=== PATIENT | male | born 1940 | race Caucasian/White ===

== ENCOUNTER → 2017-06-10 13:08 | Outpatient (CLI) | payer MEDICARE, SELFPAY ==
--- NOTE | 2017-06-10 14:03 | RAD_ITS ---
STUDY: X-RAY - LUMBAR SPINE REASON FOR EXAM: Male, 77 years old. Low back pain TECHNIQUE: 2 view(s) of the lumbar spine were obtained. COMPARISON: None FINDINGS: Normal lumbar lordosis. There is no substantial scoliosis. There is a normal alignment of the vertebrae. There is multilevel endplate spondylosis of the lumbar vertebrae. There is multi-level degenerative disc disease with multi-level disc space narrowing. There is no demonstrated fracture. There is atherosclerotic calcification of the abdominal aorta without a demonstrated aneurysm. RAD/Lumbar Spine 2 or 3 Views IMPRESSION: Degenerative changes of the spine, as detailed above. Electronically Signed: Sly Ortiz DO at 13:34 EDT Tel , Service support ,
== END ==
PROVIDERS: Family Provider Family Medicine Geriatric Medicine; PCP Family Medicine Geriatric Medicine; Visit Provider Family Medicine Geriatric Medicine
DX: M54.5 Low back pain (principal)
CPT/HCPCS: 72100

== ENCOUNTER → 2017-06-10 13:26 | Outpatient (CLI) | payer MEDICARE, SELFPAY ==
[2017-06-10 16:24] LABS: Absolute Lymphocyte Count 1.81 X10^3/ul (0.83-4.51); Absolute Neutrophil Count 3.8 X10^3/uL (2.0-7.7); Basophil# 0.03 X10^3/uL; Basophil% 0.5 % (0-1); Eosinophils% 1.5 % (0-5); Hematocrit 47.4 % (40-54); Hemoglobin 15.2 g/dl (13.0-16.5); Lymphocyte # 1.81 X10^3/ul (4.0); Mean Corp Hgb Conc 32.1 g/gl (32-36); Mean Corpuscular Hgb 31.2 pg (27.0-32.0); Mean Corpuscular Volume 97.3 fL (80-94); Mean Platelet Vol. 11.3 fl (6.2-12.0); Monocyte% 10.8 % (0-10); Neutrophil # 3.81 X10^3/uL (2.7-7.7); Platelet Count 198 K/mm3 (150-450); RBC Distribution Width CV 13.3 % (11.6-14.6); RBC Distribution Width SD 47.1 fl (35.1-43.9); Red Blood Count 4.87 M/mm3 (4.6-6.2); White Blood Count 6.5 K/mm3 (4.4-11.0)
[2017-06-10 16:25] LABS: POSITIVE COUNT NO; POSITIVE DIFFERENTIAL NO; POSITIVE MORPHOLOGY NO
[2017-06-10 16:42] LABS: ALB/GLOB Ratio 1.1 RATIO (0.9-2.4); AST(SGOT) 30 U/L (15-37); Alanine Aminotransfer ALT/SGPT 46 U/L (16-61); Albumin, Serum 3.6 g/dL (3.2-5.0); Alkaline Phosphatase 58 U/L (45-117); Anion Gap 8 (5-15); BUN 17 mg/dL (7-18); BUN/Creat Ratio 12.3 RATIO (10-20); Chloride 105 mmol/L (98-107); Creatinine, Serum 1.38 mg/dL (0.70-1.30); EST Glomerular Filtration Rate 53 mL/min (>60); Est Glom Filt Rate - Afr Amer 64 mL/min (>60); Globulin 3.4 g/dL (2.2-4.2); Glucose 80 mg/dL (74-106); Potassium 4.7 mmol/L (3.5-5.1); Sodium Level 142 mmol/L (136-145); Thyroid Stim Hormone (TSH) 1.21 uIU/mL (0.358-3.74)
== END ==
PROVIDERS: Family Provider Family Medicine Geriatric Medicine; PCP Family Medicine Geriatric Medicine; Visit Provider Family Medicine Geriatric Medicine
DX: E11.9 Type 2 diabetes mellitus without complications (principal); E55.9 Vitamin D deficiency, unspecified; I10 Essential (primary) hypertension
CPT/HCPCS: 36415; 72100; 80053; 82306; 84443; 85025

== ENCOUNTER → 2017-12-15 13:12 | Outpatient (CLI) | payer MEDICARE, SELFPAY ==
[2017-12-15 15:05] LABS: Absolute Neutrophil Count 3.9 X10^3/uL (2.0-7.7); Basophil# 0.03 X10^3/uL; Basophil% 0.4 % (0-1); Eosinophil# 0.15 X10^3/uL; Eosinophils% 2.2 % (0-5); Hematocrit 46.3 % (40-54); Hemoglobin 14.5 g/dl (13.0-16.5); Mean Corp Hgb Conc 31.3 g/gl (32-36); Mean Corpuscular Volume 98.9 fL (80-94); Mean Platelet Vol. 11.2 fl (6.2-12.0); Monocyte# 0.83 X10^3/uL; Monocyte% 12.2 % (0-10); Neutrophil # 3.86 X10^3/uL (2.7-7.7); Neutrophil % 57.1 % (47-70); POSITIVE COUNT NO; POSITIVE DIFFERENTIAL NO; POSITIVE MORPHOLOGY NO; Platelet Count 190 K/mm3 (150-450); RBC Distribution Width CV 13.3 % (11.6-14.6); RBC Distribution Width SD 48.1 fl (35.1-43.9); Red Blood Count 4.68 M/mm3 (4.6-6.2); White Blood Count 6.8 K/mm3 (4.4-11.0)
[2017-12-15 15:20] LABS: Vitamin D,25 Hydroxy 34.7 ng/mL (29.95-100.01)
[2017-12-15 15:23] LABS: ALB/GLOB Ratio 1.1 RATIO (0.9-2.4); AST(SGOT) 18 U/L (15-37); Alanine Aminotransfer ALT/SGPT 26 U/L (16-61); Albumin, Serum 3.4 g/dL (3.2-5.0); Alkaline Phosphatase 51 U/L (45-117); Anion Gap 5 (5-15); BUN 21 mg/dL (7-18); BUN/Creat Ratio 13.8 RATIO (10-20); Calcium,Total 8.8 mg/dL (8.5-10.1); Chloride 107 mmol/L (98-107); Creatinine, Serum 1.52 mg/dL (0.70-1.30); EST Glomerular Filtration Rate 48 mL/min (>60); Est Glom Filt Rate - Afr Amer 58 mL/min (>60); Globulin 3.1 g/dL (2.2-4.2); Glucose 97 mg/dL (74-106); Potassium 4.6 mmol/L (3.5-5.1); Protein, Total 6.5 g/dL (6.4-8.2); Sodium Level 143 mmol/L (136-145); Thyroid Stim Hormone (TSH) 1.37 uIU/mL (0.358-3.74)
== END ==
PROVIDERS: Family Provider Family Medicine Geriatric Medicine; PCP Family Medicine Geriatric Medicine; Visit Provider Family Medicine Geriatric Medicine
DX: E11.9 Type 2 diabetes mellitus without complications (principal); E55.9 Vitamin D deficiency, unspecified
CPT/HCPCS: 36415; 80053; 82306; 84443; 85025

== ENCOUNTER → 2018-04-27 12:46 | Outpatient (CLI) | payer MEDICARE, SELFPAY ==
[2018-04-19 13:35] VITALS: BMI 25.8
--- NOTE | 2018-04-27 12:52 | CDU_ITS ---
Reason For Study: Carotid stenosis Rt. Velocities/BP Lt. Velocities/BP Prox CCA 65.7/15.2 cm/sec. Prox CCA 83.8/15.8 cm/sec. Mid CCA 66.3/11.1 cm/sec. Mid CCA 117.0/19.9 cm/sec. Dist CCA 71.5/15.8 cm/sec. Dist CCA 150.0/29.9 cm/sec. Prox ICA 164.0/38.0 cm/sec. Prox ICA 108.0/29.1 cm/sec. Mid ICA 267.0/64.4 cm/sec. Mid ICA 80.9/21.7 cm/sec. Dist ICA 105.0/23.5 cm/sec. Dist ICA 90.3/21.1 cm/sec. Rt. ICA/CCA = 4.0. Lt. ICA/CCA = .92. Prox ECA 196.0/24.9 cm/sec. Prox ECA 183.0/15.7 cm/sec. Rt. Vert. 78.6/13.5 cm/sec. Lt. Vert. 35.8/16.4 cm/sec. Right Extracranial There is heterogeneous, irregular atherosclerotic plaque noted in the right common carotid artery. There is heterogeneous, irregular atherosclerotic plaque noted in the right internal carotid artery. The atherosclerotic plaque causes acoustic shadowing. There is heterogeneous, irregular atherosclerotic plaque noted in the right external carotid artery. Antegrade flow is noted in the right vertebral artery. Left Extracranial There is heterogeneous, irregular atherosclerotic plaque noted in the left common carotid artery. There is heterogeneous, irregular atherosclerotic plaque noted in the left internal carotid artery. There is heterogeneous, irregular atherosclerotic plaque noted in the left external carotid artery. Lt vertebral demonstrates bi-directional flow. Procedure Carotid Duplex [id number]. Exam performed in department. Interpretation Summary Irregular calcific plague right proximal internal and external carotids. >70% stenosis right internal carotid 50% stenosis right external carotid Irregular calcific plague left proximal internal and external carotids and distal common carotid. <50% stenosis right internal and external carotids Patent and antegrade vertebrals bilaterally Slight right internal carotid disease progression since 10/12/14 Ordering Physician: Roberta Cuba Referring Physician: Sammy Griffith Chi Performed By: Halima Carranza RVT
== END ==
PROVIDERS: Family Provider Family Medicine Geriatric Medicine; PCP Family Medicine Geriatric Medicine; Referring Provider Physician Assistant Medical; Visit Provider Physician Assistant Medical
DX: I65.23 Occlusion and stenosis of bilateral carotid arteries (principal)
CPT/HCPCS: 93880

== ENCOUNTER → 2018-05-24 12:58 | Outpatient (CLI) | payer MEDICARE, SELFPAY ==
[2018-04-19 13:35] VITALS: BMI 25.8
[2018-05-24 14:40] LABS: Absolute Neutrophil Count 4.1 X10^3/uL (2.0-7.7); Basophil# 0.03 X10^3/uL; Basophil% 0.4 % (0-1); Eosinophil# 0.14 X10^3/uL; Hematocrit 47.4 % (40-54); Hemoglobin 14.9 g/dl (13.0-16.5); Lymphocyte % 27.4 % (19-41); Mean Corp Hgb Conc 31.4 g/gl (32-36); Mean Corpuscular Hgb 30.8 pg (27.0-32.0); Mean Corpuscular Volume 97.9 fL (80-94); Monocyte% 11.5 % (0-10); Neutrophil # 4.05 X10^3/uL (2.7-7.7); Neutrophil % 58.6 % (47-70); Platelet Count 193 K/mm3 (150-450); RBC Distribution Width CV 13.5 % (11.6-14.6); RBC Distribution Width SD 48.1 fl (35.1-43.9); Red Blood Count 4.84 M/mm3 (4.6-6.2); White Blood Count 6.9 K/mm3 (4.4-11.0)
[2018-05-24 14:43] LABS: POSITIVE COUNT NO; POSITIVE DIFFERENTIAL NO; POSITIVE MORPHOLOGY NO
[2018-05-24 14:46] LABS: Vitamin D,25 Hydroxy 30.1 ng/mL (29.95-100.01)
[2018-05-24 14:53] LABS: ALB/GLOB Ratio 1.2 RATIO (0.9-2.4); AST(SGOT) 19 U/L (15-37); Alanine Aminotransfer ALT/SGPT 29 U/L (16-61); Albumin, Serum 3.6 g/dL (3.2-5.0); Alkaline Phosphatase 60 U/L (45-117); Anion Gap 5 (5-15); BUN 20 mg/dL (7-18); BUN/Creat Ratio 13.1 RATIO (10-20); Calcium,Total 8.7 mg/dL (8.5-10.1); Chloride 110 mmol/L (98-107); Creatinine, Serum 1.53 mg/dL (0.70-1.30); EST Glomerular Filtration Rate 47 mL/min (>60); Est Glom Filt Rate - Afr Amer 57 mL/min (>60); Globulin 3.1 g/dL (2.2-4.2); Glucose 94 mg/dL (74-106); Potassium 4.4 mmol/L (3.5-5.1); Protein, Total 6.7 g/dL (6.4-8.2); Sodium Level 145 mmol/L (136-145); Thyroid Stim Hormone (TSH) 1.51 uIU/mL (0.358-3.74)
== END ==
PROVIDERS: Family Provider Family Medicine Geriatric Medicine; PCP Family Medicine Geriatric Medicine; Visit Provider Family Medicine Geriatric Medicine
DX: E11.9 Type 2 diabetes mellitus without complications (principal); E55.9 Vitamin D deficiency, unspecified; I10 Essential (primary) hypertension
CPT/HCPCS: 36415; 80053; 82306; 84443; 85025

== ENCOUNTER → 2018-12-16 11:24 | Outpatient (CLI) | payer MEDICARE, SELFPAY ==
[2018-04-19 13:35] VITALS: BMI 25.8
[2018-12-16 12:53] LABS: Absolute Lymphocyte Count 1.61 X10^3/uL (0.83-4.51); Absolute Neutrophil Count 3.3 X10^3/uL (2.0-7.7); Basophil# 0.03 X10^3/uL; Basophil% 0.5 % (0-1); Eosinophil# 0.09 X10^3/uL; Eosinophils% 1.5 % (0-5); Hematocrit 49.5 % (40-54); Lymphocyte # 1.61 X10^3/ul (4.0); Lymphocyte % 27.5 % (19-41); Mean Corp Hgb Conc 32.3 g/dL (32-36); Mean Corpuscular Hgb 30.8 pg (27.0-32.0); Mean Corpuscular Volume 95.2 fL (80-94); Mean Platelet Vol. 10.4 fl (6.2-12.0); Monocyte# 0.78 X10^3/uL; Monocyte% 13.3 % (0-10); NRBC Flagged by Analyzer 0 % (0-5); Neutrophil # 3.33 X10^3/uL (2.7-7.7); Neutrophil % 56.9 % (47-70); Platelet Count 188 K/mm3 (150-450); RBC Distribution Width CV 12.8 % (11.6-14.6); White Blood Count 5.9 K/mm3 (4.4-11.0)
[2018-12-16 13:58] LABS: ALB/GLOB Ratio 1.1 RATIO (0.9-2.4); AST(SGOT) 17 U/L (15-37); Alanine Aminotransfer ALT/SGPT 21 U/L (16-61); Albumin, Serum 3.7 g/dL (3.2-5.0); Alkaline Phosphatase 63 U/L (45-117); Anion Gap 7 (5-15); BUN 29 mg/dL (7-18); BUN/Creat Ratio 15.5 RATIO (10-20); Calcium,Total 9.1 mg/dL (8.5-10.1); Chloride 105 mmol/L (98-107); Creatinine, Serum 1.87 mg/dL (0.70-1.30); EST Glomerular Filtration Rate 37 mL/min (>60); Est Glom Filt Rate - Afr Amer 45 mL/min (>60); Globulin 3.5 g/dL (2.2-4.2); Glucose 94 mg/dL (74-106); Potassium 4.7 mmol/L (3.5-5.1); Protein, Total 7.2 g/dL (6.4-8.2); Sodium Level 139 mmol/L (136-145)
== END ==
PROVIDERS: Family Provider Family Medicine Geriatric Medicine; PCP Family Medicine Geriatric Medicine; Visit Provider Family Medicine Geriatric Medicine
DX: E11.9 Type 2 diabetes mellitus without complications (principal); E55.9 Vitamin D deficiency, unspecified; I10 Essential (primary) hypertension
CPT/HCPCS: 36415; 80053; 82306; 84443; 85025

== ENCOUNTER → 2018-12-21 09:55 | Outpatient (CLI) | payer MEDICARE, SELFPAY ==
[2018-04-19 13:35] VITALS: BMI 25.8
--- NOTE | 2018-12-21 10:07 | MRI_ITS ---
STUDY: MRI LUMBAR SPINE WITHOUT CONTRAST REASON FOR EXAM: Male, 78 years old. Stenosis. Right leg and foot pain. TECHNIQUE: Standardized fat and water weighted pulse sequences were obtained in the sagittal and axial planes. COMPARISON: June 10, 2017. FINDINGS: Lumbar lordosis preserved. No significant scoliosis. Conus medullaris terminates normally at the L1 level. No acute fracture, dislocation or osseous destruction. T12-L1: Mild endplate spondylosis. Disc height loss with desiccation. Normal bilateral facet joints. Normal central canal and bilateral lateral recesses. Normal bilateral intervertebral neural foramina. L1-2: Mild endplate spondylosis. Disc height loss with mild desiccation. Normal bilateral facet joints. Normal bilateral lateral recesses. Normal bilateral intervertebral neural foramina. L2-3: Mild endplate spondylosis. Disc bulge with minimal central canal narrowing. Facet joint arthrosis. Normal bilateral lateral recesses. Normal bilateral intervertebral neural foramina. L3-4: Mild endplate spondylosis. Disc bulge with minimal central canal narrowing. Facet joint arthrosis. Normal bilateral lateral recesses. Neural foraminal narrowing without impingement. L4-5: Mild endplate spondylosis. Disc bulge with mild central canal. Facet joint arthrosis. Bilateral lateral recess narrowing without impingement. Neural foraminal narrowing without impingement. L5-S1: Mild endplate spondylosis. Shallow disc bulge, annular fissure, without central canal narrowing. Facet joint arthrosis. Normal central canal and bilateral lateral recesses. Neural foraminal narrowing without impingement. Sacrum intact. Normal paraspinal muscles. Normal aorta. Bilateral renal parenchymal thinning. MRI/Spine Lumbar (Routine) IMPRESSION: Multilevel intervertebral disc disease with central canal narrowing predominating at L4-5 Bilateral lateral recess narrowing without impingement at L4-5 Multilevel neuroforaminal narrowing without impingement Mild lumbar spine osteoarthritis Electronically Signed: Vincenzo Zuluaga DO at 11:46 EDT Tel , Service support ,
== END ==
PROVIDERS: Family Provider Family Medicine Geriatric Medicine; PCP Family Medicine Geriatric Medicine; Referring Provider Family Medicine Geriatric Medicine; Visit Provider Family Medicine Geriatric Medicine
DX: M48.061 Spinal stenosis, lumbar region without neurogenic claudication (principal)
CPT/HCPCS: 72148

== ENCOUNTER → 2019-06-16 12:10 | Outpatient (CLI) | payer MEDICARE, SELFPAY ==
[2019-05-06 07:32] VITALS: BMI 28.8
[2019-06-16 12:48] LABS: Absolute Lymphocyte Count 2.18 X10^3/uL (0.83-4.51); Basophil# 0.03 X10^3/uL; Basophil% 0.5 % (0-1); Eosinophil# 0.09 X10^3/uL; Eosinophils% 1.5 % (0-5); Hematocrit 50.7 % (40-54); Lymphocyte # 2.18 X10^3/ul (4.0); Lymphocyte % 35.2 % (19-41); Mean Corp Hgb Conc 31.6 g/dL (32-36); Mean Corpuscular Hgb 31.2 pg (27.0-32.0); Mean Corpuscular Volume 98.8 fL (80-94); Mean Platelet Vol. 10.2 fl (6.2-12.0); Monocyte# 0.82 X10^3/uL; Monocyte% 13.2 % (0-10); NRBC Flagged by Analyzer 0 % (0-5); Neutrophil # 3.04 X10^3/uL (2.7-7.7); Neutrophil % 49.1 % (47-70); Platelet Count 183 K/mm3 (150-450); RBC Distribution Width CV 12.9 % (11.6-14.6); RBC Distribution Width SD 47.1 fl (35.1-43.9); Red Blood Count 5.13 M/mm3 (4.6-6.2); White Blood Count 6.2 K/mm3 (4.4-11.0)
[2019-06-16 13:19] LABS: Vitamin D,25 Hydroxy 23.1 ng/mL
[2019-06-16 13:27] LABS: ALB/GLOB Ratio 1.1 RATIO (0.9-2.4); AST(SGOT) 21 U/L (15-37); Alanine Aminotransfer ALT/SGPT 26 U/L (16-61); Albumin, Serum 3.7 g/dL (3.2-5.0); Alkaline Phosphatase 56 U/L (45-117); Anion Gap 4 (5-15); BUN 27 mg/dL (7-18); BUN/Creat Ratio 15.4 RATIO (10-20); Calcium,Total 9.1 mg/dL (8.5-10.1); Chloride 106 mmol/L (98-107); Creatinine, Serum 1.75 mg/dL (0.70-1.30); EST Glomerular Filtration Rate 40 mL/min (>60); Est Glom Filt Rate - Afr Amer 49 mL/min (>60); Globulin 3.3 g/dL (2.2-4.2); Glucose 97 mg/dL (74-106); Potassium 5.2 mmol/L (3.5-5.1); Sodium Level 139 mmol/L (136-145); Thyroid Stim Hormone (TSH) 0.83 uIU/mL (0.358-3.74)
== END ==
PROVIDERS: PCP Family Medicine Geriatric Medicine; Referring Provider Family Medicine Geriatric Medicine; Visit Provider Family Medicine Geriatric Medicine
DX: I10 Essential (primary) hypertension (principal); E11.9 Type 2 diabetes mellitus without complications; E55.9 Vitamin D deficiency, unspecified
CPT/HCPCS: 36415; 80053; 82306; 84443; 85025

== ENCOUNTER → 2019-06-18 07:02 | Outpatient (CLI) | payer MEDICARE, SELFPAY ==
[2019-05-06 07:32] VITALS: BMI 28.8
[2019-06-18 07:35] LABS: Anion Gap 6 (5-15); BUN 31 mg/dL (7-18); Calcium,Total 9.2 mg/dL (8.5-10.1); Chloride 108 mmol/L (98-107); Creatinine, Serum 1.72 mg/dL (0.70-1.30); EST Glomerular Filtration Rate 41 mL/min (>60); Est Glom Filt Rate - Afr Amer 50 mL/min (>60); Glucose 97 mg/dL (74-106); Potassium 3.9 mmol/L (3.5-5.1); Sodium Level 142 mmol/L (136-145)
== END ==
PROVIDERS: PCP Family Medicine Geriatric Medicine; Referring Provider Family Medicine Geriatric Medicine; Visit Provider Family Medicine Geriatric Medicine
DX: I10 Essential (primary) hypertension (principal)
CPT/HCPCS: 36415; 80048

== ENCOUNTER → 2019-06-24 13:09 | Outpatient (CLI) | payer MEDICARE, SELFPAY ==
[2019-05-06 07:32] VITALS: BMI 28.8
--- NOTE | 2019-06-24 13:11 | US_ITS ---
STUDY: RENAL ULTRASOUND - COMPLETE REASON FOR EXAM: Male, 79 years old. Chronic kidney disease stage III. TECHNIQUE: Ultrasound evaluation of the kidneys was performed with real-time and static aguirre-scale imaging. COMPARISON: None. FINDINGS: RIGHT KIDNEY: Normal location of the right kidney, which is normal in size. The right kidney measures 11.5 cm. There is a normal cortex of the right kidney. The renal cortex measures 1.1 cm. There is no right renal mass or cyst. There are no right renal calculi. There is no right hydronephrosis. DISTAL RIGHT URETER: There is non-visualization of the distal right ureter. There is no demonstrated right ureterovesical junction calculus. There is a visualized right ureteral jet. LEFT KIDNEY: Normal location of the left kidney, which is normal in size. The left kidney measures 11.4 cm. There is a normal cortex of the left kidney. The renal cortex measures 2 cm. There is no left renal mass or cyst. There is a 7 mm calcification lower pole without hydronephrosis. DISTAL LEFT URETER: There is non-visualization of the distal left ureter. There is no demonstrated left ureterovesical junction calculus. There is a visualized left ureteral jet. BLADDER: The distended urinary bladder has a volume of 286 ml. There is a normal wall thickness of the distended urinary bladder. There is no demonstrated mass within the urinary bladder. There are no demonstrated bladder calculi. US/Kidney and Bladder IMPRESSION: 1. Nonobstructing left lower pole renal calculus. There is study is otherwise grossly normal. Electronically Signed: Tawanda Noriega DO at 18:45 EDT Tel [phone], Service support ,
== END ==
PROVIDERS: PCP Family Medicine Geriatric Medicine; Referring Provider Internal Medicine Nephrology; Visit Provider Internal Medicine Nephrology
DX: N18.3 Chronic kidney disease, stage 3 (moderate) (principal)
CPT/HCPCS: 76770

== ENCOUNTER → 2019-07-13 08:42 | Outpatient (CLI) | payer MEDICARE, SELFPAY ==
[2019-05-06 07:32] VITALS: BMI 28.8
[2019-07-13 08:51] LABS: Bacteria 0 SEEN /hpf (None Seen); Mucous, Urine 0 SEEN /hpf (<or=2+); Red Blood Cells-Urine 0 SEEN /hpf (0-5); Squamous Epithelial Cells - UA 0 SEEN /hpf (0-5); White Blood Cells 0 SEEN /hpf (0-5)
[2019-07-13 09:48] LABS: Protein, Urine (Random) 15.2 mg/dL (<11.9); Protein:Creat Ratio 148 mg/g CRE (0-200)
[2019-07-13 09:49] LABS: Color, Urine Yellow (Yellow); Glucose, Dipstick 100 mg/dl (Normal); Ketone-Dipstick Negative (Negative); Leukocyte Esterase-Dipstick Negative /ul (Negative); Nitrite-Dipstick Negative (Negative); Occult Blood-Urine 10 /ul (Negative); Protein-Dipstick Negative (Negative); Specific Gravity, Urine 1.015 (1.002-1.030); Urine Bilirubin Dipstick Negative (Negative); Urine Clarity Clear (Clear); Urine Urobilinogen Normal (Normal)
[2019-07-13 10:07] LABS: Albumin, Serum 3.6 g/dL (3.2-5.0); BUN 23 mg/dL (7-18); BUN/Creat Ratio 13.9 RATIO (10-20); Chloride 106 mmol/L (98-107); Creatinine, Serum 1.66 mg/dL (0.70-1.30); EST Glomerular Filtration Rate 43 mL/min (>60); Est Glom Filt Rate - Afr Amer 52 mL/min (>60); Glucose 94 mg/dL (74-106); Phosphorus 2.5 mg/dL (2.5-4.9); Sodium Level 141 mmol/L (136-145)
[2019-07-13 10:10] LABS: PTHIN 57.1 pg/mL (18.4-80.1)
== END ==
PROVIDERS: PCP Family Medicine Geriatric Medicine; Referring Provider Internal Medicine Nephrology; Visit Provider Internal Medicine Nephrology
DX: E11.22 Type 2 diabetes mellitus with diabetic chronic kidney disease (principal); N18.3 Chronic kidney disease, stage 3 (moderate)
CPT/HCPCS: 36415; 80069; 81001; 82570; 83970; 84156

== ENCOUNTER → 2019-07-14 12:32 | Outpatient (CLI) | payer MEDICARE, SELFPAY ==
[2019-05-06 07:32] VITALS: BMI 28.8
--- NOTE | 2019-07-14 12:33 | CDU_ITS ---
Reason For Study: carotid stenosis Rt. Velocities/BP Lt. Velocities/BP Prox CCA 85.2/12.1 cm/sec. Prox CCA 144.8/11.5 cm/sec. Mid CCA 96.9/14.7 cm/sec. Mid CCA 175.9/17.0 cm/sec. Dist CCA 109.9/14.7 cm/sec. Dist CCA 215.7/18.2 cm/sec. Prox ICA 187.3/34.5 cm/sec. Prox ICA 166.6/16.3 cm/sec. Mid ICA 291.4/44.3 cm/sec. Mid ICA 145.5/20.4 cm/sec. Dist ICA 191.7/26.8 cm/sec. Dist ICA 83.9/17.6 cm/sec. Rt. ICA/CCA = 3.0. Lt. ICA/CCA = .9. Prox ECA 295.4 cm/sec. Prox ECA 205.4/11.1 cm/sec. Rt. Vert. 72.9/12.4 cm/sec. Lt. Vert. 61.3/23.2 cm/sec. Right Extracranial There is heterogeneous, irregular atherosclerotic plaque noted in the right common carotid artery. There is heterogeneous, irregular atherosclerotic plaque noted in the right internal carotid artery. There is heterogeneous, irregular atherosclerotic plaque noted in the right external carotid artery. Antegrade flow is noted in the right vertebral artery. Left Extracranial There is heterogeneous, irregular atherosclerotic plaque noted in the left common carotid artery. There is heterogeneous, smooth atherosclerotic plaque noted in the left internal carotid artery. There is heterogeneous, irregular atherosclerotic plaque noted in the left external carotid artery. Bi-directional flow noted in the left vertebral artery. Procedure Carotid Duplex [id number]. The exam was diagnostic. Exam performed in department. Interpretation Summary Calcific plaque with shadowing right distal common carotid and right proximal internal and external carotid arteries >70% stenosis right internal carotid >50% stenosis right external carotid Calcific plaque with shadowing left distal common carotid and left proximal internal and external carotid arteries Elevated velocities throughout the left common carotid with double than normal velocity in the distal left common carotid artery 50-69% stenosis left internal carotid >50% stenosis left external carotid Patent, antegrade right vertebral Bidirectional flow left vertebral suggestive of pre subclavian steal. Velocities have increased on the right since April 27, 2018 without change in stenosis category. Degree of stenosis has progressed on the left. Ordering Physician: Roberta Cuba Performed By: Corbin Simon RVT
== END ==
PROVIDERS: PCP Family Medicine Geriatric Medicine; Referring Provider Physician Assistant Medical; Visit Provider Physician Assistant Medical
DX: I65.23 Occlusion and stenosis of bilateral carotid arteries (principal)
CPT/HCPCS: 93880

== ENCOUNTER → 2019-12-12 08:43 | Outpatient (CLI) | payer MEDICARE, SELFPAY ==
[2019-07-20 14:20] VITALS: BMI 28.8
[2019-12-12 09:25] LABS: Hematocrit 50.1 % (40-54); Hemoglobin 15.7 g/dL (13.0-16.5); Mean Corp Hgb Conc 31.3 g/dL (32-36); Mean Corpuscular Hgb 31.7 pg (27.0-32.0); Mean Corpuscular Volume 101.2 fL (80-94); Mean Platelet Vol. 10.2 fl (6.2-12.0); Platelet Count 185 K/mm3 (150-450); RBC Distribution Width CV 12.8 % (11.6-14.6); RBC Distribution Width SD 47.7 fl (35.1-43.9); Red Blood Count 4.95 M/mm3 (4.6-6.2); White Blood Count 5.3 K/mm3 (4.4-11.0)
[2019-12-12 10:24] LABS: Albumin, Serum 3.7 g/dL (3.2-5.0); BUN 30 mg/dL (7-18); BUN/Creat Ratio 17.8 RATIO (10-20); Chloride 107 mmol/L (98-107); Creatinine, Serum 1.69 mg/dL (0.70-1.30); EST Glomerular Filtration Rate 42 mL/min (>60); Est Glom Filt Rate - Afr Amer 51 mL/min (>60); Glucose 104 mg/dL (74-106); Phosphorus 3.1 mg/dL (2.5-4.9); Potassium 4.1 mmol/L (3.5-5.1); Sodium Level 141 mmol/L (136-145)
[2019-12-12 11:00] LABS: PTHIN 54.7 pg/mL (18.4-80.1)
== END ==
PROVIDERS: PCP Family Medicine Geriatric Medicine; Referring Provider Family Medicine Geriatric Medicine; Visit Provider Internal Medicine Nephrology
DX: N18.30 Chronic kidney disease, stage 3 unspecified (principal)
CPT/HCPCS: 36415; 80069; 83970; 85027

== ENCOUNTER → 2019-12-20 10:41 | Outpatient (CLI) | payer MEDICARE, SELFPAY ==
[2019-07-20 14:20] VITALS: BMI 28.8
[2019-12-20 12:47] LABS: Absolute Lymphocyte Count 1.41 X10^3/uL (0.83-4.51); Absolute Neutrophil Count 3.6 X10^3/uL (2.0-7.7); Basophil# 0.03 X10^3/uL; Basophil% 0.5 % (0-1); Eosinophil# 0.06 X10^3/uL; Hematocrit 50.5 % (40-54); Hemoglobin 15.8 g/dL (13.0-16.5); Lymphocyte # 1.41 X10^3/ul (4.0); Lymphocyte % 24.4 % (19-41); Mean Corp Hgb Conc 31.3 g/dL (32-36); Mean Corpuscular Hgb 31.7 pg (27.0-32.0); Mean Corpuscular Volume 101.4 fL (80-94); Mean Platelet Vol. 10.6 fl (6.2-12.0); Monocyte# 0.64 X10^3/uL; Monocyte% 11.1 % (0-10); NRBC Flagged by Analyzer 0 % (0-5); Neutrophil # 3.61 X10^3/uL (2.7-7.7); Neutrophil % 62.7 % (47-70); Platelet Count 195 K/mm3 (150-450); RBC Distribution Width CV 12.9 % (11.6-14.6); RBC Distribution Width SD 48.7 fl (35.1-43.9); Red Blood Count 4.98 M/mm3 (4.6-6.2); White Blood Count 5.8 K/mm3 (4.4-11.0)
[2019-12-20 12:57] LABS: Vitamin D,25 Hydroxy 24.1 ng/mL
[2019-12-20 13:38] LABS: ALB/GLOB Ratio 1.1 RATIO (0.9-2.4); AST(SGOT) 14 U/L (15-37); Alanine Aminotransfer ALT/SGPT 20 U/L (16-61); Albumin, Serum 3.7 g/dL (3.2-5.0); Alkaline Phosphatase 57 U/L (45-117); Anion Gap 6 (5-15); BUN 20 mg/dL (7-18); BUN/Creat Ratio 11.5 RATIO (10-20); Calcium,Total 9.3 mg/dL (8.5-10.1); Chloride 107 mmol/L (98-107); Creatinine, Serum 1.74 mg/dL (0.70-1.30); EST Glomerular Filtration Rate 41 mL/min (>60); Est Glom Filt Rate - Afr Amer 49 mL/min (>60); Globulin 3.4 g/dL (2.2-4.2); Glucose 131 mg/dL (74-106); Potassium 4.2 mmol/L (3.5-5.1); Protein, Total 7.1 g/dL (6.4-8.2); Sodium Level 140 mmol/L (136-145); Thyroid Stim Hormone (TSH) 1.04 uIU/mL (0.358-3.74)
== END ==
PROVIDERS: PCP Family Medicine Geriatric Medicine; Visit Provider Family Medicine Geriatric Medicine
DX: E55.9 Vitamin D deficiency, unspecified (principal); I10 Essential (primary) hypertension
CPT/HCPCS: 36415; 80053; 82306; 84443; 85025

== ENCOUNTER → 2020-06-19 08:04 | Outpatient (CLI) | payer MEDICARE, SELFPAY ==
[2019-07-20 14:20] VITALS: BMI 28.8
[2020-06-19 09:05] LABS: BUN 29 mg/dL (7-18); BUN/Creat Ratio 19.1 RATIO (10-20); Calcium,Total 9.3 mg/dL (8.5-10.1); Chloride 107 mmol/L (98-107); Creatinine, Serum 1.52 mg/dL (0.70-1.30); EST Glomerular Filtration Rate 47 mL/min (>60); Est Glom Filt Rate - Afr Amer 57 mL/min (>60); Glucose 103 mg/dL (74-106); Phosphorus 3.1 mg/dL (2.5-4.9); Potassium 3.9 mmol/L (3.5-5.1); Sodium Level 140 mmol/L (136-145)
[2020-06-19 09:18] LABS: PTHIN 42.9 pg/mL (18.4-80.1)
[2020-06-19 09:32] LABS: Protein, Urine (Random) 17.6 mg/dL (<11.9); Protein:Creat Ratio 173 mg/g CRE (0-200)
== END ==
PROVIDERS: PCP Family Medicine Geriatric Medicine; Referring Provider Internal Medicine Nephrology; Visit Provider Internal Medicine Nephrology
DX: N18.32 Chronic kidney disease, stage 3b (principal); E11.9 Type 2 diabetes mellitus without complications
CPT/HCPCS: 36415; 80069; 82570; 83970; 84156

== ENCOUNTER → 2020-06-26 11:26 | Outpatient (CLI) | payer MEDICARE, SELFPAY ==
[2019-07-20 14:20] VITALS: BMI 28.8
[2020-06-26 12:34] LABS: Absolute Lymphocyte Count 1.86 X10^3/uL (0.83-4.51); Absolute Neutrophil Count 3.2 X10^3/uL (2.0-7.7); Basophil# 0.04 X10^3/uL; Basophil% 0.7 % (0-1); Eosinophil# 0.06 X10^3/uL; Hematocrit 47.7 % (40-54); Hemoglobin 15.2 g/dL (13.0-16.5); Lymphocyte # 1.86 X10^3/ul (0.83-4.51); Lymphocyte % 31.7 % (19-41); Mean Corp Hgb Conc 31.9 g/dL (32-36); Mean Corpuscular Hgb 31.6 pg (27.0-32.0); Mean Corpuscular Volume 99.2 fL (80-94); Mean Platelet Vol. 10.4 fl (6.2-12.0); Monocyte# 0.65 X10^3/uL; Monocyte% 11.1 % (0-10); NRBC Flagged by Analyzer 0 % (0-5); Neutrophil # 3.24 X10^3/uL (2.7-7.7); Neutrophil % 55.2 % (47-70); Platelet Count 204 K/mm3 (150-450); RBC Distribution Width CV 12.5 % (11.6-14.6); RBC Distribution Width SD 46.2 fl (35.1-43.9); Red Blood Count 4.81 M/mm3 (4.6-6.2); White Blood Count 5.9 K/mm3 (4.4-11.0)
[2020-06-26 12:52] LABS: Vitamin D,25 Hydroxy 33.6 ng/mL
[2020-06-26 12:59] LABS: ALB/GLOB Ratio 1.3 RATIO (0.9-2.4); AST(SGOT) 14 U/L (15-37); Alanine Aminotransfer ALT/SGPT 21 U/L (16-61); Alkaline Phosphatase 54 U/L (45-117); Anion Gap 3 (5-15); BUN 25 mg/dL (7-18); BUN/Creat Ratio 14.9 RATIO (10-20); Calcium,Total 9.2 mg/dL (8.5-10.1); Chloride 105 mmol/L (98-107); Creatinine, Serum 1.68 mg/dL (0.70-1.30); EST Glomerular Filtration Rate 42 mL/min (>60); Est Glom Filt Rate - Afr Amer 51 mL/min (>60); Glucose 103 mg/dL (74-106); Potassium 4.8 mmol/L (3.5-5.1); Sodium Level 138 mmol/L (136-145); Thyroid Stim Hormone (TSH) 1.44 uIU/mL (0.358-3.74)
[2020-06-26 23:55] LABS: Platelet Estimate ADEQUATE (ADEQ)
== END ==
PROVIDERS: PCP Family Medicine Geriatric Medicine; Visit Provider Family Medicine Geriatric Medicine
DX: E55.9 Vitamin D deficiency, unspecified (principal); E11.9 Type 2 diabetes mellitus without complications; I10 Essential (primary) hypertension
CPT/HCPCS: 36415; 80053; 82306; 84443; 85025

== ENCOUNTER → 2020-11-23 12:42 | Outpatient (CLI) | payer MEDICARE, SELFPAY ==
--- NOTE | 2020-11-23 12:51 | CDU_ITS ---
Reason For Study: Carotid Stenosis Rt. Velocities/BP Lt. Velocities/BP Prox CCA 71/11 cm/sec. Prox CCA 87/16 cm/sec. Mid CCA 68/13 cm/sec. Mid CCA 147/26 cm/sec. Dist CCA 75/10 cm/sec. Dist CCA 207/25 cm/sec. Prox ICA 231/31 cm/sec. Prox ICA 168/23 cm/sec. Mid ICA 254/41 cm/sec. Mid ICA 81/22 cm/sec. Dist ICA 129/19 cm/sec. Dist ICA 94/28 cm/sec. Rt. ICA/CCA = 3.8. Lt. ICA/CCA = 1.14. Prox ECA 267/12 cm/sec. Prox ECA 175 cm/sec. Rt. Vert. 83/16 cm/sec. Lt. Vert. 59/21 cm/sec. Right Extracranial There is heterogeneous, irregular atherosclerotic plaque noted in the right common carotid artery. There is heterogeneous, irregular atherosclerotic plaque noted in the right internal carotid artery. There is heterogeneous, irregular atherosclerotic plaque noted in the right external carotid artery. Antegrade flow is noted in the right vertebral artery. Left Extracranial There is heterogeneous, irregular atherosclerotic plaque noted in the left common carotid artery. There is heterogeneous, irregular atherosclerotic plaque noted in the left internal carotid artery. There is heterogeneous, irregular atherosclerotic plaque noted in the left external carotid artery. Presteal waveform noted Lt Vert A. Procedure Carotid Duplex [id number]. This is a Carotid Duplex examination using B-mode, color flow and specral Doppler. Exam performed in department. VL/Carotid Duplex Ultrasound Interpretation Summary Irregular extensive calcific plaque with shadowing proximal right internal [place] artery with greater than 70% stenosis Greater than 70% stenosis right external carotid artery Plaque with increased velocity throughout the left mid and distal common caroti d artery Lesser amount of calcific plaque with shadowing left proximal internal carotid artery with 50 to 69% stenosis of the left internal carotid artery Less than 50% stenosis left external carotid artery Patent and antegrade vertebral arteries bilaterally No change from the previous examination of July 14, 2019 Ordering Physician: Yovani Marques Referring Physician: Sammy Griffith Chi Performed By: Elena Escalona, SYED, RVT
== END ==
PROVIDERS: PCP Family Medicine Geriatric Medicine; Referring Provider Surgery; Visit Provider Surgery
DX: I65.23 Occlusion and stenosis of bilateral carotid arteries (principal)
CPT/HCPCS: 93880

== ENCOUNTER → 2020-12-25 14:47 | Outpatient (CLI) | payer MEDICARE, SELFPAY ==
[2020-12-25 16:39] LABS: Absolute Lymphocyte Count 1.58 X10^3/uL (0.83-4.51); Absolute Neutrophil Count 3.7 X10^3/uL (2.0-7.7); Basophil# 0.03 X10^3/uL; Basophil% 0.5 % (0-1); Eosinophil# 0.08 X10^3/uL; Eosinophils% 1.3 % (0-5); Hemoglobin 15.8 g/dL (13.0-16.5); Lymphocyte # 1.58 X10^3/ul (0.83-4.51); Lymphocyte % 26.1 % (19-41); Mean Corp Hgb Conc 31.6 g/dL (32-36); Mean Corpuscular Hgb 31.3 pg (27.0-32.0); Mean Corpuscular Volume 99.2 fL (80-94); Mean Platelet Vol. 10.8 fl (6.2-12.0); Monocyte# 0.64 X10^3/uL; Monocyte% 10.6 % (0-10); NRBC Flagged by Analyzer 0 % (0-5); Neutrophil # 3.73 X10^3/uL (2.7-7.7); Neutrophil % 61.5 % (47-70); Platelet Count 191 K/mm3 (150-450); RBC Distribution Width CV 12.2 % (11.6-14.6); Red Blood Count 5.04 M/mm3 (4.6-6.2); White Blood Count 6.1 K/mm3 (4.4-11.0)
[2020-12-25 16:54] LABS: Vitamin D,25 Hydroxy 35.2 ng/mL
[2020-12-25 16:58] LABS: ALB/GLOB Ratio 1.1 RATIO (0.9-2.4); AST(SGOT) 14 U/L (15-37); Alanine Aminotransfer ALT/SGPT 19 U/L (16-61); Albumin, Serum 3.7 g/dL (3.2-5.0); Alkaline Phosphatase 67 U/L (45-117); Anion Gap 4 (5-15); BUN 18 mg/dL (7-18); BUN/Creat Ratio 12.2 RATIO (10-20); Calcium,Total 9.1 mg/dL (8.5-10.1); Chloride 106 mmol/L (98-107); Creatinine, Serum 1.47 mg/dL (0.70-1.30); EST Glomerular Filtration Rate 49 mL/min (>60); Est Glom Filt Rate - Afr Amer 59 mL/min (>60); Globulin 3.5 g/dL (2.2-4.2); Glucose 97 mg/dL (74-106); Potassium 4.3 mmol/L (3.5-5.1); Protein, Total 7.2 g/dL (6.4-8.2); Sodium Level 139 mmol/L (136-145); Thyroid Stim Hormone (TSH) 1.37 uIU/mL (0.358-3.74)
== END ==
PROVIDERS: PCP Family Medicine Geriatric Medicine; Visit Provider Family Medicine Geriatric Medicine
DX: E11.9 Type 2 diabetes mellitus without complications (principal); E55.9 Vitamin D deficiency, unspecified; I10 Essential (primary) hypertension
CPT/HCPCS: 36415; 80053; 82306; 84443; 85025

== ENCOUNTER → 2021-02-11 09:07 | Outpatient (CLI) | payer MEDICARE, SELFPAY ==
[2021-02-11 10:15] LABS: Hematocrit 51.3 % (40-54); Hemoglobin 16.1 g/dL (13.0-16.5); Mean Corp Hgb Conc 31.4 g/dL (32-36); Mean Corpuscular Hgb 30.5 pg (27.0-32.0); Mean Corpuscular Volume 97.2 fL (80-94); Mean Platelet Vol. 10.3 fl (6.2-12.0); Platelet Count 188 K/mm3 (150-450); RBC Distribution Width CV 12.3 % (11.6-14.6); RBC Distribution Width SD 44.8 fl (35.1-43.9); Red Blood Count 5.28 M/mm3 (4.6-6.2); White Blood Count 5.2 K/mm3 (4.4-11.0)
[2021-02-11 10:37] LABS: Albumin, Serum 3.6 g/dL (3.2-5.0); BUN 16 mg/dL (7-18); BUN/Creat Ratio 10.9 RATIO (10-20); Chloride 105 mmol/L (98-107); Creatinine, Serum 1.47 mg/dL (0.70-1.30); EST Glomerular Filtration Rate 49 mL/min (>60); Est Glom Filt Rate - Afr Amer 59 mL/min (>60); Glucose 109 mg/dL (74-106); Phosphorus 2.7 mg/dL (2.5-4.9); Potassium 4.5 mmol/L (3.5-5.1); Sodium Level 140 mmol/L (136-145)
== END ==
PROVIDERS: PCP Family Medicine Geriatric Medicine; Referring Provider Internal Medicine Nephrology; Visit Provider Internal Medicine Nephrology
DX: N18.32 Chronic kidney disease, stage 3b (principal)
CPT/HCPCS: 36415; 80069; 85027

== ENCOUNTER → 2021-07-17 | Outpatient (CLI) | payer MEDICARE, SELFPAY ==
[2021-07-17 17:17] LABS: Absolute Lymphocyte Count 1.82 X10^3/uL (0.83-4.51); Absolute Neutrophil Count 3.6 X10^3/uL (2.0-7.7); Basophil# 0.04 X10^3/uL; Basophil% 0.6 % (0-1); Eosinophil# 0.08 X10^3/uL; Eosinophils% 1.3 % (0-5); Hematocrit 49.7 % (40-54); Hemoglobin 15.7 g/dL (13.0-16.5); Lymphocyte # 1.82 X10^3/ul (0.83-4.51); Mean Corp Hgb Conc 31.6 g/dL (32-36); Mean Corpuscular Hgb 31.2 pg (27.0-32.0); Mean Corpuscular Volume 98.6 fL (80-94); Mean Platelet Vol. 10.6 fl (6.2-12.0); Monocyte% 11.2 % (0-10); NRBC Flagged by Analyzer 0 % (0-5); Neutrophil # 3.62 X10^3/uL (2.7-7.7); Neutrophil % 57.7 % (47-70); Platelet Count 178 K/mm3 (150-450); RBC Distribution Width CV 13.2 % (11.6-14.6); RBC Distribution Width SD 47.9 fl (35.1-43.9); Red Blood Count 5.04 M/mm3 (4.6-6.2); White Blood Count 6.3 K/mm3 (4.4-11.0)
[2021-07-17 17:39] LABS: ALB/GLOB Ratio 1.1 RATIO (0.9-2.4); AST(SGOT) 13 U/L (15-37); Alanine Aminotransfer ALT/SGPT 22 U/L (16-61); Albumin, Serum 3.6 g/dL (3.2-5.0); Alkaline Phosphatase 61 U/L (45-117); Anion Gap 5 (5-15); BUN 17 mg/dL (7-18); Calcium,Total 8.8 mg/dL (8.5-10.1); Chloride 105 mmol/L (98-107); Creatinine, Serum 1.42 mg/dL (0.70-1.30); EST Glomerular Filtration Rate 51 mL/min (>60); Est Glom Filt Rate - Afr Amer 62 mL/min (>60); Globulin 3.3 g/dL (2.2-4.2); Glucose 111 mg/dL (74-106); Potassium 4.2 mmol/L (3.5-5.1); Protein, Total 6.9 g/dL (6.4-8.2); Sodium Level 139 mmol/L (136-145); Thyroid Stim Hormone (TSH) 1.29 uIU/mL (0.358-3.74)
== END | disposition home or self-care (01) ==
LOC: POLAB3 14:47
PROVIDERS: PCP Family Medicine Geriatric Medicine; Visit Provider Family Medicine Geriatric Medicine
DX: E55.9 Vitamin D deficiency, unspecified (principal); E11.9 Type 2 diabetes mellitus without complications; I10 Essential (primary) hypertension
CPT/HCPCS: 36415; 80053; 82306; 84443; 85025

== ENCOUNTER → 2021-09-09 | Outpatient (CLI) | payer MEDICARE, SELFPAY ==
[2021-09-09 08:37] LABS: Protein, Urine (Random) 9.5 mg/dL (<11.9); Protein:Creat Ratio 184 mg/g CRE (0-200)
[2021-09-09 09:05] LABS: Albumin, Serum 3.8 g/dL (3.2-5.0); BUN 17 mg/dL (7-18); Chloride 105 mmol/L (98-107); Creatinine, Serum 1.42 mg/dL (0.70-1.30); EST Glomerular Filtration Rate 51 mL/min (>60); Est Glom Filt Rate - Afr Amer 62 mL/min (>60); Glucose 97 mg/dL (74-106); Phosphorus 2.7 mg/dL (2.5-4.9); Potassium 3.6 mmol/L (3.5-5.1); Sodium Level 140 mmol/L (136-145)
== END | disposition home or self-care (01) ==
PROVIDERS: PCP Family Medicine Geriatric Medicine; Referring Provider Internal Medicine Nephrology; Visit Provider Internal Medicine Nephrology
DX: N18.32 Chronic kidney disease, stage 3b (principal); E11.9 Type 2 diabetes mellitus without complications
CPT/HCPCS: 36415; 80069; 82570; 84156

== ENCOUNTER → 2022-01-27 | Outpatient (CLI) | payer MEDICARE, SELFPAY ==
[2022-01-27 17:15] LABS: Absolute Lymphocyte Count 1.78 X10^3/uL (0.83-4.51); Absolute Neutrophil Count 4.2 X10^3/uL (2.0-7.7); Basophil# 0.04 X10^3/uL; Basophil% 0.6 % (0-1); Eosinophil# 0.05 X10^3/uL; Eosinophils% 0.7 % (0-5); Hematocrit 49.5 % (40-54); Hemoglobin 15.9 g/dL (13.0-16.5); Lymphocyte # 1.78 X10^3/ul (0.83-4.51); Lymphocyte % 26.4 % (19-41); Mean Corp Hgb Conc 32.1 g/dL (32-36); Mean Corpuscular Hgb 31.5 pg (27.0-32.0); Mean Corpuscular Volume 98.2 fL (80-94); Mean Platelet Vol. 10.5 fl (6.2-12.0); Monocyte# 0.67 X10^3/uL; NRBC Flagged by Analyzer 0 % (0-5); Neutrophil # 4.18 X10^3/uL (2.7-7.7); Neutrophil % 62.2 % (47-70); Platelet Count 186 K/mm3 (150-450); RBC Distribution Width CV 12.8 % (11.6-14.6); RBC Distribution Width SD 46.4 fl (35.1-43.9); Red Blood Count 5.04 M/mm3 (4.6-6.2); White Blood Count 6.7 K/mm3 (4.4-11.0)
[2022-01-27 17:55] LABS: Vitamin D,25 Hydroxy 50.2 ng/mL
[2022-01-27 18:02] LABS: ALB/GLOB Ratio 1.1 RATIO (0.9-2.4); AST(SGOT) 13 U/L (15-37); Alanine Aminotransfer ALT/SGPT 20 U/L (16-61); Albumin, Serum 3.9 g/dL (3.2-5.0); Alkaline Phosphatase 60 U/L (45-117); Anion Gap 3 (5-15); BUN 19 mg/dL (7-18); BUN/Creat Ratio 14.3 RATIO (10-20); Calcium,Total 9.5 mg/dL (8.5-10.1); Chloride 105 mmol/L (98-107); Creatinine, Serum 1.33 mg/dL (0.70-1.30); EST Glomerular Filtration Rate 55 mL/min (>60); Est Glom Filt Rate - Afr Amer 66 mL/min (>60); Globulin 3.4 g/dL (2.2-4.2); Glucose 87 mg/dL (74-106); Potassium 4.2 mmol/L (3.5-5.1); Protein, Total 7.3 g/dL (6.4-8.2); Sodium Level 141 mmol/L (136-145); Thyroid Stim Hormone (TSH) 1.51 uIU/mL (0.358-3.74)
== END | disposition home or self-care (01) ==
LOC: POLAB3 13:17
PROVIDERS: PCP Family Medicine Geriatric Medicine; Visit Provider Family Medicine Geriatric Medicine
DX: E55.9 Vitamin D deficiency, unspecified (principal); I10 Essential (primary) hypertension
CPT/HCPCS: 36415; 80053; 82306; 84443; 85025

== ENCOUNTER → 2022-07-29 | Outpatient (CLI) | payer MEDICARE, SELFPAY ==
[2022-07-29 12:20] LABS: Absolute Lymphocyte Count 2.06 X10^3/uL (0.83-4.51); Absolute Neutrophil Count 2.9 X10^3/uL (2.0-7.7); Basophil# 0.04 X10^3/uL; Basophil% 0.7 % (0-1); Eosinophils% 1.7 % (0-5); Hematocrit 50.4 % (40-54); Hemoglobin 15.9 g/dL (13.0-16.5); Lymphocyte # 2.06 X10^3/ul (0.83-4.51); Lymphocyte % 35.7 % (19-41); Mean Corp Hgb Conc 31.5 g/dL (32-36); Mean Corpuscular Hgb 31.7 pg (27.0-32.0); Mean Corpuscular Volume 100.4 fL (80-94); Mean Platelet Vol. 10.6 fl (6.2-12.0); Monocyte# 0.62 X10^3/uL; Monocyte% 10.7 % (0-10); NRBC Flagged by Analyzer 0 % (0-5); Neutrophil # 2.94 X10^3/uL (2.7-7.7); Platelet Count 176 K/mm3 (150-450); RBC Distribution Width SD 48.8 fl (35.1-43.9); Red Blood Count 5.02 M/mm3 (4.6-6.2); White Blood Count 5.8 K/mm3 (4.4-11.0)
[2022-07-29 12:54] LABS: Vitamin D,25 Hydroxy 44.8 ng/mL
[2022-07-29 13:11] LABS: ALB/GLOB Ratio 1.2 RATIO (0.9-2.4); AST(SGOT) 17 U/L (15-37); Alanine Aminotransfer ALT/SGPT 21 U/L (16-61); Albumin, Serum 3.8 g/dL (3.2-5.0); Alkaline Phosphatase 59 U/L (45-117); Anion Gap 5 (5-15); BUN 19 mg/dL (7-18); BUN/Creat Ratio 14.7 RATIO (10-20); Calcium,Total 8.8 mg/dL (8.5-10.1); Chloride 107 mmol/L (98-107); Creatinine, Serum 1.29 mg/dL (0.70-1.30); EST Glomerular Filtration Rate 57 mL/min (>60); Est Glom Filt Rate - Afr Amer 69 mL/min (>60); Globulin 3.3 g/dL (2.2-4.2); Glucose 99 mg/dL (74-106); Potassium 3.9 mmol/L (3.5-5.1); Protein, Total 7.1 g/dL (6.4-8.2); Sodium Level 141 mmol/L (136-145); Thyroid Stim Hormone (TSH) 1.94 uIU/mL (0.358-3.74)
== END | disposition home or self-care (01) ==
PROVIDERS: PCP Family Medicine Geriatric Medicine; Referring Provider Family Medicine Geriatric Medicine; Visit Provider Family Medicine Geriatric Medicine
DX: I10 Essential (primary) hypertension (principal); E55.9 Vitamin D deficiency, unspecified
CPT/HCPCS: 36415; 80053; 82306; 84443; 85025

== ENCOUNTER → 2022-09-08 | Outpatient (CLI) | payer MEDICARE, SELFPAY ==
[2022-09-08 10:23] LABS: Protein, Urine (Random) 23.5 mg/dL (<11.9); Protein:Creat Ratio 204 mg/g CRE (0-200)
[2022-09-08 11:06] LABS: Albumin, Serum 3.6 g/dL (3.2-5.0); BUN 14 mg/dL (7-18); BUN/Creat Ratio 10.7 RATIO (10-20); Chloride 108 mmol/L (98-107); Creatinine, Serum 1.31 mg/dL (0.70-1.30); EST Glomerular Filtration Rate 56 mL/min (>60); Est Glom Filt Rate - Afr Amer 68 mL/min (>60); Glucose 99 mg/dL (74-106); Phosphorus 2.6 mg/dL (2.5-4.9); Potassium 3.8 mmol/L (3.5-5.1); Sodium Level 139 mmol/L (136-145)
== END | disposition home or self-care (01) ==
LOC: LAB 09:14
PROVIDERS: PCP Family Medicine Geriatric Medicine; Referring Provider Internal Medicine Nephrology; Visit Provider Internal Medicine Nephrology
DX: E11.22 Type 2 diabetes mellitus with diabetic chronic kidney disease (principal); N18.32 Chronic kidney disease, stage 3b
CPT/HCPCS: 36415; 80069; 82570; 84156

== ENCOUNTER → 2023-01-28 | Outpatient (CLI) | payer MEDICARE, SELFPAY ==
[2023-01-28 13:49] LABS: Absolute Lymphocyte Count 1.68 X10^3/uL (0.83-4.51); Absolute Neutrophil Count 3.9 X10^3/uL (2.0-7.7); Basophil# 0.04 X10^3/uL; Basophil% 0.6 % (0-1); Eosinophil# 0.07 X10^3/uL; Eosinophils% 1.1 % (0-5); Hematocrit 51.3 % (40-54); Hemoglobin 16.1 g/dL (13.0-16.5); Lymphocyte # 1.68 X10^3/ul (0.83-4.51); Lymphocyte % 26.4 % (19-41); Mean Corp Hgb Conc 31.4 g/dL (32-36); Mean Corpuscular Hgb 31.4 pg (27.0-32.0); Mean Platelet Vol. 10.2 fl (6.2-12.0); Monocyte# 0.65 X10^3/uL; Monocyte% 10.2 % (0-10); NRBC Flagged by Analyzer 0 % (0-5); Neutrophil # 3.91 X10^3/uL (2.7-7.7); Neutrophil % 61.5 % (47-70); Platelet Count 195 K/mm3 (150-450); RBC Distribution Width CV 12.8 % (11.6-14.6); RBC Distribution Width SD 47.7 fl (35.1-43.9); Red Blood Count 5.13 M/mm3 (4.6-6.2); White Blood Count 6.4 K/mm3 (4.4-11.0)
[2023-01-28 14:10] LABS: ALB/GLOB Ratio 1.1 RATIO (0.9-2.4); AST(SGOT) 15 U/L (15-37); Alanine Aminotransfer ALT/SGPT 23 U/L (16-61); Albumin, Serum 3.7 g/dL (3.2-5.0); Alkaline Phosphatase 65 U/L (45-117); Anion Gap 3 (5-15); BUN 19 mg/dL (7-18); BUN/Creat Ratio 12.4 RATIO (10-20); Chloride 107 mmol/L (98-107); Creatinine, Serum 1.53 mg/dL (0.70-1.30); EST Glomerular Filtration Rate 47 mL/min (>60); Est Glom Filt Rate - Afr Amer 56 mL/min (>60); Globulin 3.5 g/dL (2.2-4.2); Glucose 93 mg/dL (74-106); Potassium 4.5 mmol/L (3.5-5.1); Protein, Total 7.2 g/dL (6.4-8.2); Sodium Level 141 mmol/L (136-145); Thyroid Stim Hormone (TSH) 1.49 uIU/mL (0.358-3.74)
== END | disposition home or self-care (01) ==
LOC: POLAB3 13:02
PROVIDERS: PCP Family Medicine Geriatric Medicine; Visit Provider Family Medicine Geriatric Medicine
DX: I10 Essential (primary) hypertension (principal); E55.9 Vitamin D deficiency, unspecified
CPT/HCPCS: 36415; 80053; 82306; 84443; 85025

== ENCOUNTER → 2023-08-05 | Outpatient (CLI) | payer MEDICARE, SELFPAY ==
[2023-08-05 14:38] LABS: Absolute Lymphocyte Count 1.71 X10^3/uL (0.83-4.51); Basophil# 0.04 X10^3/uL; Basophil% 0.7 % (0-1); Eosinophil# 0.06 X10^3/uL; Eosinophils% 1.1 % (0-5); Hematocrit 49.2 % (40-54); Hemoglobin 15.6 g/dL (13.0-16.5); Lymphocyte # 1.71 X10^3/ul (0.83-4.51); Lymphocyte % 31.2 % (19-41); Mean Corp Hgb Conc 31.7 g/dL (32-36); Mean Corpuscular Hgb 31.3 pg (27.0-32.0); Mean Corpuscular Volume 98.6 fL (80-94); Mean Platelet Vol. 10.2 fl (6.2-12.0); Monocyte# 0.65 X10^3/uL; Monocyte% 11.9 % (0-10); NRBC Flagged by Analyzer 0 % (0-5); Neutrophil % 54.7 % (47-70); Platelet Count 189 K/mm3 (150-450); RBC Distribution Width CV 13.1 % (11.6-14.6); RBC Distribution Width SD 47.8 fl (35.1-43.9); Red Blood Count 4.99 M/mm3 (4.6-6.2); White Blood Count 5.5 K/mm3 (4.4-11.0)
[2023-08-05 15:11] LABS: ALB/GLOB Ratio 1.2 RATIO (0.9-2.4); AST(SGOT) 15 U/L (15-37); Alanine Aminotransfer ALT/SGPT 18 U/L (16-61); Albumin, Serum 3.8 g/dL (3.2-5.0); Alkaline Phosphatase 60 U/L (45-117); Anion Gap 4 (5-15); BUN 21 mg/dL (7-18); BUN/Creat Ratio 12.6 RATIO (10-20); Calcium,Total 9.2 mg/dL (8.5-10.1); Chloride 106 mmol/L (98-107); Creatinine, Serum 1.67 mg/dL (0.70-1.30); EST Glomerular Filtration Rate 42 mL/min (>60); Est Glom Filt Rate - Afr Amer 51 mL/min (>60); Globulin 3.2 g/dL (2.2-4.2); Glucose 87 mg/dL (74-106); Potassium 4.4 mmol/L (3.5-5.1); Sodium Level 141 mmol/L (136-145); Thyroid Stim Hormone (TSH) 1.27 uIU/mL (0.358-3.74)
== END | disposition home or self-care (01) ==
LOC: LAB 13:42
PROVIDERS: PCP Family Medicine Geriatric Medicine; Referring Provider Family Medicine Geriatric Medicine; Visit Provider Family Medicine Geriatric Medicine
DX: I10 Essential (primary) hypertension (principal); E55.9 Vitamin D deficiency, unspecified
CPT/HCPCS: 36415; 80053; 82306; 84443; 85025

== ENCOUNTER → 2023-09-10 | Outpatient (CLI) | payer MEDICARE, SELFPAY ==
[2023-09-10 09:15] LABS: Protein:Creat Ratio 167 mg/g CRE (0-200)
[2023-09-10 09:38] LABS: Albumin, Serum 3.8 g/dL (3.2-5.0); BUN 16 mg/dL (7-18); BUN/Creat Ratio 11.4 RATIO (10-20); Calcium,Total 8.7 mg/dL (8.5-10.1); Chloride 106 mmol/L (98-107); EST Glomerular Filtration Rate 52 mL/min (>60); Est Glom Filt Rate - Afr Amer 62 mL/min (>60); Glucose 105 mg/dL (74-106); Phosphorus 2.9 mg/dL (2.5-4.9); Potassium 3.8 mmol/L (3.5-5.1); Sodium Level 140 mmol/L (136-145)
== END | disposition home or self-care (01) ==
LOC: LAB 08:23
PROVIDERS: PCP Family Medicine Geriatric Medicine; Referring Provider Internal Medicine Nephrology; Visit Provider Internal Medicine Nephrology
DX: E11.22 Type 2 diabetes mellitus with diabetic chronic kidney disease (principal); N18.32 Chronic kidney disease, stage 3b
CPT/HCPCS: 36415; 80069; 82570; 84156

== ENCOUNTER 2023-10-10 10:13 | Inpatient (IN) | payer MEDICARE, SELFPAY ==
[2023-10-10] VITALS (8 sets, daily range): BP systolic 106–138; BP diastolic 54–79; PULSE 74–102; RESP 14–16; TEMP 36.4–37.1; O2SAT 91–98; BMI 26.3; BMI 25.0
--- NOTE | 2023-10-10 10:47 | ED.VIS.GI ---
HPI HPI - GI History of Present Illness Chief Complaint: Nausea/Vomiting/Diarrhea Informant: patient Nausea/Vomiting/Emesis GI Symptom: Positive for Nausea and Vomiting Onset: Today and Yesterday Severity: Moderate Diarrhea/Melena/Hematochezia GI Symptom: Positive for Diarrhea Onset: Today and Yesterday Stool Quality: Positive for Loose Severity: Mild Associated Symptoms Associated Symptoms: Negative for Dysuria, Frequency, Hematuria or Urgency Narrative Narrative: 83-year-old male complain nausea vomiting diarrhea. Patient had recent eye surgery at [facility]. The morning of night surgery was still taking Oxy cotton and he thinks it may have made him sick. He denies any fever. He denies any abdominal pain or dysuria. She does feel lightheaded when he stands up. Prior similar symptoms: Yes Recent Illness/Hospitalization: No PFSH PFSH Medical History CKD (chronic kidney disease) stage 3, GFR 30-59 ml/min Pure hypercholesterolemia Bilateral carotid artery stenosis COPD (chronic obstructive pulmonary disease) Type 2 diabetes mellitus Essential (primary) hypertension Atherosclerosis of coronary artery of [place] heart without angina pectoris Home Medications ?Medication ?Instructions ?Recorded ?Last Taken ?Type aspirin 81 mg tablet,delayed 81 mg PO DAILY 04/19/18 Unknown History release (Adult Aspirin Regimen) atorvastatin 40 mg tablet 40 mg PO QHS 04/19/18 Unknown History gabapentin 300 mg capsule 300 mg PO DAILY 04/19/18 Unknown History (Neurontin) ipratropium bromide 42 mcg (0.06 2 spray intranasal BID 04/19/18 Unknown History %) nasal spray isosorbide mononitrate 30 mg 30 mg PO DAILY 04/19/18 Unknown History tablet,extended release 24 hr nitroglycerin 0.4 mg sublingual 0.4 mg sublingual Q5-15M PRN 04/19/18 Unknown History tablet tamsulosin 0.4 mg capsule 0.4 mg PO DAILY 07/27/19 Unknown History Allergy/AdvReac Type Severity Reaction Status Date / Time No Known Allergies Allergy Verified 10/10/23 10:15 Family History Father Heart disease Myocardial infarction Brother Cancer prostate Sister Breast cancer Other CAD (coronary artery disease) Surgical History History of colonoscopy Status post right foot surgery History of appendectomy History of left inguinal hernia repair History of eye surgery History of left heart catheterization (06/09/06) 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 Constitutional Constitutional ED: Denies chills or fever(s) ENT ENT ED: Denies ear pain Cardiovascular Cardiovascular: Denies chest pain Respiratory/Chest Respiratory/Chest: Denies cough Gastrointestinal Gastrointestinal: Reports diarrhea, nausea and vomiting; Denies abdominal pain, constipation or melena Genitourinary Genitourinary ED: Denies dysuria or hematuria Musculoskeletal Musculoskeletal: Denies arthralgias Integumentary Denies abscess Neurologic Neurologic: Denies headache(s) Psychiatric Psychiatric: Denies anxiety Endocrine Endocrinology: Denies polydipsia Hematologic/Lymphatic Hematologic/Lymphatic: Denies easy bleeding Allergic/Immunologic Allergic/Immunologic ED: Denies mouth swelling or tongue swelling EXAM Physical Exam Narrative Exam Narrative: 83-year-old male. Vital signs stable afebrile. H EENT exam pupils are reactive light. No facial droop. No trauma. Dry mucous membranes. Neck nontender. Lungs clear to auscultation bilaterally. Heart regular rhythm rate about 80 no murmur. Chest wall ribs nontender. Abdomen soft nontender. Nondistended. No hernia or mass. No obstruction. No localizing tenderness or peritoneal signs. Moving all 4 extremities. Nontender no edema. Back unremarkable. Neurologically he is awake alert. Answering questions following commands. Rectal exam Black stool appears to be upper GI bleed. Const Vital Signs: 10/10/23 10:15 10/10/23 10:20 10/10/23 11:58 Temperature 97.5 F L 97.5 F L Temperature Source Oral Oral Pulse Rate 74 86 92 Respiratory Rate 16 16 16 Blood Pressure 135/75 H 135/75 H 126/79 H Blood Pressure Mean 95 95 94 Pulse Ox 98 98 95 Oxygen Delivery Method Room Air Room Air Room Air 10/10/23 12:00 Temperature Temperature Source Pulse Rate 102 H Respiratory Rate Blood Pressure 106/65 Blood Pressure Mean 78 Pulse Ox Oxygen Delivery Method Positive well nourished and well developed; Negative for obese, cachectic, contractures or unkempt General Appearance ED: well developed and NAD; Negative for unkempt, cachectic, contractures or pallor Nutritional Appearance: Negative for cachectic or obese HEENT Reports dry mucous membranes; Denies moist mucous membranes normocephalic and atraumatic; Negative for trauma or tenderness Mouth ED: Yes dry mucous membranes Mouth: dry mucous membranes Eyes PERRL and EOMs intact bilaterally General Eye ED: Negative for pale conjunctiva, scleral icterus or other Neck no lymphadenopathy, supple and no JVD General: Negative for tenderness Carotids: Negative for other Resp normal respiratory effort and clear to auscultation bilaterally Effort and Inspection: Negative for respiratory distress Auscultation: Negative for rales, rhonchi, wheezes or diminished lung sounds Cardio regular rate, regular rhythm, S1 normal heart sound, S2 normal heart sound and no murmurs Rate: Negative for bradycardia or tachycardic Rhythm: Negative for abnormal rhythm GI non-tender, non-distended and no masses Inspection: Negative for abdominal distention Auscultation: normoactive bowel sounds Palpation: soft; Negative for tender, guarding, rigid, mass or pulsatile mass Back/Spine no CVA tenderness General Back: Negative for CVA tenderness Cervical Spine: Negative for cervical spine tenderness Thoracic Spine / Upper Back: Negative for thoracic spinal tenderness Lumbar Spine / Lower Back: Negative for lumbar spinal tenderness Coccyx: Negative for other Extremity full ROM General Extremety ED: Negative for edema, tenderness or other findings General Extremity: Negative for edema or other findings Neuro CN's II-XII intact bilaterally and moves all extremities Sensorium / Orientation: alert, oriented to person, oriented to place and oriented to time Psych mental status grossly normal and thought process normal Appearance: Negative for unkempt Attitude: No agitated Mood & Affect: Negative for depressed, anxious or tearful Skin no wounds General Skin Exam: Negative for jaundice or pallor Lesions: no lesions Rashes: no rashes Trauma: Negative for abrasion Nails: Negative for discolored MDM MDM MDM Narrative Medical decision making narrative: 83-year-old male nausea vomiting diarrhea may be a viral syndrome versus other etiology. Clinically looks dehydrated and feels lightheaded when he stands. Will be treated with a liter normal saline IM obtain screening labs because he has a history of chronic kidney disease. I do not think at this time he needs any imaging. He is a benign abdominal exam. Patient is black stool. He is a drop in his hemoglobin. To be typed and screened. Will be started on Protonix. Hospitalist on page for admission. History & Record Review Discussion w/independent historian: Patient Additional record(s) reviewed:: Prior inpatient record, Prior outpatient record, Prior ED visit, Prior labs and No prior records Lab Data Attestation: I reviewed the patient's lab results. Lab results narrative: CBC shows white count 10. H&H 12.5 and 38.6. Platelets 178. Electrolytes show a gap of 3. BUN and creatinine of 55 and 1.46 consistent with his chronic renal insufficiency. I do think he is also dehydrated. Glucose 140. Liver enzymes unremarkable. His kidney function is his baseline. However his hemoglobin is 12.5 and typically is 15 or higher. He did have black stool when I did a rectal exam it does look like a possible upper GI bleed. Black stool. Labs: Laboratory Results - last 24 hr 10/10/23 10:57 WBC 10.4 RBC 3.87 L Hgb 12.5 L Hct 38.6 L MCV 99.7 H MCH 32.3 H MCHC 32.4 RDW Std Deviation 46.5 H RDW Coeff of Kassandra 12.8 Plt Count 178 MPV 10.0 Immature Gran % (Auto) 0.500 Neut % (Auto) 83.9 H Lymph % (Auto) 10.6 L [place] % (Auto) 4.7 Eos % (Auto) 0.1 Baso % (Auto) 0.2 Absolute Neuts (auto) 8.7 H Absolute Lymphs (auto) 1.10 Nucleated RBC % 0 Sodium 141 Potassium 4.5 Chloride 109 H Carbon Dioxide 29.0 Anion Gap 3 L BUN 55 H Creatinine 1.46 H Estim Creat Clear Calc 37.74 Est GFR (MDRD) Af Amer 59 L Est GFR (MDRD) Non-Af 49 L BUN/Creatinine Ratio 37.7 H Glucose 140 H Calcium 9.1 Total Bilirubin 0.90 AST 9 L ALT 15 L Alkaline Phosphatase 44 L Total Protein 6.1 L Albumin 3.4 Globulin 2.7 Albumin/Globulin Ratio 1.3 Discharge Plan Dx/Rx/DC Orders Clinical Impression: Nausea, vomiting, and diarrhea, Anemia, Acute upper gastrointestinal bleeding, Chronic kidney disease, Diabetes Disposition Disposition: Acute Care Hospital [facility]
[2023-10-10] MEDS: 0.9% Normal Saline (1000mL) 1,000 ML 999 ML IV (10:53)
[2023-10-10] MEDS: Ondansetron 4 MG/2 ML Vial IV (10:53)
[2023-10-10 11:01] LABS: Absolute Neutrophil Count 8.7 X10^3/uL (2.0-7.7); Basophil# 0.02 X10^3/uL; Basophil% 0.2 % (0-1); Eosinophil# 0.01 X10^3/uL; Eosinophils% 0.1 % (0-5); Hematocrit 38.6 % (40-54); Hemoglobin 12.5 g/dL (13.0-16.5); Lymphocyte % 10.6 % (19-41); Mean Corp Hgb Conc 32.4 g/dL (32-36); Mean Corpuscular Hgb 32.3 pg (27.0-32.0); Mean Corpuscular Volume 99.7 fL (80-94); Monocyte# 0.49 X10^3/uL; Monocyte% 4.7 % (0-10); NRBC Flagged by Analyzer 0 % (0-5); Neutrophil # 8.71 X10^3/uL (2.7-7.7); Neutrophil % 83.9 % (47-70); Platelet Count 178 K/mm3 (150-450); RBC Distribution Width CV 12.8 % (11.6-14.6); RBC Distribution Width SD 46.5 fl (35.1-43.9); Red Blood Count 3.87 M/mm3 (4.6-6.2); White Blood Count 10.4 K/mm3 (4.4-11.0)
[2023-10-10 11:18] LABS: ALB/GLOB Ratio 1.3 RATIO (0.9-2.4); AST(SGOT) 9 U/L (15-37); Alanine Aminotransfer ALT/SGPT 15 U/L (16-61); Albumin, Serum 3.4 g/dL (3.2-5.0); Alkaline Phosphatase 44 U/L (45-117); Anion Gap 3 (5-15); BUN 55 mg/dL (7-18); BUN/Creat Ratio 37.7 RATIO (10-20); Calcium,Total 9.1 mg/dL (8.5-10.1); Chloride 109 mmol/L (98-107); Creatinine, Serum 1.46 mg/dL (0.70-1.30); EST Glomerular Filtration Rate 49 mL/min (>60); Est Glom Filt Rate - Afr Amer 59 mL/min (>60); Estimated Creatinine Clearance 37.74 ml/min; Globulin 2.7 g/dL (2.2-4.2); Glucose 140 mg/dL (74-106); Potassium 4.5 mmol/L (3.5-5.1); Protein, Total 6.1 g/dL (6.4-8.2); Sodium Level 141 mmol/L (136-145)
[2023-10-10] MEDS: Pantoprazole Sodium 80 MG in 0.9% Normal Saline (50mL Bag) 15 ML 420 MG IV BOLUS (12:32)
--- NOTE | 2023-10-10 13:48 | HP.PCM.HOS_ITS ---
[facility] - General General Date of Admission: 10/10/23 Date of Service: 10/10/23 Chief Complaint: Melena HPI Narrative GISELLE SALGUERO, is a 83 M who presents with melena. This is an 83-year-old male with history of carotid stenosis presents with 2-day history of melena. Had not been feeling well starting this past and then on Thursday, noted to have vomiting brownish material and then had melena. Again recurred today and family brought him into the hospital for evaluation. Patient never had any issues like this before. It was noted the patient's hemoglobin went from 15.6, back in July down to 12.5 today. Patient received a bolus of pantoprazole. [facility]LY [facility] Medical History CKD (chronic kidney disease) stage 3, GFR 30-59 ml/min Pure hypercholesterolemia Bilateral carotid artery stenosis COPD (chronic obstructive pulmonary disease) Type 2 diabetes mellitus Essential (primary) hypertension Atherosclerosis of coronary artery of [place] without angina pectoris Home Medications ?Medication ?Instructions ?Recorded ?Last Taken ?Type aspirin 81 mg tablet,delayed 81 mg PO DAILY 04/19/18 10/09/23 History release (Adult Aspirin Regimen) atorvastatin 40 mg tablet 40 mg PO QHS 04/19/18 10/09/23 History gabapentin 300 mg capsule 300 mg PO DAILY 04/19/18 10/09/23 History (Neurontin) ipratropium bromide 42 mcg (0.06 2 spray intranasal BID 04/19/18 10/09/23 History %) nasal spray isosorbide mononitrate 30 mg 30 mg PO DAILY 04/19/18 10/09/23 History tablet,extended release 24 hr nitroglycerin 0.4 mg sublingual 0.4 mg sublingual Q5-15M PRN chest 04/19/18 Unknown History tablet pain tamsulosin 0.4 mg capsule 0.4 mg PO DAILY 07/27/19 10/09/23 History moxifloxacin 0.5 % eye drops 1 drp ophthalmic (eye) 4X/DAY EYE 10/10/23 10/09/23 History SURGERY prednisolone acetate 1 % eye 1 drp ophthalmic (eye) 4X/DAY EYE 10/10/23 10/09/23 History drops,suspension SURGERY Allergy/AdvReac Type Severity Reaction Status Date / Time No Known Allergies Allergy Verified 10/10/23 10:15 Family History Father Heart disease Myocardial infarction Brother Cancer prostate Sister Breast cancer Other CAD (coronary artery disease) Surgical History History of colonoscopy Status post right foot surgery History of appendectomy History of left inguinal hernia repair History of eye surgery History of left heart catheterization (06/09/06) 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 No lesions elsewhere. No fever or chills. All review of systems were negative except as mentioned above in the history of present illness and the other review of systems. Vital Signs Vital Signs Vital Signs: 10/10/23 10:15 10/10/23 10:20 10/10/23 11:58 Temperature 36.4 C L 36.4 C L Temperature Source Oral Oral Pulse Rate 74 86 92 Respiratory Rate 16 16 16 Blood Pressure 135/75 H 135/75 H 126/79 H Blood Pressure Mean 95 95 94 Blood Pressure Source Blood Pressure Position Blood Pressure Location Pulse Ox 98 98 95 Oxygen Delivery Method Room Air Room Air Room Air 10/10/23 12:00 10/10/23 12:34 10/10/23 13:29 Temperature 36.4 C L 36.5 C L Temperature Source Oral Pulse Rate 102 H 85 86 Respiratory Rate 16 14 Blood Pressure 106/65 113/59 L 114/54 L Blood Pressure Mean 78 77 74 Blood Pressure Source Monitor Blood Pressure Position Sitting Blood Pressure Location Right Arm Pulse Ox 95 97 Oxygen Delivery Method Room Air Weight Weight: 72.6 kg Body Mass Index (BMI) 25.0 Physical Exam Const alert and no apparent distress Constitutional Narrative: Hard of hearing. Afebrile. HEENT normocephalic and head/scalp atraumatic Resp normal respiratory effort, no retractions, no use of accessory muscles and clear to auscultation bilaterally Cardio regular rate, regular rhythm, S1 normal heart sound and S2 normal heart sound GI normal to inspection, nondistended, normoactive bowel sounds, soft to palpation, non-tender, non-distended and hepatosplenomegaly Extremity normal to inspection, full ROM and no clubbing, cyanosis or edema Neuro Sensorium / Orientation: awake and alert Psych affect normal Results Lab / Micro Data Attestation: I reviewed the patient's lab results. 10/10/23 10:57 10/10/23 10:57 Labs: Laboratory Results - last 24 hr 10/10/23 10:57: WBC 10.4, RBC 3.87 L, Hgb 12.5 L, Hct 38.6 L, MCV 99.7 H, MCH 32.3 H, MCHC 32.4, RDW Std Deviation 46.5 H, RDW Coeff of Kassandra 12.8, Plt Count 178, MPV 10.0, Immature Gran % (Auto) 0.500, Neut % (Auto) 83.9 H, Lymph % (Auto) 10.6 L, [place] % (Auto) 4.7, Eos % (Auto) 0.1, Baso % (Auto) 0.2, Absolute Neuts (auto) 8.7 H, Absolute Lymphs (auto) 1.10, Nucleated RBC % 0, Sodium 141, Potassium 4.5, Chloride 109 H, Carbon Dioxide 29.0, Anion Gap 3 L, BUN 55 H, C reatinine 1.46 H, Estim Creat Clear Calc 37.74, Est GFR (MDRD) Af Amer 59 L, Est GFR (MDRD) Non-Af 49 L, BUN/Creatinine Ratio 37.7 H, Glucose 140 H, Calcium 9.1, Total Bilirubin 0.90, AST 9 L, ALT 15 L, Alkaline Phosphatase 44 L, Total Protein 6.1 L, Albumin 3.4, Globulin 2.7, Albumin/Globulin Ratio 1.3 10/10/23 12:03: Blood Type A POSITIVE, Antibody Screen NEGATIVE Assessment & Plan Assessment/Plan (1) GI bleed: PLAN: Suspect upper though the patient has not had any hematochezia Patient received bolus of IV pantoprazole in the emergency room. Will continue with the drip on the floor. Consult gastroenterology for endoscopy. Discussed with Dr. Moncada. Hold aspirin N.p.o. except for meds and sips and chips. (2) Acute blood loss anemia: PLAN: Secondary to GI bleed. Monitor serial H&H. No need to transfuse at this point. PLAN: Plan Chronic conditions * Peripheral arterial disease. Patient with carotid stenosis. Hold aspirin. Hold atorvastatin for now. * Chronic corneal scarring. Patient has had removal of some gross on his cornea and has led to subsequent scarring which she just had surgery for. Continue with his eyedrops as he takes at home. * BPH: Continue with tamsulosin VTE prophylaxis: Chemical prophylaxis contraindicated given the hemorrhage. SCDs Advance care planning: Spent an additional 16 minutes where I discussed with the patient and his son at bedside about CODE STATUS including full code, DNR. When details what was involved in regards to CPR but also expressing the delineation between CODE STATUS and living will. Patient does state that he does have a living well. He was unsure so I told him that we would leave him at full code but he certainly welcome to change his mind at any point during this hospitalization or afterwards. Charges/Coding Visit Charges Inpatient E&M: 32863 Init Hosp L3 Procedures Hospitalists Procedures: 55599 Critical Care Addl 30 Min
[2023-10-10] MEDS: 0.9% Normal Saline (1000mL) 1,000 ML 150 ML IV ×2 (14:27→21:35)
[2023-10-10] MEDS: Pantoprazole Sodium 80 MG in 0.9% Normal Saline (100mL Bag) 80 ML 10 MG CONT INF ×2 (14:27→23:27)
[2023-10-10 17:09] LABS: Hemoglobin 10.9 g/dL (13.0-16.5)
[2023-10-10] MEDS: MOXIFLOXACIN HCL 1 ML EACH EYE ×2 (17:11→21:41)
[2023-10-10] MEDS: prednisoLONE eye drops (5 mL) 1 DROP OPTH.BTL 1 DRP OPHTHALMIC ×2 (17:11→21:41)
[2023-10-10 23:32] LABS: Hematocrit 31.1 % (40-54); Hemoglobin 9.9 g/dL (13.0-16.5)
[2023-10-11] VITALS (7 sets, daily range): BP systolic 90–120; BP diastolic 52–63; PULSE 68–90; RESP 16–18; TEMP 36.4–36.9; O2SAT 90–94
[2023-10-11] MEDS: 0.9% Normal Saline (1000mL) 1,000 ML 150 ML IV ×2 (04:07→10:47)
[2023-10-11 05:19] LABS: Absolute Lymphocyte Count 1.63 X10^3/uL (0.83-4.51); Absolute Neutrophil Count 5.8 X10^3/uL (2.0-7.7); Basophil# 0.03 X10^3/uL; Basophil% 0.4 % (0-1); Eosinophil# 0.06 X10^3/uL; Eosinophils% 0.7 % (0-5); Hematocrit 28.5 % (40-54); Hemoglobin 8.8 g/dL (13.0-16.5); Lymphocyte # 1.63 X10^3/ul (0.83-4.51); Lymphocyte % 19.9 % (19-41); Mean Corp Hgb Conc 30.9 g/dL (32-36); Mean Corpuscular Hgb 31.4 pg (27.0-32.0); Mean Corpuscular Volume 101.8 fL (80-94); Monocyte# 0.68 X10^3/uL; Monocyte% 8.3 % (0-10); NRBC Flagged by Analyzer 0 % (0-5); Neutrophil # 5.75 X10^3/uL (2.7-7.7); Neutrophil % 70.2 % (47-70); Platelet Count 147 K/mm3 (150-450); RBC Distribution Width CV 13.2 % (11.6-14.6); RBC Distribution Width SD 49.2 fl (35.1-43.9); White Blood Count 8.2 K/mm3 (4.4-11.0)
[2023-10-11 05:48] LABS: Anion Gap 3 (5-15); BUN 41 mg/dL (7-18); BUN/Creat Ratio 29.9 RATIO (10-20); Calcium,Total 7.9 mg/dL (8.5-10.1); Chloride 113 mmol/L (98-107); Creatinine, Serum 1.37 mg/dL (0.70-1.30); EST Glomerular Filtration Rate 53 mL/min (>60); Est Glom Filt Rate - Afr Amer 64 mL/min (>60); Estimated Creatinine Clearance 38.87 ml/min; Glucose 99 mg/dL (74-106); Potassium 4.2 mmol/L (3.5-5.1); Sodium Level 143 mmol/L (136-145)
--- NOTE | 2023-10-11 07:49 | PCM.PN.HOSP ---
Reason for Visit Reason for Visit: Diagnoses Acute posthemorrhagic anemia (10/10/23) Gastrointestinal hemorrhage, unspecified (10/10/23) Subjective Subjective Feels well. Was noted to have some hypoxia when he was sleeping and placed on oxygen. He has no known prior history of DAWIT. Objective Data Objective Data Vital Signs: Vital Signs Temp Pulse Resp BP Pulse Ox O2 Del Method O2 Flow Rate 36.9 C 90 18 113/63 94 Nasal Cannula 2 10/11/23 06:00 10/11/23 06:00 10/11/23 06:00 10/11/23 06:00 10/11/23 06:00 10/11/23 06:00 10/11/23 06:00 Oxygen Flow Rate (L/min) 2 Oxygen Delivery Method Nasal Cannula Weight: 72.6 kg Body Mass Index (BMI) 25.0 Intake & Output: Intake and Output for Last 24 Hours 10/09/23 10/10/23 10/11/23 23:59 23:59 23:59 Intake Total 2135 / 2135 980 / 980 Balance 2135 / 213 980 / 980 Lab / Micro Data 10/11/23 10:54 10/11/23 05:07 Labs: Laboratory Results - last 24 hr 10/10/23 10:57: WBC 10.4, RBC 3.87 L, Hgb 12.5 L, Hct 38.6 L, MCV 99.7 H, MCH 32.3 H, MCHC 32.4, RDW Std Deviation 46.5 H, RDW Coeff of Kassandra 12.8, Plt Count 178, MPV 10.0, Immature Gran % (Auto) 0.500, Neut % (Auto) 83.9 H, Lymph % (Auto) 10.6 L, [place] % (Auto) 4.7, Eos % (Auto) 0.1, Baso % (Auto) 0.2, Absolute Neuts (auto) 8.7 H, Absolute Lymphs (auto) 1.10, Nucleated RBC % 0, Sodium 141, Potassium 4.5, Chloride 109 H, Carbon Dioxide 29.0, Anion Gap 3 L, BUN 55 H, Creatinine 1.46 H, Estim Creat Clear Calc 37.74, Est GFR (MDRD) Af Amer 59 L, Est GFR (MDRD) Non-Af 49 L, BUN/Creatinine Ratio 37.7 H, Glucose 140 H, Calcium 9.1, Total Bilirubin 0.90, AST 9 L, ALT 15 L, Alkaline Phosphatase 44 L, Total Protein 6.1 L, Albumin 3.4, Globulin 2.7, Albumin/Globulin Ratio 1.3 10/10/23 12:03: Blood Type A POSITIVE, Antibody Screen NEGATIVE 10/10/23 16:56: Hgb 10.9 L, Hct 34.0 L 10/10/23 23:12: Hgb 9.9 L, Hct 31.1 L 10/11/23 05:07: WBC 8.2, RBC 2.80 L, Hgb 8.8 L, Hct 28.5 L, MCV 101.8 H, MCH 31.4, MCHC 30.9 L, RDW Std Deviation 49.2 H, RDW Coeff of Kassandra 13.2, Plt Count 147 L, MPV 10.0, Immature Gran % (Auto) 0.500, Neut % (Auto) 70.2 H, Lymph % (Auto) 19.9, [place] % (Auto) 8.3, Eos % (Auto) 0.7, Baso % (Auto) 0.4, Absolute Neuts (auto) 5.8, Absolute Lymphs (auto) 1.63, Nucleated RBC % 0, Sodium 143, Potassium 4.2, Chloride 113 H, Carbon Dioxide 27.0, Anion Gap 3 L, BUN 41 H, Creatinine 1.37 H, Estim Creat Clear Calc 38.87, Est GFR (MDRD) Af Amer 64, Est GFR (MDRD) Non-Af 53 L, BUN/Creatinine Ratio 29.9 H, Glucose 99, Calcium 7.9 L Physical Exam Const alert and no apparent distress Constitutional Narrative: Up in chair. Hard of hearing. Afebrile. Neck no lymphadenopathy Resp normal respiratory effort, no retractions, no use of accessory muscles and clear to auscultation bilaterally Cardio regular rate, regular rhythm, S1 normal heart sound and S2 normal heart sound GI normal to inspection, nondistended, normoactive bowel sounds, soft to palpation, non-tender and non-distended Extremity normal to inspection and full ROM Neuro Sensorium / Orientation: awake and alert Psych affect normal Assessment & Plan Assessment/Plan (1) GI bleed: PLAN: Suspect upper though the patient has not had any hematochezia Patient received bolus of IV pantoprazole in the emergency room. Will continue with the drip on the floor. Consult gastroenterology for endoscopy. Discussed with Dr. Moncada. Plan for endoscopy on the . Hold aspirin Since endoscopy is not being performed until the , patient is on a clear liquid diet. (2) Acute blood loss anemia: PLAN: Hg dropped from 12.5 to 9.2 (baseline 15.6). Last 2 hemoglobins have remained stable. Secondary to GI bleed. Monitor serial H&H. No need to transfuse at this point. (3) Hypoxia: PLAN: Noted while he was sleeping and placed on oxygen. Patient may have some underlying DAWIT. Patient's son, who is in the room, states that he himself has sleep apnea and wears CPAP. Patient himself has not been evaluated for this. Patient can have this evaluated as outpatient. No additional workup at this time. PLAN: Plan Chronic conditions Peripheral arterial disease. Patient with carotid stenosis. Hold aspirin for the time being.. Hold atorvastatin for now. Chronic corneal scarring. Patient has had removal of some gross on his cornea and has led to subsequent scarring which she just had surgery for. Continue with his eyedrops as he takes at home. BPH: Continue with tamsulosin VTE prophylaxis: Chemical prophylaxis contraindicated given the hemorrhage. SCDs Code Full. Discussed with patient's son at bedside. Charges/Coding Visit Charges Inpatient E&M: 25017 Subs Hosp L2
[2023-10-11] MEDS: Tamsulosin HCl 0.4 MG Capsule PO (08:17)
[2023-10-11] MEDS: Isosorbide Mononitrate 30 MG Tablet PO (08:17)
[2023-10-11] MEDS: prednisoLONE eye drops (5 mL) 1 DROP OPTH.BTL 1 DRP OPHTHALMIC ×4 (08:18→22:02)
[2023-10-11] MEDS: Gabapentin 300 MG Capsule PO (08:25)
[2023-10-11] MEDS: MOXIFLOXACIN HCL 1 ML EACH EYE ×4 (08:28→22:02)
[2023-10-11] MEDS: Pantoprazole Sodium 80 MG in 0.9% Normal Saline (100mL Bag) 80 ML 10 MG CONT INF ×2 (09:03→20:31)
--- NOTE | 2023-10-11 11:07 | NURSING ---
Nurse spoke with the son Corbin while in the patient room. States he was okay with the information that I provided to him during this time.
[2023-10-11 11:09] LABS: Hematocrit 29.1 % (40-54); Hemoglobin 9.2 g/dL (13.0-16.5)
[2023-10-12] VITALS (17 sets, daily range): BP systolic 69–114; BP diastolic 41–63; PULSE 67–88; RESP 14–18; TEMP 36.1–36.9; O2SAT 91–100
--- NOTE | 2023-10-12 | EGD_PTH ---
PATIENT: GISELLE SALGUERO LOC: [facility] U#:[id number] AGE/SX: 83/M ROOM: [facility] RE10/10/[address]: Dr. Barbara Willams MD : [id number] BED: 1 DIS: 10/13/2023 SPEC #: [id number] RECD: 10/13/23 13:15 STATUS: RIVERA RESlick #: [id number] NINA: 10/12/23 00:[address]: Mikael Moncada DEPT: SURGICAL PATHOLOGY RECD BY: Franklin Varela ENTERED: 10/13/23 13:15 SP TYPE: EGD BIOPSY OTHR DR: DO Dr. Barbara Oh MD Dr. Paige Pierce, MD Dr. Tai Chi Kwok, MD Tissues: Duodenum, NOS Procedures: Surgery Specimen Level IV Comments: @ Ordering doctor for SUIV edited from to @ by JACKELINE at 10/13/23 1330 @ Submitting doctor edited from to @ by JACKELINE at 10/13/23 1330 HEADER OPERATION: EGD with biopsy and gold probe PRE-OP DIAGNOSIS: Upper GI bleed TISSUE SUBMITTED: Duodenal ulcer biopsy MICROSCOPIC DIAGNOSIS Duodenal ulcer, biopsy: Fragments of duodenal mucosa with mild non-specific chronic inflammation, congestion and hemorrhage. ERIC/ 10/14/2023 MICROSCOPIC DESCRIPTION Slides are reviewed. GROSS DESCRIPTION Received in fixative is one container labeled with the patient's name and designated Duodenal ulcer biopsy. The specimen consists of two irregular fragments of light wang soft tissue that in aggregate measure 0.8 x 0.4 x 0.1 cm. The specimen is totally submitted in one cassette. 10/13/2023 TC:3 CPT:28351
--- NOTE | 2023-10-12 05:55 | EKG12_ITS ---
Test Reason : PRE-OP Blood Pressure : / mmHG Vent. Rate : 086 BPM Atrial Rate : 086 BPM P-R Int : 122 ms QRS Dur : 094 ms QT Int : 364 ms P-R-T Axes : 069 021 034 degrees QTc Int : 435 ms Sinus rhythm with marked sinus arrhythmia Low voltage QRS Borderline ECG When compared with ECG of 29-SEP-2008 19:42, MANUAL COMPARISON REQUIRED, DATA IS UNCONFIRMED Confirmed by ENRIQUE DING, LULU ([id number]), school photograph editor DELPHINE DURAN ([id number]) on 10/16/2023 9:52:35 AM Referred By: TAVO Confirmed By:VICENTA NUNEZ MD
[2023-10-12 06:16] LABS: Absolute Lymphocyte Count 1.27 X10^3/uL (0.83-4.51); Absolute Neutrophil Count 3.7 X10^3/uL (2.0-7.7); Basophil# 0.03 X10^3/uL; Basophil% 0.5 % (0-1); Eosinophil# 0.09 X10^3/uL; Eosinophils% 1.6 % (0-5); Hematocrit 24.2 % (40-54); Hemoglobin 7.7 g/dL (13.0-16.5); Lymphocyte # 1.27 X10^3/ul (0.83-4.51); Lymphocyte % 22.4 % (19-41); Mean Corp Hgb Conc 31.8 g/dL (32-36); Mean Corpuscular Hgb 32.4 pg (27.0-32.0); Mean Corpuscular Volume 101.7 fL (80-94); Mean Platelet Vol. 10.5 fl (6.2-12.0); Monocyte# 0.55 X10^3/uL; Monocyte% 9.7 % (0-10); NRBC Flagged by Analyzer 0 % (0-5); Neutrophil # 3.71 X10^3/uL (2.7-7.7); Neutrophil % 65.6 % (47-70); Platelet Count 139 K/mm3 (150-450); RBC Distribution Width CV 13.1 % (11.6-14.6); RBC Distribution Width SD 48.8 fl (35.1-43.9); Red Blood Count 2.38 M/mm3 (4.6-6.2); White Blood Count 5.7 K/mm3 (4.4-11.0)
[2023-10-12] MEDS: Pantoprazole Sodium 80 MG in 0.9% Normal Saline (100mL Bag) 80 ML 10 MG CONT INF ×2 (06:18→15:10)
[2023-10-12 06:33] LABS: Anion Gap 2 (5-15); BUN 26 mg/dL (7-18); Chloride 110 mmol/L (98-107); Creatinine, Serum 1.37 mg/dL (0.70-1.30); EST Glomerular Filtration Rate 53 mL/min (>60); Est Glom Filt Rate - Afr Amer 64 mL/min (>60); Estimated Creatinine Clearance 38.87 ml/min; Glucose 105 mg/dL (74-106); Sodium Level 141 mmol/L (136-145)
[2023-10-12 06:54] LABS: International Normalized Ratio 1.1; Prothrombin Time (Protime)PT. 14.6 SECONDS (11.7-14.9)
[2023-10-12 06:55] LABS: Partial Thromboplast Time 30.1 Seconds (24.1-36.2)
[2023-10-12] MEDS: Tamsulosin HCl 0.4 MG Capsule PO (07:50)
[2023-10-12] MEDS: prednisoLONE eye drops (5 mL) 1 DROP OPTH.BTL 1 DRP OPHTHALMIC ×4 (07:50→21:06)
[2023-10-12] MEDS: MOXIFLOXACIN HCL 1 ML EACH EYE ×4 (08:02→21:07)
[2023-10-12] MEDS: Lactated Ringers 1,000 ML 15 ML IV (11:05)
--- NOTE | 2023-10-12 11:18 | PCM.PRE.AN2 ---
ASA Classification* ASA Classification ASA Classification: 3 and E Assessment & Plan Anesthesia* Anesthesia Assessment Anesthesia Assessment: Discussed sedation and/or anesthesia options, risks, benefits, and alternatives with patient/parents/legal guardian/POA. Questions invited. The patient/parents/legal guardian/POA seems to understand and agrees to proceed with anesthesia plan. Reviewed the physical assessment, medical history, allergy history and patient home medications list prior to surgery/procedure/anesthetic and documented any changes. Performed airway and anesthesia risk assessments. Anesthesia Type Anesthesia Type: MAC (see written pre anesthesia record for full assessment) Anesthesia Focused Assessment* Temperature: 97.8 F Pulse Rate: 77 Blood Pressure: 99/57 Respiratory Rate: 14 Pulse Ox: 98 Airway Assessment Mouth opens: >3 cm Mallampati Score: II Focused Labs Anesthesia Preop lab: CBC WBC 5.7 K/mm3 (4.4-11.0) 10/12/23 05:38 RBC 2.38 M/mm3 (4.6-6.2) L 10/12/23 05:38 Hgb 7.7 g/dL (13.0-16.5) L 10/12/23 05:38 Hct 24.2 % (40-54) L 10/12/23 05:38 Plt Count 139 K/mm3 (150-450) L 10/12/23 05:38 CHEMISTRY Potassium 4.0 mmol/L (3.5-5.1) 10/12/23 05:38 Sodium 141 mmol/L (136-145) 10/12/23 05:38 Phosphorus 2.9 mg/dL (2.5-4.9) 09/10/23 08:25 BUN 26 mg/dL (7-18) H 10/12/23 05:38 Creatinine 1.37 mg/dL (0.70-1.30) H 10/12/23 05:38 Glucose 105 mg/dL (74-106) 10/12/23 05:38 TSH 1.27 uIU/mL (0.358-3.74) 08/05/23 13:45 COAG PT 14.6 SECONDS (11.7-14.9) 10/12/23 05:38 Pre-Assessment Diagnosis/Proposed Procedure Planned Operative Procedure(s): eegd Anesthesia History 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 When Was Last Pacemaker Check QUESTION #4 FULL TEXT: You/Your Family Experience fever (hyperthermia) with Anesthesia Last Oral Intake Last Oral intake: Last Oral Intake NPO since Meds taken in AM with sips of water? Meds patient instructed to take am of surgery PONV PONV - brownell operator: PONV - brownell operator Female HX of Motion Sickness HX of N/V After Surgery Non-Smoker Duration of Surgery greater than 60 minutes Number of Risk Factors PONV Score Height & Weight Height & Weight: Anesthesia: Height & Weight Height 5 ft 7 in 10/10/23 13:29 Weight: 72.6 kg 10/10/23 13:29 Body Mass Index (BMI) 25.0 10/10/23 13:29 Respiratory Assessment Respiratory Assessment - brownell operator: Respiratory Tract Infection Hx - brownell operator Hx Respiratory Tract Infection STOP Sleep Apnea STOP Sleep Apnea - brownell operator: STOP Sleep Apnea - brownell operator Hx Hypertension Yes 10/10/23 13:29 Hx Sleep Apnea No 10/10/23 13:29 CPAP BIPAP Do you snore loudly (louder No 10/10/23 13:29 than talking or can be heard Do you often feel tired/ No 10/10/23 13:29 fatigued/ sleepy during daytime? Has anyone observed you stop No 10/10/23 13:29 breathing during sleep? STOP Results Negative 10/10/23 13:29 QUESTION #5 FULL TEXT : Do you snore loudly (louder than talking or can be heard through closed doors)? 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 Specify any problems Hx of Preganancy in last 3 N/A 10/10/23 13:29 Months Nurse Filling Out Transfusion NBILANCIN 10/10/23 13:29 & Questions: Date: 10/10/23 10/10/23 13:29 Time: 13:34 10/10/23 13:29 Patient unable to answer at this time (ie. confused, unrespo /Reproduction History /Reproductive History - brownell operator: /Reproductive Hx- brownell operator Hx Now Gestational Age (in weeks): EDC: Hx Hx Para Hx Section SAB Active Medications Active Medications: Current Medications Generic Name Dose Route Start Last Admin Trade Name Freq PRN Reason Stop Dose Admin Acetaminophen 650 mg 10/10/23 13:48 Acetaminophen 325 Mg Tablet PO Q6H PRN PRN Pain 1-10 Or Fever >100.7 Gabapentin 300 mg 10/11/23 10:00 10/12/23 09:37 Gabapentin 300 Mg Capsule PO Not Given DAILY [facility] Pantoprazole Sodium 80 mg/ 100 mls @ 10 mls/hr 10/10/23 13:48 10/12/23 06:18 Sodium Chloride CONT INF 10/13/23 13:49 10 mls/hr Q10H [place] Administration Lactated Ringer's 1,000 mls @ 15 mls/hr 10/12/23 11:15 10/12/23 11:05 IV 15 mls/hr .Q48H [place] Administration Ipratropium [place] 2 spray 10/10/23 22:00 10/12/23 07:51 Ipratropium [place] 0.06% Nasal [place] NASAL Not Given BID [facility] Isosorbide Mononitrate 30 mg 10/11/23 10:00 10/12/23 07:49 Isosorbide Mononitrate 30 Mg Tablet PO Not Given DAILY [facility] Protocol Morphine Sulfate 2 - 4 mg 10/10/23 13:48 Morphine 2 Mg/Ml Syringe IV Q3H PRN PRN Pain Score 6-10 Moxifloxacin HCl 1 ml 10/10/23 14:00 10/12/23 08:02 Moxifloxacin Hcl 3 Ml Drops EACH EYE 1 ml 4X/DAY [place] Administration Nitroglycerin 0.4 mg 10/10/23 13:48 Nitroglycerin (Inpatient Use) 0.4 Mg Tab.Subl SL Q5M PRN chest pain Ondansetron HCl 4 mg 10/10/23 13:48 Ondansetron 4 Mg/2 Ml Vial IV Q8H PRN PRN NAUSEA/VOMITING Oxycodone HCl 2.5 - 5 mg 10/10/23 13:48 Oxycodone 5 Mg Tablet PO Q4H PRN PRN Pain Score 4-10 Pantoprazole Sodium 40 mg 10/14/23 10:00 Pantoprazole Sodium 40 Mg Tablet PO BID [facility] Prednisolone Acetate 1 drp 10/10/23 18:00 10/12/23 07:50 Prednisolone Eye Drops (5 Ml) 1 Drop Opth.Btl OPHTHALMIC 1 drp 4X/DAY [facility] Administration Prochlorperazine Edisylate 5 mg 10/10/23 13:48 Prochlorperazine 10 Mg/2 Ml Vial IV Q4H PRN PRN Breakthrough Nausea/Vomiting Sodium Chloride 10 - 40 ml 10/10/23 13:42 0.9% Saline Lock 10 Ml Syringe IV UD PRN SALINE FLUSH Tamsulosin HCl 0.4 mg 10/11/23 10:00 10/12/23 07:50 Tamsulosin Hcl 0.4 Mg Capsule PO 0.4 mg DAILY [facility] Administration PFSH Medical History CKD (chronic kidney disease) stage 3, GFR 30-59 ml/min Pure hypercholesterolemia Bilateral carotid artery stenosis COPD (chronic obstructive pulmonary disease) Type 2 diabetes mellitus Essential (primary) hypertension Atherosclerosis of coronary artery of [place] heart without angina pectoris Home Medications ?Medication ?Instructions ?Recorded ?Last Taken ?Type aspirin 81 mg tablet,delayed 81 mg PO DAILY 04/19/18 10/09/23 History release (Adult Aspirin Regimen) atorvastatin 40 mg tablet 40 mg PO QHS 04/19/18 10/09/23 History gabapentin 300 mg capsule 300 mg PO DAILY 04/19/18 10/09/23 History (Neurontin) ipratropium bromide 42 mcg (0.06 2 spray intranasal BID 04/19/18 10/09/23 History %) nasal spray isosorbide mononitrate 30 mg 30 mg PO DAILY 04/19/18 10/09/23 History tablet,extended release 24 hr nitroglycerin 0.4 mg sublingual 0.4 mg sublingual Q5-15M PRN chest 04/19/18 Unknown History tablet pain tamsulosin 0.4 mg capsule 0.4 mg PO DAILY 07/27/19 10/09/23 History moxifloxacin 0.5 % eye drops 1 drp ophthalmic (eye) 4X/DAY EYE 10/10/23 10/09/23 History SURGERY prednisolone acetate 1 % eye 1 drp ophthalmic (eye) 4X/DAY EYE 10/10/23 10/09/23 History drops,suspension SURGERY Allergy/AdvReac Type Severity Reaction Status Date / Time No Known Allergies Allergy Verified 10/10/23 10:15 Family History Father Heart disease Myocardial infarction Brother Cancer prostate Sister Breast cancer Other CAD (coronary artery disease) Surgical History History of colonoscopy Status post right foot surgery History of appendectomy History of left inguinal hernia repair History of eye surgery History of left heart catheterization (06/09/06) H/O coronary artery bypass surgery (01/16/05) Social History Smoking Status: Former smoker pack-years: 33 how long ago did patient quit smokin years ago alcohol intake: never caffeine: Yes Type: coffee Number of servings: 4 Review of Systems (Anesthesia) ROS Narrative System reviewed and no additional complaints, except as documented.
--- NOTE | 2023-10-12 12:43 | OP.EGD_ITS ---
Patient Name: Jaleel Lee Procedure Date: 10/12/2023 12:18 PM Date of : 1940 Age: 83 Procedure: Upper GI endoscopy Indications: Dysphagia Providers: Mikael Moncada DO Medicines: Monitored Anesthesia Care Patient Profile: This is an 83 year old male. Refer to note in patient chart for documentation of history and physical. Patient has symptoms. Complications: No immediate complications. Procedure: Pre-Anesthesia Assessment: - Prior to the procedure, a History and Physical was performed, and patient medications and allergies were reviewed. The patient is competent. The risks and benefits of the procedure and the sedation options and risks were discussed with the patient. All questions were answered and informed consent was obtained. Patient identification and proposed procedure were verified by the physician in the pre-procedure area. Mental Status Examination: alert and oriented. Airway Examination: normal oropharyngeal airway and neck mobility. Respiratory Examination: clear to auscultation. CV Examination: normal. Prophylactic Antibiotics: The patient does not require prophylactic antibiotics. Prior Anticoagulants: The patient has taken no anticoagulant or antiplatelet agents except for NSAID medication. ASA Grade Assessment: III - A patient with severe systemic disease. After reviewing the risks and benefits, the patient was deemed in satisfactory condition to undergo the procedure. The anesthesia plan was to use monitored anesthesia care (MAC). Immediately prior to administration of medications, the patient was re-assessed for adequacy to receive sedatives. The heart rate, respiratory rate, oxygen saturations, blood pressure, adequacy of pulmonary ventilation, and response to care were monitored throughout the procedure. The physical status of the patient was re-assessed after the procedure. After obtaining informed consent, the endoscope was passed under direct vision. Throughout the procedure, the patient's blood pressure, pulse, and oxygen saturations were monitored continuously. The Endoscope was introduced through the mouth, and advanced to the second part of duodenum. The upper GI endoscopy was accomplished without difficulty. The patient tolerated the procedure well. Scope In: 12:29:04 PM Scope Out: 12:33:15 PM Total Procedure Duration Time 0 hours 4 minutes 11 seconds Findings: The examined esophagus was normal. Many oozing linear gastric ulcers with pigmented material were found in the gastric antrum. The largest lesion was 4 mm in largest dimension. Coagulation for hemostasis using heater probe was successful. Estimated blood loss was minimal. One non-bleeding cratered duodenal ulcer with no stigmata of bleeding was found in the duodenal bulb. The lesion was 10 mm in largest dimension. Biopsies were taken with a cold forceps for histology. Verification of patient identification for the specimen was done. Estimated blood loss was minimal. Impression: - Normal esophagus. - Oozing gastric ulcers with pigmented material. Treated with a heater probe. - Non-bleeding duodenal ulcer with no stigmata of bleeding. Biopsied. Recommendation: - [facility]. - Resume regular diet today. - No aspirin, ibuprofen, naproxen, or other non-steroidal anti-inflammatory drugs for 8 weeks. - Use Prilosec (omeprazole) 40 mg PO BID for 6 months. Procedure Code(s): --- Professional --- 02193, 59, Esophagogastroduodenoscopy, flexible, transoral; with control of bleeding, any method 82650, 51, Esophagogastroduodenoscopy, flexible, transoral; with biopsy, single or multiple CPT copyright 2021 [employer] [place] [employer]. All rights reserved. The codes documented in this report are preliminary and upon complaints coordinator review may be revised to meet current compliance requirements. Mikael Moncada DO 10/12/2023 12:43:02 PM This report has been signed electronically. Number of Addenda: 0 Note Initiated On: 10/12/2023 12:18 PM
--- NOTE | 2023-10-12 12:43 | OP.CCLET_ITS ---
10/12/2023 Sammy Griffith MD [address] [place] [address] Re : Upper GI endoscopy procedure for Jaleel Lee Dear Dr. Griffith This procedure was performed on Thursday, October 12, 2023. My impressions and recommendations are as follows: Impressions : - Normal esophagus. - Oozing gastric ulcers with pigmented material. Treated with a heater probe. - Non-bleeding duodenal ulcer with no stigmata of bleeding. Biopsied. Recommendations : - [facility]. - Resume regular diet today. - No aspirin, ibuprofen, naproxen, or other non-steroidal anti-inflammatory drugs for 8 weeks. - Use Prilosec (omeprazole) 40 mg PO BID for 6 months. My findings are described in the full procedure note, which is enclosed. If I can be of further assistance, please feel free to contact me at . Sincerely, Mikael Moncada, 10/12/2023 12:43:02 PM This report has been signed electronically.
--- NOTE | 2023-10-12 12:43 | PCM.POST.ANE ---
Anesthesia: Postop Eval I Current Vital Signs Temperature: 97 F Pulse Rate: 67 Blood Pressure: 81/41 Respiratory Rate: 14 Pulse Ox: 98 Oxygen Delivery Method: Room Air Assessment Airway patent: Yes Spontaneous unlabored respirations: Yes Mental status: Awake and Calm nausea: No Vomiting: No Anesthesia Complication: No Fluid Hydration Crystalloid volume administer (ml): 400 Total IV fluid infused: 400 Progress Note Anesthesia document: Postop Eval 1 completed: Yes
--- NOTE | 2023-10-12 13:02 | PCM.PROGNOTE ---
Subjective Subjective Patient seen and examined. His significant other was by his bedside. He had no active complaints. HE hadnt had any more dark stools or coffee ground emesis again overnight. Review of systems was otherwise negative. He is for EGD today. Hemoglobin today is 7.7. Objective Data Objective Data Vital Signs: Vital Signs Temp Pulse Resp BP Pulse Ox O2 Del Method O2 Flow Rate 97 F L 68 16 79/46 L 97 Nasal Cannula 2 10/12/23 12:45 10/12/23 12:55 10/12/23 12:55 10/12/23 12:55 10/12/23 12:55 10/12/23 12:55 10/12/23 12:50 Oxygen Flow Rate (L/min) 2 Oxygen Delivery Method Nasal Cannula Weight: 160 lb 0.889 oz Body Mass Index (BMI) 25.0 Intake & Output: Intake and Output for Last 24 Hours 10/10/23 10/11/23 10/12/23 23:59 23:59 23:59 Intake Total 2135 / 2135 2883.5 / 3003.5 217.83 / 217.83 Output Total 125 / 125 Balance 2135 / 2135 2883.5 / 3003.5 92.83 / 92.83 Lab / Micro Data 10/12/23 05:38 10/12/23 05:38 Labs: Laboratory Results - last 24 hr 10/12/23 05:38: WBC 5.7, RBC 2.38 L, Hgb 7.7 L, Hct 24.2 L, MCV 101.7 H, MCH 32.4 H, MCHC 31.8 L, RDW Std Deviation 48.8 H, RDW Coeff of Kassandra 13.1, Plt Count 139 L, MPV 10.5, Immature Gran % (Auto) 0.200, Neut % (Auto) 65.6, Lymph % (Auto) 22.4, [place] % (Auto) 9.7, Eos % (Auto) 1.6, Baso % (Auto) 0.5, Absolute Neuts (auto) 3.7, Absolute Lymphs (auto) 1.27, Nucleated RBC % 0, PT 14.6, INR 1.1, APTT 30.1, Sodium 141, Potassium 4.0, Chloride 110 H, Carbon Dioxide 29.0, Anion Gap 2 L, BUN 26 H, Creatinine 1.37 H, Estim Creat Clear Calc 38.87, Est GFR (MDRD) Af Amer 64, Est GFR (MDRD) Non-Af 53 L, BUN/Creatinine Ratio 19.0, Glucose 105, Calcium 8.0 L Physical Exam Const alert, oriented x3, no apparent distress and well nourished General Appearance: cooperative and well developed HEENT normocephalic, head/scalp atraumatic, moist oral mucous membranes and oropharynx normal Eyes PERRL and EOMs intact bilaterally Neck no lymphadenopathy, supple and no JVD Lymph Lymphatic: no lymphadenopathy noted and no lymphedema noted Resp normal respiratory effort, normal air movement and clear to auscultation bilaterally Cardio regular rate, regular rhythm, S1 normal heart sound, S2 normal heart sound and no murmurs GI normal to inspection, nondistended, normoactive bowel sounds, soft to palpation, non-tender and non-distended Extremity General Extremity: no tenderness to palpation of joints or extremities Skin General Skin Exam: no breakdown Neuro CN's II-XII intact bilaterally, no focal motor deficits, no sensory deficits noted and deep tendon reflexes 2+ bilaterally Motor Exam: strength 5/5 throughout and general weakness Psych thought process normal, cooperative and affect normal Appearance: appropriate Assessment & Plan Assessment/Plan (1) Acute blood loss anemia: (2) GI bleed: PLAN: Plan #Acute on chronic anemia due to acute GI bleed hb is 7.7 admitted with a complaint of melena and coffee ground emesis on pantoprazole IV currently NPO. GI on board for EGD today: this showed oozing gastric ulcers with pigmented material which was treated with a heater probe, and continue gentle hydration with IVF continue omeprazole 40mg bid per GI transfuse if Hb <7 #Peripheral artery disease: will have to dc aspirin due to GI bleed. Resume atorvastatin #Chronic corneal scarring: recently had surgery at [facility] for this. to follow up with ophthalmology on outpatient basis. #BPH: on flomax DVT prophylaxis: SCDs # Charges/Coding Visit Charges Inpatient E&M: 05276 Subs Hosp L2
--- NOTE | 2023-10-12 14:00 | PCM.POSTANE2 ---
Anesthesia Postop Eval I Sum Postop Eval Completion status Anesthesia document: Postop Eval 1 completed: Yes Anesthesia Postop Eval I Summary Anesthesia Postop Eval I Summary: Anesthesia Postop Eval I: Assessment Summary Airway patent Yes 10/12/23 12:46 [email or web address] Spontaneous unlabored Yes 10/12/23 12:46 [email or web address] respirations Mental status Awake,Calm 10/12/23 12:46 [email or web address] nausea No 10/12/23 12:46 [email or web address] Vomiting No 10/12/23 12:46 [email or web address] Anesthesia Postop Eval I: Fluid Summary Crystalloid volume administer 400 10/12/23 12:46 [email or web address] (ml) Colloids volume administered ( ml) Blood Product volume administered (ml) Total IV fluid infused 400 10/12/23 12:46 [email or web address] Anesthesia Postop Eval I: Summary Notes Anesthesia Complication No 10/12/23 12:46 [email or web address] Anesthesia Complication Comment: Post-operative progress note Anesthesia: Postop Eval II Evaluation Mental status: Awake Pain Level: 0 nausea: No Vomiting: No Complications Anesthesia Complication: No
[2023-10-12] MEDS: 0.9% Normal Saline (1000mL) 1,000 ML 999 ML IV (14:15)
--- NOTE | 2023-10-12 14:35 | CASEMGMT ---
RN CM Face to Face with patient for initial transition planning/care coordination assessment. RN CM introduced self and role at [facility]. Patient lying in bed, alert and oriented, family at bedside. Patient willing to participate in assessment and is able to answer all questions appropriately. Care providers, pharmacy, and demographics verified. Strata: 3 PCP: [facility] Specialists: Perez, nephrology; CARLOZ, mold tooler; Preferred Pharmacy: [facility] Insurance: [employer] Prescription Benefit: yes Living Will/HPOA: yes, son Corbin Lee LNOK: sons Living Arrangements: Patient lives alone in a single story home with 2 steps and railing to enter the home. Patient states he is independent at home. Transportation: self, sons DME/HHC: Patient has raised toilet, cane, walker at home. No previous HHC or SNF. Patient wishes to discharge home, denies need for home health at this time. Patient states he has no further needs or concerns at this time. CM to follow for discharge planning needs that may arise. Disposition Plan: Patient to discharge home with family support and follow-up plans in place. Anabell FERNANDEZ, RN, CM
[2023-10-12] MEDS: 0.9% Normal Saline (1000mL) 2,000 ML 125 ML IV ×2 (15:45→23:59)
--- NOTE | 2023-10-12 16:21 | CHAPLAIN ---
Type of Pastoral Visit ___ Initial Visit ___ Follow-up Visit ___ On-call Visit ___ General Patient Visit ___ Spiritual Assessment ___ Family Conference ___ Bereavement ___ Rapid Response ___ Code Blue ___ Other (describe below) Pastoral Care Referral From ___ Patient ___ Family ___ Nurse ___ Physician ___ Watch Engine Operator ___ Rn Orthopedic ___ Other (describe below) Sacrament/Intervention ___ Active listening ___ Anointing ___ Religion ___ Bereavement ___ Communion ___ Pao exploration ___ ___ Life review ___ Prayer ___ Reconciliation ___ Sacrament of Sick ___ Supportive presence ___ Wedding ___ Other (describe below) Pastoral Comments patient was sleeping at time of attempted visit
[2023-10-13] VITALS (12 sets, daily range): BP systolic 86–112; BP diastolic 48–62; PULSE 62–89; RESP 12–18; TEMP 36.6–37.4; O2SAT 92–100
[2023-10-13] MEDS: Pantoprazole Sodium 80 MG in 0.9% Normal Saline (100mL Bag) 80 ML 10 MG CONT INF (01:02)
[2023-10-13 06:06] LABS: Absolute Lymphocyte Count 1.37 X10^3/uL (0.83-4.51); Basophil# 0.03 X10^3/uL; Basophil% 0.5 % (0-1); Eosinophil# 0.11 X10^3/uL; Eosinophils% 1.8 % (0-5); Hematocrit 23.3 % (40-54); Hemoglobin 7.4 g/dL (13.0-16.5); Lymphocyte # 1.37 X10^3/ul (0.83-4.51); Lymphocyte % 22.4 % (19-41); Mean Corp Hgb Conc 31.8 g/dL (32-36); Mean Corpuscular Hgb 32.6 pg (27.0-32.0); Mean Corpuscular Volume 102.6 fL (80-94); Mean Platelet Vol. 10.7 fl (6.2-12.0); Monocyte# 0.59 X10^3/uL; Monocyte% 9.7 % (0-10); NRBC Flagged by Analyzer 0 % (0-5); Neutrophil % 65.4 % (47-70); Platelet Count 138 K/mm3 (150-450); RBC Distribution Width CV 13.1 % (11.6-14.6); RBC Distribution Width SD 48.4 fl (35.1-43.9); Red Blood Count 2.27 M/mm3 (4.6-6.2); White Blood Count 6.1 K/mm3 (4.4-11.0)
[2023-10-13 06:43] LABS: Anion Gap 3 (5-15); BUN 15 mg/dL (7-18); BUN/Creat Ratio 10.8 RATIO (10-20); Calcium,Total 7.7 mg/dL (8.5-10.1); Chloride 111 mmol/L (98-107); Creatinine, Serum 1.39 mg/dL (0.70-1.30); EST Glomerular Filtration Rate 52 mL/min (>60); Est Glom Filt Rate - Afr Amer 63 mL/min (>60); Estimated Creatinine Clearance 38.31 ml/min; Glucose 101 mg/dL (74-106); Potassium 3.9 mmol/L (3.5-5.1); Sodium Level 141 mmol/L (136-145)
--- NOTE | 2023-10-13 11:05 | NURSING ---
[facility]DUR HELD D/T PROTOCOL TO HOLD IF SBP <110. PT BP 94/51
[2023-10-13] MEDS: Tamsulosin HCl 0.4 MG Capsule PO (11:11)
[2023-10-13] MEDS: Ipratropium Bromide 0.06% NASAL SPRAY 2 SPRAY NASAL (11:11)
[2023-10-13] MEDS: Gabapentin 300 MG Capsule PO (11:11)
[2023-10-13] MEDS: MOXIFLOXACIN HCL 1 ML EACH EYE (11:12)
[2023-10-13] MEDS: prednisoLONE eye drops (5 mL) 1 DROP OPTH.BTL 1 DRP OPHTHALMIC (11:12)
[2023-10-13 12:31] LABS: Hematocrit 29.9 % (40-54); Hemoglobin 9.4 g/dL (13.0-16.5)
--- NOTE | 2023-10-13 12:45 | DCINST_ITS ---
Discharge Instructions Diet Discharge Diet: Low fat / Low cholesterol Activity Discharge Activity: Return to Normal Activity Weight Bearing Status: Weight bearing as tolerated Dressing / Incision Call your doctor if you observe: Fever of 101 or Higher, Shortness of breath, Dizziness, Swelling in the ankles, Chest pain and - (dark stools, coffee ground vomiting) Follow Up Care Test Results: Test results from this visit will be discussed in further detail at your follow- up appointment, if applicable. Discharge Plan Admission Admit Date/Time: 10/10/23 13:10 Primary Reason for Your Visit: acute upper GI bleed Attending Provider: Barbara Willams Primary Care Provider: Sammy Griffith Chi Consulting Providers: Keara Cordero; Vincenzo Bautista Instructions Patient Instructions: ED Upper GI Bleeding (Stable) Discharge Orders/Prescriptions Prescriptions: New pantoprazole 40 mg Tablet,Delayed Release (Dr/Ec) 40 mg PO BID Qty: 60 3RF Continued ipratropium bromide 42 mcg (0.06 %) spray,non-aerosol 2 spray INTRANASAL BID isosorbide mononitrate 30 mg tablet extended release 24 hr 30 mg PO DAILY gabapentin [Neurontin] 300 mg capsule 300 mg PO DAILY atorvastatin 40 mg tablet 40 mg PO QHS nitroglycerin 0.4 mg tablet, sublingual 0.4 mg SUBLINGUAL Q5-15M PRN (Reason: chest pain) moxifloxacin 0.5 % drops 1 drp ophthalmic (eye) 4X/DAY prednisolone acetate 1 % drops,suspension 1 drp ophthalmic (eye) 4X/DAY tamsulosin 0.4 mg capsule 0.4 mg PO DAILY Discontinued aspirin [Adult Aspirin Regimen] 81 mg tablet,delayed release (DR/EC) 81 mg PO DAILY Referrals / Follow Up: Mikael Moncada DO [Med Staff - Active Staff] - Within 1 Week Sammy Griffith Chi, MD [Primary Care Provider] - Within 2 Weeks Disposition Disposition (needs filled in before D/C Order can be placed): Home, Self Care
--- NOTE | 2023-10-13 12:46 | DS.PCM_ITS ---
Providers Date of Admission: 10/10/23 Date of Discharge: 10/13/23 Primary Care Physician: Dr. Sammy Griffith MD Consultations 10/10/23 13:48 Consult: Gastroenterology Routine Consulting Provider: [facility] Reason for Consult: GI bleed EMERGENT Consult: No MD Notified: Yes Date Notified: 10/10/23 Time Notified: 13:15 Method of Notification: ED Physician Initiated Reason For Visit: GI BLEED Diagnosis Discharge Diagnosis (1) Acute blood loss anemia: Status: Acute Code(s): D62 - Acute posthemorrhagic anemia (2) GI bleed: Status: Acute Code(s): K92.2 - Gastrointestinal hemorrhage, unspecified Plan #Acute on chronic anemia due to acute GI bleed * hb is 7.7 * admitted with a complaint of melena and coffee ground emesis * on pantoprazole IV * currently NPO. GI on board * for EGD today: this showed oozing gastric ulcers with pigmented material which was treated with a heater probe, and * continue gentle hydration with IVF * continue omeprazole 40mg bid per GI * transfuse if Hb <7 * #Peripheral artery disease: will have to dc aspirin due to GI bleed. Resume atorvastatin #Chronic corneal scarring: recently had surgery at [facility] for this. to follow up with ophthalmology on outpatient basis. #BPH: on flomax DVT prophylaxis: SCDs # Medications at Discharge Home Medications atorvastatin 40 mg tablet 40 mg PO QHS cholesterol 04/19/18 gabapentin 300 mg capsule (Neurontin) 300 mg PO DAILY nerves/pain 04/19/18 ipratropium bromide 42 mcg (0.06 %) nasal spray 2 spray intranasal BID breathing 04/19/18 isosorbide mononitrate 30 mg tablet,extended release 24 hr 30 mg PO DAILY heart 04/19/18 nitroglycerin 0.4 mg sublingual tablet 0.4 mg sublingual Q5-15M PRN chest pain 04/19/18 tamsulosin 0.4 mg capsule 0.4 mg PO DAILY prostate 07/27/19 moxifloxacin 0.5 % eye drops 1 drp ophthalmic (eye) 4X/DAY EYE SURGERY 10/10/23 prednisolone acetate 1 % eye drops,suspension 1 drp ophthalmic (eye) 4X/DAY EYE SURGERY 10/10/23 pantoprazole 40 mg tablet,delayed release 40 mg PO BID #60 tabs 08/20/24 Hospital Course Operations None Procedures EGD Summary of Care Provided Minutes Spent on Discharge: 55 Hospital Course: Patient is an 83-year-old male with a past medical history as outlined was admitted through the ED on 10/10/2023 with a complaint of dark stools. He also had coffee-ground emesis and his symptoms have been going on for about 2 days prior to admission. He kept having recurrent dark stools and coffee-ground emesis so family brought him to the ED. His hemoglobin was 12.5 on the day of admission. He was admitted and managed for GI bleed and started on pantoprazole drip after being given a bolus of pantoprazole. GI was consulted and patient had EGD which showed normal esophagus and oozing gastric ulcers with pigmented material which were treated with heater probe. He also had nonbleeding duodenal ulcer with no stigmata of bleeding which was biopsied. Patient was placed on p.o. pantoprazole 40 mg twice daily which she was to take for 6 months. His aspirin was discontinued per GI recommendation and he was counseled not to take ibuprofen or any other NSAIDs. Patient's hemoglobin dropped to a kenisha of 7.4. He was therefore transfused with a unit of packed red blood cells prior to discharge. Hemoglobin was 9.4 prior to discharge. Remained stable and was discharged home on 10/13/2023. He is follow-up with his primary care doctor and chief of hospital medicine within 1 to 2 weeks. Patient seen and examined prior to discharge. He had no complaints and had an uneventful night. Review of systems otherwise negative. Labs and vitals reviewed. Home medication reviewed and reconciled. Physical Exam Const alert, oriented x3, no apparent distress and well nourished General Appearance: cooperative, comfortable, well kempt and well developed Orientation / Consciousness: awake HEENT normocephalic, head/scalp atraumatic, hearing grossly normal bilaterally, moist oral mucous membranes and oropharynx normal Mouth: oral and palatal mucosa normal Eyes PERRL and EOMs intact bilaterally Neck no lymphadenopathy, supple and no JVD Lymph Lymphatic: no lymphadenopathy noted and no lymphedema noted Resp normal respiratory effort, normal air movement, no retractions, no use of accessory muscles and clear to auscultation bilaterally Cardio regular rate, regular rhythm, S1 normal heart sound, S2 normal heart sound and no murmurs GI normal to inspection, nondistended, normoactive bowel sounds, soft to palpation, non-tender, non-distended and hepatosplenomegaly Extremity normal to inspection, full ROM and no clubbing, cyanosis or edema General Extremity: no tenderness to palpation of joints or extremities Skin no rashes or lesions noted General Skin Exam: no breakdown Neuro oriented x3, CN's II-XII intact bilaterally, moves all extremities, no focal motor deficits, no sensory deficits noted and deep tendon reflexes 2+ bilaterally Sensorium / Orientation: awake and alert Motor Exam: strength 5/5 throughout and general weakness Psych thought process normal, cooperative and affect normal Appearance: appropriate Weight / BMI Weight Weight: 160 lb 0.889 oz Body Mass Index (BMI) 25.0 ABG / Lab / Microbiology Data 10/13/23 11:50 10/13/23 05:27 Laboratory: Laboratory Results - last 24 hr 10/10/23 12:13: Crossmatch See Detail 10/13/23 05:27: WBC 6.1, RBC 2.27 L, Hgb 7.4 L, Hct 23.3 L, MCV 102.6 H, MCH 32.6 H, MCHC 31.8 L, RDW Std Deviation 48.4 H, RDW Coeff of Kassandra 13.1, Plt Count 138 L, MPV 10.7, Immature Gran % (Auto) 0.200, Neut % (Auto) 65.4, Lymph % (Auto) 22.4, [place] % (Auto) 9.7, Eos % (Auto) 1.8, Baso % (Auto) 0.5, Absolute Neuts (auto) 4.0, Absolute Lymphs (auto) 1.37, Nucleated RBC % 0, Sodium 141, Potassium 3.9, Chloride 111 H, Carbon Dioxide 27.0, Anion Gap 3 L, BUN 15, C reatinine 1.39 H, Estim Creat Clear Calc 38.31, Est GFR (MDRD) Af Amer 63, Est GFR (MDRD) Non-Af 52 L, BUN/Creatinine Ratio 10.8, Glucose 101, Calcium 7.7 L 10/13/23 11:50: Hgb 9.4 L, Hct 29.9 L D/C Instructions Discharge Diet: Low fat / Low cholesterol Discharge Activity: Return to Normal Activity Weight Bearing Status: Weight bearing as tolerated Call your doctor if you observe: Fever of 101 or Higher, Shortness of breath, Dizziness, Swelling in the ankles, Chest pain and - (dark stools, coffee ground vomiting) Meaningful Use Info Meaningful Use Meaningful Use Diagnoses (Choose all that apply): None applicable Ischemic Stroke Statin Dosing Therapy Reference: STATIN DOSE THERAPY REFERENCE: * Patients > 75 years receive moderate or high dose statin therapy. * Patients 75 years or YOUNGER should receive HIGH intensity statin dose unless contraindicated. You will be required to document reason for non-treatment if statin daily dose does not meet guidelines. HIGH DOSE STATIN THERAPY DAILY Atorvastatin > than or = to 40 mg Rosuvastatin > than or = to 20 mg Amlodipine + Atorvastatin > than or = to 2.5/40 mg Ezetimibe + Simvastatin 10/80 mg Simvastatin 80mg Discharge Plan Admission Admit Date/Time: 10/10/23 13:10 Primary Reason for Your Visit: acute upper GI bleed Attending Provider: Barbara Willams Primary Care Provider: Sammy Griffith Chi Consulting Providers: Keara Cordero; Vincenzo Bautista Instructions Patient Instructions: ED Upper GI Bleeding (Stable) Discharge Orders/Prescriptions Prescriptions: New pantoprazole 40 mg Tablet,Delayed Release (Dr/Ec) 40 mg PO BID Qty: 60 3RF Continued ipratropium bromide 42 mcg (0.06 %) spray,non-aerosol 2 spray INTRANASAL BID isosorbide mononitrate 30 mg tablet extended release 24 hr 30 mg PO DAILY gabapentin [Neurontin] 300 mg capsule 300 mg PO DAILY atorvastatin 40 mg tablet 40 mg PO QHS nitroglycerin 0.4 mg tablet, sublingual 0.4 mg SUBLINGUAL Q5-15M PRN (Reason: chest pain) moxifloxacin 0.5 % drops 1 drp ophthalmic (eye) 4X/DAY prednisolone acetate 1 % drops,suspension 1 drp ophthalmic (eye) 4X/DAY tamsulosin 0.4 mg capsule 0.4 mg PO DAILY Discontinued aspirin [Adult Aspirin Regimen] 81 mg tablet,delayed release (DR/EC) 81 mg PO DAILY Referrals / Follow Up: Sammy Griffith Chi, MD [Primary Care Provider] - 10/14/23 3:00 pm Tanya Blackburn PA [Med Staff - Adv Practice Prof] - 10/20/23 11:00 am Disposition Disposition (needs filled in before D/C Order can be placed): Home, Self Care Charges/Coding Visit Charges Inpatient E&M: 39402 Disch Hosp >30min
--- NOTE | 2023-10-13 14:17 | CASEMGMT ---
Patient has order for discharge. RN CM in to discuss needs at discharge. Patient denies needs or help at discharge. Patient had no further questions or concerns.
--- NOTE | 2023-10-13 14:26 | CHAPLAIN ---
Type of Pastoral Visit _x__ Initial Visit ___ Follow-up Visit ___ On-call Visit ___ General Patient Visit ___ Spiritual Assessment ___ Family Conference ___ Bereavement ___ Rapid Response ___ Code Blue ___ Other (describe below) Pastoral Care Referral From _x__ Patient ___ Family ___ Nurse ___ Physician ___ Director Product ___ Recenterer ___ Other (describe below) Sacrament/Intervention _x__ Active listening ___ Anointing ___ Rastafarian ___ Bereavement ___ Communion _x__ Pao exploration ___ _x__ Life review _x__ Prayer ___ Reconciliation ___ Sacrament of Sick ___ Supportive presence ___ Wedding ___ Other (describe below) Pastoral Comments patient is welcoming and talkative; pt gives life review, his spiritual history and involvement; family past and present; and his need to get to [facility] tomorrow for an eye procedure; pt is spiritual and welcomes conversation on spiritual matters and life; prayer given
--- NOTE | 2023-10-13 15:18 | PHA.DC.MR.R ---
Pharmacy [facility] Reconciliation Pharm[facility] Service has performed discharge medication reconciliation for this patient. Medication education papers prepared, patient discharged before I was able to aids counselor. The patient's discharge medication list was reviewed for discrepancies and discrepancies were resolved. Medications at Discharge Home Medications atorvastatin 40 mg tablet 40 mg PO QHS cholesterol 04/19/18 gabapentin 300 mg capsule (Neurontin) 300 mg PO DAILY nerves/pain 04/19/18 ipratropium bromide 42 mcg (0.06 %) nasal spray 2 spray intranasal BID breathing 04/19/18 isosorbide mononitrate 30 mg tablet,extended release 24 hr 30 mg PO DAILY heart 04/19/18 nitroglycerin 0.4 mg sublingual tablet 0.4 mg sublingual Q5-15M PRN chest pain 04/19/18 tamsulosin 0.4 mg capsule 0.4 mg PO DAILY prostate 07/27/19 moxifloxacin 0.5 % eye drops 1 drp ophthalmic (eye) 4X/DAY EYE SURGERY 10/10/23 prednisolone acetate 1 % eye drops,suspension 1 drp ophthalmic (eye) 4X/DAY EYE SURGERY 10/10/23 pantoprazole 40 mg tablet,delayed release 40 mg PO BID #60 tabs 10/13/23
== END 2023-10-13 14:07 | disposition home or self-care (01) | DRG 378 ==
LOC: ED 12:39 → PCU 13:18
PROVIDERS: Anesthesiology; Internal Medicine Gastroenterology; Admitting Provider Internal Medicine; Emergency Provider Emergency Medicine; PCP Family Medicine Geriatric Medicine; Visit Provider Student in an Organized Health Care Education/Training Program
PROC: 0DJ08ZZ Inspection of Upper Intestinal Tract, Via Natural or Artificial Opening Endoscopic (ICD-10-PCS; CPT 43235; principal; 2023-10-12 11:40)
DX: K25.0 Acute gastric ulcer with hemorrhage (principal); D62 Acute posthemorrhagic anemia; E11.22 Type 2 diabetes mellitus with diabetic chronic kidney disease; E11.51 Type 2 diabetes mellitus with diabetic peripheral angiopathy without gangrene; J44.9 Chronic obstructive pulmonary disease, unspecified; N18.30 Chronic kidney disease, stage 3 unspecified; I65.29 Occlusion and stenosis of unspecified carotid artery; K26.9 Duodenal ulcer, unspecified as acute or chronic, without hemorrhage or perforation; H17.9 Unspecified corneal scar and opacity; I25.10 Atherosclerotic heart disease of native coronary artery without angina pectoris; N40.0 Benign prostatic hyperplasia without lower urinary tract symptoms; Z79.899 Other long term (current) drug therapy; Z95.1 Presence of aortocoronary bypass graft; Z87.891 Personal history of nicotine dependence
CPT/HCPCS: 36415; 80048; 80053; 85014; 85018; 85025; 85610; 85730; 86850; 86900; 86901; 86920; 88305; 93005; 99284; J7030; J7040; J7120; P9016; A4216; J2405; J3490

== ENCOUNTER → 2023-10-15 | Outpatient (CLI) | payer MEDICARE, SELFPAY ==
[2023-10-15 16:00] LABS: Absolute Lymphocyte Count 1.08 X10^3/uL (0.83-4.51); Absolute Neutrophil Count 4.3 X10^3/uL (2.0-7.7); Basophil# 0.02 X10^3/uL; Basophil% 0.3 % (0-1); Eosinophil# 0.08 X10^3/uL; Eosinophils% 1.3 % (0-5); Hematocrit 29.6 % (40-54); Hemoglobin 9.5 g/dL (13.0-16.5); Lymphocyte # 1.08 X10^3/ul (0.83-4.51); Lymphocyte % 17.6 % (19-41); Mean Corp Hgb Conc 32.1 g/dL (32-36); Mean Corpuscular Hgb 31.9 pg (27.0-32.0); Mean Corpuscular Volume 99.3 fL (80-94); Mean Platelet Vol. 9.7 fl (6.2-12.0); Monocyte# 0.66 X10^3/uL; Monocyte% 10.7 % (0-10); NRBC Flagged by Analyzer 0 % (0-5); Neutrophil # 4.28 X10^3/uL (2.7-7.7); Neutrophil % 69.6 % (47-70); Platelet Count 207 K/mm3 (150-450); RBC Distribution Width CV 14.7 % (11.6-14.6); RBC Distribution Width SD 51.3 fl (35.1-43.9); Red Blood Count 2.98 M/mm3 (4.6-6.2); White Blood Count 6.2 K/mm3 (4.4-11.0)
[2023-10-15 16:34] LABS: Anion Gap 5 (5-15); BUN 9 mg/dL (7-18); BUN/Creat Ratio 6.2 RATIO (10-20); Calcium,Total 8.8 mg/dL (8.5-10.1); Chloride 106 mmol/L (98-107); Creatinine, Serum 1.44 mg/dL (0.70-1.30); EST Glomerular Filtration Rate 50 mL/min (>60); Est Glom Filt Rate - Afr Amer 60 mL/min (>60); Glucose 108 mg/dL (74-106); Potassium 3.6 mmol/L (3.5-5.1); Sodium Level 141 mmol/L (136-145)
== END | disposition home or self-care (01) ==
LOC: POLAB3 15:47
PROVIDERS: PCP Family Medicine Geriatric Medicine; Visit Provider Family Medicine Geriatric Medicine
DX: D64.9 Anemia, unspecified (principal); I10 Essential (primary) hypertension
CPT/HCPCS: 36415; 80048; 85025

== ENCOUNTER → 2023-11-11 | Outpatient (CLI) | payer MEDICARE, SELFPAY ==
[2023-11-11 11:25] LABS: Absolute Lymphocyte Count 1.69 X10^3/uL (0.83-4.51); Absolute Neutrophil Count 2.8 X10^3/uL (2.0-7.7); Basophil# 0.03 X10^3/uL; Basophil% 0.6 % (0-1); Eosinophil# 0.22 X10^3/uL; Eosinophils% 4.1 % (0-5); Hematocrit 39.6 % (40-54); Lymphocyte # 1.69 X10^3/ul (0.83-4.51); Lymphocyte % 31.4 % (19-41); Mean Corp Hgb Conc 30.3 g/dL (32-36); Mean Corpuscular Hgb 30.4 pg (27.0-32.0); Mean Corpuscular Volume 100.3 fL (80-94); Mean Platelet Vol. 10.5 fl (6.2-12.0); Monocyte# 0.62 X10^3/uL; Monocyte% 11.5 % (0-10); NRBC Flagged by Analyzer 0 % (0-5); Platelet Count 232 K/mm3 (150-450); RBC Distribution Width CV 14.8 % (11.6-14.6); RBC Distribution Width SD 55.3 fl (35.1-43.9); Red Blood Count 3.95 M/mm3 (4.6-6.2); White Blood Count 5.4 K/mm3 (4.4-11.0)
== END | disposition home or self-care (01) ==
LOC: LAB 10:33
PROVIDERS: PCP Family Medicine Geriatric Medicine; Referring Provider Family Medicine Geriatric Medicine; Visit Provider Family Medicine Geriatric Medicine
DX: D64.9 Anemia, unspecified (principal)
CPT/HCPCS: 36415; 85025

== ENCOUNTER → 2024-02-02 | Outpatient (CLI) | payer MEDICARE, SELFPAY ==
[2024-02-02 14:42] LABS: Absolute Lymphocyte Count 1.66 X10^3/uL (0.83-4.51); Absolute Neutrophil Count 3.2 X10^3/uL (2.0-7.7); Basophil# 0.04 X10^3/uL; Basophil% 0.7 % (0-1); Eosinophil# 0.06 X10^3/uL; Eosinophils% 1.1 % (0-5); Hematocrit 46.8 % (40-54); Hemoglobin 14.6 g/dL (13.0-16.5); Lymphocyte # 1.66 X10^3/ul (0.83-4.51); Lymphocyte % 29.6 % (19-41); Mean Corp Hgb Conc 31.2 g/dL (32-36); Mean Corpuscular Hgb 29.9 pg (27.0-32.0); Mean Corpuscular Volume 95.9 fL (80-94); Mean Platelet Vol. 10.3 fl (6.2-12.0); Monocyte% 10.7 % (0-10); NRBC Flagged by Analyzer 0 % (0-5); Neutrophil # 3.23 X10^3/uL (2.7-7.7); Neutrophil % 57.7 % (47-70); Platelet Count 182 K/mm3 (150-450); RBC Distribution Width CV 13.9 % (11.6-14.6); RBC Distribution Width SD 49.4 fl (35.1-43.9); Red Blood Count 4.88 M/mm3 (4.6-6.2); White Blood Count 5.6 K/mm3 (4.4-11.0)
[2024-02-02 15:18] LABS: Vitamin D,25 Hydroxy 22.9 ng/mL
[2024-02-02 15:26] LABS: ALB/GLOB Ratio 1.2 RATIO (0.9-2.4); AST(SGOT) 12 U/L (15-37); Alanine Aminotransfer ALT/SGPT 15 U/L (16-61); Albumin, Serum 3.8 g/dL (3.2-5.0); Alkaline Phosphatase 61 U/L (45-117); Anion Gap 4 (5-15); BUN 17 mg/dL (7-18); BUN/Creat Ratio 11.5 RATIO (10-20); Calcium,Total 8.9 mg/dL (8.5-10.1); Chloride 107 mmol/L (98-107); Creatinine, Serum 1.48 mg/dL (0.70-1.30); EST Glomerular Filtration Rate 48 mL/min (>60); Est Glom Filt Rate - Afr Amer 58 mL/min (>60); Globulin 3.2 g/dL (2.2-4.2); Glucose 117 mg/dL (74-106); Potassium 4.2 mmol/L (3.5-5.1); Sodium Level 142 mmol/L (136-145)
== END | disposition home or self-care (01) ==
PROVIDERS: PCP Family Medicine Geriatric Medicine; Visit Provider Family Medicine Geriatric Medicine
DX: I10 Essential (primary) hypertension (principal); E55.9 Vitamin D deficiency, unspecified
CPT/HCPCS: 36415; 80053; 82306; 84443; 85025

== ENCOUNTER → 2024-02-03 | Outpatient (CLI) | payer MEDICARE, SELFPAY ==
[2024-02-03 11:21] LABS: Microalbumin,Random Urine 23.7 mg/L (NO RANGE EST.)
== END | disposition home or self-care (01) ==
PROVIDERS: PCP Family Medicine Geriatric Medicine; Referring Provider Family Medicine Geriatric Medicine; Visit Provider Family Medicine Geriatric Medicine
DX: N18.32 Chronic kidney disease, stage 3b (principal)
CPT/HCPCS: 82043; 82570

== ENCOUNTER → 2024-08-30 | Outpatient (CLI) | payer MEDICARE, SELFPAY ==
[2024-08-30 09:58] LABS: Albumin, Serum 4.3 g/dL (3.4-4.8); Anion Gap 10 (5-15); BUN 15 mg/dL (4-19); BUN/Creat Ratio 10.1 RATIO (10-20); Calcium,Total 9.2 mg/dL (7.6-11.0); Carbon Dioxide 28.3 mmol/L (21.0-32.0); Chloride 103 mmol/L (98-108); Glucose 107 mg/dL (70-99); Potassium 4.5 mmol/L (3.3-5.1)
[2024-08-30 10:44] LABS: Creatinine, Urine (random) 52.60 mg/dL (39.00-259.00)
[2024-08-30 10:47] LABS: Protein, Urine (Random) < 6.0 mg/dL (0.0-12.0); Protein:Creat Ratio UNABLE TO CALCULATE mg/g CRE (0-200)
== END | disposition home or self-care (01) ==
LOC: LAB 08:33
PROVIDERS: PCP Family Medicine Geriatric Medicine; Referring Provider Internal Medicine Nephrology; Visit Provider Internal Medicine Nephrology
DX: E11.22 Type 2 diabetes mellitus with diabetic chronic kidney disease (principal); N18.32 Chronic kidney disease, stage 3b
CPT/HCPCS: 36415; 80069; 82570; 84156

== ENCOUNTER → 2024-09-07 | Outpatient (CLI) | payer MEDICARE, SELFPAY ==
[2024-09-07 13:15] LABS: Hematocrit 46.9 % (40-54); Hemoglobin 15.6 g/dL (13.0-16.5); Immature Granulocytes Count 0.000 X10^3/uL (0.0-0.0); Mean Corp Hgb Conc 33.3 g/dL (32-36); Mean Corpuscular Volume 97.5 fL (80-94); Mean Platelet Vol. 10.1 fl (6.2-12.0); NRBC Flagged by Analyzer 0 % (0-5); Platelet Count 204 K/mm3 (150-450); RBC Distribution Width CV 13.2 % (11.6-14.6); RBC Distribution Width SD 47.7 fl (35.1-43.9); Red Blood Count 4.81 M/mm3 (4.6-6.2); White Blood Count 5.5 K/mm3 (4.4-11.0)
[2024-09-07 14:43] LABS: Vitamin D,25 Hydroxy 32.5 ng/mL (30-100)
[2024-09-07 14:45] LABS: AST(SGOT) 19 U/L (<=37); Alanine Aminotransfer ALT/SGPT 11 U/L (<=46); Albumin, Serum 4.4 g/dL (3.4-4.8); Alkaline Phosphatase 60 U/L (40-129); Anion Gap 10 (5-15); BUN 23 mg/dL (4-19); BUN/Creat Ratio 15.2 RATIO (10-20); Calcium,Total 9.5 mg/dL (7.6-11.0); Carbon Dioxide 28.1 mmol/L (21.0-32.0); Chloride 102 mmol/L (98-108); Globulin 2.9 g/dL (2.2-4.2); Glucose 99 mg/dL (70-99); Potassium 4.9 mmol/L (3.3-5.1)
[2024-09-07 20:51] LABS: Xtra Tube Kwok EXTRA TUBE
== END | disposition home or self-care (01) ==
LOC: POLAB3 12:51
PROVIDERS: PCP Family Medicine Geriatric Medicine; Visit Provider Family Medicine Geriatric Medicine
DX: I10 Essential (primary) hypertension (principal); E55.9 Vitamin D deficiency, unspecified
CPT/HCPCS: 36415; 80053; 82306; 84443; 85025

== ENCOUNTER → 2024-09-22 | Outpatient (CLI) | payer MEDICARE, SELFPAY ==
--- OUTSIDE RECORDS SUMMARY | 2024-09-22 06:49 | XMS RPT_ITS | CCD ---
Author Organization [facility] Care Team Providers Care Chief Substation Operator Name Role Phone JOAQUIN DAVIES Admitting Unavailable JOAQUIN DAVIES Attending Unavailable JOAQUIN DAVIES Admitting Unavailable JOAQUIN DAVIES Attending Unavailable Dr. Sammy Griffith Chi Primary Care Provider [phone] Nacho, Dr. Sammy Arguelles Referring Provider Ralph THERMAL SURFACING MACHINE OPERATOR, THERMAL SURFACING MACHINE OPERATOR-C Teresa Attending Provider Nacho, Asmmy Chi Primary Care Provider [phone] Yovani Marques MD Unavailable [phone] Nacho, Dr. Sammy Arguelles Primary Care Provider Nacho, Dr. Sammy Arguelles Referring Provider Ralph THERMAL SURFACING MACHINE OPERATOR, THERMAL SURFACING MACHINE OPERATOR-C Teresa Attending Provider Nacho, Sammy Chi Primary Care Provider BENNY MARINA Referring Unavailable NACHO, SAMMY CHI Primary Care Unavailable YOGESH DUNNE Attending Unavailable FRANKLIN CHAIDEZ Attending Unavailable NACHO, SAMMY CHI Primary Care Unavailable EWELINA BAGLEY Referring Unavailable BENNY MARINA Attending Unavailable NACHO, SAMMY CHI Primary Care Unavailable EWELINA BAGLEY Attending Unavailable NACHO, SAMMY CHI Primary Care Unavailable NACHO, SAMMY CHI Primary Care Unavailable SASTRY, KURTIS Attending Unavailable SASTRY, KURTIS Referring Unavailable NACHO, SAMMY CHI Primary Care Unavailable BENNY MARINA Referring Unavailable YOGESH DUNNE Attending Unavailable NACHO, SAMMY CHI Primary Care Unavailable EWELINA BAGLEY Attending Unavailable NACHO, SAMMY CHI Primary Care Unavailable EWELINA BAGLEY Attending Unavailable NACHO, SAMMY CHI Primary Care Unavailable HATTIE WATKINS Attending Unavailable EWELINA BAGLEY Attending Unavailable NACHO, SAMMY CHI Primary Care Unavailable NACHO, SAMMY CHI Primary Care Unavailable HATTIE WATKINS Attending Unavailable NACHO, SAMMY CHI Primary Care Unavailable KURTIS BARRY Attending Unavailable YOGESH DUNNE Referring Unavailable EWELINA BAGLEY Attending Unavailable NACHO, SAMMY CHI Primary Care Unavailable Nacho , Dr. Sammy Arguelles Primary Care Provider Dr. Sammy Griffith MD, Chi Referring Provider [phone] Teresa Gottlieb Attending Provider [phone] Dr. Macrina Todd DO Attending Provider Dr. Macrina Todd DO Referring Provider Dr. Sammy Griffith MD, Chi Attending Provider Nacho, Sammy Chi Primary Care Unavailable Teresa Rosas NP Referring Unavailable Ralph MARQUES, Teresa Attending Unavailable Nacho, Sammy Chi Primary Care Unavailable Nacho, Sammy Chi Attending Unavailable Nacho, Sammy Chi Primary Care Unavailable Nacho, Sammy Chi Referring Unavailable Nacho, Sammy Chi Attending Unavailable Nacho, Sammy Chi Primary Care Unavailable Keara Cordero Admitting Unavailable Cordero, Keara Consulting Unavailable Vincenzo Bautista Attending Unavailable Vincenzo Bautista Consulting Unavailable Koram, Barbara Ghazala Attending Unavailable Koram, Barbara Ghazala Consulting Unavailable Nacho, Sammy Chi Primary Care Unavailable Nacho, Sammy Chi Referring Unavailable Ralph MARQUES, Teresa Attending Unavailable Tanya Blackburn Attending Unavailable Nacho, Sammy Chi Primary Care Unavailable Nacho, Sammy Chi Referring Unavailable Nacho, Sammy Chi Primary Care Unavailable Mikael Moncada Attending Unavailable Koram, Barbara Ghazala Referring Unavailable Nacho, Sammy Chi Primary Care Unavailable Jorje Mcleod Referring Unavailable Olayinka Patel Attending Unavailabl e Nacho, Sammy Chi Primary Care Unavailable Nacho, Sammy Chi Attending Unavailable Nacho, Sammy Chi Attending Unavailable Nacho, Sammy Chi Primary Care Unavailable Nacho, Sammy Chi Referring Unavailable Nacho, Sammy Chi Attending Unavailable Nacoh, Sammy Chi Primary Care Unavailable Nacho, Sammy Chi Primary Care Unavailable Macrina Todd Referring Unavailable Macrina Todd Attending Unavailable Nacho, Sammy Chi Primary Care Unavailable Cordero, Keara Consulting Unavailable Cordero, Keara Admitting Unavailable Koram, Barbara Ghazala Attending Unavailable Renettappvera Vincenzo Consulting Unavailable Medications Current Medications Medication Drug Class(es) Dates Sig (Normalized) Sig (Original) acetaminophen 325 mg / oxyCODONE hydrochloride 5 mg oral tablet (5 sources) Opioid Agonist Start: 10-06-2023 End: 10-08-2023 oxyCODONE-acetamin ophen (PERCOCET) 5-325 mg tablet Indications: Pre-operative anxiety 1 tablet every 6 hours as needed for pain 6 tablet 0 10/07/2023 10/08/2023 Active Start: 04-14-2023 End: 04-21-2023 oxyCODONE-acetaminophen (PER COCET) 5-325 mg tablet Indications: Post-op pain Take 1 tablet by mouth every 6 hours as needed for pain for up to 6 doses. 6 tablet 0 04/14/2023 04/21/2023 Comment on above: Take 1 tablet by randy th every 6 hours as needed for pain for up to 6 doses. antiox #8/om3/dha/epa/lut /zeax (PRESERVISION AREDS 2, OMEGA-3, ORAL) (2 sources) antiox #8/om3/dha/epa/payal t/zeax (PRESERVISION AREDS 2, OMEGA-3, ORAL) Take by mouth. Active aspirin 81 mg oral tablet (20 sources) Platelet Aggregation Inhibitor, Nonsteroidal Anti-inflammatory Drug Start: 08-23-2024 take 1 tablet by mouth once daily Aspirin 81 mg tablet Active 81 mg PO daily August 23, 2024 12:00am Start: 05-18-2012 End: 10-13-2023 take 1 tablet by mouth once daily Aspirin (Adult Aspirin Regimen) 81 mg tablet,delayed release (DR/EC) Discontinued 81 mg PO DAILY April 19, 2018 1:00am October 13, 2023 12:43pm Comment on above: Take 1 tablet by randy th once daily. atorvastatin 40 mg oral tablet (20 sources) HMG-CoA Reductase Inhibitor Star t: 10-24 take 1 tablet by mouth at bedtime Atorvastatin 40 mg tablet Active 40 mg PO AT BEDTIME April 19, 2018 1:00am cholesterol Comment on above: once daily. carboxymethylcellulose sodium 5 mg/ml ophthalmic solution (20 sources) Star t: 03-27 carboxymethylcellulose (REFRESH PLUS) 0.5 % Use 1 Drop in the right eye as needed. 1 Packet 10/08/2023 Active Comment on above: Use 1 Drop in the le ft eye as needed. dexamethasone phosphate 1 mg/ml ophthalmic solution (20 sources) Corticosteroid Star t: 06-24 take 1 drop(s) into the eye(s) four times daily in the evening dexAMETHasone 0.1% 0.1 % ophthalmic solution Use 1 Drop in the left eye four times daily. 10 mL 2 07/12/2020 3:15 PM EDT 07/12/2020 Active Start: 07-12-2020 take 1 drop(s) into the eye(s) four times daily dexAMETHasone 0.1% 0.1 % ophthalmic solution Use 1 Drop in the left eye four times daily. 10 mL 2 07/12/2020 Active Comment on above: Use 1 Drop in the le ft eye four times daily. diazePAM 5 mg oral tablet (5 sources) Benzodiazepine Start: 10-06-2023 End: 10-08-2023 diazePAM (VALIUM) 5 mg tablet Indications: Pre-operative anxiety Bring with you on day of procedure. Take one tablet by mouth on arrival at procedure office. Only take second tablet if instructed to do so. 2 tablet 0 10/07/2023 10/08/2023 Active Start: 04-14-2023 End: 04-21-2023 diazePAM (VALIUM) 5 mg table t Indications: Pre-operative anxiety Take 1 tablet by mouth as needed for anxiety (Take 1 tablet by mouth on the day of surgery upon [facility]. Take second tablet 30 minutes later if needed) for up to 2 doses. 2 tablet 0 04/14/2023 04/21/2023 Comment on above: Take [address] [facility] as needed for anxiety (Take 1 tablet by mouth on the day of surgery upon arrival to [facility]. Take second tablet 30 minutes later if needed) for up to 2 doses. diclofenac sodium 1 mg/ml ophthalmic solution (20 sources) Nonsteroidal Anti-inflammatory Drug Start: 03-26-19 End: 04-14-19 take 1 drop(s) into the eye(s) four times daily diclofenac (VOLTAREN) 0.1 % ophthalmic solution Use 1 drop in the left eye four times daily. 5 mL 1 04/14/2023 Active Comment on above: Use 1 drop in the le ft eye four times daily. difluprednate 0.5 mg/ml ophthalmic suspension (20 sources) Start: 02-03-20 18 take 1 drop(s) into the eye(s) four times daily Difluprednate (DUREZOL) 0.05 % drop Use 1 Drop in the right eye four times daily. Start after surgery 1 Bottle 1 06/01/2018 Active Start: 02-02-2018 take 1 drop(s) into the eye(s) four times daily Difluprednate (DUREZOL) 0.05 % drop Use 1 Drop in the right eye four times daily. Start after surgery 1 Bottle 1 06/01/2018 Active Comment on above: Use 1 Drop in the le ft eye four times daily. Start after surgery Use 1 Drop in the ri ght eye four times daily. Start after surgery erythromycin 0.005 mg/mg ophthalmic ointment (20 sources) Macrolide, Macrolide Antimicrobial Start: 12-12-19 23 apply 3.5 g into the eye(s) twice daily in the evening erythromycin (ROMYCIN) 5 mg/gram (0.5 %) ophthalmic ointment Apply to affected area twice a day for one week, then stop. 3.5 g 12/11/2022 1:04 PM EDT 12/11/2022 Active Comment on above: Apply to affected ar ea twice a day for one week, then stop. fluticasone propionate 0.05 mg/actuat metered dose nasal spray (20 sources) Corticosteroid Start: 10-06-19 10 fluticasone propionate(FLONASE 50 MCG/ACTUATION NASAL SPRAY) Use in the nose. 0 10/05/2009 Active Start: 10-05-2009 take 1 puff(s) nasal route once fluticasone propionate(FLONASE 50 MCG/ACTUATION NASAL SPRAY) One puff per nostril before lying down for bed. 0 10/05/2009 Active Comment on above: One puff per nostril before lying down for bed. Use in the nose. gabapentin 300 mg oral capsule (20 sources) Anti-epileptic Agent Start: 09-15-19 09 take 1 capsule by mouth once daily Gabapentin (Neurontin) 300 mg capsule Active 300 mg PO DAILY April 19, 2018 1:00am nerves/pain Comment on above: Take one(1) tablet d aily. 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 lifitegrast 50 mg/ml ophthalmic solution (11 sources) Lymphocyte Function-Associat ed Antigen-1 Antagonist Start: 01-06-2024 take 1 drop(s) into the eye(s) twice daily lifitegrast (XIIDRA) 5 % ophthalmic drops Use 1 Drop in both eyes two times a day. 60 Each 2 01/06/2024 Active nitroglycerin 0.4 mg sublingual tablet (20 sources) Nitrate Vasodilator Start: 04-19-2018 Nitroglycerin 0.4 mg tablet, sublingual Active 0.4 mg SL every 5 to 15 minutes as needed for chest pain April 19, 2018 1:00am Start: 04-19-2018 Nitroglycerin Active 0.4 MG SL every 5 to 15 minutes April 19, 2018 12:00am Start: 09-14-2008 nitroglycerin( NITROQUICK 0.3 MG SUBLINGUAL TAB) Dissolve under the tongue every 5 minutes as needed. 0 09/14/2008 Active Comment on above: as necessary Dissolve under the t ongue every 5 minutes as needed. 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 0 09/14/2008 Active Start: 09-14-2008 OMEGA-3 FATTY ACIDS-FISH OIL 360 MG-1,200 MG CAP Take one(1) tablet daily. 0 09/14/2008 Active Comment on above: Take one(1) tablet d aily. Take by mouth. pantoprazole 40 mg delayed release oral tablet (14 sources) Proton Pump Inhibitor Start: 4 take 1 tablet by mouth twice daily Pantoprazole 40 mg Tablet,Delayed Release (Dr/Ec) Active 40 mg PO TWICE A DAY 60 3 October 13, 2023 12:00am phenylephrine hydrochloride 25 mg/ml ophthalmic solution (5 sources) alpha-1 Adrenergic Agonist Start: End: PHENYLephrine 2.5 % 1 drop (AK-DILATE, BARRIE-SYNEPHRINE) Start: 08-04-2024 End: 08-05-2024 1 drop, BOTH EYES, DIRECT ED, Starting on Thu08/04/24 at 1400, Until Thu08/05/24 at 0159, Administer for dilation PROTECT FROM LIGHT Start: 05-18-2024 End: 05-19-2024 PHENYLephrine 2.5 % 1 Drop ( AK-DILATE, BARRIE-SYNEPHRINE) Start: 05-18-2024 End: 05-19-2024 1 Drop, BOTH EYES, DIRECT ED, Starting on Thu05/18/24 at 1500, Until Thu05/19/24 at 0259, Administer for dilation PROTECT FROM LIGHT Start: 05-05-2024 End: 05-06-2024 PHENYLephrine 2.5 % 1 Drop ( AK-DILATE, BARRIE-SYNEPHRINE) pravastatin sodium 80 mg oral tablet (20 sources) HMG-CoA Reductase Inhibitor Start: 09-14-2008 PRAVASTATIN 80 MG TA B Take by mouth. 0 09/14/2008 Active Comment on above: Take one(1) tablet d aily. Take by mouth. proparacaine hydrochloride 5 mg/ml ophthalmic solution (5 sources) Local Anesthetic Start: 08-04-2024 End: 08-05-2024 proparacaine 0.5 % 1 drop (ALCAINE) Start: 08-04-2024 End: 08-05-2024 1 drop, BOTH EYES, DIRECT ED, Starting on Thu08/04/24 at 1400, Until Thu08/05/24 at 0159, Administer for pneumo tonometry, tonopen tonometry, or pachymetry. In the event of a proparacaine shortage, administer tetracaine 0.5% ophthalmic drops 1 drop in the left eye as directed for pneumo tonometry, tonopen tonometry, or pachymetry Start: 05-18-2024 End: 05-19-2024 proparacaine 0.5 % 1 Drop (A LCAINE) Start: 05-18-2024 End: 05-19-2024 1 Drop, BOTH EYES, DIRECT ED, Starting on Thu05/18/24 at 1500, Until Kayla 05/19/24 at 0259, Administer for pneumo tonometry, tonopen tonometry, or pachymetry. In the event of a proparacaine shortage, administer tetracaine 0.5% ophthalmic drops 1 drop in the left eye as directed for pneumo tonometry, tonopen tonometry, or pachymetry Start: 05-05-2024 End: 05-06-2024 proparacaine 0.5 % 1 Drop (A LCAINE) propylene glycol/PF (SYSTANE COMPLETE PF OPHTHALMIC) (2 sources) propylene glycol /PF (SYSTANE COMPLETE PF OPHTHALMIC) Use in eyes. Active sodium chloride 0.503617 meq /mg ophthalmic ointment (20 sources) Start: 01-01-2017 sodium chlorid e (SAMUEL 128) 5 % ophthalmic ointment Use 1 application in both eyes daily at bedtime. 1 Tube 1 01/01/2017 Active Start: 01-01-2017 sodium chlorid e (SAMUEL 128) 5 % ophthalmic ointment Use 1 application in both eyes daily at bedtime. 1 Tube 1 01/01/2017 Active Comment on above: Use 1 application in both eyes daily at bedtime. tamsulosin hydrochloride 0.4 mg oral capsule (20 sources) alpha-Adrenergic Abimael Start: 0 End: 0 take 1 capsule by mouth once daily Tamsulosin 0.4 mg capsule Active 0.4 mg PO DAILY July 27, 2019 12:54pm prostate Start: 07-20-2019 End: 07-27-2019 Tamsulosin Discontinued MG P O July 19, 2019 11:00pm July 27, 2019 11:55am tropicamide 10 mg/ml ophthalmic solution (5 sources) Anticholinergic Start: 08-04-2024 End: 08-05-2024 tropicamide 1 % 1 drop (MYDRIACYL) Start: 08-04-2024 End: 08-05-2024 1 drop, BOTH EYES, DIRECT ED, Starting on Kayla 08/04/24 at 1400, Until Thu08/05/24 at 0159, Administer for dilation Start: 05-18-2024 End: 05-19-2024 tropicamide 1 % 1 Drop (MYDR IACYL) Start: 05-18-2024 End: 05-19-2024 1 Drop, BOTH EYES, DIRECT ED, Starting on Thu05/18/24 at 1500, Until Kayla 05/19/24 at 0259, Administer for dilation Start: 05-05-2024 End: 05-06-2024 tropicamide 1 % 1 Drop (MYDR IACYL) Completed/Discontinued Medications Medication Drug Class(es) Dates Sig (Normalized) Sig (Original) Azelas-Fluticasone- Nacl-Nahco3 (5 sources) Start: 04-19-2018 End: 05-06-2019 Qulyox-Llqldztglao-E acl-Nahco3 Discontinued 2 SPRAY INTRANASAL TWICE A DAY April 19, 2018 2:39pm May 06, 2019 1:32pm Start: 04-19-2018 End: 05-06-2019 Znnjon-Uomiyesjann-Rxac-Nahc o3 Discontinued 2 SPRAY INTRANASAL TWICE A DAY April 19, 2018 12:00am May 06, 2019 12:32pm Start: 04-19-2018 End: 05-06-2019 Mcxznw-Whjatjrjwfj-Xnfp-Nahc o3 Discontinued 2 SPRAY INTRANASAL TWICE A DAY April 19, 2018 1:00am May 06, 2019 1:32pm Uoqdxa-Fitwunkmxps-Fupo-Nahc o3 137 mcg-50 mcg- 0.9 % kit,spray suspension and spray (3 sources) Start: 04-19-2018 End: 05-06-2019 Xprjkn-Odhdcaofblo-Ckhg-Nahc o3 137 mcg-50 mcg- 0.9 % kit,spray suspension and spray Discontinued 2 NMA INTRANASAL TWICE A DAY April 19, 2018 1:00am May 06, 2019 1:32pm diphenhydrAMINE hydrochlorid e 25 mg oral tablet (20 sources) Histam ine-1 Recept or Antago nist Start: 04-19-2018 End: 06-29-2020 take 2 tablet s by mouth at bedtim e as needed Diphenhydramine Hcl (Allergy (Diphenhydramine)) 25 mg tablet Discontinued 50 mg PO AT BEDTIME as needed April 19, 2018 1:00am June 29, 2020 1:30pm Start: 10-05-2009 DIPHENHYDRAMIN E 25 MG TAB Take by mouth. 0 10/05/2009 Active Comment on above: Take one(1) tablet d aily. Take by mouth. esomeprazole 40 mg delayed release oral capsule (20 sources) Proton Pump Inhibitor Start: 9 End: 1 take 1 capsule by mouth once daily Esomeprazole Magnesium (Nexium) 40 mg capsule,delayed release(DR/EC) Discontinued 40 mg PO DAILY April 19, 2018 1:00am June 29, 2020 1:30pm Comment on above: Take one(1) capsule daily. Take by mouth. DO NO T CRUSH ferrous fumarate 325 mg oral tablet (3 sources) Start: 4 End: 5 take 1 tablet by mouth once daily Ferrous Fumarate 325 mg (106 mg iron) tablet Discontinued 325 mg PO DAILY October 20, 2023 12:00am August 23, 2024 1:08pm lisinopril 20 mg oral tablet (20 sources) Angiotensin Converting Enzyme Inhibitor Start: End: take 10 mg by mouth once daily Lisinopril 20 mg tablet Discontinued 10 mg PO DAILY June 29, 2020 2:06pm January 29, 2021 3:18pm Start: 06-29-2020 End: 01-29-2021 take 10 mg by mouth once daily Lisinopril Discontinued 10 MG PO DAILY June 29, 2020 1:06pm January 29, 2021 2:18pm Start: 06-29-2020 End: 06-29-2020 take 1 tablet by mouth once daily Lisinopril 20 mg tablet Discontinued 20 mg PO DAILY June 29, 2020 1:29pm June 29, 2020 2:07pm Start: 07-27-2019 End: 06-29-2020 take 2 tablets by mouth once daily Lisinopril 20 mg tablet Discontinued 40 mg PO DAILY July 27, 2019 12:55pm June 29, 2020 1:30pm Start: 07-27-2019 End: 06-29-2020 take 40 mg by mouth once daily Lisinopril Discontinued 40 MG PO DAILY July 27, 2019 11:55am June 29, 2020 12:30pm Start: 05-06-2019 End: 07-27-2019 take 1 tablet by mouth once daily Lisinopril 20 mg tablet Discontinued 20 mg PO DAILY May 06, 2019 1:36pm July 27, 2019 12:55pm Start: 04-19-2018 End: 05-06-2019 take 1 tablet by mouth twice daily Lisinopril 20 mg tablet Discontinued 20 mg PO TWICE A DAY April 19, 2018 1:00am May 06, 2019 1:37pm Comment on above: Take 10 mg by mouth. metFORMIN hydrochloride 500 mg oral tablet (20 sources) Biguanide Start: 9 End: 9 take 1 tablet by mouth twice daily Metformin 500 mg tablet Discontinued 500 mg PO TWICE A DAY April 19, 2018 1:00am April 19, 2018 2:39pm Start: 09-14-2008 End: 05-06-2019 take 1 tablet by mouth once daily Metformin 500 mg tablet Discontinued 500 mg PO DAILY April 19, 2018 2:36pm May 06, 2019 1:32pm Comment on above: Take two(2) tablet t wo(2) times daily. Take by mouth. metoprolol tartrate 25 mg oral tablet (20 sources) beta-Adrenergic Abimael Start: 05-06-2019 End: 01-29-2021 Metoprolol Tartrate 25 mg tablet Discontinued 12.5 mg PO TWICE A DAY 180 3 May 06, 2019 1:36pm January 29, 2021 3:18pm Start: 05-06-2019 End: 01-29-2021 take 12.5 mg by mouth twice daily Metoprolol Tartrate Discontinued 12.5 MG PO TWICE A DAY 180 May 06, 2019 12:36pm January 29, 2021 2:18pm Start: 04-19-2018 End: 05-06-2019 take 1 tablet by mouth twice daily Metoprolol Tartrate 25 mg tablet Discontinued 25 mg PO TWICE A DAY 180 3 April 19, 2018 3:10pm May 06, 2019 1:37pm Start: 09-14-2008 End: 04-19-2018 take 1 tablet by mouth twice daily Metoprolol Tartrate 50 mg tablet Discontinued 50 mg PO TWICE A DAY April 19, 2018 1:00am April 19, 2018 3:10pm Comment on above: twice daily Take by mouth. moxifloxacin 5 mg/ml ophthalmic solution (20 sources) Quinolone Antimicrobial Start: 10-10-2023 End: 08-23-2024 Moxifloxacin 0.5 % drops Discontinued 1 NMA OPHTHALMIC 4 TIMES DAILY October 10, 2023 12:00am August 23, 2024 1:21pm EYE SURGERY Start: 07-12-2020 End: 10-08-2023 take 1 drop(s) into the eye(s) four times daily moxifloxacin (VIGAMOX) 0.5 % ophthalmic solution Use 1 Drop in the right eye four times daily. 3 mL 10/08/2023 1:24 PM EDT 10/08/2023 Active Start: 07-12-2020 take 1 drop(s) into the eye(s) four times daily moxifloxacin (VIGAMOX) 0.5 % ophthalmic solution Use 1 Drop in the left eye four times daily. 3 mL 3 07/12/2020 Active Comment on above: Use 1 Drop in the le ft eye four times daily. niacin 500 mg oral tablet (20 sources) Nicotinic Acid Start: 05-06-2019 End: 07-20-2019 take 1 tablet by mouth twice daily Niacin 500 mg tablet Discontinued 500 mg PO TWICE A DAY May 06, 2019 12:00am July 20, 2019 2:19pm Start: 09-14-2008 End: 05-06-2019 take 1 tablet by mouth every twenty-four hours at bedtime Niacin (Niaspan Extended-Release) 1,000 mg tablet extended release 24 hr Discontinued 1000 mg PO AT BEDTIME April 19, 2018 1:00am May 06, 2019 1:32pm Start: 09-14-2008 NIACIN SR 1,00 0 MG TAB Take one(1) tablet daily. 0 09/14/2008 Active Comment on above: Take one(1) tablet d aily. Take by mouth. Swall ow whole. DO NOT crush or break. ofloxacin 3 mg/ml ophthalmic solution (16 sources) Quinolone Antimicrobial Start: 4 End: 4 take 1 drop(s) into the eye(s) four times daily ofloxacin (OCUFLOX) 0.3 % ophthalmic solution Use 1 drop in the left eye four times daily. 5 mL 1 04/14/2023 10/08/2023 Discontinued Start: 12-25-2016 take 1 drop(s) into the eye(s) three times daily ofloxacin (OCUFLOX) 0.3 % ophthalmic solution Use 1 Drop in the right eye three times daily. 1 Bottle 1 12/25/2016 Active Start: 12-25-2016 take 1 drop(s) into the eye(s) three times daily ofloxacin (OCUFLOX) 0.3 % ophthalmic solution Use 1 Drop in the right eye three times daily. 1 Bottle 1 12/25/2016 Active Comment on above: Use 1 Drop in the ri ght eye three times daily. Use 1 drop in the le ft eye four times daily. [place]-3 Fatty Acids (Fish Oil Concentrate) 1,000 mg capsule (8 sources) Start: 04-19-2018 End: 07-20-2019 take 1 capsule by mouth twice daily [place]-3 Fatty Acids (Fish Oil Concentrate) 1,000 mg capsule Discontinued 1000 MG PO TWICE A DAY April 19, 2018 2:11pm July 20, 2019 2:20pm Start: 04-19-2018 End: 07-20-2019 take 1 capsule by mouth twice daily [place]-3 Fatty Acids (Fish Oil Concentrate) 1,000 mg capsule Discontinued 1000 mg PO TWICE A DAY April 19, 2018 1:00am July 20, 2019 2:20pm Start: 04-19-2018 End: 07-20-2019 take 1 capsule by mouth twice daily [place]-3 Fatty Acids (Fish Oil Concentrate) 1,000 mg capsule Discontinued 1000 MG PO TWICE A DAY April 19, 2018 12:00am July 20, 2019 1:20pm Start: 04-19-2018 End: 07-20-2019 take 1 capsule by mouth twice daily [place]-3 Fatty Acids (Fish Oil Concentrate) 1,000 mg capsule Discontinued 1000 MG PO TWICE A DAY April 19, 2018 1:00am July 20, 2019 2:20pm prednisoLONE acetate 10 mg/ml ophthalmic suspension (6 sources) Corticosteroid Start: 10-10-2023 End: 08-23-2024 Prednisolone Acetate 1 % drops,suspension Discontinued 1 NMA OPHTHALMIC 4 TIMES DAILY October 10, 2023 12:00am August 23, 2024 1:21pm EYE SURGERY Start: 10-08-2023 End: 11-05-2023 take 1 drop(s) into the eye(s) four times daily, then take 1 drop(s) into the eye(s) three times daily, then take 1 drop(s) into the eye(s) twice daily, then take 1 drop(s) into the eye(s) once daily prednisoLONE acetate (PRED FORTE) 1 % ophthalmic suspension Use 1 Drop in the right eye four times daily for 7 days, THEN 1 Drop three times a day for 7 days, THEN 1 Drop two times a day for 7 days, THEN 1 Drop once daily for 7 days. 5 mL 0 10/08/2023 11/05/2023 Active Start: 04-14-2023 End: 04-21-2023 prednisoLONE acetate (PRED F ORTE) 1 % ophthalmic suspension Use 1 Drop in the left eye four times daily for 7 days. Then 3 times daily for 1 week, then 2 times daily for 1 week, then 1 time daily for 1 week, then stop 15 mL 1 04/14/2023 04/21/2023 Comment on above: Use 1 Drop in the le ft eye four times daily for 7 days. Then 3 times daily for 1 week, then 2 times daily for 1 week, then 1 time daily for 1 week, then stop Problems Active Problems Problem Classification Problem Date Documented Date Episodic/Chronic Anxiety disorders (3 sources) Anxiety about treatment; Translations: [Generalized anxiety disorder] 04-14-2023 Chronic Cataract (20 sources) Age-related nuclear cataract, left eye; Translations: [Cataract] Onset: 12-30-2017 12-30-2017 Chronic Chronic kidney disease (20 sources) Chronic kidney disease stage 3; Translations: [Stage 3 chronic kidney disease] Onset: 01-21-2021 01-21-2021 Chronic Chronic kidney disease (1 source) Chronic kidney disease; Translations: [Chronic kidney disease, stage 3b] Onset: 03-08-2024 Chronic obstructive pulmonary disease and bronchiectasis (20 sources) Centriacinar emphysema; Translations: [Centrilobular emphysema] Onset: 01-21-2021 01-21-2021 Chronic Coronary atherosclerosis and other heart disease (20 sources) Coronary atherosclerosis; Translations: [Atherosclerotic heart disease of [place] coronary artery without angina pectoris] Onset: 01-21-2021 01-21-2021 Chronic Comment on above: CABG x 5 STROUD-LAD, S equential SVG-PDA and PLB of RCA, Sequential SVG-Ramus and D2 01/16/2005 Coronary atherosclerosis and other heart disease (4 sources) Presence of aortocoronary bypass graft; Translations: [Aortocoronary bypass status] Onset: 01-16-2005 Episodic Deficiency and other anemia (3 sources) Anemia; Translations: [Anemia, unspecified] 10-21-2023 Episodic Diabetes mellitus with complications (1 source) Type 2 diabetes mellitus with diabetic chronic kidney disease; Translations: [Type 2 diabetes mellitus with diabetic chronic kidney disease] Onset: 09-06-2024 Chronic Diabetes mellitus without complication (20 sources) Type 2 diabetes mellitus without complication; Translations: [Type 2 diabetes mellitus without complications] Onset: 01-21-2021 01-21-2021 Chronic Disorders of lipid metabolism (20 sources) Pure hypercholesterolemia; Translations: [Pure hypercholesterolemia, unspecified] Onset: 01-21-2021 Chronic Essential hypertension (20 sources) Essential hypertension; Translations: [Essential (primary) hypertension] Onset: 01-21-2021 Chronic Glaucoma (2 sources) Ocular hypertension, left eye; Translations: [Ocular hypertension] Onset: 06-20-2024 05-18-2024 Chronic Nausea and vomiting (3 sources) Nausea, vomiting and diarrhea; Translations: [Nausea with vomiting, unspecified] 10-21-2023 Episodic Occlusion or stenosis of precerebral arteries (20 sources) Bilateral stenosis of carotid arteries; Translations: [Occlusion and stenosis of bilateral carotid arteries] Onset: 09-14-2008 Chronic Other eye disorders (3 sources) Optic cupping; Translations: [Glaucomatous optic atrophy, bilateral] 05-18-2024 Chronic Other eye disorders (1 source) Glaucomatous optic atrophy, bilateral; 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] Onset: 08-03-2024 Chronic Other eye disorders (1 source) Other specified disorders of cornea, left eye; Translations: [Other specified disorders of cornea, left eye] Onset: 06-01-2018 Episodic Other eye disorders (9 sources) Epithelial basement membrane dystrophy; 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] 09-17-2022 Episodic Other eye disorders (8 sources) Scar of cornea of bilateral eyes; Translations: [Unspecified corneal scar and opacity] 09-17-2022 Episodic Other eye disorders (1 source) Other specified disorders of cornea, bilateral; Translations: [Other corneal disorders] 10-02-2022 Episodic Other eye disorders (4 sources) Malposition of eyelashes; Translations: [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] 10-02-2022 Episodic Other eye disorders (3 sources) Corneal scar; Translations: [Unspecified corneal scar and opacity] 10-08-2023 Episodic Other eye disorders (1 source) Unspecified corneal scar and opacity; Translations: [Bilateral cornea scars] Onset: 08-03-2024 Episodic Other lower respiratory disease (3 sources) Hypoxia; Translations: [Hypoxemia] 10-21-2023 Episodic Other nervous system disorders (1 source) Postoperative pain ; Translations: [Other acute postprocedural pain] 04-14-2023 Episodic Peripheral and visceral atherosclerosis (20 sources) 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; Translations: [Atherosclerosis of [place] arteries of extremities with intermittent claudication, unspecified extremity] Onset: 01-21-2021 01-21-2021 Chronic Retinal detachments; defects; vascular occlusion; and retinopathy (8 sources) Bilateral epiretinal membrane of eyes; Translations: [Puckering of macula, bilateral] Onset: 08-04-2024 09-17-2022 Chronic Unclassified (1 source) 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; 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] Onset: 07-05-2024 Unclassified (1 source) contact lens dispense Onset: 06-21-2024 Past or Other Problems Problem Classification Problem Date Documented Da te Episodic/Chronic Acute posthemorrhagic anemia (4 sources) Acute posthemorrhagic anemia; Translations: [Acute posthemorrhagic anemia] Onset: 4 10-21-2023 Episodic Complication of device; implant or graft (20 sources) Mechanical breakdown of intraocular lens; Translations: [Breakdown (mechanical) of intraocular lens, initial encounter] Onset: 8 04-10-2017 Episodic Deficiency and other anemia (1 source) Anemia, unspecified; Translations: [Anemia, unspecified] Onset: Episodic Gastrointestinal hemorrhage (8 sources) Gastrointestinal hemorrhage; Translations: [Gastrointestinal hemorrhage, unspecified] Onset: 4 10-21-2023 Episodic Other eye disorders (20 sources) Deposits on intraocular lens; Translations: [Other specified disorders of eye and adnexa] Onset: 8 12-30-2017 Episodic Other lower respiratory disease (1 source) Hypoxemia; Translations: [Hypoxemia] Onset: 4 Episodic Results Test Name Value Interpretation Reference Range Facility Absolute lymphocyte countOrd ered By: Sammy Griffith on 09-07-2024 Lymphocytes Auto (Unsp spec) [#/Vol] 1.76 10*3/uL 0.83-4.51 [facility] Absolute neutrophil countOrd ered By: Sammy Griffith on 09-07-2024 Neutrophils (Bld) [#/Vol] 3.1 10*3/uL 2.0-7.7 [facility] Anion gap in Serum or Plasma Ordered By: Sammy Griffith on 09-07-2024 Anion gap [Moles/Vol] 10 mmol/L 5-15 [facility] Automated lymphocyte count a s percentage of total leukocytesOrdered By: Sammy Griffith on 09-07-2024 Lymphocytes/100 WBC Auto (Unsp spec) 32.2 % 19-41 [facility] BUN/creatinine ratioOrdered By: Sammy Griffith on 09-07-2024 Urea nitrogen/Creatinine [Mass ratio] 15.2 mg/mg 10-20 [facility] Basophil percentageOrdered B y: Sammy Griffith on 09-07-2024 Basophils/100 WBC (Bld) 0.7 % 0-1 [facility] Bilirubin, totalOrdered By: Sammy Griffith on 09-07-2024 Bilirubin [Mass/Vol] 0.74 mg/dL 0.00-1.30 [facility] CBC W/Diff, Automatedon 08-23-2024 Absolute Lymph 1.76 X10 3/uL Normal 0.83-4.51 [facility] Comment on above: Performed By: #### L 502.0500, L501.1200, L502.0250 #### [facility] [address] [place], [address] Absolute Neut 3.1 X10 3/uL Normal 2.0-7.7 [facility] Comment on above: Performed By: #### L 502.0500, L501.1200, L502.0250 #### [facility] [address] [place], [address] Basophils/100 WBC (Bld) 0.7 % Normal 0-1 [facility] Comment on above: Performed By: #### L 502.0500, L501.1200, L502.0250 #### [facility] [address] [place], [address] Eosinophils/100 WBC (Bld) 0.7 % Normal 0-5 [facility] Comment on above: Performed By: #### L 502.0500, L501.1200, L502.0250 #### [facility] [address] [place], [address] Erythrocyte distribution width (RBC) [Ratio] 13.2 % Normal 11.6-14.6 [facility] Comment on above: Performed By: #### L 502.0500, L501.1200, L502.0250 #### [facility] [address] [place], [address] Hematocrit (Bld) [Volume fraction] 46.9 % Normal 40-54 [facility] Comment on above: Performed By: #### L 502.0500, L501.1200, L502.0250 #### [facility] [address] [place], [address] Hemoglobin (Bld) [Mass/Vol] 15.6 g/dL Normal 13.0-16.5 [facility] Comment on above: Performed By: #### L 502.0500, L501.1200, L502.0250 #### [facility] [address] [place], [address] IG% 0.000 Normal 0.0-0.9 [facility] Comment on above: Result Comment: IG% - Immature Granulocytes (promyelocytes, myelocytes and metamyelocytes) > 1% indicates that a LEFT SHIFT is Present. Performed By: #### L 502.0500, L501.1200, L502.0250 #### [facility] [address] [place], [address] Lymphocytes/100 WBC (Bld) 32.2 % Normal 19-41 [facility] Comment on above: Performed By: #### L 502.0500, L501.1200, L502.0250 #### [facility] [address] [place], [address] MCH (RBC) [Entitic mass] 32.4 pg High 27.0-32.0 [facility] Comment on above: Performed By: #### L 502.0500, L501.1200, L502.0250 #### [facility] [address] [place], [address] MCHC (RBC) [Mass/Vol] 33.3 g/dL Normal 32-36 [facility] Comment on above: Performed By: #### L 502.0500, L501.1200, L502.0250 #### [facility] [address] [place], [address] MCV (RBC) [Entitic vol] 97.5 fL High 80-94 [facility] Comment on above: Performed By: #### L 502.0500, L501.1200, L502.0250 #### [facility] [address] [place], [address] Monocytes/100 WBC (Bld) 9.7 % Normal 0-10 [facility] Comment on above: Performed By: #### L 502.0500, L501.1200, L502.0250 #### [facility] [address] [place], [address] Neutrophils/100 WBC (Bld) 56.7 % Normal 47-70 [facility] Comment on above: Performed By: #### L 502.0500, L501.1200, L502.0250 #### [facility] [address] [place], [address] Nucleated RBC (Bld) [#/Vol] 0 10*3/uL Normal 0-5 [facility] Comment on above: Performed By: #### L 502.0500, L501.1200, L502.0250 #### [facility] [address] [place], [address] Platelet mean volume (Bld) [Entitic vol] 10.1 fL Normal 6.2-12.0 [facility] Comment on above: Performed By: #### L 502.0500, L501.1200, L502.0250 #### [facility] [address] [place], [address] Platelets (Bld) [#/Vol] 204 10*3/uL Normal 150-450 [facility] Comment on above: Performed By: #### L 502.0500, L501.1200, L502.0250 #### [facility] [address] [place], [address] RBC (Bld) [#/Vol] 4.81 10*6/uL Normal 4.6-6.2 [facility] Comment on above: Performed By: #### L 502.0500, L501.1200, L502.0250 #### [facility] [address] [place], [address] RDW SD 47.7 fl High 35.1-43.9 [facility] Comment on above: Performed By: #### L 502.0500, L501.1200, L502.0250 #### [facility] [address] [place], [address] WBC (Bld) [#/Vol] 5.5 10*3/uL Normal 4.4-11.0 [facility] Comment on above: Performed By: #### L 502.0500, L501.1200, L502.0250 #### [facility] [address] [place], [address] Carbon dioxide, total [Moles /volume] in Central venous bloodOrdered By: Sammy Griffith on 09-07-2024 CO2 [Moles/Vol] 28.1 mmol/L 21.0-32.0 [facility] Chloride assayOrdered By: Rock Griffith on 09-07-2024 Chloride [Moles/Vol] 102 mmol/L 98-108 [facility] Metabolic Prof ilon 09-07-2024 Albumin [Mass/Vol] 4.4 g/dL Normal 3.4-4.8 [facility] Comment on above: Performed By: #### L 502.0500, L501.1200, L502.0250 #### [facility] [address] [place], [address] Albumin/Globulin [Mass ratio] 1.5 {ratio} Normal 0.9-2.4 [facility] Comment on above: Performed By: #### L 502.0500, L501.1200, L502.0250 #### [facility] [address] [place], [address] ALK PHOS 60 U/L Normal 40-129 [facility] Comment on above: Performed By: #### L 502.0500, L501.1200, L502.0250 #### [facility] [address] [place], [address] ALT [Catalytic activity/Vol] 11 U/L Normal <=46 [facility] Comment on above: Performed By: #### L 502.0500, L501.1200, L502.0250 #### [facility] [address] [place], [address] AST [Catalytic activity/Vol] 19 U/L Normal <=37 [facility] Comment on above: Performed By: #### L 502.0500, L501.1200, L502.0250 #### [facility] [address] [place], [address] Bilirubin [Mass/Vol] 0.74 mg/dL Normal 0.00-1.30 [facility] Comment on above: Performed By: #### L 502.0500, L501.1200, L502.0250 #### [facility] [address] [place], [address] BUN/CRE 15.2 RATIO Normal 10-20 [facility] Comment on above: Performed By: #### L 502.0500, L501.1200, L502.0250 #### [facility] [address] [place], [address] Calcium [Mass/Vol] 9.5 mg/dL Normal 7.6-11.0 [facility] Comment on above: Performed By: #### L 502.0500, L501.1200, L502.0250 #### [facility] [address] [place], [address] Chloride [Moles/Vol] 102 mmol/L Normal 98-108 [facility] Comment on above: Performed By: #### L 502.0500, L501.1200, L502.0250 #### [facility] [address] [place], [address] CO2 [Moles/Vol] 28.1 mmol/L Normal 21.0-32.0 [facility] Comment on above: Performed By: #### L 502.0500, L501.1200, L502.0250 #### [facility] [address] [place], [address] Creatinine [Mass/Vol] 1.49 mg/dL High 0.70-1.20 [facility] Comment on above: Performed By: #### L 502.0500, L501.1200, L502.0250 #### [facility] [address] [place], [address] GAP 10 Normal 5-15 [facility] Comment on above: Performed By: #### L 502.0500, L501.1200, L502.0250 #### [facility] [address] [place], [address] GFR/1.73 sq M.predicted among non-blacks MDRD (S/P/Bld) [Vol rate/Area] 46 mL/min/{1.73_m2} Low >60 [facility] Comment on above: Result Comment: mL/m in/1.73m2 CKD-EPI Creatinine Equation (2020) Performed By: #### L 502.0500, L501.1200, L502.0250 #### [facility] [address] [place], [address] Globulin (S) [Mass/Vol] 2.9 g/dL Normal 2.2-4.2 [facility] Comment on above: Performed By: #### L 502.0500, L501.1200, L502.0250 #### [facility] [address] [place], [address] Glucose [Mass/Vol] 99 mg/dL Normal 70-99 [facility] Comment on above: Performed By: #### L 502.0500, L501.1200, L502.0250 #### [facility] [address] [place], [address] Potassium [Moles/Vol] 4.9 mmol/L Normal 3.3-5.1 [facility] Comment on above: Result Comment: Hemo lysis present, Results??could be affected. ?? Performed By: #### L 502.0500, L501.1200, L502.0250 #### [facility] [address] [place], [address] Sodium [Moles/Vol] 140 mmol/L Normal 133-145 [facility] Comment on above: Performed By: #### L 502.0500, L501.1200, L502.0250 #### [facility] [address] [place], [address] T PROT 7.2 g/dL Normal 5.9-8.4 [facility] Comment on above: Performed By: #### L 502.0500, L501.1200, L502.0250 #### [facility] [address] [place], [address] Urea nitrogen [Mass/Vol] 23 mg/dL High 4-19 [facility] Comment on above: Performed By: #### L 502.0500, L501.1200, L502.0250 #### [facility] [address] [place], [address] Eosinophil percentageOrdered By: Sammy Griffith on 09-07-2024 Eosinophils/100 WBC (Bld) 0.7 % 0-5 [facility] Erythrocyte distribution wid th ratioOrdered By: Sammy Griffith on 09-07-2024 Erythrocyte distribution width (RBC) [Ratio] 13.2 % 11.6-14.6 [facility] Erythrocyte distribution wid th standard deviationOrdered By: Sammy Griffith 09-07-2024 Erythrocyte distribution width (RBC) [Ratio] 47.7 fl High 35.1-43.9 [facility] Glomerular filtration rate ( GFR) estimation/1.73 sq m using serum, plasma, or whole bOrdered By: Sammy Griffith 09-07-2024 GFR/1.73 sq M.predicted among non-blacks MDRD (S/P/Bld) [Vol rate/Area] 46 mL/min/{1.73_m2} Low >60 [facility] Comment on above: mL/min/1.73m2 CKD-EP I Creatinine Equation (2020) Hematocrit Auto (Bld) [Volum e fraction]Ordered By: Sammy Griffith 09-07-2024 Hematocrit (Bld) [Volume fraction] 46.9 % 40-54 [facility] Hemoglobin measurementOrdere d By: Sammy Griffith 09-07-2024 Hemoglobin (Bld) [Mass/Vol] 15.6 g/dL 13.0-16.5 [facility] Immature granulocytes/100 WB C Auto (Bld)Ordered By: Sammy Griffith 09-07-2024 Immature granulocytes/100 WBC (Bld) 0.000 % 0.0-0.9 [facility] Comment on above: IG% - Immature Granu locytes (promyelocytes, myelocytes and metamyelocytes) > 1% indicates that a LEFT SHIFT is Present. Laboratory - Chemistry and C hemistry - challengeOrdered By: Sammy Griffith 09-07-2024 AST [Catalytic activity/Vol] 19 U/L <38 [facility] MCV (mean corpuscular volume ) determinationOrdered By: Sammy Griffith 09-07-2024 MCV (RBC) [Entitic vol] 97.5 fL High 80-94 [facility] Mean corpuscular hemoglobin (MCH) determinationOrdered By: Sammy Griffith 09-07-2024 MCH (RBC) [Entitic mass] 32.4 pg High 27.0-32.0 [facility] Mean corpuscular hemoglobin concentration (MCHC) determinationOrdered By: Sammy Griffith on 09-07-2024 MCHC (RBC) [Mass/Vol] 33.3 g/dL 32-36 [facility] Mean platelet volume determi nationOrdered By: Sammy Griffith on 09-07-2024 Platelet mean volume (Bld) [Entitic vol] 10.1 fL 6.2-12.0 [facility] Monocyte percentageOrdered B y: Sammy Griffith on 09-07-2024 Monocytes/100 WBC (Bld) 9.7 % 0-10 [facility] Neutrophil percentageOrdered By: Sammy Griffith on 09-07-2024 Neutrophils/100 WBC (Bld) 56.7 % 47-70 [facility] Nucleated red blood cell per centageOrdered By: Sammy Griffith on 09-07-2024 Nucleated RBC/100 WBC (Bld) [Ratio] 0 % 0-5 [facility] Platelet countOrdered By: Rock Griffith on 09-07-2024 Platelets (Bld) [#/Vol] 204 10*3/uL 150-450 [facility] Potassium measurement (mass/ volume)Ordered By: Sammy Griffith on 09-07-2024 Potassium (Unsp spec) [Mass/Vol] 4.9 mmol/L 3.3-5.1 [facility] Comment on above: Hemolysis present, R esults could be affected. RBC Auto (Bld) [#/Vol]Ordere d By: Sammy Griffith on 09-07-2024 RBC (Bld) [#/Vol] 4.81 10*6/uL 4.6-6.2 [facility] Serum creatinine measurement (mass/volume)Ordered By: Sammy Griffith on 09-07-2024 Creatinine [Mass/Vol] 1.49 mg/dL High 0.70-1.20 [facility] Serum globulin measurementOr dered By: Sammy Griffith 09-07-2024 Globulin (S) [Mass/Vol] 2.9 g/dL 2.2-4.2 [facility] Serum glucose measurement (m ass/volume)Ordered By: Sammy Griffith 09-07-2024 Glucose [Mass/Vol] 99 mg/dL 70-99 [facility] Serum or plasma alanine sanon otransferase (ALT) measurementOrdered By: Sammy Griffith on 09-07-2024 ALT [Catalytic activity/Vol] 11 U/L <47 [facility] Serum or plasma albumin carol urement (mass/volume)Ordered By: Sammy Griffith on 09-07-2024 Albumin [Mass/Vol] 4.4 g/dL 3.4-4.8 [facility] Serum or plasma albumin/glob ulin mass ratioOrdered By: Sammy Griffith on 09-07-2024 Albumin/Globulin [Mass ratio] 1.5 {ratio} 0.9-2.4 [facility] Serum or plasma alkaline luis sphatase measurementOrdered By: Sammy Griffith on 09-07-2024 ALP [Catalytic activity/Vol] 60 U/L 40-129 [facility] Serum or plasma calcium carol urement (mass/volume)Ordered By: Sammy Griffith on 09-07-2024 Calcium [Mass/Vol] 9.5 mg/dL 7.6-11.0 [facility] Serum or plasma urea nitroge n measurement (mass/volume)Ordered By: Sammy Griffith on 09-07-2024 Urea nitrogen [Mass/Vol] 23 mg/dL High 4-19 [facility] Sodium levelOrdered By: Sammy Griffith 09-07-2024 Sodium [Moles/Vol] 140 mmol/L 133-145 [facility] TSH DL <= 0.005 mIU/L QnOrde red By: Sammy Griffith on 09-07-2024 TSH Qn 1.800 uIU/mL 0.300-4.200 [facility] Thyroid Stim Hormone (TSH)on 09-07-2024 TSH 1.800 uIU/mL Normal 0.300-4.200 [facility] Comment on above: Performed By: #### L 502.0500, L501.1200, L502.0250 #### [facility] [address] [place], [address] Total proteinOrdered By: Sammy Griffith on 09-07-2024 Protein [Mass/Vol] 7.2 g/dL 5.9-8.4 [facility] Vitamin D,25 Hydroxyon 09-07 Vitamin D 25-OH 32.5 ng/mL Normal 30-100 [facility] Comment on above: Result Comment: Norma min D Status Deficiency: <20 ng/mL (50nmol/L) Insufficiency: 20-30 ng/mL (50-75 nmol/L) Sufficiency: 30-100 ng/mL (75-250 nmol/L) Toxicity: >100 ng/mL (>250 nmol/L) Performed By: #### L 502.0500, L501.1200, L502.0250 #### [facility] [address] [place], [address] White blood cell (WBC) count Ordered By: Sammy Griffith on 09-07-2024 WBC (Bld) [#/Vol] 5.5 10*3/uL 4.4-11.0 [facility] Anion gap in Serum or Plasma Ordered By: Macrina Todd on 08-30-2024 Anion gap [Moles/Vol] 10 mmol/L 5-15 [facility] BUN/creatinine ratioOrdered By: Macrina Todd on 08-30-2024 Urea nitrogen/Creatinine [Mass ratio] 10.1 mg/mg 10-20 [facility] Carbon dioxide, total [Moles /volume] in Central venous bloodOrdered By: Macrina Todd on 08-30-2024 CO2 [Moles/Vol] 28.3 mmol/L 21.0-32.0 [facility] Chloride assayOrdered By: Jd Todd on 08-30-2024 Chloride [Moles/Vol] 103 mmol/L 98-108 [facility] Glomerular filtration rate ( GFR) estimation/1.73 sq m using serum, plasma, or whole bOrdered By: Macrina Todd on 08-30-2024 GFR/1.73 sq M.predicted among non-blacks MDRD (S/P/Bld) [Vol rate/Area] 48 mL/min/{1.73_m2} Low >60 [facility] Comment on above: mL/min/1.73m2 CKD-EP I Creatinine Equation (2020) Potassium measurement (mass/ volume)Ordered By: Macrina Todd on 08-30-2024 Potassium (Unsp spec) [Mass/Vol] 4.5 mmol/L 3.3-5.1 [facility] Protein+Creatinine Ratio,Uri neon 08-30-2024 PROT:CRE RATIO UNABLE TO CALCULATE Normal 0-200 [facility] Comment on above: Performed By: #### L 100.0100, L500.2500 #### [facility] [address] [place], [address] PROTEIN,UR.RAN. < 6.0 Normal 0.0-12.0 [facility] Comment on above: Performed By: #### L 100.0100, L500.2500 #### [facility] [address] [place], [address] Random urine creatinine carol urement (mass/volume)Ordered By: Macrina Todd on 08-30-2024 Creatinine Unsp time (U) [Mass/Vol] 52.60 mg/dL 39.00-259.0 0 [facility] Renal Profileon 08-30-2024 Albumin [Mass/Vol] 4.3 g/dL Normal 3.4-4.8 [facility] Comment on above: Performed By: #### L 100.0100, L500.2500 #### [facility] [address] [place], [address] BUN/CRE 10.1 RATIO Normal 10-20 [facility] Comment on above: Performed By: #### L 100.0100, L500.2500 #### [facility] [address] [place], [address] Calcium [Mass/Vol] 9.2 mg/dL Normal 7.6-11.0 [facility] Comment on above: Performed By: #### L 100.0100, L500.2500 #### [facility] [address] [place], [address] Chloride [Moles/Vol] 103 mmol/L Normal 98-108 [facility] Comment on above: Performed By: #### L 100.0100, L500.2500 #### [facility] [address] [place], [address] CO2 [Moles/Vol] 28.3 mmol/L Normal 21.0-32.0 [facility] Comment on above: Performed By: #### L 100.0100, L500.2500 #### [facility] [address] [place], [address] Creatinine [Mass/Vol] 1.44 mg/dL High 0.70-1.20 [facility] Comment on above: Performed By: #### L 100.0100, L500.2500 #### [facility] [address] [place], [address] GAP 10 Normal 5-15 [facility] Comment on above: Performed By: #### L 100.0100, L500.2500 #### [facility] [address] [place], [address] GFR/1.73 sq M.predicted among non-blacks MDRD (S/P/Bld) [Vol rate/Area] 48 mL/min/{1.73_m2} Low >60 [facility] Comment on above: Result Comment: mL/m in/1.73m2 CKD-EPI Creatinine Equation (2020) Performed By: #### L 100.0100, L500.2500 #### [facility] [address] [place], [address] Glucose [Mass/Vol] 107 mg/dL High 70-99 [facility] Comment on above: Performed By: #### L 100.0100, L500.2500 #### [facility] [address] [place], [address] Phosphate [Mass/Vol] 2.7 mg/dL Normal 2.7-4.5 [facility] Comment on above: Performed By: #### L 100.0100, L500.2500 #### [facility] [address] [place], [address] Potassium [Moles/Vol] 4.5 mmol/L Normal 3.3-5.1 [facility] Comment on above: Performed By: #### L 100.0100, L500.2500 #### [facility] [address] [place], [address] Sodium [Moles/Vol] 141 mmol/L Normal 133-145 [facility] Comment on above: Performed By: #### L 100.0100, L500.2500 #### [facility] [address] [place], [address] Urea nitrogen [Mass/Vol] 15 mg/dL Normal 4-19 [facility] Comment on above: Performed By: #### L 100.0100, L500.2500 #### [facility] [address] [place], [address] Serum creatinine measurement (mass/volume)Ordered By: Macrina Todd on 08-30-2024 Creatinine [Mass/Vol] 1.44 mg/dL High 0.70-1.20 [facility] Serum glucose measurement (m ass/volume)Ordered By: Macrina Todd on 08-30-2024 Glucose [Mass/Vol] 107 mg/dL High 70-99 [facility] Serum or plasma albumin carol urement (mass/volume)Ordered By: Macrina Todd on 08-30-2024 Albumin [Mass/Vol] 4.3 g/dL 3.4-4.8 [facility] Serum or plasma calcium carol urement (mass/volume)Ordered By: Macrina Todd on 08-30-2024 Calcium [Mass/Vol] 9.2 mg/dL 7.6-11.0 [facility] Serum or plasma urea nitroge n measurement (mass/volume)Ordered By: Macrina Todd on 08-30-2024 Urea nitrogen [Mass/Vol] 15 mg/dL -19 [facility] Sodium levelOrdered By: Kevin Todd on 08-30-2024 Sodium [Moles/Vol] 141 mmol/L 133-145 [facility] Urine protein measurement (m ass/volume)Ordered By: Macrina Todd on 08-30-2024 Protein (U) [Mass/Vol] mg/dL 0.0-12.0 [facility] Urine protein/creatinine mas s ratioOrdered By: Macrina Todd on 08-30-2024 Protein/Creatinine (U) [Mass ratio] UNABLE TO CALCULATE mg/g CRE 0-200 [facility] Cardiology Visit Reporton Cardiology Visit Report [facility] [address] [place] [address] OFFICE VISIT Date of Service: 08/23/24 MR#: [id number] Acct: [id number] Name: GISELLE SALGUERO Rep #: [id number] : 1940 Provider: TATIANA gordon Age/Sex: 84/M Location: [facility] Status: Signed HPI HPI History of Present Illness Details: This is an 84-year-old white male who presents today for outpatient cardiovascular visit. He was last seen in our office in 2022. He has a history of underlying CAD, CABG (2005 at [facility] with a STROUD to the LAD, and SVG sequential graft to the diagonal branch and in the mid ramus, and an SVG sequential graft to the RCA and PDA/right posterior lateral branch) superimposed upon a history of hyperlipidemia, hypertension, and carotid artery disease. He states he has been followed for the history of carotid artery disease. He notes that his peripheral vascular surgeon has not wanted to proceed with additional diagnostic studies based upon concerns of IV contrast related nephropathy. He states his typing secretary has been concerned about this as well. Thus to the best of his knowledge there are no immediate plans for additional evaluation or care at this time. From a cardiac standpoint, the patient is doing well. He denies any palpitations, chest pain, pressure or heaviness. He does acknowledge SOB with exertion-walking longer distances. He denies Orthopnea, and PND. He does not have bleeding issues; no blood in urine, stool, or nosebleeds. He denies any decrease in energy level, myalgias, or claudication. He does not have edema, or sudden weight gain. He denies lightheadedness, dizziness, syncopal or near syncopal episodes, and headaches. He does walk his dog twice a day, and mows his lawn. He does bring blood pressure readings with him-they are all well controlled readings. Intake Vital Signs 10/12/23 15:03 08/23/24 13:07 08/23/24 13:11 Height 5 ft 7 in 5 ft 7 in 5 ft 7 in Weight: 174 lb BMI 27.2 BP 147/79 H Blood Pressure Location Lt brachial Position Sitting Respiration 18 Pulse 86 Pulse Source Monitor Pulse Oximetry (%) 93 Intake Visit Reasons: OVERDUE FOR OV/LAST SEEN 07/2022 Independent Living Advisor Required: No Is patient in pain?: No Allergies No Known Allergies Allergy (Verified 08/23/24 13:15) Medications ???Medication ???Instructions ???Recorded ???Confirmed ???Type atorvastatin 40 mg tablet 40 mg PO QHS cholesterol 04/19/18 08/23/24 History gabapentin 300 mg capsule 300 mg PO DAILY nerves/pain 08/23/24 History (Neurontin) ipratropium bromide 42 mcg (0.06 2 spray intranasal BID breathing 0 04/19/18 08/23/24 History %) nasal spray isosorbide mononitrate 30 mg 30 mg PO DAILY heart 04/19/1803/19 History tablet,extended release 24 hr nitroglycerin 0.4 mg sublingual 0.4 mg sublingual Q5-15M PRN chest 04/19/18 08/23/24 History tablet pain tamsulosin 0.4 mg capsule 0.4 mg PO DAILY prostate 07/27/19 08/23/24 History pantoprazole 40 mg tablet,delayed 40 mg PO BID #60 tabs 10/13/23 Rx release aspirin 81 mg tablet 81 mg PO QDAY 08/23/24 08/23/24 Hi story Have you fallen in the past year?: No PFSH Medical History Diabetes Chronic kidney disease CKD (chronic kidney disease) stage 3, GFR 30-59 ml/min Pure hypercholesterolemia Bilateral carotid artery stenosis COPD (chronic obstructive pulmonary disease) Type 2 diabetes mellitus Essential (primary) hypertension Atherosclerosis of coronary artery of [place] heart without angina pectoris Surgical History (Reviewed 08/23/24 @ 13:14 by Teresa Rosas THERMAL SURFACING MACHINE OPERATOR, THERMAL SURFACING MACHINE OPERATOR-C) History of colonoscopy Status post right foot surgery History of appendectomy History of left inguinal hernia repair History of eye surgery History of left heart catheterization (06/09/06) H/O coronary artery bypass surgery (01/16/05) Family History (Reviewed 08/23/24 @ 13:14 by Teresa Rosas THERMAL SURFACING MACHINE OPERATOR, THERMAL SURFACING MACHINE OPERATOR-C) Father Heart disease Myocardial infarction Brother Cancer prostate Sister Breast cancer Other CAD (coronary artery disease) Social History Smoking Status: Former smoker pack-years: 33 how long ago did patient quit smokin years ago alcohol intake: never caffeine: Yes Type: coffee Number of servings: 4 ROS Const Const: Negative for fatigue, weakness, fever(s), headache(s), chills, frequent falls, weight gain or weight loss Eyes Eyes: Negative for blind spots, loss of peripheral vision, transient loss of vision, blurry vision, change in vision, double vision, floaters or tunnel vision ENT ENT: Negative for headache(s), dizziness, Nosebleed/epistaxis, balance proble (more content not included)... Normal [facility] OCT MACULA CIRRUS OU (BOTH E YES)on 08-04-2024 [facility] Radiology Study observation (narrative) Liu carvajal [facility] Merlin 06-14-2024 CNPN Telephone (OPHWOO) ----- GISELLE SALGUERO ([id number]) 1940 M Date Time Provider Department 06/14/24 ANTHONY HATCH During your visit today, we recorded the following information about you: Anthony Hatch OA 06/14/2024 9:59 AM Signed Received patient's speciality contact lenses. Can someone please call this patient and schedule him for a contact lens dispensing appointment with Dr. Bagley. We need this patient scheduled in a open 45 minute time slot. If you have any questions please feel free to let me know if you have any questions. Thanks, TO HsuTessae 06/14/2024 12:49 PM Signed 1st attempt left message to return call. Can someone please call this patient and schedule him for a contact lens dispensing appointment with Dr. Bagley. We need this patient scheduled in a open 45 minute time slot. If you have any questions please feel free to let me know if you have any questions. Ariella Ariza 06/14/2024 1:15 PM Signed Patient returned call and scheduled as directed Allergies As of Date: 06/14/2024 (No Known Allergies) Date Reviewed: 05/31/2024 Reviewed by: Ewelina Bagley, OD - Fully Assessed Prescriptions as of 06/14/2024 - pantoprazole DR (PROTONIX) 40 mg tablet - lifitegrast (XIIDRA) 5 % ophthalmic drops Use 1 Drop in both eyes two times a day. - carboxymethylcellulose (REFRESH PLUS) 0.5 % Use 1 Drop in the right eye as needed. - moxifloxacin (VIGAMOX) 0.5 % ophthalmic solution Use 1 Drop in the right eye four times daily. - carboxymethylcellulose (REFRESH PLUS) 0.5 % Use 1 Drop in the left eye as needed. - diclofenac (VOLTAREN) 0.1 % ophthalmic solution Use 1 drop in the left eye four times daily. - erythromycin (ROMYCIN) 5 mg/gram (0.5 %) ophthalmic ointment Apply to affected area twice a day for one week, then stop. - tamsulosin (FLOMAX) 0.4 mg - dexAMETHasone 0.1% 0.1 % ophthalmic solution Use 1 Drop in the left eye four times daily. - Difluprednate (DUREZOL) 0.05 % drop Use 1 Drop in the right eye four times daily. Start after surgery - DUREZOL 0.05 % drop Use 1 Drop in the left eye four times daily. Start after surgery - ipratropium bromide (ATROVENT) 42 mcg (0.06 %) nasal spray - omega 1-ubg-aas-fish oil 300-1,000 mg cpDR FISH OIL CAPS - sodium chloride (SAMUEL 128) 5 % ophthalmic ointment Use 1 application in both eyes daily at bedtime. - atorvastatin (LIPITOR) 40 mg tablet once daily. - aspirin, enteric coated (ASPIR-LOW) 81 mg EC tablet Take 1 tablet by mouth once daily. - lisinopril 20 mg ORAL tablet Take 10 mg by mouth. - fluticasone propionate(FLONASE 50 MCG/ACTUATION NASAL SPRAY) Use in the nose. - DIPHENHYDRAMINE 25 MG TAB Take by mouth. - METFORMIN 500 MG TAB Take by mouth. - metoprolol tartrate(LOPRESSOR 50 MG TAB) Take by mouth. - NIACIN SR 1,000 MG TAB Take by mouth. Swallow whole. DO NOT crush or break. - esomeprazole mag trihydrate(NEXIUM 40 MG CAP) Take by mouth. DO NOT CRUSH - isosorbide mononitrate(IMDUR 30 MG 24 HR TAB) Take one(1) tablet daily. - PRAVASTATIN 80 MG TAB Take by mouth. - gabapentin(NEURONTIN 300 MG CAP) Take one(1) tablet daily. - nitroglycerin(NITROQUICK 0.3 MG SUBLINGUAL TAB) Dissolve under the tongue every 5 minutes as needed. - OMEGA-3 FATTY ACIDS-FISH OIL 360 MG-1,200 MG CAP Take by mouth. Problem List As Of Date 06/14/2024 Noted Resolved CAROTID ART OCCL-NO INFARCT [I65.29] 09/14/2008 Bilateral carotid artery stenosis [I65.23] 10/25/2015 Mechanical breakdown of intraocular lens [T85.2*04/10/2017 Lens opacity [H26.9] 12/30/2017 Senile nuclear cataract, left [H25.12] 12/30/2017 Deposits on intraocular lens [H57.89] 12/30/2017 Essential hypertension [I10] 01/21/2021 Mixed hyperlipidemia [E78.2] 01/21/2021 Diabetes mellitus type 2, controlled, without c*01/21/2021 CKD (chronic kidney disease) [N18.9] 01/21/2021 Centrilobular emphysema (HCC) [J43.2] 01/21/2021 Atherosclerosis of [place] arteries of extremity*01/21/2021 CAD (coronary artery disease) [I25.10] 01/21/2021 Encounter Status:Closed by ARIELLA ARIZA on 4/22/25 Normal [facility] FUNDUS PHOTOS OU (BOTH EYES) on 05-18-2024 [facility] Radiology [facility] OCT OPTIC NERVE CIRRUS OU (B OTH EYES)on 05-18-2024 [facility] Radiology Study observation (narrative) [facility] PACHYMETRY OU (BOTH EYES)on 05-18-2024 [facility] OCT MACULA CIRRUS OU (BOTH E YES)on 05-05-2024 [facility] Radiology Study observation (narrative) [facility] OCT MACULA CIRRUS OU (BOTH E YES)on 04-01-2024 [facility] Radiology Study observation (narrative) [facility] Creatinine, Urine (random)on 02-03-2024 UR CREAT 156.00 mg/dL Normal NO RANGE EST. [facility] Comment on above: Performed By: #### L 502.0500, L501.1200, L502.0250 #### [facility] [address] [facility] [id number] Microalb:Creat Ratio,Random URon 02-03-2024 Creatinine [Mass/Vol] 156.00 mg/dL Normal NO RAN GE EST. [facility] Comment on above: Performed By: #### L 502.0500, L501.1200, L502.0250 #### [facility] [address] [place], [address] MALB:CRE 15.0 mg/g CRE Normal <30 mg/g CRE [facility] Comment on above: Performed By: #### L 502.0500, L501.1200, L502.0250 #### [facility] [address] [place], [address] MICROALBUMIN,UR 23.7 mg/L Normal NO RANGE EST. [facility] Comment on above: Performed By: #### L 502.0500, L501.1200, L502.0250 #### [facility] [address] [place], [address] MALB:CRE 15.2 mg/g CRE Normal <30 mg/g CRE [facility] Comment on above: Order Comment: SHOUL D BE RATIO Result Comment: WRON G ORDER Performed By: #### L 502.0500, L501.1200, L502.0250 #### [facility] [address] [place], [address] Creatinine [Mass/Vol] 156.00 mg/dL Normal NO RAN GE EST. [facility] Comment on above: Order Comment: SHOUL D BE RATIO Result Comment: WRON G ORDER Performed By: #### L 502.0500, L501.1200, L502.0250 #### [facility] [address] [place], [address] MICROALBUMIN,UR 23.7 mg/L Normal NO RANGE EST. [facility] Comment on above: Order Comment: SHOUL D BE RATIO Result Comment: WRON G ORDER Performed By: #### L 502.0500, L501.1200, L502.0250 #### [facility] [address] [place], [address] CBC W/Diff, Automatedon 12-1 0-2024 Absolute Lymph 1.66 X10 3/uL Normal 0.83-4.51 [facility] Comment on above: Performed By: #### L 506.1000, L100.0100, L501.9520, L500.4050 #### [facility] [address] [place], [address] Absolute Neut 3.2 X10 3/uL Normal 2.0-7.7 [facility] Comment on above: Performed By: #### L 506.1000, L100.0100, L501.9520, L500.4050 #### [facility] [address] [place], [address] Basophils/100 WBC (Bld) 0.7 % Normal 0-1 [facility] Comment on above: Performed By: #### L 506.1000, L100.0100, L501.9520, L500.4050 #### [facility] [address] [place], [address] Eosinophils/100 WBC (Bld) 1.1 % Normal 0-5 [facility] Comment on above: Performed By: #### L 506.1000, L100.0100, L501.9520, L500.4050 #### [facility] [address] [place], [address] Erythrocyte distribution width (RBC) [Ratio] 13.9 % Normal 11.6-14.6 [facility] Comment on above: Performed By: #### L 506.1000, L100.0100, L501.9520, L500.4050 #### [facility] [address] [place], [address] Hematocrit (Bld) [Volume fraction] 46.8 % Normal 40-54 [facility] Comment on above: Performed By: #### L 506.1000, L100.0100, L501.9520, L500.4050 #### [facility] [address] [place], [address] Hemoglobin (Bld) [Mass/Vol] 14.6 g/dL Normal 13.0-16.5 [facility] Comment on above: Performed By: #### L 506.1000, L100.0100, L501.9520, L500.4050 #### [facility] [address] [place], [address] IG% 0.200 Normal 0.0-0.9 [facility] Comment on above: Result Comment: IG% - Immature Granulocytes (promyelocytes, myelocytes and metamyelocytes) > 1% indicates that a LEFT SHIFT is Present. Performed By: #### L 506.1000, L100.0100, L501.9520, L500.4050 #### [facility] [address] [place], [address] Lymphocytes/100 WBC (Bld) 29.6 % Normal 19-41 [facility] Comment on above: Performed By: #### L 506.1000, L100.0100, L501.9520, L500.4050 #### [facility] [address] [place], [address] MCH (RBC) [Entitic mass] 29.9 pg Normal 27.0-32.0 [facility] Comment on above: Performed By: #### L 506.1000, L100.0100, L501.9520, L500.4050 #### [facility] [address] [place], [address] MCHC (RBC) [Mass/Vol] 31.2 g/dL Low 32-36 [facility] Comment on above: Performed By: #### L 506.1000, L100.0100, L501.9520, L500.4050 #### [facility] [address] [place], [address] MCV (RBC) [Entitic vol] 95.9 fL High 80-94 [facility] Comment on above: Performed By: #### L 506.1000, L100.0100, L501.9520, L500.4050 #### [facility] [address] [place], [address] Monocytes/100 WBC (Bld) 10.7 % High 0-10 [facility] Comment on above: Performed By: #### L 506.1000, L100.0100, L501.9520, L500.4050 #### [facility] [address] [place], [address] Neutrophils/100 WBC (Bld) 57.7 % Normal 47-70 [facility] Comment on above: Performed By: #### L 506.1000, L100.0100, L501.9520, L500.4050 #### [facility] [address] [place], [address] Nucleated RBC (Bld) [#/Vol] 0 10*3/uL Normal 0-5 [facility] Comment on above: Performed By: #### L 506.1000, L100.0100, L501.9520, L500.4050 #### [facility] [address] [place], [address] Platelet mean volume (Bld) [Entitic vol] 10.3 fL Normal 6.2-12.0 [facility] Comment on above: Performed By: #### L 506.1000, L100.0100, L501.9520, L500.4050 #### [facility] [address] [place], [address] Platelets (Bld) [#/Vol] 182 10*3/uL Normal 150-450 [facility] Comment on above: Performed By: #### L 506.1000, L100.0100, L501.9520, L500.4050 #### [facility] [address] [place], [address] RBC (Bld) [#/Vol] 4.88 10*6/uL Normal 4.6-6.2 [facility] Comment on above: Performed By: #### L 506.1000, L100.0100, L501.9520, L500.4050 #### [facility] [address] [place], [address] RDW SD 49.4 fl High 35.1-43.9 [facility] Comment on above: Performed By: #### L 506.1000, L100.0100, L501.9520, L500.4050 #### [facility] [address] [place], [address] WBC (Bld) [#/Vol] 5.6 10*3/uL Normal 4.4-11.0 [facility] Comment on above: Performed By: #### L 506.1000, L100.0100, L501.9520, L500.4050 #### [facility] [address] [place], [address] Comprehensive Metabolic [facility] ilon 02-02-2024 Albumin [Mass/Vol] 3.8 g/dL Normal 3.2-5.0 [facility] Comment on above: Performed By: #### L 506.1000, L100.0100, L501.9520, L500.4050 #### [facility] [facility] [address] [place], [address] Albumin/Globulin [Mass ratio] 1.2 {ratio} Normal 0.9-2.4 [facility] Comment on above: Performed By: #### L 506.1000, L100.0100, L501.9520, L500.4050 #### [facility] [address] [place], [address] ALK P 61 U/L Normal 45-117 [facility] Comment on above: Performed By: #### L 506.1000, L100.0100, L501.9520, L500.4050 #### [facility] [address] [place], [address] ALT [Catalytic activity/Vol] 15 U/L Low 16-61 [facility] Comment on above: Performed By: #### L 506.1000, L100.0100, L501.9520, L500.4050 #### [facility] [address] [place], [address] AST [Catalytic activity/Vol] 12 U/L Low 15-37 [facility] Comment on above: Performed By: #### L 506.1000, L100.0100, L501.9520, L500.4050 #### [facility] [address] [place], [address] Bilirubin [Mass/Vol] 0.70 mg/dL Normal 0.20-1.00 [facility] Comment on above: Result Comment: For patients on eltrombopag therapy, use of Dimension [place] TBIL is not recommended. Performed By: #### L 506.1000, L100.0100, L501.9520, L500.4050 #### [facility] [address] [place], [address] BUN/CRE 11.5 RATIO Normal 10-20 [facility] Comment on above: Performed By: #### L 506.1000, L100.0100, L501.9520, L500.4050 #### [facility] [address] [place], [address] CA,Total 8.9 mg/dL Normal 8.5-10.1 [facility] Comment on above: Performed By: #### L 506.1000, L100.0100, L501.9520, L500.4050 #### [facility] [address] [place], [address] Chloride [Moles/Vol] 107 mmol/L Normal 98-107 [facility] Comment on above: Performed By: #### L 506.1000, L100.0100, L501.9520, L500.4050 #### [facility] [address] [place], [address] CO2 [Moles/Vol] 31.0 mmol/L Normal 21.0-32.0 [facility] Comment on above: Performed By: #### L 506.1000, L100.0100, L501.9520, L500.4050 #### [facility] [address] [place], [address] Creatinine [Mass/Vol] 1.48 mg/dL High 0.70-1.30 [facility] Comment on above: Result Comment: The validity of the calculated GFR GFRAA in patients over 70 years has not been determined. Clinical correlation is essential. Performed By: #### L 506.1000, L100.0100, L501.9520, L500.4050 #### [facility] [address] [place], [address] EST GFR - AA 58 mL/min Low >60 [facility] Comment on above: Result Comment: Afri can Australian GFR Calc Performed By: #### L 506.1000, L100.0100, L501.9520, L500.4050 #### [facility] [address] [place], [address] GAP 4 Low 5-15 [facility] Comment on above: Performed By: #### L 506.1000, L100.0100, L501.9520, L500.4050 #### [facility] [address] [place], [address] GFR/1.73 sq M.predicted among non-blacks MDRD (S/P/Bld) [Vol rate/Area] 48 mL/min/{1.73_m2} Low >60 [facility] Comment on above: Result Comment: Non- GFR Calc Performed By: #### L 506.1000, L100.0100, L501.9520, L500.4050 #### [facility] [address] [place], [address] Globulin (S) [Mass/Vol] 3.2 g/dL Normal 2.2-4.2 [facility] Comment on above: Performed By: #### L 506.1000, L100.0100, L501.9520, L500.4050 #### [facility] [address] [place], [address] Glucose [Mass/Vol] 117 mg/dL High 74-106 [facility] Comment on above: Result Comment: Fast ing Glucose result from 100 to 125 mg/dL suggests IMPAIRED HOMEOSTASIS per A.D.A. criteria. Performed By: #### L 506.1000, L100.0100, L501.9520, L500.4050 #### [facility] [address] [place], [address] Potassium [Moles/Vol] 4.2 mmol/L Normal 3.5-5.1 [facility] Comment on above: Performed By: #### L 506.1000, L100.0100, L501.9520, L500.4050 #### [facility] [address] [place], [address] Sodium [Moles/Vol] 142 mmol/L Normal 136-145 [facility] Comment on above: Performed By: #### L 506.1000, L100.0100, L501.9520, L500.4050 #### [facility] [address] [place], [address] T PROT 7.0 g/dL Normal 6.4-8.2 [facility] Comment on above: Performed By: #### L 506.1000, L100.0100, L501.9520, L500.4050 #### [facility] [address] [place], [address] Urea nitrogen [Mass/Vol] 17 mg/dL Normal 7-18 [facility] Comment on above: Performed By: #### L 506.1000, L100.0100, L501.9520, L500.4050 #### [facility] [address] [place], [address] Thyroid Stim Hormone (TSH)on 02-02-2024 TSH 1.920 uIU/mL Normal 0.358-3.740 [facility] Comment on above: Performed By: #### L 502.0500, L501.1200, L502.0250 #### [facility] [address] [place], [address] Vitamin D,25 Hydroxyon 02-01 Vitamin D 25-OH 22.9 ng/mL Normal [facility] Comment on above: Result Comment: Norma min D 25(OH) Status Range Deficiency <20 ng/mL (50nmol/L) Insufficiency 20 - 30 ng/mL (50 - 75 nmol/L) Sufficiency 30 - 100 ng/mL (75 - 250 nmol/L) Toxicity >100 ng/mL (>250 nmol/L) Performed By: #### L 506.1000, L100.0100, L501.9520, L500.4050 #### [facility] [address] [place], [address] [facility] ----- GISELLE SALGUERO ([id number]) 1940 M Date Time Provider Department 01/07/[address] [facility] [facility] your visit today, we recorded the following information about you: Patrick Bessy Kena 01/07/2024 1:25 PM Signed The patient called stating that Dr. Young's office will be following up with him and helping with glasses. Pt states we have to call Dr. Young's office to let them know what was done. I called the office and they said we could fax over his notes as well. Notes faxed to [phone] for follow up treatment with Dr. Young. Benny Marina MD filed at 10/08/2023 1:33 PM Status: Signed PTK with smoothing and [facility] Right eye BCL placed Benny Marina MD [facility] [facility] Dr. Young: [phone] Yogesh Dunne MD filed at 01/06/2024 2:11 PM Status: Signed Assessment and Plan 1. 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 Type 2 diabetes mellitus without retinopathy (HCC) -no diabetic retinopathy both eyes 4. Pseudophakia -s/p intraocular lens exchange left eye for dense plaque behind intraocular lens 5. Epiretinal membrane both eyes -preserved foveal contour both eyes 6. Trichiasis left upper lid -epilation with Rebekke Lucas Plan: -good improvement with Phototherapeutic keratectomy (PTK), especially left eye -significant punctate epithelial erosions both eyes impacting vision and limiting duration of scleral lens wear -unable to place plugs upper nor lower lid - cauterized puncta? -continue artificial tears -start xiidra twice a day both eyes -continue scleral lenses with Dr. Bagley as well as routine retina -me in 6 months / sooner as needed I have confirmed and edited as necessary the relevant ophthalmic history, ROS, and the neuro exam findings as obtained by others. I have seen and examined Giselle Chung Felibertoconrado. I have discussed the case and the management of this patient's care with the Resident/Fellow, if applicable. I also have reviewed and agree with the assessment and plan as stated above and agree with all of its relevant components. Yogesh Dunne MD Allergies As of Date: 01/07/2024 (No Known Allergies) Date Reviewed: 01/06/2024 Reviewed by: Tahira Dupree, TRICE - Fully Assessed Prescriptions as of 01/07/2024 - pantoprazole DR (PROTONIX) 40 mg tablet - lifitegrast (XIIDRA) 5 % ophthalmic drops Use 1 Drop in both eyes two times a day. - carboxymethylcellulose (REFRESH PLUS) 0.5 % Use 1 Drop in the right eye as needed. - moxifloxacin (VIGAMOX) 0.5 % ophthalmic solution Use 1 Drop in the right eye four times daily. - carboxymethylcellulose (REFRESH PLUS) 0.5 % Use 1 Drop in the left eye as needed. - diclofenac (VOLTAREN) 0.1 % ophthalmic solution Use 1 drop in the left eye four times daily. - erythromycin (ROMYCIN) 5 mg/gram (0.5 %) ophthalmic ointment Apply to affected area twice a day for one week, then stop. - tamsulosin (FLOMAX) 0.4 mg - dexAMETHasone 0.1% 0.1 % ophthalmic solution Use 1 Drop in the left eye four times daily. - Difluprednate (DUREZOL) 0.05 % drop Use 1 Drop in the right eye four times daily. Start after surgery - DUREZOL 0.05 % drop Use 1 Drop in the left eye four times daily. Start after surgery - ipratropium bromide (ATROVENT) 42 mcg (0.06 %) nasal spray - omega 3-ogf-pcx-fish oil 300-1,000 mg cpDR FISH OIL CAPS - sodium chloride (SAMUEL 128) 5 % ophthalmic ointment Use 1 application in both eyes daily at bedtime. - atorvastatin (LIPITOR) 40 mg tablet once daily. - aspirin, enteric coated (ASPIR-LOW) 81 mg EC tablet Take 1 tablet by mouth once daily. - lisinopril 20 mg ORAL tablet Take 10 mg by mouth. - fluticasone propionate(FLONASE 50 MCG/ACTUATION NASAL SPRAY) Use in the nose. - DIPHENHYDRAMINE 25 MG TAB Take by mouth. - METFORMIN 500 MG TAB Take by mouth. - metoprolol tartrate(LOPRESSOR 50 MG TAB) Take by mouth. - NIACIN SR 1,000 MG TAB Take by mouth. Swallow whole. DO NOT crush or break. - esomeprazole mag trihydrate(NEXIUM 40 MG CAP) Take by mouth. DO NOT CRUSH - isosorbide mononitrate(IMDUR 30 MG 24 HR TAB) Take one(1) tablet daily. - PRAVASTATIN 80 MG TAB Take by mouth. - gabapentin(NEURONTIN 300 MG CAP) Take one(1) tablet daily. - nitroglycerin(NITROQUICK 0.3 MG SUBLINGUAL TAB) Dissolve under the tongue every 5 minutes as needed. - OMEGA-3 FATTY ACIDS-FISH OIL 360 MG-1,200 MG CAP Take by mout (more content not included)... Normal [facility] CBC W/Diff, Automatedon 09- Absolute Lymph 1.69 X10 3/uL Normal 0.83-4.51 [facility] Comment on above: Performed By: #### L 502.0500, L501.1200, L502.0250 #### [facility] [address] [place], [address] Absolute Neut 2.8 X10 3/uL Normal 2.0-7.7 [facility] Comment on above: Performed By: #### L 502.0500, L501.1200, L502.0250 #### [facility] [address] [place], [address] Basophils/100 WBC (Bld) 0.6 % Normal 0-1 [facility] Comment on above: Performed By: #### L 502.0500, L501.1200, L502.0250 #### [facility] [address] [place], [address] Eosinophils/100 WBC (Bld) 4.1 % Normal 0-5 [facility] Comment on above: Performed By: #### L 502.0500, L501.1200, L502.0250 #### [facility] [address] [place], [address] Erythrocyte distribution width (RBC) [Ratio] 14.8 % High 11.6-14.6 [facility] Comment on above: Performed By: #### L 502.0500, L501.1200, L502.0250 #### [facility] [address] [place], [address] Hematocrit (Bld) [Volume fraction] 39.6 % Low 40-54 [facility] Comment on above: Performed By: #### L 502.0500, L501.1200, L502.0250 #### [facility] [address] [place], [address] Hemoglobin (Bld) [Mass/Vol] 12.0 g/dL Low 13.0-16.5 [facility] Comment on above: Performed By: #### L 502.0500, L501.1200, L502.0250 #### [facility] [address] [place], [address] IG% 0.400 Normal 0.0-0.9 [facility] Comment on above: Result Comment: IG% - Immature Granulocytes (promyelocytes, myelocytes and metamyelocytes) > 1% indicates that a LEFT SHIFT is Present. Performed By: #### L 502.0500, L501.1200, L502.0250 #### [facility] [address] [place], [address] Lymphocytes/100 WBC (Bld) 31.4 % Normal 19-41 [facility] Comment on above: Performed By: #### L 502.0500, L501.1200, L502.0250 #### [facility] [address] [place], [address] MCH (RBC) [Entitic mass] 30.4 pg Normal 27.0-32.0 [facility] Comment on above: Performed By: #### L 502.0500, L501.1200, L502.0250 #### [facility] [address] [place], [address] MCHC (RBC) [Mass/Vol] 30.3 g/dL Low 32-36 [facility] Comment on above: Performed By: #### L 502.0500, L501.1200, L502.0250 #### [facility] [address] [place], [address] MCV (RBC) [Entitic vol] 100.3 fL High 80-94 [facility] Comment on above: Performed By: #### L 502.0500, L501.1200, L502.0250 #### [facility] [address] [place], [address] Monocytes/100 WBC (Bld) 11.5 % High 0-10 [facility] Comment on above: Performed By: #### L 502.0500, L501.1200, L502.0250 #### [facility] [address] [place], [address] Neutrophils/100 WBC (Bld) 52.0 % Normal 47-70 [facility] Comment on above: Performed By: #### L 502.0500, L501.1200, L502.0250 #### [facility] [address] [place], [address] Nucleated RBC (Bld) [#/Vol] 0 10*3/uL Normal 0-5 [facility] Comment on above: Performed By: #### L 502.0500, L501.1200, L502.0250 #### [facility] [address] [place], [address] Platelet mean volume (Bld) [Entitic vol] 10.5 fL Normal 6.2-12.0 [facility] Comment on above: Performed By: #### L 502.0500, L501.1200, L502.0250 #### [facility] [address] [place], [address] Platelets (Bld) [#/Vol] 232 10*3/uL Normal 150-450 [facility] Comment on above: Performed By: #### L 502.0500, L501.1200, L502.0250 #### [facility] [address] [place], [address] RBC (Bld) [#/Vol] 3.95 10*6/uL Low 4.6-6.2 [facility] Comment on above: Performed By: #### L 502.0500, L501.1200, L502.0250 #### [facility] [address] [place], [address] RDW SD 55.3 fl High 35.1-43.9 [facility] Comment on above: Performed By: #### L 502.0500, L501.1200, L502.0250 #### [facility] [address] [place], [address] WBC (Bld) [#/Vol] 5.4 10*3/uL Normal 4.4-11.0 [facility] Comment on above: Performed By: #### L 502.0500, L501.1200, L502.0250 #### [facility] [address] [place], [address] Basic Metabolic Profile (BMP )on 10-20-2023 BUN Normal 7-18 [facility] Comment on above: Result Comment: Canc elled via OM: Order cancelled - Patient discharged Performed By: #### L 502.0500, L501.1200, L502.0250 #### [facility] [address] [place], [address] BUN/CRE Normal 10-20 [facility] Comment on above: Result Comment: Canc elled via OM: Order cancelled - Patient discharged Performed By: #### L 502.0500, L501.1200, L502.0250 #### [facility] [address] [place], [address] CA,Total Normal 8.5-10.1 [facility] Comment on above: Result Comment: Canc elled via OM: Order cancelled - Patient discharged Performed By: #### L 502.0500, L501.1200, L502.0250 #### [facility] [address] [place], [address] CL Normal 98-107 [facility] Comment on above: Result Comment: Canc elled via OM: Order cancelled - Patient discharged Performed By: #### L 502.0500, L501.1200, L502.0250 #### [facility] [address] [place], [address] CO2 Normal 21.0-32.0 [facility] Comment on above: Result Comment: Canc elled via OM: Order cancelled - Patient discharged Performed By: #### L 502.0500, L501.1200, L502.0250 #### [facility] [address] [place], [address] CREAT,SERUM Normal 0.70-1.30 [facility] Comment on above: Result Comment: Canc elled via OM: Order cancelled - Patient discharged Performed By: #### L 502.0500, L501.1200, L502.0250 #### [facility] [address] [place], [address] EST GFR Normal >60 [facility] Comment on above: Result Comment: Canc elled via OM: Order cancelled - Patient discharged Performed By: #### L 502.0500, L501.1200, L502.0250 #### [facility] [address] [place], [address] EST GFR - AA Normal >60 [facility] Comment on above: Result Comment: Canc elled via OM: Order cancelled - Patient discharged Performed By: #### L 502.0500, L501.1200, L502.0250 #### [facility] [address] [place], [address] GAP Normal 5-15 [facility] Comment on above: Result Comment: Canc elled via OM: Order cancelled - Patient discharged Performed By: #### L 502.0500, L501.1200, L502.0250 #### [facility] [address] [place], [address] GLU Normal 74-106 [facility] Comment on above: Result Comment: Canc elled via OM: Order cancelled - Patient discharged Performed By: #### L 502.0500, L501.1200, L502.0250 #### [facility] [address] [place], [address] Potassium Normal 3.5-5.1 [facility] Comment on above: Result Comment: Canc elled via OM: Order cancelled - Patient discharged Performed By: #### L 502.0500, L501.1200, L502.0250 #### [facility] [address] [place], [address] Basic Metabolic Profile (BMP) Normal 136-145 [facility] Comment on above: Result Comment: Canc elled via OM: Order cancelled - Patient discharged Performed By: #### L 502.0500, L501.1200, L502.0250 #### [facility] [address] [place], [address] CBC W/Diff, Automatedon 08- Absolute Neut Normal 2.0-7.7 [facility] Comment on above: Result Comment: Canc elled via OM: Order cancelled - Patient discharged Performed By: #### L 502.0500, L501.1200, L502.0250 #### [facility] [address] [place], [address] HCT Normal 40-54 [facility] Comment on above: Result Comment: Canc elled via OM: Order cancelled - Patient discharged Performed By: #### L 502.0500, L501.1200, L502.0250 #### [facility] [address] [place], [address] HGB Normal 13.0-16.5 [facility] Comment on above: Result Comment: Canc elled via OM: Order cancelled - Patient discharged Performed By: #### L 502.0500, L501.1200, L502.0250 #### [facility] [address] [place], [address] MCH Normal 27.0-32.0 [facility] Comment on above: Result Comment: Canc elled via OM: Order cancelled - Patient discharged Performed By: #### L 502.0500, L501.1200, L502.0250 #### [facility] [address] [place], [address] MCHC Normal 32-36 [facility] Comment on above: Result Comment: Canc elled via OM: Order cancelled - Patient discharged Performed By: #### L 502.0500, L501.1200, L502.0250 #### [facility] [address] [place], [address] MCV Normal 80-94 [facility] Comment on above: Result Comment: Canc elled via OM: Order cancelled - Patient discharged Performed By: #### L 502.0500, L501.1200, L502.0250 #### [facility] [address] [place], [address] NEUT% Normal 47-70 [facility] Comment on above: Result Comment: Canc elled via OM: Order cancelled - Patient discharged Performed By: #### L 502.0500, L501.1200, L502.0250 #### [facility] [address] [place], [address] PLT Normal 150-450 [facility] Comment on above: Result Comment: Canc elled via OM: Order cancelled - Patient discharged Performed By: #### L 502.0500, L501.1200, L502.0250 #### [facility] [address] [place], [address] RBC Normal 4.6-6.2 [facility] Comment on above: Result Comment: Canc elled via OM: Order cancelled - Patient discharged Performed By: #### L 502.0500, L501.1200, L502.0250 #### [facility] [address] [place], [address] RDW CV Normal 11.6-14.6 [facility] Comment on above: Result Comment: Canc elled via OM: Order cancelled - Patient discharged Performed By: #### L 502.0500, L501.1200, L502.0250 #### [facility] [address] [place], [address] RDW SD Normal 35.1-43.9 [facility] Comment on above: Result Comment: Canc elled via OM: Order cancelled - Patient discharged Performed By: #### L 502.0500, L501.1200, L502.0250 #### [facility] [address] [place], [address] WBC Normal 4.4-11.0 [facility] Comment on above: Result Comment: Canc elled via OM: Order cancelled - Patient discharged Performed By: #### L 502.0500, L501.1200, L502.0250 #### [facility] [address] [place], [address] Gastroenterology Visit Repor ton 10-20-2023 Gastroenterology Visit Report [facility] [address] [place] [address] OFFICE VISIT Date of Service: 10/20/23 MR#: [id number] Acct: [id number] Name: BETOJACKELYNCONRADOGISELLE KRISTOPHER Rep #: [id number] : 1940 Provider: YARA Betts Age/Sex: 83/M [place] [facility] [place]: Signed Intake Vital Signs 10/12/23 15:03 Height 5 ft 7 in Intake Visit Reasons: Hospital FU Chief Complaint: GI bleed f/u Allergies No Known Allergies Allergy (Verified 10/10/23 10:15) Medications ???Medication ???Instructions ???Recorded ???Confirmed ???Type atorvastatin 40 mg tablet 40 mg PO QHS cholesterol 04/19/18 10/20/23 History gabapentin 300 mg capsule 300 mg PO DAILY nerves/pain 04/19/18 10/20/23 History (Neurontin) ipratropium bromide 42 mcg (0.06 2 spray intranasal BID breathing 04/19/18 10/20/23 History %) nasal spray isosorbide mononitrate 30 mg 30 mg PO DAILY heart 04/19/18 10/20/23 History tablet,extended release 24 hr nitroglycerin 0.4 mg sublingual 0.4 mg sublingual Q5-15M PRN chest 04/19/18 10/20/23 History tablet pain tamsulosin 0.4 mg capsule 0.4 mg PO DAILY prostate 07/27/19 10/20/23 History moxifloxacin 0.5 % eye drops 1 drp ophthalmic (eye) 4X/DAY EYE 10/10/23 10/20/23 History SURGERY prednisolone acetate 1 % eye 1 drp ophthalmic (eye) 4X/DAY EYE 10/10/23 10/20/23 History drops,suspension SURGERY pantoprazole 40 mg tablet,delayed 40 mg PO BID #60 tabs 10/13/23 10/20/23 Rx release ferrous fumarate 325 mg (106 mg 325 mg PO DAILY 10/20/23 10/20/23 History iron) tablet Have you fallen in the past year?: No PFSH Medical History CKD (chronic kidney disease) stage 3, GFR 30-59 ml/min Pure hypercholesterolemia Bilateral carotid artery stenosis COPD (chronic obstructive pulmonary disease) Type 2 diabetes mellitus Essential (primary) hypertension Atherosclerosis of coronary artery of [place] heart without angina pectoris Surgical History History of colonoscopy Status post right foot surgery History of appendectomy History of left inguinal hernia repair History of eye surgery History of left heart catheterization (06/09/06) 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 Presented to the ED with dark tarry stools and coffee ground emesis. Admitted 10.10.23-10.13.23. Hemoglobin on admission was 12.5 but subsequently decreased to 7.4. He was transfused with 1 unit. EGD 10.12.23; Normal esophagus. Oozing gastric ulcers with pigmented material. Treated with a heater probe. Non-bleeding duodenal ulcer with no stigmata of bleeding. Biopsied. Hemoglobin at discharge 10.13.23; 9.4 L OV 8 Pt has been doing well. He complains of hip pain with associated bruise. He does not remember falling or hitting it. Has been taking iron which is making his stool darker.. Has been having some diarrhea and epigastric pain.. He denies n/v, abdominal pain, constipation or hematochezia. ROS Const Constitutional: No anorexia, fatigue, fever(s), weight change or sleep problems Eyes Eyes: No change in vision ENT ENT: No abnormal hearing, difficulty swallowing, mouth lesions, tongue swelling or throat swelling Resp Respiratory: No cough or shortness of breath Cardio Cardiology: No chest pain at rest, chest pain with exertion, shortness of breath or dyspnea on exertion Gastro GI: Positive for abdominal pain and loose stools; No difficulty swallowing Genitourinary Male: No difficulty urinating or burning urination Musc Musculoskeletal: No joint pain, joint swelling, muscle weakness or decreased muscle mass Skin Skin: No hair loss in leg, yellowing of the eye, itchy eyes, rash, skin ulcer or skin swelling Neuro Neurology: No abnormal hearing, abnormal movements, confusion, unsteady gait/balance or memory loss Psych Psychiatric: No anxiety, No confusion and No memory loss Endo Endocrine: No fatigue or weight change Aller/Imm Allergy/Immunologic: No itchy eyes, throat swelling or tongue swelling Abhinav/Lymp Hematologic/Lymphatic: No easy bleeding, easy bruising or enlarged lymph nodes Exam Const Gene (more content not included)... Normal [facility] Basic Metabolic Profile (BMP )on 10-19-2023 BUN Normal - [facility] Comment on above: Result Comment: Canc elled via OM: Order cancelled - Patient discharged Performed By: #### L 100.0100, L500.2500 #### [facility] [address] [place], [address] BUN/CRE Normal 10-20 [facility] Comment on above: Result Comment: Canc elled via OM: Order cancelled - Patient discharged Performed By: #### L 100.0100, L500.2500 #### [facility] [address] [place], [address] CA,Total Normal 8.5-10.1 [facility] Comment on above: Result Comment: Canc elled via OM: Order cancelled - Patient discharged Performed By: #### L 100.0100, L500.2500 #### [facility] [address] [place], [address] CL Normal 98-107 [facility] Comment on above: Result Comment: Canc elled via OM: Order cancelled - Patient discharged Performed By: #### L 100.0100, L500.2500 #### [facility] [address] [place], [address] CO2 Normal 21.0-32.0 [facility] Comment on above: Result Comment: Canc elled via OM: Order cancelled - Patient discharged Performed By: #### L 100.0100, L500.2500 #### [facility] [address] [place], [address] CREAT,SERUM Normal 0.70-1.30 [facility] Comment on above: Result Comment: Canc elled via OM: Order cancelled - Patient discharged Performed By: #### L 100.0100, L500.2500 #### [facility] [address] [place], [address] EST GFR Normal >60 [facility] Comment on above: Result Comment: Canc elled via OM: Order cancelled - Patient discharged Performed By: #### L 100.0100, L500.2500 #### [facility] [address] [place], [address] EST GFR - AA Normal >60 [facility] Comment on above: Result Comment: Canc elled via OM: Order cancelled - Patient discharged Performed By: #### L 100.0100, L500.2500 #### [facility] [address] [place], [address] GAP Normal 5-15 [facility] Comment on above: Result Comment: Canc elled via OM: Order cancelled - Patient discharged Performed By: #### L 100.0100, L500.2500 #### [facility] [address] [place], [address] GLU Normal 74-106 [facility] Comment on above: Result Comment: Canc elled via OM: Order cancelled - Patient discharged Performed By: #### L 100.0100, L500.2500 #### [facility] [address] [place], [address] Potassium Normal 3.5-5.1 [facility] Comment on above: Result Comment: Canc elled via OM: Order cancelled - Patient discharged Performed By: #### L 100.0100, L500.2500 #### [facility] [address] [place], [address] Basic Metabolic Profile (BMP) Normal 136-145 [facility] Comment on above: Result Comment: Canc elled via OM: Order cancelled - Patient discharged Performed By: #### L 100.0100, L500.2500 #### [facility] [address] [place], [address] CBC W/Diff, Automatedon 08-2 Absolute Neut Normal 2.0-7.7 [facility] Comment on above: Result Comment: Canc elled via OM: Order cancelled - Patient discharged Performed By: #### L 100.0100, L500.2500 #### [facility] [address] [place], [address] HCT Normal 40-54 [facility] Comment on above: Result Comment: Canc elled via OM: Order cancelled - Patient discharged Performed By: #### L 100.0100, L500.2500 #### [facility] [address] [place], [address] HGB Normal 13.0-16.5 [facility] Comment on above: Result Comment: Canc elled via OM: Order cancelled - Patient discharged Performed By: #### L 100.0100, L500.2500 #### [facility] [address] [place], [address] MCH Normal 27.0-32.0 [facility] Comment on above: Result Comment: Canc elled via OM: Order cancelled - Patient discharged Performed By: #### L 100.0100, L500.2500 #### [facility] [address] [place], [address] MCHC Normal 32-36 [facility] Comment on above: Result Comment: Canc elled via OM: Order cancelled - Patient discharged Performed By: #### L 100.0100, L500.2500 #### [facility] [address] [place], [address] MCV Normal 80-94 [facility] Comment on above: Result Comment: Canc elled via OM: Order cancelled - Patient discharged Performed By: #### L 100.0100, L500.2500 #### [facility] [address] [place], [address] NEUT% Normal 47-70 [facility] Comment on above: Result Comment: Canc elled via OM: Order cancelled - Patient discharged Performed By: #### L 100.0100, L500.2500 #### [facility] [address] [place], [address] PLT Normal 150-450 [facility] Comment on above: Result Comment: Canc elled via OM: Order cancelled - Patient discharged Performed By: #### L 100.0100, L500.2500 #### [facility] [address] [place], [address] RBC Normal 4.6-6.2 [facility] Comment on above: Result Comment: Canc elled via OM: Order cancelled - Patient discharged Performed By: #### L 100.0100, L500.2500 #### [facility] [address] [place], [address] RDW CV Normal 11.6-14.6 [facility] Comment on above: Result Comment: Canc elled via OM: Order cancelled - Patient discharged Performed By: #### L 100.0100, L500.2500 #### [facility] [address] [place], [address] RDW SD Normal 35.1-43.9 [facility] Comment on above: Result Comment: Canc elled via OM: Order cancelled - Patient discharged Performed By: #### L 100.0100, L500.2500 #### [facility] [address] [place], [address] WBC Normal 4.4-11.0 [facility] Comment on above: Result Comment: Canc elled via OM: Order cancelled - Patient discharged Performed By: #### L 100.0100, L500.2500 #### [facility] [address] [place], [address] Basic Metabolic Profile (BMP )on 10-18-2023 BUN Normal 7-18 [facility] Comment on above: Result Comment: Canc elled via OM: Order cancelled - Patient discharged Performed By: #### L 100.0600 #### [facility] [address] [place], [address] BUN/CRE Normal 10-20 [facility] Comment on above: Result Comment: Canc elled via OM: Order cancelled - Patient discharged Performed By: #### L 100.0600 #### [facility] [address] [place], [address] CA,Total Normal 8.5-10.1 [facility] Comment on above: Result Comment: Canc elled via OM: Order cancelled - Patient discharged Performed By: #### L 100.0600 #### [facility] [address] [place], [address] CL Normal 98-107 [facility] Comment on above: Result Comment: Canc elled via OM: Order cancelled - Patient discharged Performed By: #### L 100.0600 #### [facility] [address] [place], [address] CO2 Normal 21.0-32.0 [facility] Comment on above: Result Comment: Canc elled via OM: Order cancelled - Patient discharged Performed By: #### L 100.0600 #### [facility] [address] [place], [address] CREAT,SERUM Normal 0.70-1.30 [facility] Comment on above: Result Comment: Canc elled via OM: Order cancelled - Patient discharged Performed By: #### L 100.0600 #### [facility] [address] [place], [address] EST GFR Normal >60 [facility] Comment on above: Result Comment: Canc elled via OM: Order cancelled - Patient discharged Performed By: #### L 100.0600 #### [facility] [address] [place], [address] EST GFR - AA Normal >60 [facility] Comment on above: Result Comment: Canc elled via OM: Order cancelled - Patient discharged Performed By: #### L 100.0600 #### [facility] [address] [place], [address] GAP Normal 5-15 [facility] Comment on above: Result Comment: Canc elled via OM: Order cancelled - Patient discharged Performed By: #### L 100.0600 #### [facility] [address] [place], [address] GLU Normal 74-106 [facility] Comment on above: Result Comment: Canc elled via OM: Order cancelled - Patient discharged Performed By: #### L 100.0600 #### [facility] [address] [place], [address] Potassium Normal 3.5-5.1 [facility] Comment on above: Result Comment: Canc elled via OM: Order cancelled - Patient discharged Performed By: #### L 100.0600 #### [facility] [address] [place], [address] Basic Metabolic Profile (BMP) Normal 136-145 [facility] Comment on above: Result Comment: Canc elled via OM: Order cancelled - Patient discharged Performed By: #### L 100.0600 #### [facility] [address] [place], [address] CBC W/Diff, Automatedon 08-2 Absolute Neut Normal 2.0-7.7 [facility] Comment on above: Result Comment: Canc elled via OM: Order cancelled - Patient discharged Performed By: #### L 100.0600 #### [facility] [address] [place], [address] HCT Normal 40-54 [facility] Comment on above: Result Comment: Canc elled via OM: Order cancelled - Patient discharged Performed By: #### L 100.0600 #### [facility] [address] [place], [address] HGB Normal 13.0-16.5 [facility] Comment on above: Result Comment: Canc elled via OM: Order cancelled - Patient discharged Performed By: #### L 100.0600 #### [facility] [address] [place], [address] MCH Normal 27.0-32.0 [facility] Comment on above: Result Comment: Canc elled via OM: Order cancelled - Patient discharged Performed By: #### L 100.0600 #### [facility] [address] [place], [address] MCHC Normal 32-36 [facility] Comment on above: Result Comment: Canc elled via OM: Order cancelled - Patient discharged Performed By: #### L 100.0600 #### [facility] [address] [place], [address] MCV Normal 80-94 [facility] Comment on above: Result Comment: Canc elled via OM: Order cancelled - Patient discharged Performed By: #### L 100.0600 #### [facility] [address] [place], [address] NEUT% Normal 47-70 [facility] Comment on above: Result Comment: Canc elled via OM: Order cancelled - Patient discharged Performed By: #### L 100.0600 #### [facility] [address] [place], [address] PLT Normal 150-450 [facility] Comment on above: Result Comment: Canc elled via OM: Order cancelled - Patient discharged Performed By: #### L 100.0600 #### [facility] [address] [place], [address] RBC Normal 4.6-6.2 [facility] Comment on above: Result Comment: Canc elled via OM: Order cancelled - Patient discharged Performed By: #### L 100.0600 #### [facility] [address] [place], [address] RDW CV Normal 11.6-14.6 [facility] Comment on above: Result Comment: Canc elled via OM: Order cancelled - Patient discharged Performed By: #### L 100.0600 #### [facility] [address] [place], [address] RDW SD Normal 35.1-43.9 [facility] Comment on above: Result Comment: Canc elled via OM: Order cancelled - Patient discharged Performed By: #### L 100.0600 #### [facility] [address] [place], [address] WBC Normal 4.4-11.0 [facility] Comment on above: Result Comment: Canc elled via OM: Order cancelled - Patient discharged Performed By: #### L 100.0600 #### [facility] [address] [place], [address] Basic Metabolic Profile (BMP )on 10-17-2023 BUN Normal 7-18 [facility] Comment on above: Result Comment: Canc elled via OM: Order cancelled - Patient discharged Performed By: #### L 100.0600 #### [facility] [address] [place], [address] BUN/CRE Normal 10-20 [facility] Comment on above: Result Comment: Canc elled via OM: Order cancelled - Patient discharged Performed By: #### L 100.0600 #### [facility] [address] [place], [address] CA,Total Normal 8.5-10.1 [facility] Comment on above: Result Comment: Canc elled via OM: Order cancelled - Patient discharged Performed By: #### L 100.0600 #### [facility] [address] [place], [address] CL Normal 98-107 [facility] Comment on above: Result Comment: Canc elled via OM: Order cancelled - Patient discharged Performed By: #### L 100.0600 #### [facility] [address] [place], [address] CO2 Normal 21.0-32.0 [facility] Comment on above: Result Comment: Canc elled via OM: Order cancelled - Patient discharged Performed By: #### L 100.0600 #### [facility] [address] [place], [address] CREAT,SERUM Normal 0.70-1.30 [facility] Comment on above: Result Comment: Canc elled via OM: Order cancelled - Patient discharged Performed By: #### L 100.0600 #### [facility] [address] [place], [address] EST GFR Normal >60 [facility] Comment on above: Result Comment: Canc elled via OM: Order cancelled - Patient discharged Performed By: #### L 100.0600 #### [facility] [address] [place], [address] EST GFR - AA Normal >60 [facility] Comment on above: Result Comment: Canc elled via OM: Order cancelled - Patient discharged Performed By: #### L 100.0600 #### [facility] [address] [place], [address] GAP Normal 5-15 [facility] Comment on above: Result Comment: Canc elled via OM: Order cancelled - Patient discharged Performed By: #### L 100.0600 #### [facility] [address] [place], [address] GLU Normal 74-106 [facility] Comment on above: Result Comment: Canc elled via OM: Order cancelled - Patient discharged Performed By: #### L 100.0600 #### [facility] [address] [place], [address] Potassium Normal 3.5-5.1 [facility] Comment on above: Result Comment: Canc elled via OM: Order cancelled - Patient discharged Performed By: #### L 100.0600 #### [facility] [address] [place], [address] Basic Metabolic Profile (BMP) Normal 136-145 [facility] Comment on above: Result Comment: Canc elled via OM: Order cancelled - Patient discharged Performed By: #### L 100.0600 #### [facility] [address] [place], [address] CBC W/Diff, Automatedon - Absolute Neut Normal 2.0-7.7 [facility] Comment on above: Result Comment: Canc elled via OM: Order cancelled - Patient discharged Performed By: #### L 100.0600 #### [facility] [address] [place], [address] HCT Normal 40-54 [facility] Comment on above: Result Comment: Canc elled via OM: Order cancelled - Patient discharged Performed By: #### L 100.0600 #### [facility] [address] [place], [address] HGB Normal 13.0-16.5 [facility] Comment on above: Result Comment: Canc elled via OM: Order cancelled - Patient discharged Performed By: #### L 100.0600 #### [facility] [address] [place], [address] MCH Normal 27.0-32.0 [facility] Comment on above: Result Comment: Canc elled via OM: Order cancelled - Patient discharged Performed By: #### L 100.0600 #### [facility] [address] [place], [address] MCHC Normal 32-36 [facility] Comment on above: Result Comment: Canc elled via OM: Order cancelled - Patient discharged Performed By: #### L 100.0600 #### [facility] [address] [place], [address] MCV Normal 80-94 [facility] Comment on above: Result Comment: Canc elled via OM: Order cancelled - Patient discharged Performed By: #### L 100.0600 #### [facility] [address] [place], [address] NEUT% Normal 47-70 [facility] Comment on above: Result Comment: Canc elled via OM: Order cancelled - Patient discharged Performed By: #### L 100.0600 #### [facility] [address] [place], [address] PLT Normal 150-450 [facility] Comment on above: Result Comment: Canc elled via OM: Order cancelled - Patient discharged Performed By: #### L 100.0600 #### [facility] [address] [place], [address] RBC Normal 4.6-6.2 [facility] Comment on above: Result Comment: Canc elled via OM: Order cancelled - Patient discharged Performed By: #### L 100.0600 #### [facility] [address] [place], [address] RDW CV Normal 11.6-14.6 [facility] Comment on above: Result Comment: Canc elled via OM: Order cancelled - Patient discharged Performed By: #### L 100.0600 #### [facility] [facility] [address] [place], [address] RDW SD Normal 35.1-43.9 [facility] Comment on above: Result Comment: Canc elled via OM: Order cancelled - Patient discharged Performed By: #### L 100.0600 #### [facility] [address] [place], [address] WBC Normal 4.4-11.0 [facility] Comment on above: Result Comment: Canc elled via OM: Order cancelled - Patient discharged Performed By: #### L 100.0600 #### [facility] [address] [place], [address] Basic Metabolic Profile (BMP )on 10-16-2023 BUN Normal 7-18 [facility] Comment on above: Result Comment: Canc elled via OM: Order cancelled - Patient discharged Performed By: #### L 100.0100, L500.2500 #### [facility] [address] [place], [address] BUN/CRE Normal 10-20 [facility] Comment on above: Result Comment: Canc elled via OM: Order cancelled - Patient discharged Performed By: #### L 100.0100, L500.2500 #### [facility] [address] [place], [address] CA,Total Normal 8.5-10.1 [facility] Comment on above: Result Comment: Canc elled via OM: Order cancelled - Patient discharged Performed By: #### L 100.0100, L500.2500 #### [facility] [address] [place], [address] CL Normal 98-107 [facility] Comment on above: Result Comment: Canc elled via OM: Order cancelled - Patient discharged Performed By: #### L 100.0100, L500.2500 #### [facility] [address] [place], [address] CO2 Normal 21.0-32.0 [facility] Comment on above: Result Comment: Canc elled via OM: Order cancelled - Patient discharged Performed By: #### L 100.0100, L500.2500 #### [facility] [address] [place], [address] CREAT,SERUM Normal 0.70-1.30 [facility] Comment on above: Result Comment: Canc elled via OM: Order cancelled - Patient discharged Performed By: #### L 100.0100, L500.2500 #### [facility] [address] [place], [address] EST GFR Normal >60 [facility] Comment on above: Result Comment: Canc elled via OM: Order cancelled - Patient discharged Performed By: #### L 100.0100, L500.2500 #### [facility] [address] [place], [address] EST GFR - AA Normal >60 [facility] Comment on above: Result Comment: Canc elled via OM: Order cancelled - Patient discharged Performed By: #### L 100.0100, L500.2500 #### [facility] [address] [place], [address] GAP Normal 5-15 [facility] Comment on above: Result Comment: Canc elled via OM: Order cancelled - Patient discharged Performed By: #### L 100.0100, L500.2500 #### [facility] [address] [place], [address] GLU Normal 74-106 [facility] Comment on above: Result Comment: Canc elled via OM: Order cancelled - Patient discharged Performed By: #### L 100.0100, L500.2500 #### [facility] [address] [place], [address] Potassium Normal 3.5-5.1 [facility] Comment on above: Result Comment: Canc elled via OM: Order cancelled - Patient discharged Performed By: #### L 100.0100, L500.2500 #### [facility] [address] [place], [address] Basic Metabolic Profile (BMP) Normal 136-145 [facility] Comment on above: Result Comment: Canc elled via OM: Order cancelled - Patient discharged Performed By: #### L 100.0100, L500.2500 #### [facility] [address] [place], [address] CBC W/Diff, Automatedon 08-2 Absolute Neut Normal 2.0-7.7 [facility] Comment on above: Result Comment: Canc elled via OM: Order cancelled - Patient discharged Performed By: #### L 100.0100, L500.2500 #### [facility] [address] [place], [address] HCT Normal 40-54 [facility] Comment on above: Result Comment: Canc elled via OM: Order cancelled - Patient discharged Performed By: #### L 100.0100, L500.2500 #### [facility] [address] [place], [address] HGB Normal 13.0-16.5 [facility] Comment on above: Result Comment: Canc elled via OM: Order cancelled - Patient discharged Performed By: #### L 100.0100, L500.2500 #### [facility] [address] [place], [address] MCH Normal 27.0-32.0 [facility] Comment on above: Result Comment: Canc elled via OM: Order cancelled - Patient discharged Performed By: #### L 100.0100, L500.2500 #### [facility] [address] [place], [address] MCHC Normal 32-36 [facility] Comment on above: Result Comment: Canc elled via OM: Order cancelled - Patient discharged Performed By: #### L 100.0100, L500.2500 #### [facility] [address] [place], [address] MCV Normal 80-94 [facility] Comment on above: Result Comment: Canc elled via OM: Order cancelled - Patient discharged Performed By: #### L 100.0100, L500.2500 #### [facility] [address] [place], [address] NEUT% Normal 47-70 [facility] Comment on above: Result Comment: Canc elled via OM: Order cancelled - Patient discharged Performed By: #### L 100.0100, L500.2500 #### [facility] [address] [place], [address] PLT Normal 150-450 [facility] Comment on above: Result Comment: Canc elled via OM: Order cancelled - Patient discharged Performed By: #### L 100.0100, L500.2500 #### [facility] [address] [place], [address] RBC Normal 4.6-6.2 [facility] Comment on above: Result Comment: Canc elled via OM: Order cancelled - Patient discharged Performed By: #### L 100.0100, L500.2500 #### [facility] [address] [place], [address] RDW CV Normal 11.6-14.6 [facility] Comment on above: Result Comment: Canc elled via OM: Order cancelled - Patient discharged Performed By: #### L 100.0100, L500.2500 #### [facility] [address] [place], [address] RDW SD Normal 35.1-43.9 [facility] Comment on above: Result Comment: Canc elled via OM: Order cancelled - Patient discharged Performed By: #### L 100.0100, L500.2500 #### [facility] [address] [place], [address] WBC Normal 4.4-11.0 [facility] Comment on above: Result Comment: Canc elled via OM: Order cancelled - Patient discharged Performed By: #### L 100.0100, L500.2500 #### [facility] [address] [place], [address] Basic Metabolic Profile (BMP )on 10-15-2023 BUN/CRE 6.2 RATIO Low 10-20 [facility] Comment on above: Performed By: #### L 502.0500, L501.1200, L502.0250 #### [facility] [address] [place], [address] CA,Total 8.8 mg/dL Normal 8.5-10.1 [facility] Comment on above: Performed By: #### L 502.0500, L501.1200, L502.0250 #### [facility] [address] [place], [address] Chloride [Moles/Vol] 106 mmol/L Normal 98-107 [facility] Comment on above: Performed By: #### L 502.0500, L501.1200, L502.0250 #### [facility] [address] [place], [address] CO2 [Moles/Vol] 30.0 mmol/L Normal 21.0-32.0 [facility] Comment on above: Performed By: #### L 502.0500, L501.1200, L502.0250 #### [facility] [address] [place], [address] Creatinine [Mass/Vol] 1.44 mg/dL High 0.70-1.30 [facility] Comment on above: Result Comment: The validity of the calculated GFR GFRAA in patients over 70 years has not been determined. Clinical correlation is essential. Performed By: #### L 502.0500, L501.1200, L502.0250 #### [facility] [address] [place], [address] EST GFR - AA 60 mL/min Normal >60 [facility] Comment on above: Result Comment: Afri can [place] GFR Calc Performed By: #### L 502.0500, L501.1200, L502.0250 #### [facility] [address] [place], [address] GAP 5 Normal 5-15 [facility] Comment on above: Performed By: #### L 502.0500, L501.1200, L502.0250 #### [facility] [address] [place], [address] GFR/1.73 sq M.predicted among non-blacks MDRD (S/P/Bld) [Vol rate/Area] 50 mL/min/{1.73_m2} Low >60 [facility] Comment on above: Result Comment: Non- GFR Calc Performed By: #### L 502.0500, L501.1200, L502.0250 #### [facility] [address] [place], [address] Glucose [Mass/Vol] 108 mg/dL High 74-106 [facility] Comment on above: Result Comment: Fast ing Glucose result from 100 to 125 mg/dL suggests IMPAIRED HOMEOSTASIS per A.D.A. criteria. Performed By: #### L 502.0500, L501.1200, L502.0250 #### [facility] [address] [place], [address] Potassium [Moles/Vol] 3.6 mmol/L Normal 3.5-5.1 [facility] Comment on above: Performed By: #### L 502.0500, L501.1200, L502.0250 #### [facility] [address] [place], [address] Sodium [Moles/Vol] 141 mmol/L Normal 136-145 [facility] Comment on above: Performed By: #### L 502.0500, L501.1200, L502.0250 #### [facility] [address] [place], [address] Urea nitrogen [Mass/Vol] 9 mg/dL Normal 7-18 [facility] Comment on above: Performed By: #### L 502.0500, L501.1200, L502.0250 #### [facility] [address] [place], [address] BUN Normal 7-18 [facility] Comment on above: Result Comment: Canc elled via OM: Order cancelled - Patient discharged Performed By: #### L 100.0600 #### [facility] [address] [place], [address] BUN/CRE Normal 10-20 [facility] Comment on above: Result Comment: Canc elled via OM: Order cancelled - Patient discharged Performed By: #### L 100.0600 #### [facility] [address] [place], [address] CA,Total Normal 8.5-10.1 [facility] Comment on above: Result Comment: Canc elled via OM: Order cancelled - Patient discharged Performed By: #### L 100.0600 #### [facility] [address] [place], [address] CL Normal 98-107 [facility] Comment on above: Result Comment: Canc elled via OM: Order cancelled - Patient discharged Performed By: #### L 100.0600 #### [facility] [address] [place], [address] CO2 Normal 21.0-32.0 [facility] Comment on above: Result Comment: Canc elled via OM: Order cancelled - Patient discharged Performed By: #### L 100.0600 #### [facility] [address] [place], [address] CREAT,SERUM Normal 0.70-1.30 [facility] Comment on above: Result Comment: Canc elled via OM: Order cancelled - Patient discharged Performed By: #### L 100.0600 #### [facility] [address] [place], [address] EST GFR Normal >60 [facility] Comment on above: Result Comment: Canc elled via OM: Order cancelled - Patient discharged Performed By: #### L 100.0600 #### [facility] [address] [place], [address] EST GFR - AA Normal >60 [facility] Comment on above: Result Comment: Canc elled via OM: Order cancelled - Patient discharged Performed By: #### L 100.0600 #### [facility] [address] [place], [address] GAP Normal 5-15 [facility] Comment on above: Result Comment: Canc elled via OM: Order cancelled - Patient discharged Performed By: #### L 100.0600 #### [facility] [address] [place], [address] GLU Normal 74-106 [facility] Comment on above: Result Comment: Canc elled via OM: Order cancelled - Patient discharged Performed By: #### L 100.0600 #### [facility] [address] [place], [address] Potassium Normal 3.5-5.1 [facility] Comment on above: Result Comment: Canc elled via OM: Order cancelled - Patient discharged Performed By: #### L 100.0600 #### [facility] [address] [place], [address] Basic Metabolic Profile (BMP) Normal 136-145 [facility] Comment on above: Result Comment: Canc elled via OM: Order cancelled - Patient discharged Performed By: #### L 100.0600 #### [facility] [address] [place], [address] CBC W/Diff, Automatedon 09-24 Absolute Lymph 1.08 X10 3/uL Normal 0.83-4.51 [facility] Comment on above: Performed By: #### L 502.0500, L501.1200, L502.0250 #### [facility] [address] [place], [address] Absolute Neut 4.3 X10 3/uL Normal 2.0-7.7 [facility] Comment on above: Performed By: #### L 502.0500, L501.1200, L502.0250 #### [facility] [address] [place], [address] Basophils/100 WBC (Bld) 0.3 % Normal 0-1 [facility] Comment on above: Performed By: #### L 502.0500, L501.1200, L502.0250 #### [facility] [address] [place], [address] Eosinophils/100 WBC (Bld) 1.3 % Normal 0-5 [facility] Comment on above: Performed By: #### L 502.0500, L501.1200, L502.0250 #### [facility] [address] [place], [address] Erythrocyte distribution width (RBC) [Ratio] 14.7 % High 11.6-14.6 [facility] Comment on above: Performed By: #### L 502.0500, L501.1200, L502.0250 #### [facility] [address] [place], [address] Hematocrit (Bld) [Volume fraction] 29.6 % Low 40-54 [facility] Comment on above: Performed By: #### L 502.0500, L501.1200, L502.0250 #### [facility] [address] [place], [address] Hemoglobin (Bld) [Mass/Vol] 9.5 g/dL Low 13.0-16.5 [facility] Comment on above: Performed By: #### L 502.0500, L501.1200, L502.0250 #### [facility] [address] [place], [address] IG% 0.500 Normal 0.0-0.9 [facility] Comment on above: Result Comment: IG% - Immature Granulocytes (promyelocytes, myelocytes and metamyelocytes) > 1% indicates that a LEFT SHIFT is Present. Performed By: #### L 502.0500, L501.1200, L502.0250 #### [facility] [address] [place], [address] Lymphocytes/100 WBC (Bld) 17.6 % Low 19-41 [facility] Comment on above: Performed By: #### L 502.0500, L501.1200, L502.0250 #### [facility] [address] [place], [address] MCH (RBC) [Entitic mass] 31.9 pg Normal 27.0-32.0 [facility] Comment on above: Performed By: #### L 502.0500, L501.1200, L502.0250 #### [facility] [address] [place], [address] MCHC (RBC) [Mass/Vol] 32.1 g/dL Normal 32-36 [facility] Comment on above: Performed By: #### L 502.0500, L501.1200, L502.0250 #### [facility] [address] [place], [address] MCV (RBC) [Entitic vol] 99.3 fL High 80-94 [facility] Comment on above: Performed By: #### L 502.0500, L501.1200, L502.0250 #### [facility] [address] [place], [address] Monocytes/100 WBC (Bld) 10.7 % High 0-10 [facility] Comment on above: Performed By: #### L 502.0500, L501.1200, L502.0250 #### [facility] [address] [place], [address] Neutrophils/100 WBC (Bld) 69.6 % Normal 47-70 [facility] Comment on above: Performed By: #### L 502.0500, L501.1200, L502.0250 #### [facility] [address] [place], [address] Nucleated RBC (Bld) [#/Vol] 0 10*3/uL Normal 0-5 [facility] Comment on above: Performed By: #### L 502.0500, L501.1200, L502.0250 #### [facility] [address] [place], [address] Platelet mean volume (Bld) [Entitic vol] 9.7 fL Normal 6.2-12.0 [facility] Comment on above: Performed By: #### L 502.0500, L501.1200, L502.0250 #### [facility] [address] [place], [address] Platelets (Bld) [#/Vol] 207 10*3/uL Normal 150-450 [facility] Comment on above: Performed By: #### L 502.0500, L501.1200, L502.0250 #### [facility] [address] [place], [address] RBC (Bld) [#/Vol] 2.98 10*6/uL Low 4.6-6.2 [facility] Comment on above: Performed By: #### L 502.0500, L501.1200, L502.0250 #### [facility] [address] [place], [address] RDW SD 51.3 fl High 35.1-43.9 [facility] Comment on above: Performed By: #### L 502.0500, L501.1200, L502.0250 #### [facility] [address] [place], [address] WBC (Bld) [#/Vol] 6.2 10*3/uL Normal 4.4-11.0 [facility] Comment on above: Performed By: #### L 502.0500, L501.1200, L502.0250 #### [facility] [address] [place], [address] Absolute Neut Normal 2.0-7.7 [facility] Comment on above: Result Comment: Canc elled via OM: Order cancelled - Patient discharged Performed By: #### L 100.0600 #### [facility] [address] [place], [address] HCT Normal 40-54 [facility] Comment on above: Result Comment: Canc elled via OM: Order cancelled - Patient discharged Performed By: #### L 100.0600 #### [facility] [address] [place], [address] HGB Normal 13.0-16.5 [facility] Comment on above: Result Comment: Canc elled via OM: Order cancelled - Patient discharged Performed By: #### L 100.0600 #### [facility] [address] [place], [address] MCH Normal 27.0-32.0 [facility] Comment on above: Result Comment: Canc elled via OM: Order cancelled - Patient discharged Performed By: #### L 100.0600 #### [facility] [address] [place], [address] MCHC Normal 32-36 [facility] Comment on above: Result Comment: Canc elled via OM: Order cancelled - Patient discharged Performed By: #### L 100.0600 #### [facility] [address] [place], [address] MCV Normal 80-94 [facility] Comment on above: Result Comment: Canc elled via OM: Order cancelled - Patient discharged Performed By: #### L 100.0600 #### [facility] [address] [place], [address] NEUT% Normal 47-70 [facility] Comment on above: Result Comment: Canc elled via OM: Order cancelled - Patient discharged Performed By: #### L 100.0600 #### [facility] [address] [place], [address] PLT Normal 150-450 [facility] Comment on above: Result Comment: Canc elled via OM: Order cancelled - Patient discharged Performed By: #### L 100.0600 #### [facility] [address] [place], [address] RBC Normal 4.6-6.2 [facility] Comment on above: Result Comment: Canc elled via OM: Order cancelled - Patient discharged Performed By: #### L 100.0600 #### [facility] [address] [place], [address] RDW CV Normal 11.6-14.6 [facility] Comment on above: Result Comment: Canc elled via OM: Order cancelled - Patient discharged Performed By: #### L 100.0600 #### [facility] [address] [place], [address] RDW SD Normal 35.1-43.9 [facility] Comment on above: Result Comment: Canc elled via OM: Order cancelled - Patient discharged Performed By: #### L 100.0600 #### [facility] [address] [place], [address] WBC Normal 4.4-11.0 [facility] Comment on above: Result Comment: Canc elled via OM: Order cancelled - Patient discharged Performed By: #### L 100.0600 #### [facility] [address] [place], [address] Basic Metabolic Profile (BMP )on 10-14-2023 BUN Normal 7-18 [facility] Comment on above: Result Comment: Canc elled via OM: Order cancelled - Patient discharged Performed By: #### L 100.0600 #### [facility] [address] [place], [address] BUN/CRE Normal 10-20 [facility] Comment on above: Result Comment: Canc elled via OM: Order cancelled - Patient discharged Performed By: #### L 100.0600 #### [facility] [address] [place], [address] CA,Total Normal 8.5-10.1 [facility] Comment on above: Result Comment: Canc elled via OM: Order cancelled - Patient discharged Performed By: #### L 100.0600 #### [facility] [address] [place], [address] CL Normal 98-107 [facility] Comment on above: Result Comment: Canc elled via OM: Order cancelled - Patient discharged Performed By: #### L 100.0600 #### [facility] [address] [place], [address] CO2 Normal 21.0-32.0 [facility] Comment on above: Result Comment: Canc elled via OM: Order cancelled - Patient discharged Performed By: #### L 100.0600 #### [facility] [address] [place], [address] CREAT,SERUM Normal 0.70-1.30 [facility] Comment on above: Result Comment: Canc elled via OM: Order cancelled - Patient discharged Performed By: #### L 100.0600 #### [facility] [address] [place], [address] EST GFR Normal >60 [facility] Comment on above: Result Comment: Canc elled via OM: Order cancelled - Patient discharged Performed By: #### L 100.0600 #### [facility] [address] [place], [address] EST GFR - AA Normal >60 [facility] Comment on above: Result Comment: Canc elled via OM: Order cancelled - Patient discharged Performed By: #### L 100.0600 #### [facility] [address] [place], [address] GAP Normal 5-15 [facility] Comment on above: Result Comment: Canc elled via OM: Order cancelled - Patient discharged Performed By: #### L 100.0600 #### [facility] [address] [place], [address] GLU Normal 74-106 [facility] Comment on above: Result Comment: Canc elled via OM: Order cancelled - Patient discharged Performed By: #### L 100.0600 #### [facility] [address] [place], [address] Potassium Normal 3.5-5.1 [facility] Comment on above: Result Comment: Canc elled via OM: Order cancelled - Patient discharged Performed By: #### L 100.0600 #### [facility] [address] [place], [address] Basic Metabolic Profile (BMP) Normal 136-145 [facility] Comment on above: Result Comment: Canc elled via OM: Order cancelled - Patient discharged Performed By: #### L 100.0600 #### [facility] [address] [place], [address] CBC W/Diff, Automatedon 08-2 Absolute Neut Normal 2.0-7.7 [facility] Comment on above: Result Comment: Canc elled via OM: Order cancelled - Patient discharged Performed By: #### L 100.0600 #### [facility] [address] [place], [address] HCT Normal 40-54 [facility] Comment on above: Result Comment: Canc elled via OM: Order cancelled - Patient discharged Performed By: #### L 100.0600 #### [facility] [address] [place], [address] HGB Normal 13.0-16.5 [facility] Comment on above: Result Comment: Canc elled via OM: Order cancelled - Patient discharged Performed By: #### L 100.0600 #### [facility] [address] [place], [address] MCH Normal 27.0-32.0 [facility] Comment on above: Result Comment: Canc elled via OM: Order cancelled - Patient discharged Performed By: #### L 100.0600 #### [facility] [address] [place], [address] MCHC Normal 32-36 [facility] Comment on above: Result Comment: Canc elled via OM: Order cancelled - Patient discharged Performed By: #### L 100.0600 #### [facility] [address] [place], [address] MCV Normal 80-94 [facility] Comment on above: Result Comment: Canc elled via OM: Order cancelled - Patient discharged Performed By: #### L 100.0600 #### [facility] [address] [place], [address] NEUT% Normal 47-70 [facility] Comment on above: Result Comment: Canc elled via OM: Order cancelled - Patient discharged Performed By: #### L 100.0600 #### [facility] [address] [place], [address] PLT Normal 150-450 [facility] Comment on above: Result Comment: Canc elled via OM: Order cancelled - Patient discharged Performed By: #### L 100.0600 #### [facility] [address] [place], [address] RBC Normal 4.6-6.2 [facility] Comment on above: Result Comment: Canc elled via OM: Order cancelled - Patient discharged Performed By: #### L 100.0600 #### [facility] [address] [place], [address] RDW CV Normal 11.6-14.6 [facility] Comment on above: Result Comment: Canc elled via OM: Order cancelled - Patient discharged Performed By: #### L 100.0600 #### [facility] [address] [place], [address] RDW SD Normal 35.1-43.9 [facility] Comment on above: Result Comment: Canc elled via OM: Order cancelled - Patient discharged Performed By: #### L 100.0600 #### [facility] [address] [place], [address] WBC Normal 4.4-11.0 [facility] Comment on above: Result Comment: Canc elled via OM: Order cancelled - Patient discharged Performed By: #### L 100.0600 #### [facility] [address] [place], [address] Basic Metabolic Profile (BMP )on 10-13-2023 BUN/CRE 10.8 RATIO Normal 12-12 [facility] Comment on above: Performed By: #### L 100.0600 #### [facility] [address] [place], [address] CA,Total 7.7 mg/dL Low 8.5-10.1 [facility] Comment on above: Performed By: #### L 100.0600 #### [facility] [address] [place], [address] Chloride [Moles/Vol] 111 mmol/L High 98-107 [facility] Comment on above: Performed By: #### L 100.0600 #### [facility] [address] [place], [address] CO2 [Moles/Vol] 27.0 mmol/L Normal 21.0-32.0 [facility] Comment on above: Performed By: #### L 100.0600 #### [facility] [address] [place], [address] Creatinine [Mass/Vol] 1.39 mg/dL High 0.70-1.30 [facility] Comment on above: Result Comment: The validity of the calculated GFR GFRAA in patients over 70 years has not been determined. Clinical correlation is essential. Performed By: #### L 100.0600 #### [facility] [address] [place], [address] ECRCL 38.31 ml/min Normal [facility] Comment on above: Performed By: #### L 100.0600 #### [facility] [address] [place], [address] EST GFR - AA 63 mL/min Normal >60 [facility] Comment on above: Result Comment: Afri can Australian GFR Calc Performed By: #### L 100.0600 #### [facility] [address] [place], [address] GAP 3 Low 5-15 [facility] Comment on above: Performed By: #### L 100.0600 #### [facility] [address] [place], [address] GFR/1.73 sq M.predicted among non-blacks MDRD (S/P/Bld) [Vol rate/Area] 52 mL/min/{1.73_m2} Low >60 [facility] Comment on above: Result Comment: Non- GFR Calc Performed By: #### L 100.0600 #### [facility] [address] [place], [address] Glucose [Mass/Vol] 101 mg/dL Normal 74-106 [facility] Comment on above: Result Comment: Fast ing Glucose result from 100 to 125 mg/dL suggests IMPAIRED HOMEOSTASIS per A.D.A. criteria. Performed By: #### L 100.0600 #### [facility] [address] [place], [address] Potassium [Moles/Vol] 3.9 mmol/L Normal 3.5-5.1 [facility] Comment on above: Performed By: #### L 100.0600 #### [facility] [address] [place], [address] Sodium [Moles/Vol] 141 mmol/L Normal 136-145 [facility] Comment on above: Performed By: #### L 100.0600 #### [facility] [address] [place], [address] Urea nitrogen [Mass/Vol] 15 mg/dL Normal 7-18 [facility] Comment on above: Performed By: #### L 100.0600 #### [facility] [address] [place], [address] CBC W/Diff, Automatedon 08-2 0-2024 Absolute Lymph 1.37 X10 3/uL Normal 0.83-4.51 [facility] Comment on above: Performed By: #### L 100.0600 #### [facility] [address] [place], [address] Absolute Neut 4.0 X10 3/uL Normal 2.0-7.7 [facility] Comment on above: Performed By: #### L 100.0600 #### [facility] [address] [place], [address] Basophils/100 WBC (Bld) 0.5 % Normal 0-1 [facility] Comment on above: Performed By: #### L 100.0600 #### [facility] [address] [place], [address] Eosinophils/100 WBC (Bld) 1.8 % Normal 0-5 [facility] Comment on above: Performed By: #### L 100.0600 #### [facility] [address] [place], [address] Erythrocyte distribution width (RBC) [Ratio] 13.1 % Normal 11.6-14.6 [facility] Comment on above: Performed By: #### L 100.0600 #### [facility] [address] [place], [address] Hematocrit (Bld) [Volume fraction] 23.3 % Low 40-54 [facility] Comment on above: Performed By: #### L 100.0600 #### [facility] [address] [facility] [place], [address] Hemoglobin (Bld) [Mass/Vol] 7.4 g/dL Low 13.0-16.5 [facility] Comment on above: Performed By: #### L 100.0600 #### [facility] [address] [place], [address] IG% 0.200 Normal 0.0-0.9 [facility] Comment on above: Result Comment: IG% - Immature Granulocytes (promyelocytes, myelocytes and metamyelocytes) > 1% indicates that a LEFT SHIFT is Present. Performed By: #### L 100.0600 #### [facility] [address] [place], [address] Lymphocytes/100 WBC (Bld) 22.4 % Normal 19-41 [facility] Comment on above: Performed By: #### L 100.0600 #### [facility] [address] [place], [address] MCH (RBC) [Entitic mass] 32.6 pg High 27.0-32.0 [facility] Comment on above: Performed By: #### L 100.0600 #### [facility] [address] [place], [address] MCHC (RBC) [Mass/Vol] 31.8 g/dL Low 32-36 [facility] Comment on above: Performed By: #### L 100.0600 #### [facility] [address] [place], [address] MCV (RBC) [Entitic vol] 102.6 fL High 80-94 [facility] Comment on above: Performed By: #### L 100.0600 #### [facility] [address] [place], [address] Monocytes/100 WBC (Bld) 9.7 % Normal 0-10 [facility] Comment on above: Performed By: #### L 100.0600 #### [facility] [address] [place], [address] Neutrophils/100 WBC (Bld) 65.4 % Normal 47-70 [facility] Comment on above: Performed By: #### L 100.0600 #### [facility] [address] [place], [address] Nucleated RBC (Bld) [#/Vol] 0 10*3/uL Normal 0-5 [facility] Comment on above: Performed By: #### L 100.0600 #### [facility] [address] [place], [address] Platelet mean volume (Bld) [Entitic vol] 10.7 fL Normal 6.2-12.0 [facility] Comment on above: Performed By: #### L 100.0600 #### [facility] [address] [place], [address] Platelets (Bld) [#/Vol] 138 10*3/uL Low 150-450 [facility] Comment on above: Performed By: #### L 100.0600 #### [facility] [address] [place], [address] RBC (Bld) [#/Vol] 2.27 10*6/uL Low 4.6-6.2 [facility] Comment on above: Performed By: #### L 100.0600 #### [facility] [address] [place], [address] RDW SD 48.4 fl High 35.1-43.9 [facility] Comment on above: Performed By: #### L 100.0600 #### [facility] [address] [place], [address] WBC (Bld) [#/Vol] 6.1 10*3/uL Normal 4.4-11.0 [facility] Comment on above: Performed By: #### L 100.0600 #### [facility] [address] [place], [address] Discharge Instructionon 09-24 Discharge Instruction [facility] Medical Records Department [address] [place] [address] Instructions for Home/Discharge Instructions 10/13/23 1245 MR#: [id number] Acct: [id number] Name: GISELLE SALGUERO Rep #: [id number] : 1940 83 From: Barbara Willams MD PCP: Dr. Sammy Griffith MD Status:ADM IN Discharge Instructions Diet Discharge Diet: Low fat / Low cholesterol Activity Discharge Activity: Return to Normal Activity Weight Bearing Status: Weight bearing as tolerated Dressing / Incision Call your doctor if you observe: Fever of 101 or Higher, Shortness of breath, Dizziness, Swelling in the ankles, Chest pain and - (dark stools, coffee ground vomiting) Follow Up Care Test Results: Test results from this visit will be discussed in further detail at your follow-up appointment, if applicable. Discharge Plan Admission Admit Date/Time: 10/10/23 13:10 Primary Reason for Your Visit: acute upper GI bleed Attending Provider: Barbara Willams Primary Care Provider: Sammy Griffith Chi Consulting Providers: Keara Cordero; Vincenzo Bautista Instructions Patient Instructions: ED Upper GI Bleeding (Stable) Discharge Orders/Prescriptions Prescriptions: New pantoprazole 40 mg Tablet,Delayed Release (Dr/Ec) 40 mg PO BID Qty: 60 3RF Continued ipratropium bromide 42 mcg (0.06 %) spray,non-aerosol 2 spray INTRANASAL BID isosorbide mononitrate 30 mg tablet extended release 24 hr 30 mg PO DAILY gabapentin [Neurontin] 300 mg capsule 300 mg PO DAILY atorvastatin 40 mg tablet 40 mg PO QHS nitroglycerin 0.4 mg tablet, sublingual 0.4 mg SUBLINGUAL Q5-15M PRN (Reason: chest pain) moxifloxacin 0.5 % drops 1 drp ophthalmic (eye) 4X/DAY prednisolone acetate 1 % drops,suspension 1 drp ophthalmic (eye) 4X/DAY tamsulosin 0.4 mg capsule 0.4 mg PO DAILY Discontinued aspirin [Adult Aspirin Regimen] 81 mg tablet,delayed release (DR/EC) 81 mg PO DAILY Referrals / Follow Up: Mikael Moncada DO [Med Staff - Active Staff] - Within 1 Week Sammy Griffith Chi, MD [Primary Care Provider] - Within 2 Weeks Disposition Disposition (needs filled in before D/C Order can be placed): Home, Self Care 10/13/23 1246 Barbara Willams MD CC: Dr. Vincenzo Bautista DO; Dr. Keara Cordero MD; Dr. Sammy Griffith MD Signed Normal [facility] HH, Hemoglobin AND Hematocri ton 10-13-2023 Hematocrit (Bld) [Volume fraction] 29.9 % Low 40-54 [facility] Comment on above: Performed By: #### L 100.0600 #### [facility] [address] [place], [address] Hemoglobin (Bld) [Mass/Vol] 9.4 g/dL Low 13.0-16.5 [facility] Comment on above: Performed By: #### L 100.0600 #### [facility] [address] [place], [address] 12 Lead EKGon 10-12-2023 12 Lead EKG [facility] Cardiovascular Services [address] [place] [address] 12 Lead EKG 10/12/23 0539 MR#: [id number] Acct: [id number] Name: GISELLE SALGUERO Rep #: [id number] : 1940 83 From: Olayinka Patel MD Attending Dr: Dr. Barbara Willams MD Status: DI S IN Ordering Dr: Jorje Mcleod MD Date: 10/12/23 Location: [facility] Sex: M C Admitted: 10/10/23 Test Reason : PRE-OP Blood Pressure : / mmHG Vent. Rate : 086 BPM Atrial Rate : 086 BPM P-R Int : 122 ms QRS Dur : 094 ms QT Int : 364 ms P-R-T Axes : 069 021 034 degrees QTc Int : 435 ms Sinus rhythm with marked sinus arrhythmia Low voltage QRS Borderline ECG When compared with ECG of 29-SEP-2008 19:42, MANUAL COMPARISON REQUIRED, DATA IS UNCONFIRMED Confirmed by ENRIQUE DING, LULU ([id number]), greeting card editor DELPHINE DURAN ([id number]) on 10/16/2023 9:52:35 AM Referred By: TAVO Confirmed By:VICENTA PATEL MD 10/16/23 0952 Date Olayinka Patel MD CC: Dr. Jorje Mcleod MD; Dr. Barbara Willams MD; Dr. Sammy Griffith MD Signed Normal [facility] Basic Metabolic Profile (BMP )on 10-12-2023 BUN/CRE 19.0 RATIO Normal 10-20 [facility] Comment on above: Performed By: #### L 100.0100, L500.2500 #### [facility] [address] [place], [address] CA,Total 8.0 mg/dL Low 8.5-10.1 [facility] Comment on above: Performed By: #### L 100.0100, L500.2500 #### [facility] [address] [place], [address] Chloride [Moles/Vol] 110 mmol/L High 98-107 [facility] Comment on above: Performed By: #### L 100.0100, L500.2500 #### [facility] [address] [place], [address] CO2 [Moles/Vol] 29.0 mmol/L Normal 21.0-32.0 [facility] Comment on above: Performed By: #### L 100.0100, L500.2500 #### [facility] [address] [place], [address] Creatinine [Mass/Vol] 1.37 mg/dL High 0.70-1.30 [facility] Comment on above: Result Comment: The validity of the calculated GFR GFRAA in patients over 70 years has not been determined. Clinical correlation is essential. Performed By: #### L 100.0100, L500.2500 #### [facility] [address] [place], [address] ECRCL 38.87 ml/min Normal [facility] Comment on above: Performed By: #### L 100.0100, L500.2500 #### [facility] [address] [place], [address] EST GFR - AA 64 mL/min Normal >60 [facility] Comment on above: Result Comment: Afri can [place] GFR Calc Performed By: #### L 100.0100, L500.2500 #### [facility] [address] [place], [address] GAP 2 Low 5-15 [facility] Comment on above: Performed By: #### L 100.0100, L500.2500 #### [facility] [address] [place], [address] GFR/1.73 sq M.predicted among non-blacks MDRD (S/P/Bld) [Vol rate/Area] 53 mL/min/{1.73_m2} Low >60 [facility] Comment on above: Result Comment: Non- GFR Calc Performed By: #### L 100.0100, L500.2500 #### [facility] [address] [place], [address] Glucose [Mass/Vol] 105 mg/dL Normal 74-106 [facility] Comment on above: Result Comment: Fast ing Glucose result from 100 to 125 mg/dL suggests IMPAIRED HOMEOSTASIS per A.D.A. criteria. Performed By: #### L 100.0100, L500.2500 #### [facility] [address] [place], [address] Potassium [Moles/Vol] 4.0 mmol/L Normal 3.5-5.1 [facility] Comment on above: Performed By: #### L 100.0100, L500.2500 #### [facility] [address] [place], [address] Sodium [Moles/Vol] 141 mmol/L Normal 136-145 [facility] Comment on above: Performed By: #### L 100.0100, L500.2500 #### [facility] [address] [place], [address] Urea nitrogen [Mass/Vol] 26 mg/dL High 7-18 [facility] Comment on above: Performed By: #### L 100.0100, L500.2500 #### [facility] [address] [place], [address] CBC W/Diff, Automatedon 08- Absolute Lymph 1.27 X10 3/uL Normal 0.83-4.51 [facility] Comment on above: Performed By: #### L 100.0100, L500.2500 #### [facility] [address] [place], [address] Absolute Neut 3.7 X10 3/uL Normal 2.0-7.7 [facility] Comment on above: Performed By: #### L 100.0100, L500.2500 #### [facility] [address] [place], [address] Basophils/100 WBC (Bld) 0.5 % Normal 0-1 [facility] Comment on above: Performed By: #### L 100.0100, L500.2500 #### [facility] [address] [place], [address] Eosinophils/100 WBC (Bld) 1.6 % Normal 0-5 [facility] Comment on above: Performed By: #### L 100.0100, L500.2500 #### [facility] [address] [place], [address] Erythrocyte distribution width (RBC) [Ratio] 13.1 % Normal 11.6-14.6 [facility] Comment on above: Performed By: #### L 100.0100, L500.2500 #### [facility] [address] [place], [address] Hematocrit (Bld) [Volume fraction] 24.2 % Low 40-54 [facility] Comment on above: Performed By: #### L 100.0100, L500.2500 #### [facility] [address] [place], [address] Hemoglobin (Bld) [Mass/Vol] 7.7 g/dL Low 13.0-16.5 [facility] Comment on above: Performed By: #### L 100.0100, L500.2500 #### [facility] [address] [place], [address] IG% 0.200 Normal 0.0-0.9 [facility] Comment on above: Result Comment: IG% - Immature Granulocytes (promyelocytes, myelocytes and metamyelocytes) > 1% indicates that a LEFT SHIFT is Present. Performed By: #### L 100.0100, L500.2500 #### [facility] [address] [place], [address] Lymphocytes/100 WBC (Bld) 22.4 % Normal 19-41 [facility] Comment on above: Performed By: #### L 100.0100, L500.2500 #### [facility] [address] [place], [address] MCH (RBC) [Entitic mass] 32.4 pg High 27.0-32.0 [facility] Comment on above: Performed By: #### L 100.0100, L500.2500 #### [facility] [address] [place], [address] MCHC (RBC) [Mass/Vol] 31.8 g/dL Low 32-36 [facility] Comment on above: Performed By: #### L 100.0100, L500.2500 #### [facility] [address] [place], [address] MCV (RBC) [Entitic vol] 101.7 fL High 80-94 [facility] Comment on above: Performed By: #### L 100.0100, L500.2500 #### [facility] [address] [place], [address] Monocytes/100 WBC (Bld) 9.7 % Normal 0-10 [facility] Comment on above: Performed By: #### L 100.0100, L500.2500 #### [facility] [address] [place], [address] Neutrophils/100 WBC (Bld) 65.6 % Normal 47-70 [facility] Comment on above: Performed By: #### L 100.0100, L500.2500 #### [facility] [address] [place], [address] Nucleated RBC (Bld) [#/Vol] 0 10*3/uL Normal 0-5 [facility] Comment on above: Performed By: #### L 100.0100, L500.2500 #### [facility] [address] [place], [address] Platelet mean volume (Bld) [Entitic vol] 10.5 fL Normal 6.2-12.0 [facility] Comment on above: Performed By: #### L 100.0100, L500.2500 #### [facility] [address] [place], [address] Platelets (Bld) [#/Vol] 139 10*3/uL Low 150-450 [facility] Comment on above: Performed By: #### L 100.0100, L500.2500 #### [facility] [address] [place], [address] RBC (Bld) [#/Vol] 2.38 10*6/uL Low 4.6-6.2 [facility] Comment on above: Performed By: #### L 100.0100, L500.2500 #### [facility] [address] [place], [address] RDW SD 48.8 fl High 35.1-43.9 [facility] Comment on above: Performed By: #### L 100.0100, L500.2500 #### [facility] [address] [place], [address] WBC (Bld) [#/Vol] 5.7 10*3/uL Normal 4.4-11.0 [facility] Comment on above: Performed By: #### L 100.0100, L500.2500 #### [facility] [address] [place], [address] EGD Reporton 10-12-2023 EGD Report [facility] Medical Records Department [address] [place] [address] EGD Report MR#: [id number] Acct: [id number] Name: GISELLE SALGUERO Rep #: [id number] : 1940 83 From: Mikael Moncada DO PCP: Dr. Sammy Griffith MD Status:ADM IN Patient Name: Giselle Salguero Procedure Date: 10/12/2023 12:18 PM Date of : 1940 Age: 83 Procedure: Upper GI endoscopy Indications: Dysphagia Providers: Mikael Moncada DO Medicines: Monitored Anesthesia Care Patient Profile: This is an 83 year old male. Refer to note in patient chart for documentation of history and physical. Patient has symptoms. Complications: No immediate complications. Procedure: Pre-Anesthesia Assessment: - Prior to the procedure, a History and Physical was performed, and patient medications and allergies were reviewed. The patient is competent. The risks and benefits of the procedure and the sedation options and risks were discussed with the patient. All questions were answered and informed consent was obtained. Patient identification and proposed procedure were verified by the physician in the pre-procedure area. Mental Status Examination: alert and oriented. Airway Examination: normal oropharyngeal airway and neck mobility. Respiratory Examination: clear to auscultation. CV Examination: normal. Prophylactic Antibiotics: The patient does not require prophylactic antibiotics. Prior Anticoagulants: The patient has taken no anticoagulant or antiplatelet agents except for NSAID medication. ASA Grade Assessment: III - A patient with severe systemic disease. After reviewing the risks and benefits, the patient was deemed in satisfactory condition to undergo the procedure. The anesthesia plan was to use monitored anesthesia care (MAC). Immediately prior to administration of medications, the patient was re-assessed for adequacy to receive sedatives. The heart rate, respiratory rate, oxygen saturations, blood pressure, adequacy of pulmonary ventilation, and response to care were monitored throughout the procedure. The physical status of the patient was re-assessed after the procedure. After obtaining informed consent, the endoscope was passed under direct vision. Throughout the procedure, the patient's blood pressure, pulse, and oxygen saturations were monitored continuously. The Endoscope was introduced through the mouth, and advanced to the second part of duodenum. The upper GI endoscopy was accomplished without difficulty. The patient tolerated the procedure well. Scope In: 12:29:04 PM Scope Out: 12:33:15 PM Total Procedure Duration Time 0 hours 4 minutes 11 seconds Findings: The examined esophagus was normal. Many oozing linear gastric ulcers with pigmented material were found in the gastric antrum. The largest lesion was 4 mm in largest dimension. Coagulation for hemostasis using heater probe was successful. Estimated blood loss was minimal. One non-bleeding cratered duodenal ulcer with no stigmata of bleeding was found in the duodenal bulb. The lesion was 10 mm in largest dimension. Biopsies were taken with a cold forceps for histology. Verification of patient identification for the specimen was done. Estimated blood loss was minimal. Impression: - Normal esophagus. - Oozing gastric ulcers with pigmented material. Treated with a heater probe. - Non-bleeding duodenal ulcer with no stigmata of bleeding. Biopsied. Recommendation: - Return patient to [facility] for [facility] care. - Resume regular diet today. - No aspirin, ibuprofen, naproxen, or other non-steroidal anti-inflammatory drugs for 8 weeks. - Use Prilosec (omeprazole) 40 mg PO BID for 6 months. Procedure Code(s): --- Professional --- 34128, 59, Esophagogastroduodenoscop y, flexible, transoral; with control of bleeding, any method 21069, 51, Esophagogastroduodenoscop y, flexible, transoral; with biopsy, single or multiple CPT copyright 2021 [employer]. All rights reserved. The codes documented in this report are preliminary and upon resource engineer review may be revised to meet current compliance requirements. Mikael Moncada DO 10/12/2023 12:43:02 PM This report has been signed electronically. Number of Addenda: 0 Note Initiated On: 10/12/2023 12:18 PM 10/12/23 1243 Date Mikael Small Signature: Date (if indicated) CC: Dr. Sammy Griffith MD; Mikael Moncada DO Date Dictated: 10/12/23 1218 Date Transcribed: Bread Baker: RF Signed [facility] MR/POSTOP.ANEon 10-12-2023 MR/POSTOP.ANE [facility] Medical Records Department [address] [place] [address] Anesthesia Postop Eval I 10/12/23 1243 MR#: [id number] Acct: [id number] Name: GISELLE SALGUERO Rep #: [id number] : 1940 83 From: Sandoval Guajardo PCP: Dr. Sammy Griffith MD Status:ADM IN Y Race: C Location: [place] [address] Anesthesia: Postop Eval I Current Vital Signs Temperature: 97 F Pulse Rate: 67 Blood Pressure: 81/41 Respiratory Rate: 14 Pulse Ox: 98 Oxygen Delivery Method: Room Air Assessment Airway patent: Yes Spontaneous unlabored respirations: Yes Mental status: Awake and Calm nausea: No Vomiting: No Anesthesia Complication: No Fluid Hydration Crystalloid volume administer (ml): 400 Total IV fluid infused: 400 Progress Note Anesthesia document: Postop Eval 1 completed: Yes 10/12/23 1246 Date Sandoval Branchignjacqueline Signature: Date CC: Signed [facility] [id number] 10-12-2023 MR/POSTOPAN2 [facility] Medical Records Department [address] [place] [address] Anesthesia Postop Eval II 10/12/23 1400 MR#: [id number] Acct: [id number] Name: GISELLE SALGUERO Rep #: [id number] : 1940 83 From: Jorje Mcleod MD PCP: Dr. Sammy Griffith MD Status:ADM IN Y Race: C Location: [facility] [id number] Anesthesia Postop Eval I Sum Postop Eval Completion status Anesthesia document: Postop Eval 1 completed: Yes Anesthesia Postop Eval I Summary Anesthesia Postop Eval I Summary: Anesthesia Postop Eval I: Assessment Summary Airway patent Yes 10/12/23 12:46 [email or web address] Spontaneous unlabored Yes 10/12/23 12:46 [email or web address] respirations Mental status Awake,Calm 10/12/23 12:46 [email or web address] nausea No 10/12/23 12:46 [email or web address] Vomiting No 10/12/23 12:46 [email or web address] Anesthesia Postop Eval I: Fluid Summary Crystalloid volume administer 400 10/12/23 12:46 [email or web address] (ml) Colloids volume administered ( ml) Blood Product volume administered (ml) Total IV fluid infused 400 10/12/23 12:46 [email or web address] Anesthesia Postop Eval I: Summary Notes Anesthesia Complication No 10/12/23 12:46 [email or web address] Anesthesia Complication Comment: Post-operative progress note Anesthesia: Postop Eval II Evaluation Mental status: Awake Pain Level: 0 nausea: No Vomiting: No Complications Anesthesia Complication: No 10/12/23 1400 Date Jorje Sharma Signature: Date CC: Signed Normal [facility] Partial Thromboplast Timeon 10-12-2023 aPTT Coag (Bld) [Time] 30.1 s Normal 24.1-36.2 [facility] Comment on above: Performed By: #### L 100.0100, L500.2500 #### [facility] [address] [place], [address] Prothrombin Time w/INRon INR Coag (PPP) [Relative time] 1.1 {INR} Normal [facility] Comment on above: Performed By: #### L 100.0100, L500.2500 #### [facility] [address] [place], [place], [address] PT Coag (PPP) [Time] 14.6 s Normal 11.7-14.9 [facility] Comment on above: Performed By: #### L 100.0100, L500.2500 #### [facility] [address] [place], [address] Surgery Specimen Level Humera 10-12-2023 Surgery Specimen Level IV Patient Age/Sex Location Account Attending Physician GISELLE SALGUERO 83/M [facility] [id number] Dr. Barbara Willams MD Specimen: [id number] Received: 10/13/23 Status: RIVERA Manzo Num: [id number] Spec Type: EGD BIOPSY Subm Dr: MikaelDO DAMIEN CruzER OPERATION: EGD with biopsy and gold probe PRE-OP DIAGNOSIS: Upper GI bleed TISSUE SUBMITTED: Duodenal ulcer biopsy MICROSCOPIC DIAGNOSIS Duodenal ulcer, biopsy: Fragments of duodenal mucosa with mild non-specific chronic inflammation, congestion and hemorrhage. / 10/14/2023 MICROSCOPIC DESCRIPTION Slides are reviewed. GROSS DESCRIPTION Received in fixative is one container labeled with the patient's name and designated Duodenal ulcer biopsy. The specimen consists of two irregular fragments of light wang soft tissue that in aggregate measure 0.8 x 0.4 x 0.1 cm. The specimen is totally submitted in one cassette. Victorino 10/13/2023 TC:3 CPT:65902 Patient Age/Sex Location Account Attending Physician GISELLE SALGUERO 83/M [facility] [id number] Dr. Barbara Willams MD Signed (signature on file) Dr. Rubin Munroe MD 10/14/23 1016 Normal [facility] Comment on above: Performed By: #### L 502.0500, L501.1200, L502.0250 #### [facility] [address] [place], [address] Basic Metabolic Profile (BMP )on 10-11-2023 BUN/CRE 29.9 RATIO High 10-20 [facility] Comment on above: Performed By: #### L 502.0500, L501.1200, L502.0250 #### [facility] [address] [place], [address] CA,Total 7.9 mg/dL Low 8.5-10.1 [facility] Comment on above: Performed By: #### L 502.0500, L501.1200, L502.0250 #### [facility] [address] [place], [address] Chloride [Moles/Vol] 113 mmol/L High 98-107 [facility] Comment on above: Performed By: #### L 502.0500, L501.1200, L502.0250 #### [facility] [address] [place], [address] CO2 [Moles/Vol] 27.0 mmol/L Normal 21.0-32.0 [facility] Comment on above: Performed By: #### L 502.0500, L501.1200, L502.0250 #### [facility] [address] [place], [address] Creatinine [Mass/Vol] 1.37 mg/dL High 0.70-1.30 [facility] Comment on above: Result Comment: The validity of the calculated GFR GFRAA in patients over 70 years has not been determined. Clinical correlation is essential. Performed By: #### L 502.0500, L501.1200, L502.0250 #### [facility] [address] [place], [address] ECRCL 38.87 ml/min Normal [facility] Comment on above: Performed By: #### L 502.0500, L501.1200, L502.0250 #### [facility] [address] [place], [address] EST GFR - AA 64 mL/min Normal >60 [facility] Comment on above: Result Comment: Afri can Australian GFR Calc Performed By: #### L 502.0500, L501.1200, L502.0250 #### [facility] [address] [place], [address] GAP 3 Low 5-15 [facility] Comment on above: Performed By: #### L 502.0500, L501.1200, L502.0250 #### [facility] [address] [place], [address] GFR/1.73 sq M.predicted among non-blacks MDRD (S/P/Bld) [Vol rate/Area] 53 mL/min/{1.73_m2} Low >60 [facility] Comment on above: Result Comment: Non- GFR Calc Performed By: #### L 502.0500, L501.1200, L502.0250 #### [facility] [address] [place], [address] Glucose [Mass/Vol] 99 mg/dL Normal 74-106 [facility] Comment on above: Performed By: #### L 502.0500, L501.1200, L502.0250 #### [facility] [address] [place], [address] Potassium [Moles/Vol] 4.2 mmol/L Normal 3.5-5.1 [facility] Comment on above: Performed By: #### L 502.0500, L501.1200, L502.0250 #### [facility] [address] [place], [address] Sodium [Moles/Vol] 143 mmol/L Normal 136-145 [facility] Comment on above: Performed By: #### L 502.0500, L501.1200, L502.0250 #### [facility] [address] [place], [address] Urea nitrogen [Mass/Vol] 41 mg/dL High 7-18 [facility] Comment on above: Performed By: #### L 502.0500, L501.1200, L502.0250 #### [facility] [address] [place], [address] CBC W/Diff, Automatedon 08 Absolute Lymph 1.63 X10 3/uL Normal 0.83-4.51 [facility] Comment on above: Performed By: #### L 502.0500, L501.1200, L502.0250 #### [facility] [address] [place], [address] Absolute Neut 5.8 X10 3/uL Normal 2.0-7.7 [facility] Comment on above: Performed By: #### L 502.0500, L501.1200, L502.0250 #### [facility] [address] [place], [address] Basophils/100 WBC (Bld) 0.4 % Normal 0-1 [facility] Comment on above: Performed By: #### L 502.0500, L501.1200, L502.0250 #### [facility] [address] [place], [address] Eosinophils/100 WBC (Bld) 0.7 % Normal 0-5 [facility] Comment on above: Performed By: #### L 502.0500, L501.1200, L502.0250 #### [facility] [address] [place], [address] Erythrocyte distribution width (RBC) [Ratio] 13.2 % Normal 11.6-14.6 [facility] Comment on above: Performed By: #### L 502.0500, L501.1200, L502.0250 #### [facility] [address] [place], [address] Hematocrit (Bld) [Volume fraction] 28.5 % Low 40-54 [facility] Comment on above: Performed By: #### L 502.0500, L501.1200, L502.0250 #### [facility] [address] [place], [address] Hemoglobin (Bld) [Mass/Vol] 8.8 g/dL Low 13.0-16.5 [facility] Comment on above: Performed By: #### L 502.0500, L501.1200, L502.0250 #### [facility] [address] [place], [address] IG% 0.500 Normal 0.0-0.9 [facility] Comment on above: Result Comment: IG% - Immature Granulocytes (promyelocytes, myelocytes and metamyelocytes) > 1% indicates that a LEFT SHIFT is Present. Performed By: #### L 502.0500, L501.1200, L502.0250 #### [facility] [address] [place], [address] Lymphocytes/100 WBC (Bld) 19.9 % Normal 19-41 [facility] Comment on above: Performed By: #### L 502.0500, L501.1200, L502.0250 #### [facility] [address] [place], [address] MCH (RBC) [Entitic mass] 31.4 pg Normal 27.0-32.0 [facility] Comment on above: Performed By: #### L 502.0500, L501.1200, L502.0250 #### [facility] [address] [place], [address] MCHC (RBC) [Mass/Vol] 30.9 g/dL Low 32-36 [facility] Comment on above: Performed By: #### L 502.0500, L501.1200, L502.0250 #### [facility] [address] [place], [address] MCV (RBC) [Entitic vol] 101.8 fL High 80-94 [facility] Comment on above: Performed By: #### L 502.0500, L501.1200, L502.0250 #### [facility] [address] [place], [address] Monocytes/100 WBC (Bld) 8.3 % Normal 0-10 [facility] Comment on above: Performed By: #### L 502.0500, L501.1200, L502.0250 #### [facility] [address] [place], [address] Neutrophils/100 WBC (Bld) 70.2 % High 47-70 [facility] Comment on above: Performed By: #### L 502.0500, L501.1200, L502.0250 #### [facility] [address] [place], [address] Nucleated RBC (Bld) [#/Vol] 0 10*3/uL Normal 0-5 [facility] Comment on above: Performed By: #### L 502.0500, L501.1200, L502.0250 #### [facility] [address] [place], [address] Platelet mean volume (Bld) [Entitic vol] 10.0 fL Normal 6.2-12.0 [facility] Comment on above: Performed By: #### L 502.0500, L501.1200, L502.0250 #### [facility] [address] [place], [address] Platelets (Bld) [#/Vol] 147 10*3/uL Low 150-450 [facility] Comment on above: Performed By: #### L 502.0500, L501.1200, L502.0250 #### [facility] [address] [place], [address] RBC (Bld) [#/Vol] 2.80 10*6/uL Low 4.6-6.2 [facility] Comment on above: Performed By: #### L 502.0500, L501.1200, L502.0250 #### [facility] [address] [place], [address] RDW SD 49.2 fl High 35.1-43.9 [facility] Comment on above: Performed By: #### L 502.0500, L501.1200, L502.0250 #### [facility] [address] [place], [address] WBC (Bld) [#/Vol] 8.2 10*3/uL Normal 4.4-11.0 [facility] Comment on above: Performed By: #### L 502.0500, L501.1200, L502.0250 #### [facility] [address] [place], [address] HH, Hemoglobin AND Hematocri ton 10-11-2023 Hematocrit (Bld) [Volume fraction] 29.1 % Low 40-54 [facility] Comment on above: Performed By: #### L 100.0600 #### [facility] [address] [place], [address] Hemoglobin (Bld) [Mass/Vol] 9.2 g/dL Low 13.0-16.5 [facility] Comment on above: Performed By: #### L 100.0600 #### [facility] [address] [place], [address] BRCon 10-10-2023 RC Normal [facility] Comment on above: Result Comment: [id number] AN RC TRANSFUSED 10/13/23 0812 Performed By: #### L 100.0600 #### [facility] [address] [place], [address] CBC W/Diff, Automatedon 08- Absolute Lymph 1.10 X10 3/uL Normal 0.83-4.51 [facility] Comment on above: Performed By: #### L 100.0600 #### [facility] [address] [place], [address] Absolute Neut 8.7 X10 3/uL High 2.0-7.7 [facility] Comment on above: Performed By: #### L 100.0600 #### [facility] [address] [place], [address] Basophils/100 WBC (Bld) 0.2 % Normal 0-1 [facility] Comment on above: Performed By: #### L 100.0600 #### [facility] [address] [place], [address] Eosinophils/100 WBC (Bld) 0.1 % Normal 0-5 [facility] Comment on above: Performed By: #### L 100.0600 #### [facility] [address] [place], [address] Erythrocyte distribution width (RBC) [Ratio] 12.8 % Normal 11.6-14.6 [facility] Comment on above: Performed By: #### L 100.0600 #### [facility] [address] [place], [address] Hematocrit (Bld) [Volume fraction] 38.6 % Low 40-54 [facility] Comment on above: Performed By: #### L 100.0600 #### [facility] [address] [place], [address] Hemoglobin (Bld) [Mass/Vol] 12.5 g/dL Low 13.0-16.5 [facility] Comment on above: Performed By: #### L 100.0600 #### [facility] [address] [place], [address] IG% 0.500 Normal 0.0-0.9 [facility] Comment on above: Result Comment: IG% - Immature Granulocytes (promyelocytes, myelocytes and metamyelocytes) > 1% indicates that a LEFT SHIFT is Present. Performed By: #### L 100.0600 #### [facility] [address] [place], [address] Lymphocytes/100 WBC (Bld) 10.6 % Low 19-41 [facility] Comment on above: Performed By: #### L 100.0600 #### [facility] [address] [place], [address] MCH (RBC) [Entitic mass] 32.3 pg High 27.0-32.0 [facility] Comment on above: Performed By: #### L 100.0600 #### [facility] [address] [place], [address] MCHC (RBC) [Mass/Vol] 32.4 g/dL Normal 32-36 [facility] Comment on above: Performed By: #### L 100.0600 #### [facility] [address] [place], [address] MCV (RBC) [Entitic vol] 99.7 fL High 80-94 [facility] Comment on above: Performed By: #### L 100.0600 #### [facility] [address] [place], [address] Monocytes/100 WBC (Bld) 4.7 % Normal 0-10 [facility] Comment on above: Performed By: #### L 100.0600 #### [facility] [address] [place], [address] Neutrophils/100 WBC (Bld) 83.9 % High 47-70 [facility] Comment on above: Performed By: #### L 100.0600 #### [facility] [address] [place], [address] Nucleated RBC (Bld) [#/Vol] 0 10*3/uL Normal 0-5 [facility] Comment on above: Performed By: #### L 100.0600 #### [facility] [facility] [address] [place], [address] Platelet mean volume (Bld) [Entitic vol] 10.0 fL Normal 6.2-12.0 [facility] Comment on above: Performed By: #### L 100.0600 #### [facility] [address] [place], [address] Platelets (Bld) [#/Vol] 178 10*3/uL Normal 150-450 [facility] Comment on above: Performed By: #### L 100.0600 #### [facility] [address] [place], [address] RBC (Bld) [#/Vol] 3.87 10*6/uL Low 4.6-6.2 [facility] Comment on above: Performed By: #### L 100.0600 #### [facility] [address] [place], [address] RDW SD 46.5 fl High 35.1-43.9 [facility] Comment on above: Performed By: #### L 100.0600 #### [facility] [address] [place], [address] WBC (Bld) [#/Vol] 10.4 10*3/uL Normal 4.4-11.0 [facility] Comment on above: Performed By: #### L 100.0600 #### [facility] [address] [place], [address] Comprehensive Metabolic Prof ilon 10-10-2023 Albumin [Mass/Vol] 3.4 g/dL Normal 3.2-5.0 [facility] Comment on above: Performed By: #### L 100.0600 #### [facility] [address] [place], [address] Albumin/Globulin [Mass ratio] 1.3 {ratio} Normal 0.9-2.4 [facility] Comment on above: Performed By: #### L 100.0600 #### [facility] [address] [place], [address] ALK P 44 U/L Low 45-117 [facility] Comment on above: Performed By: #### L 100.0600 #### [facility] [address] [place], [address] ALT [Catalytic activity/Vol] 15 U/L Low 16-61 [facility] Comment on above: Performed By: #### L 100.0600 #### [facility] [address] [place], [address] AST [Catalytic activity/Vol] 9 U/L Low 15-37 [facility] Comment on above: Performed By: #### L 100.0600 #### [facility] [address] [place], [address] Bilirubin [Mass/Vol] 0.90 mg/dL Normal 0.20-1.00 [facility] Comment on above: Result Comment: For patients on eltrombopag therapy, use of Dimension [place] TBIL is not recommended. Performed By: #### L 100.0600 #### [facility] [address] [place], [address] BUN/CRE 37.7 RATIO High 10-20 [facility] Comment on above: Performed By: #### L 100.0600 #### [facility] [address] [place], [address] CA,Total 9.1 mg/dL Normal 8.5-10.1 [facility] Comment on above: Performed By: #### L 100.0600 #### [facility] [address] [place], [address] Chloride [Moles/Vol] 109 mmol/L High 98-107 [facility] Comment on above: Performed By: #### L 100.0600 #### [facility] [address] [place], [address] CO2 [Moles/Vol] 29.0 mmol/L Normal 21.0-32.0 [facility] Comment on above: Performed By: #### L 100.0600 #### [facility] [address] [place], [address] Creatinine [Mass/Vol] 1.46 mg/dL High 0.70-1.30 [facility] Comment on above: Result Comment: The validity of the calculated GFR GFRAA in patients over 70 years has not been determined. Clinical correlation is essential. Performed By: #### L 100.0600 #### [facility] [address] [place], [address] ECRCL 37.74 ml/min Normal [facility] Comment on above: Performed By: #### L 100.0600 #### [facility] [address] [place], [address] EST GFR - AA 59 mL/min Low >60 [facility] Comment on above: Result Comment: Afri can Australian GFR Calc Performed By: #### L 100.0600 #### [facility] [address] [place], [address] GAP 3 Low 5-15 [facility] Comment on above: Performed By: #### L 100.0600 #### [facility] [address] [place], [address] GFR/1.73 sq M.predicted among non-blacks MDRD (S/P/Bld) [Vol rate/Area] 49 mL/min/{1.73_m2} Low >60 [facility] Comment on above: Result Comment: Non- GFR Calc Performed By: #### L 100.0600 #### [facility] [address] [place], [address] Globulin (S) [Mass/Vol] 2.7 g/dL Normal 2.2-4.2 [facility] Comment on above: Performed By: #### L 100.0600 #### [facility] [address] [place], [address] Glucose [Mass/Vol] 140 mg/dL High 74-106 [facility] Comment on above: Result Comment: Fast ing Glucose result greater than or equal to 126 mg/dL suggests DIABETES MELLITUS per A.D.A. criteria. Performed By: #### L 100.0600 #### [facility] [address] [place], [address] Potassium [Moles/Vol] 4.5 mmol/L Normal 3.5-5.1 [facility] Comment on above: Performed By: #### L 100.0600 #### [facility] [address] [place] [place], [address] Sodium [Moles/Vol] 141 mmol/L Normal 136-145 [facility] Comment on above: Performed By: #### L 100.0600 #### [facility] [address] [place], [address] T PROT 6.1 g/dL Low 6.4-8.2 [facility] Comment on above: Performed By: #### L 100.0600 #### [facility] [address] [place], [address] Urea nitrogen [Mass/Vol] 55 mg/dL High 7-18 [facility] Comment on above: Performed By: #### L 100.0600 #### [facility] [address] [place], [address] Emergency Department Summary on 10-10-2023 Emergency Department Summary [facility] Medical Records Department [address] [place] [address] Emergency Department Summary 10/10/23 MR#: [id number] Acct: [id number] Name: GISELLE SALGUERO Rep #: [id number] : 1940 83 From: Danny Torres MD PCP: Dr. Sammy Griffith MD Status:ADM IN Location: [place] [address] HPI HPI - GI History of Present Illness Chief Complaint: Nausea/Vomiting/Diarrhea Informant: patient Nausea/Vomiting/Emesis GI Symptom: Positive for Nausea and Vomiting Onset: Today and Yesterday Severity: Moderate Diarrhea/Melena/Hematoche rahel GI Symptom: Positive for Diarrhea Onset: Today and Yesterday Stool Quality: Positive for Loose Severity: Mild Associated Symptoms Associated Symptoms: Negative for Dysuria, Frequency, Hematuria or Urgency Narrative Narrative: 83-year-old male complain nausea vomiting diarrhea. Patient had recent eye surgery at [facility]. The morning of night surgery was still taking Oxy cotton and he thinks it may have made him sick. He denies any fever. He denies any abdominal pain or dysuria. She does feel lightheaded when he stands up. Prior similar symptoms: Yes Recent Illness/Hospitalization: No PFSH PFS Medical History CKD (chronic kidney disease) stage 3, GFR 30-59 ml/min Pure hypercholesterolemia Bilateral carotid artery stenosis COPD (chronic obstructive pulmonary disease) Type 2 diabetes mellitus Essential (primary) hypertension Atherosclerosis of coronary artery of [place] heart without angina pectoris Home Medications ???Medication ???Instructions ???Recorded ???Last Taken ???Type aspirin 81 mg tablet,delayed 81 mg PO DAILY 04/19/18 Unknown History release (Adult Aspirin Regimen) atorvastatin 40 mg tablet 40 mg PO QHS 04/19/18 Unknown History gabapentin 300 mg capsule 300 mg PO DAILY 04/19/18 Unknown History (Neurontin) ipratropium bromide 42 mcg (0.06 2 spray intranasal BID 04/19/18 Unknown History %) nasal spray isosorbide mononitrate 30 mg 30 mg PO DAILY 04/19/18 Unknown History tablet,extended release 24 hr nitroglycerin 0.4 mg sublingual 0.4 mg sublingual Q5-15M PRN 04/19/18 Unknown History tablet tamsulosin 0.4 mg capsule 0.4 mg PO DAILY 07/27/19 Unknown History Allergy/AdvReac Type Severity Reaction Status Date / Time No Known Allergies Allergy Verified 10/10/23 10:15 Family History Father Heart disease Myocardial infarction Brother Cancer prostate Sister Breast cancer Other CAD (coronary artery disease) Surgical History History of colonoscopy Status post right foot surgery History of appendectomy History of left inguinal hernia repair History of eye surgery History of left heart catheterization (06/09/06) 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 Constitutional Constitutional ED: Denies chills or fever(s) ENT ENT ED: Denies ear pain Cardiovascular Cardiovascular: Denies chest pain Respiratory/Chest Respiratory/Chest: Denies cough Gastrointestinal Gastrointestinal: Reports diarrhea, nausea and vomiting; Denies abdominal pain, constipation or melena Genitourinary Genitourinary ED: Denies dysuria or hematuria Musculoskeletal Musculoskeletal: Denies arthralgias Integumentary Denies abscess Neurologic Neurologic: Denies headache(s) Psychiatric Psychiatric: Denies anxiety Endocrine Endocrinology: Denies polydipsia Hematologic/Lymphatic Hematologic/Lymphatic: Denies easy bleeding Allergic/Immunologic Allergic/Immunologic ED: Denies mouth swelling or tongue swelling EXAM Physical Exam Narrative Exam Narrative: 83-year-old male. Vital signs stable afebrile. H EENT exam pupils are reactive light. No facial droop. No trauma. Dry mucous membranes. Neck nontender. Lungs clear to auscultation bilaterally. Heart regular rhythm rate about 80 no murmur. Chest wall ribs nontender. Abdomen soft nontender. Nondistended. No hernia or mass. No obstruction. No localizing tenderness or peritoneal signs. Moving all 4 extremities. Nontender no edema. Back unremarkable. Neurologically he is awake alert. Answering questions following commands. Rectal exam Black stool appears to be upper GI bleed. Const Vital Signs: 10/10/23 10:15 10/10/23 10:20 10/10/23 11:58 Temperature 97.5 F L 97.5 F L Temperature Source Oral Oral Pulse Rate 74 86 92 Respiratory Rate 16 16 16 (more content not included)... Normal [facility] H AND P Exam - [facility] 10-10-2023 H&P Exam - Hospitalist [facility] Medical Records Department [address] [place] [address] H P Exam - Hospitalist 10/10/23 1348 MR#: [id number] Acct: [id number] Name: GISELLE SALGUERO Rep #: [id number] : 1940 83 From: Vincenzo Bautista DO PCP: Dr. Sammy Griffith MD Status:ADM IN Location: [address] HPI - General General Date of Admission: 10/10/23 Date of Service: 10/10/23 Chief Complaint: Melena HPI Narrative GISELLE SALGUERO, is a 83 M who presents with melena. This is an 83-year-old male with history of carotid stenosis presents with 2-day history of melena. Had not been feeling well starting this past and then on Thursday, noted to have vomiting brownish material and then had melena. Again recurred today and family brought him into the hospital for evaluation. Patient never had any issues like this before. It was noted the patient's hemoglobin went from 15.6, back in July down to 12.5 today. Patient received a bolus of pantoprazole. [facility] Medical History CKD (chronic kidney disease) stage 3, GFR 30-59 ml/min Pure hypercholesterolemia Bilateral carotid artery stenosis COPD (chronic obstructive pulmonary disease) Type 2 diabetes mellitus Essential (primary) hypertension Atherosclerosis of coronary artery of [place] heart without angina pectoris Home Medications ???Medication ???Instructions ???Recorded ???Last Taken ???Type aspirin 81 mg tablet,delayed 81 mg PO DAILY 04/19/18 10/09/23 History release (Adult Aspirin Regimen) atorvastatin 40 mg tablet 40 mg PO QHS 04/19/18 10/09/23 History gabapentin 300 mg capsule 300 mg PO DAILY 04/19/18 10/09/23 History (Neurontin) ipratropium bromide 42 mcg (0.06 2 spray intranasal BID 04/19/18 10/09/23 History %) nasal spray isosorbide mononitrate 30 mg 30 mg PO DAILY 04/19/18 10/09/23 History tablet,extended release 24 hr nitroglycerin 0.4 mg sublingual 0.4 mg sublingual Q5-15M PRN chest 04/19/18 Unknown History tablet pain tamsulosin 0.4 mg capsule 0.4 mg PO DAILY 07/27/19 10/09/23 History moxifloxacin 0.5 % eye drops 1 drp ophthalmic (eye) 4X/DAY EYE 10/10/23 10/09/23 History SURGERY prednisolone acetate 1 % eye 1 drp ophthalmic (eye) 4X/DAY EYE 10/10/23 10/09/23 History drops,suspension SURGERY Allergy/AdvReac Type Severity Reaction Status Date / Time No Known Allergies Allergy Verified 10/10/23 10:15 Family History Father Heart disease Myocardial infarction Brother Cancer prostate Sister Breast cancer Other CAD (coronary artery disease) Surgical History History of colonoscopy Status post right foot surgery History of appendectomy History of left inguinal hernia repair History of eye surgery History of left heart catheterization (06/09/06) 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 No lesions elsewhere. No fever or chills. All review of systems were negative except as mentioned above in the history of present illness and the other review of systems. Vital Signs Vital Signs Vital Signs: 10/10/23 10:15 10/10/23 10:20 10/10/23 11:58 Temperature 36.4 C L 36.4 C L Temperature Source Oral Oral Pulse Rate 74 86 92 Respiratory Rate 16 16 16 Blood Pressure 135/75 H 135/75 H 126/79 H Blood Pressure Mean 95 95 94 Blood Pressure Source Blood Pressure Position Blood Pressure Location Pulse Ox 98 98 95 Oxygen Delivery Method Room Air Room Air Room Air 10/10/23 12:00 10/10/23 12:34 10/10/23 13:29 Temperature 36.4 C L 36.5 C L Temperature Source Oral Pulse Rate 102 H 85 86 Respiratory Rate 16 14 Blood Pressure 106/65 113/59 L 114/54 L Blood Pressure Mean 78 77 74 Blood Pressure Source Monitor Blood Pressure Position Sitting Blood Pressure Location Right Arm Pulse Ox 95 97 Oxygen Delivery Method Room Air Weight Weight: 72.6 kg Body Mass Index (BMI) 25.0 Physical Exam Const alert and no apparent distress Constitutional Narrative: Hard of hearing. Afebrile. HEENT normocephalic and head/scalp atraumatic Resp normal respiratory effort, no retractions, no use of accessory muscles and clear to auscultation bilaterally Cardio regular rate, regular rhythm, S1 normal heart sound and S2 normal heart sound GI normal to inspection, nondistended, normoactive bowel sounds, soft to palpation, non-tender, non- distended (more content not included)... Normal [facility] HH, Hemoglobin AND Hematocri ton 10-10-2023 Hematocrit (Bld) [Volume fraction] 31.1 % Low 40-54 [facility] Comment on above: Performed By: #### L 100.0600 #### [facility] [address] [place], [address] Hemoglobin (Bld) [Mass/Vol] 9.9 g/dL Low 13.0-16.5 [facility] Comment on above: Performed By: #### L 100.0600 #### [facility] [address] [place], [address] Hematocrit (Bld) [Volume fraction] 34.0 % Low 40-54 [facility] Comment on above: Performed By: #### L 100.0600 #### [facility] [address] [place], [address] Hemoglobin (Bld) [Mass/Vol] 10.9 g/dL Low 13.0-16.5 [facility] Comment on above: Performed By: #### L 100.0600 #### [facility] [address] [place], [address] Type AND Screenon 10-10-2023 Ab SCREEN GEL Negative Normal [facility] Comment on above: Order Comment: Has p t arrived? YHGI Performed By: #### L 502.0500, L501.1200, L502.0250 #### [facility] [address] [place], [address] ABO and Rh group Nom (Bld) Blood group A Rh(D) positive Normal [facility] Comment on above: Order Comment: Has p t arrived? YHGI Performed By: #### L 502.0500, L501.1200, L502.0250 #### [facility] [address] [place], [address] PHOTOTHERAPEUTIC KERATECTOMY (PTK) OD (RIGHT EYE)on 10-08-2023 [employer] TO [employer] . [employer] TRICE Han . Date of Procedure 10/08/2023 [place] Protocol Safety Checklist Sign In: A moment to CARE completed, Special equipment verified, Appropriate PPE verified, Patient name, date of , allergies and intended procedure verified. Provider Confirms: Intended patient and procedure match the source document, Consent documented and matches the intended procedure, Correct side/site marked visible. Relevant labs, photos, and/or imaging studies have been reviewed. Medications required for procedure verified. Fire risk assessed and interventions discussed. No implants. Eye Medications & Anesthesia Prior/During Surgery Betadine Swab, Proparacaine 0.5%, Ethanol 20% for 30 seconds, Mitomycin C 0.02%. Laser Room Temperature 66. Humidity 63. Start Time of Procedure 12:50 PM. Stop Time of Procedure 12:55 PM. Excimer Laser VISX. Ablation Technique used was mechanical debridement. Methylcellulose smoothing was performed. Patient Condition Satisfactory. Complications None. Bandage Contact Lens Yes. Estimated Blood Loss None. Drains None. Specimens None. Outcomes Exclude from Outcomes. Sign Out Sign out discussion completed, All instruments, equipment, and/or possible retained foreign bodies accounted for, Post-procedure follow up management communicated. No specimens. Notes S/P PTK OD BY DR. BENNY MARINA MD 45 SECOND [facility] PTK was performed in the right eye. The eye was anesthetized with multiple drops of Proparacaine. An aspirating eyelid speculum was placed into position. The VISX S4 laser was placed in PTK mode with a 6.5 mm optical zone with a 0.2 mm blend zone. PTK was performed after removal of the epithelium with 20% dilute ETOH and a [place] blade after 20 um of ablation with circumtranslation of the beam to treat beyond the 6.5mm optical zone. Celluvisc was placed on the cornea with a saturated WekCel sponge and masking-smoothing was performed with the excimer laser. The eye was irrigated profusely with balanced salt solution. 0.02% mitomycin C on a sponge was placed on the ablated cornea as described in the accompanying procedure note. A bandage contact lens was placed over the cornea. One drop of antibiotic and one drop of prednisolone acetate 1% were placed onto the eye. The lid speculum was removed. The patient left the operating room in good condition. There were no complications. There was no blood loss. [facility] ----- JOSE MGISELLE ([id number]) 1940 M Date Time Provider Department 09/16/23 [facility] During your visit today, we recorded the following information about you: Dalia Saucedo 09/16/2023 9:07 AM Signed From: Monica Carreno Sent: Friday, September 15, 2023 1:06 PM To: Bee Vazquez ; Jr. Marina MD, William ; Dalia Ernandez Cc: Sayda Crawford ; Marixa Carrillo Subject: Re: Referral was denied, Needs to to do another appeal letter. Monica Canales From: Bee Vazquez Sent: Friday, September 15, 2023 12:42 PM To: Monica Carreno ; Jr. Marina MD, William ; Dalia Ernandez Cc: Sayda Crawford ; Marixa Carrillo Subject: RE: Referral was denied, Needs to to do another appeal letter. [facility] Appeal has been faxed Devin Canales Appeal letter is in Epic Dalia Saucedo 09/21/2023 2:26 PM Signed patient calling said that someone from [facility] finance called him still waiting on approval for the szeeshan [place] do you have any updates yet? Thank you [phone] Dalia Saucedo 09/22/2023 9:03 AM Addendum i just sent it to you via [employer]. Dalia Saucedo 09/22/2023 9:10 AM Signed From: Bee Vazquez Sent: Friday, September 22, 2023 9:09 AM To: Dalia Ernandez Subject: RE: email you are looking for: Giselle Salguero Thanks--I sent an email and included [employer] team--they will f/up on the appeal Devin Allergies As of Date: 09/16/2023 (No Known Allergies) Date Reviewed: 08/20/2023 Reviewed by: Ewelina Bagley OD - Fully Assessed Reason for Visit: Appeal letter [Other] Prescriptions as of 09/22/2023 - carboxymethylcellulose (REFRESH PLUS) 0.5 % Use 1 Drop in the left eye as needed. - ofloxacin (OCUFLOX) 0.3 % ophthalmic solution Use 1 drop in the left eye four times daily. - diclofenac (VOLTAREN) 0.1 % ophthalmic solution Use 1 drop in the left eye four times daily. - erythromycin (ROMYCIN) 5 mg/gram (0.5 %) ophthalmic ointment Apply to affected area twice a day for one week, then stop. - tamsulosin (FLOMAX) 0.4 mg - moxifloxacin (VIGAMOX) 0.5 % ophthalmic solution Use 1 Drop in the left eye four times daily. - dexAMETHasone 0.1% 0.1 % ophthalmic solution Use 1 Drop in the left eye four times daily. - Difluprednate (DUREZOL) 0.05 % drop Use 1 Drop in the right eye four times daily. Start after surgery - DUREZOL 0.05 % drop Use 1 Drop in the left eye four times daily. Start after surgery - ipratropium bromide (ATROVENT) 42 mcg (0.06 %) nasal spray - omega 2-lot-vme-fish oil 300-1,000 mg cpDR FISH OIL CAPS - sodium chloride (SAMUEL 128) 5 % ophthalmic ointment Use 1 application in both eyes daily at bedtime. - atorvastatin (LIPITOR) 40 mg tablet once daily. - aspirin, enteric coated (ASPIR-LOW) 81 mg EC tablet Take 1 tablet by mouth once daily. - lisinopril 20 mg ORAL tablet Take 10 mg by mouth. - fluticasone propionate(FLONASE 50 MCG/ACTUATION NASAL SPRAY) Use in the nose. - DIPHENHYDRAMINE 25 MG TAB Take by mouth. - METFORMIN 500 MG TAB Take by mouth. - metoprolol tartrate(LOPRESSOR 50 MG TAB) Take by mouth. - NIACIN SR 1,000 MG TAB Take by mouth. Swallow whole. DO NOT crush or break. - esomeprazole mag trihydrate(NEXIUM 40 MG CAP) Take by mouth. DO NOT CRUSH - isosorbide mononitrate(IMDUR 30 MG 24 HR TAB) Take one(1) tablet daily. - PRAVASTATIN 80 MG TAB Take by mouth. - gabapentin(NEURONTIN 300 MG CAP) Take one(1) tablet daily. - nitroglycerin(NITROQUICK 0.3 MG SUBLINGUAL TAB) Dissolve under the tongue every 5 minutes as needed. - OMEGA-3 FATTY ACIDS-FISH OIL 360 MG-1,200 MG CAP Take by mouth. 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*01/21/2021 CAD (coronary artery disease) [I25.10] 01/21/2021 Encounter Status:Closed by DALIA SAUCEDO on 09/16/23 [facility] 09-15-2023 [facility] Letter [facility] Letter Text [facility] CNPNon 09-01-2023 CNPN Telephone (OPHT REFR ACT) ----- BETOGISELLE RUBY ([id number]) 1940 M Date Time Provider Department 09/01/23 BENNY MARINA OPHT REFRACT During your visit today, we recorded the following information about you: Monica Douglas 09/02/2023 8:02 AM Signed Patient was told I canceled the follow up appointment with Dr Marina. Appointment not needed for referral documentation. Dr Marina was able to look at the past eye exams from other doctors. Lucila will put a referral in to his insurance and call him when he is authorized. He will be called when the insurance referral is authorized for the PTK procedure in the right eye. Hudson Brendenmaritza Naz 09/14/2023 11:42 AM Signed patient calling Stated his insurance said Dr. Marina did not provide the correct information to get approval for his insurance Please call his insurance he said at to get approval of PTK for OD Call patient back w/outcome [phone] (home) Tristan Doherty Naz 09/14/2023 4:56 PM Signed Monica Douglas; Jose Gonsales Elaine; Benny Marina MD4 hours ago (12:19 PM) CV Sent Dr Marina and Dalia the denial information in an email. [employer] would be the group you want to send the appeal information to as well. That team works PTK referrals. Allergies As of Date: 09/01/2023 (No Known Allergies) Date Reviewed: 08/20/2023 Reviewed by: Ewelina Bagley, OD - Fully Assessed Reason for Visit: Insurance Authorization [[id number]] Prescriptions as of 09/14/2023 - carboxymethylcellulose (REFRESH PLUS) 0.5 % Use 1 Drop in the left eye as needed. - ofloxacin (OCUFLOX) 0.3 % ophthalmic solution Use 1 drop in the left eye four times daily. - diclofenac (VOLTAREN) 0.1 % ophthalmic solution Use 1 drop in the left eye four times daily. - erythromycin (ROMYCIN) 5 mg/gram (0.5 %) ophthalmic ointment Apply to affected area twice a day for one week, then stop. - tamsulosin (FLOMAX) 0.4 mg - moxifloxacin (VIGAMOX) 0.5 % ophthalmic solution Use 1 Drop in the left eye four times daily. - dexAMETHasone 0.1% 0.1 % ophthalmic solution Use 1 Drop in the left eye four times daily. - Difluprednate (DUREZOL) 0.05 % drop Use 1 Drop in the right eye four times daily. Start after surgery - DUREZOL 0.05 % drop Use 1 Drop in the left eye four times daily. Start after surgery - ipratropium bromide (ATROVENT) 42 mcg (0.06 %) nasal spray - omega 0-qdg-udu-fish oil 300-1,000 mg cpDR FISH OIL CAPS - sodium chloride (SAMUEL 128) 5 % ophthalmic ointment Use 1 application in both eyes daily at bedtime. - atorvastatin (LIPITOR) 40 mg tablet once daily. - aspirin, enteric coated (ASPIR-LOW) 81 mg EC tablet Take 1 tablet by mouth once daily. - lisinopril 20 mg ORAL tablet Take 10 mg by mouth. - fluticasone propionate(FLONASE 50 MCG/ACTUATION NASAL SPRAY) Use in the nose. - DIPHENHYDRAMINE 25 MG TAB Take by mouth. - METFORMIN 500 MG TAB Take by mouth. - metoprolol tartrate(LOPRESSOR 50 MG TAB) Take by mouth. - NIACIN SR 1,000 MG TAB Take by mouth. Swallow whole. DO NOT crush or break. - esomeprazole mag trihydrate(NEXIUM 40 MG CAP) Take by mouth. DO NOT CRUSH - isosorbide mononitrate(IMDUR 30 MG 24 HR TAB) Take one(1) tablet daily. - PRAVASTATIN 80 MG TAB Take by mouth. - gabapentin(NEURONTIN 300 MG CAP) Take one(1) tablet daily. - nitroglycerin(NITROQUICK 0.3 MG SUBLINGUAL TAB) Dissolve under the tongue every 5 minutes as needed. - OMEGA-3 FATTY ACIDS-FISH OIL 360 MG-1,200 MG CAP Take by mouth. Problem List As Of Date 09/01/2023 Noted Resolved CAROTID ART OCCL-NO INFARCT [I65.29] 09/14/2008 Bilateral carotid artery stenosis [I65.23] 10/25/2015 Mechanical breakdown of intraocular lens [T85.2*04/10/2017 Lens opacity [H26.9] 12/30/2017 Senile nuclear cataract, left [H25.12] 12/30/2017 Deposits on intraocular lens [H57.89] 12/30/2017 Essential hypertension [I10] 01/21/2021 Mixed hyperlipidemia [E78.2] 01/21/2021 Diabetes mellitus type 2, controlled, without c*01/21/2021 CKD (chronic kidney disease) [N18.9] 01/21/2021 Centrilobular emphysema (HCC) [J43.2] 01/21/2021 Atherosclerosis of tunica-biloxi arteries of extremity*01/21/2021 CAD (coronary artery disease) [I25.10] 01/21/2021 Encounter Status:Closed by MONICA DOUGLAS on 09/02/23 [facility] OCT ANTERIOR SEGMENT CIRRUS OU (BOTH EYES)on 08-05-2023 [facility] Radiology Study observation (narrative) [facility] Absolute lymphocyte countOrd ered By: Sammy Griffith on 01-28-2023 Lymphocytes Auto (Unsp spec) [#/Vol] 1.68 10*3/uL 0.83-4.51 [facility] Basophil percentageOrdered B y: Sammy Griffith on 01-28-2023 Basophils/100 WBC (Bld) 0.6 % 0-1 [facility] Bilirubin [Mass/Vol] 1.00 mg/dL 0.20-1.00 [facility] Comment on above: For patients on eltr ombopag therapy, use of Dimension [place] TBIL is not recommended. Chloride [Moles/Vol] 107 mmol/L 98-107 [facility] Eosinophils/100 WBC (Bld) 1.1 % 0-5 [facility] Glucose [Mass/Vol] 93 mg/dL 74-106 [facility] Neutrophils (Bld) [#/Vol] 3.9 10*3/uL 2.0-7.7 [facility] Neutrophils/100 WBC (Bld) 61.5 % 47-70 [facility] Potassium [Moles/Vol] 4.5 mmol/L 3.5-5.1 [facility] Protein [Mass/Vol] 7.2 g/dL 6.4-8.2 [facility] Sodium [Moles/Vol] 141 mmol/L 136-145 [facility] WBC (Bld) [#/Vol] 6.4 10*3/uL 4.4-11.0 [facility] Blood erythrocytes count (nu mber/volume)Ordered By: Sammy Griffith on 01-28-2023 RBC (Bld) [#/Vol] 5.13 10*6/uL 4.6-6.2 [facility] Blood hemoglobin measurement (mass/volume)Ordered By: Sammy Griffith on 01-28-2023 Hemoglobin (Bld) [Mass/Vol] 16.1 g/dL 13.0-16.5 [facility] Blood lymphocytes/100 leukoc ytesOrdered By: Sammy Griffith on 01-28-2023 Lymphocytes/100 WBC (Bld) 26.4 % 19-41 [facility] Blood monocytes/100 leukocyt esOrdered By: Sammy Griffith on 01-28-2023 Monocytes/100 WBC (Bld) 10.2 % 0-10 [facility] Blood platelet mean volumeOr dered By: Sammy Griffith on 01-28-2023 Platelet mean volume (Bld) [Entitic vol] 10.2 fL 6.2-12.0 [facility] Determination of erythrocyte mean corpuscular volume (MCV)Ordered By: Sammy Griffith on 01-28-2023 MCV (RBC) [Entitic vol] 100.0 fL 80-94 [facility] Hematocrit Auto (Bld) [Volum e fraction]Ordered By: Sammy Griffith on 01-28-2023 Hematocrit (Bld) [Volume fraction] 51.3 % 40-54 [facility] Laboratory - Chemistry and C hemistry - challengeOrdered By: Sammy Griffith on 01-28-2023 ALP [Catalytic activity/Vol] 65 U/L 45-117 [facility] ALT [Catalytic activity/Vol] 23 U/L 16-61 [facility] CO2 [Moles/Vol] 31.0 mmol/L 21.0-32.0 [facility] Globulin (S) [Mass/Vol] 3.5 g/dL 2.2-4.2 [facility] Urea nitrogen/Creatinine [Mass ratio] 12.4 mg/mg 10-20 [facility] Laboratory - Hematology and Cell countsOrdered By: Sammy Griffith on 01-28-2023 Erythrocyte distribution width (RBC) [Entitic vol] 47.7 fL 35.1-43.9 [facility] Erythrocyte distribution width (RBC) [Ratio] 12.8 % 11.6-14.6 [facility] Immature granulocytes/100 WBC (Bld) 0.200 % 0.0-0.9 [facility] Comment on above: IG% - Immature Granu locytes (promyelocytes, myelocytes and metamyelocytes) > 1% indicates that a LEFT SHIFT is Present. MCH (RBC) [Entitic mass] 31.4 pg 27.0-32.0 [facility] Nucleated RBC/100 WBC (Bld) [Ratio] 0 % 0-5 [facility] MCHC Auto (RBC) [Mass/Vol]Or dered By: Sammy Griffith on 01-28-2023 MCHC (RBC) [Mass/Vol] 31.4 g/dL 32-36 [facility] No Panel InformationOrdered By: Sammy Griffith on 01-28-2023 Estimated GFR (MDRD) Amer 56 mL/min >60 [facility] Comment on above: GFR Calc Estimated GFR (MDRD) Non-Af Amer 47 mL/min >60 [facility] Comment on above: Non- GFR Calc Thyroid Stimulating Hormone (TSH) 1.49 uIU/mL 0.358-3.74 [facility] Vitamin D 25-Hydroxy 35.0 ng/mL [facility] Comment on above: Vitamin D 25(OH) Sta tus Range Deficiency <20 ng/mL (50nmol/L) Insufficiency 20 - 30 ng/mL (50 - 75 nmol/L) Sufficiency 30 - 100 ng/mL (75 - 250 nmol/L) Toxicity >100 ng/mL (>250 nmol/L) Platelets bldOrdered By: Sammy Griffith on 01-28-2023 Platelets (Bld) [#/Vol] 195 10*3/uL 150-450 [facility] Serum or plasma albumin carol urement (mass/volume)Ordered By: Sammy Griffith on 01-28-2023 Albumin [Mass/Vol] 3.7 g/dL 3.2-5.0 [facility] Serum or plasma albumin/glob ulin mass ratioOrdered By: Sammy Griffith on 01-28-2023 Albumin/Globulin [Mass ratio] 1.1 {ratio} 0.9-2.4 [facility] Serum or plasma calcium carol urement (mass/volume)Ordered By: Sammy Griffith on 01-28-2023 Calcium [Mass/Vol] 9.0 mg/dL 8.5-10.1 [facility] Serum or plasma creatinine m easurement (mass/volume)Ordered By: Sammy Griffith on 01-28-2023 Creatinine [Mass/Vol] 1.53 mg/dL 0.70-1.30 [facility] Comment on above: The validity of the calculated GFR & GFRAA in patients over 70 years has not been determined. Clinical correlation is essential. Serum or plasma urea nitroge n measurement (mass/volume)Ordered By: Sammy Griffith on 01-28-2023 Urea nitrogen [Mass/Vol] 19 mg/dL 7-18 [facility] Thin prep Papanicolaou smear with manual screeningOrdered By: Sammy Griffith on 01-28-2023 Thin prep Papanicolaou smear with manual screening 15 U/L 15-37 [facility] Thin prep Papanicolaou smear with manual screening 3 5-15 [facility] Basophil percentageOrdered B y: Macrina Todd on 09-08-2022 Basophil percentage 2.6 mg/dL 2.5-4.9 [facility] Chloride [Moles/Vol] 108 mmol/L 98-107 [facility] Glucose [Mass/Vol] 99 mg/dL 74-106 [facility] Potassium [Moles/Vol] 3.8 mmol/L 3.5-5.1 [facility] Sodium [Moles/Vol] 139 mmol/L 136-145 [facility] Laboratory - Chemistry and C hemistry - challengeOrdered By: Mcarina Todd on 09-08-2022 CO2 [Moles/Vol] 27.0 mmol/L 21.0-32.0 [facility] Urea nitrogen/Creatinine [Mass ratio] 10.7 mg/mg 10-20 [facility] No Panel InformationOrdered By: Macrina Todd on 09-08-2022 Estimated GFR (MDRD) Amer 68 mL/min >60 [facility] Comment on above: GFR Calc Estimated GFR (MDRD) Non-Af Amer 56 mL/min >60 [facility] Comment on above: Non- GFR Calc Serum or plasma albumin carol urement (mass/volume)Ordered By: Macrina Todd on 09-08-2022 Albumin [Mass/Vol] 3.6 g/dL 3.2-5.0 [facility] Serum or plasma calcium carol urement (mass/volume)Ordered By: Macrina Todd on 09-08-2022 Calcium [Mass/Vol] 9.0 mg/dL 8.5-10.1 [facility] Serum or plasma creatinine m easurement (mass/volume)Ordered By: Macrina Todd on 09-08-2022 Creatinine [Mass/Vol] 1.31 mg/dL 0.70-1.30 [facility] Comment on above: The validity of the calculated GFR & GFRAA in patients over 70 years has not been determined. Clinical correlation is essential. Serum or plasma urea nitroge n measurement (mass/volume)Ordered By: Macrina Todd on 09-08-2022 Urea nitrogen [Mass/Vol] 14 mg/dL 7-18 [facility] Urine creatinine measurement (mass/volume)Ordered By: Macrina Todd on 09-08-2022 Creatinine (U) [Mass/Vol] 115.00 mg/dL NO RANGE EST. [facility] Urine protein measurement (m ass/volume)Ordered By: Macrina Todd on 09-08-2022 Protein (U) [Mass/Vol] 23.5 mg/dL 0.0-11.8 [facility] Urine protein/creatinine mas s ratioOrdered By: Macrina Todd on 09-08-2022 Protein/Creatinine (U) [Mass ratio] 204 mg/g CRE 0-200 [facility] Absolute lymphocyte countOrd ered By: Sammy Griffith on 07-29-2022 Lymphocytes Auto (Unsp spec) [#/Vol] 2.06 10*3/uL 0.83-4.51 [facility] Basophil percentageOrdered B y: Sammy Griffith on 07-29-2022 Basophils/100 WBC (Bld) 0.7 % 0-1 [facility] Bilirubin [Mass/Vol] 0.80 mg/dL 0.20-1.00 [facility] Comment on above: For patients on eltr ombopag therapy, use of Dimension [place] TBIL is not recommended. Chloride [Moles/Vol] 107 mmol/L 98-107 [facility] Eosinophils/100 WBC (Bld) 1.7 % 0-5 [facility] Glucose [Mass/Vol] 99 mg/dL 74-106 [facility] Neutrophils (Bld) [#/Vol] 2.9 10*3/uL 2.0-7.7 [facility] Neutrophils/100 WBC (Bld) 51.0 % 47-70 [facility] Potassium [Moles/Vol] 3.9 mmol/L 3.5-5.1 [facility] Protein [Mass/Vol] 7.1 g/dL 6.4-8.2 [facility] Sodium [Moles/Vol] 141 mmol/L 136-145 [facility] WBC (Bld) [#/Vol] 5.8 10*3/uL 4.4-11.0 [facility] Blood erythrocytes count (nu mber/volume)Ordered By: Sammy Griffith on 07-29-2022 RBC (Bld) [#/Vol] 5.02 10*6/uL 4.6-6.2 [facility] Blood hemoglobin measurement (mass/volume)Ordered By: Sammy Griffith on 07-29-2022 Hemoglobin (Bld) [Mass/Vol] 15.9 g/dL 13.0-16.5 [facility] Blood lymphocytes/100 leukoc ytesOrdered By: Sammy Griffith on 07-29-2022 Lymphocytes/100 WBC (Bld) 35.7 % 19-41 [facility] Blood monocytes/100 leukocyt esOrdered By: Sammy Griffith on 07-29-2022 Monocytes/100 WBC (Bld) 10.7 % 0-10 [facility] Blood platelet mean volumeOr dered By: Sammy Griffith on 07-29-2022 Platelet mean volume (Bld) [Entitic vol] 10.6 fL 6.2-12.0 [facility] Determination of erythrocyte mean corpuscular volume (MCV)Ordered By: Sammy Griffith on 07-29-2022 MCV (RBC) [Entitic vol] 100.4 fL 80-94 [facility] Hematocrit Auto (Bld) [Volum e fraction]Ordered By: Sammy Griffith on 07-29-2022 Hematocrit (Bld) [Volume fraction] 50.4 % 40-54 [facility] Laboratory - Chemistry and C hemistry - challengeOrdered By: Sammy Griffith on 07-29-2022 ALP [Catalytic activity/Vol] 59 U/L 45-117 [facility] ALT [Catalytic activity/Vol] 21 U/L 16-61 [facility] CO2 [Moles/Vol] 29.0 mmol/L 21.0-32.0 [facility] Globulin (S) [Mass/Vol] 3.3 g/dL 2.2-4.2 [facility] Urea nitrogen/Creatinine [Mass ratio] 14.7 mg/mg 10-20 [facility] Laboratory - Hematology and Cell countsOrdered By: Sammy Griffith on 07-29-2022 Erythrocyte distribution width (RBC) [Entitic vol] 48.8 fL 35.1-43.9 [facility] Erythrocyte distribution width (RBC) [Ratio] 13.0 % 11.6-14.6 [facility] Immature granulocytes/100 WBC (Bld) 0.200 % 0.0-0.9 [facility] Comment on above: IG% - Immature Granu locytes (promyelocytes, myelocytes and metamyelocytes) > 1% indicates that a LEFT SHIFT is Present. MCH (RBC) [Entitic mass] 31.7 pg 27.0-32.0 [facility] Nucleated RBC/100 WBC (Bld) [Ratio] 0 % 0-5 [facility] MCHC Auto (RBC) [Mass/Vol]Or dered By: Sammy Griffith on 07-29-2022 MCHC (RBC) [Mass/Vol] 31.5 g/dL 32-36 [facility] No Panel InformationOrdered By: Sammy Griffith on 07-29-2022 Estimated GFR (MDRD) Amer 69 mL/min >60 [facility] Comment on above: GFR Calc Estimated GFR (MDRD) Non-Af Amer 57 mL/min >60 [facility] Comment on above: Non- GFR Calc Thyroid Stimulating Hormone (TSH) 1.94 uIU/mL 0.358-3.74 [facility] Vitamin D 25-Hydroxy 44.8 ng/mL [facility] Comment on above: Vitamin D 25(OH) Sta tus Range Deficiency <20 ng/mL (50nmol/L) Insufficiency 20 - 30 ng/mL (50 - 75 nmol/L) Sufficiency 30 - 100 ng/mL (75 - 250 nmol/L) Toxicity >100 ng/mL (>250 nmol/L) Platelets bldOrdered By: Sammy Griffith on 07-29-2022 Platelets (Bld) [#/Vol] 176 10*3/uL 150-450 [facility] Serum or plasma albumin carol urement (mass/volume)Ordered By: Sammy Griffith on 07-29-2022 Albumin [Mass/Vol] 3.8 g/dL 3.2-5.0 [facility] Serum or plasma albumin/glob ulin mass ratioOrdered By: Sammy Griffith on 07-29-2022 Albumin/Globulin [Mass ratio] 1.2 {ratio} 0.9-2.4 [facility] Serum or plasma calcium carol urement (mass/volume)Ordered By: Sammy Griffith 07-29-2022 Calcium [Mass/Vol] 8.8 mg/dL 8.5-10.1 [facility] Serum or plasma creatinine m easurement (mass/volume)Ordered By: Sammy Griffith on 07-29-2022 Creatinine [Mass/Vol] 1.29 mg/dL 0.70-1.30 [facility] Comment on above: The validity of the calculated GFR & GFRAA in patients over 70 years has not been determined. Clinical correlation is essential. Serum or plasma urea nitroge n measurement (mass/volume)Ordered By: Sammy Griffith on 07-29-2022 Urea nitrogen [Mass/Vol] 19 mg/dL 7-18 [facility] Thin prep Papanicolaou smear with manual screeningOrdered By: Sammy Griffith 07-29-2022 Thin prep Papanicolaou smear with manual screening 17 U/L 15-37 [facility] Thin prep Papanicolaou smear with manual screening 5 5-15 [facility] Absolute lymphocyte counton 01-27-2022 Lymphocytes Auto (Unsp spec) [#/Vol] 1.78 10*3/uL 0.83-4.51 [facility] Work Phone: Basophil percentageon 2021 Basophils/100 WBC (Bld) 0.6 % 0-1 [facility] Work Phone: Bilirubin [Mass/Vol] 1.00 mg/dL 0.20-1.00 [facility] Work Phone: Comment on above: For patients on eltr ombopag therapy, use of Dimension [place] TBIL is not recommended. Chloride [Moles/Vol] 105 mmol/L 98-107 [facility] Work Phone: Eosinophils/100 WBC (Bld) 0.7 % 0-5 [facility] Work Phone: Glucose [Mass/Vol] 87 mg/dL 74-106 [facility] Work Phone: Neutrophils (Bld) [#/Vol] 4.2 10*3/uL 2.0-7.7 [facility] Work Phone: Neutrophils/100 WBC (Bld) 62.2 % 47-70 [facility] Work Phone: Potassium [Moles/Vol] 4.2 mmol/L 3.5-5.1 [facility] Work Phone: Protein [Mass/Vol] 7.3 g/dL 6.4-8.2 [facility] Work Phone: Sodium [Moles/Vol] 141 mmol/L 136-145 [facility] Work Phone: WBC (Bld) [#/Vol] 6.7 10*3/uL 4.4-11.0 [facility] Work Phone: Blood erythrocytes count (nu mber/volume)on 01-27-2022 RBC (Bld) [#/Vol] 5.04 10*6/uL 4.6-6.2 [facility]: Blood hemoglobin measurement (mass/volume)on 01-27-2022 Hemoglobin (Bld) [Mass/Vol] 15.9 g/dL 13.0-16.5 [facility] Work Phone: Blood lymphocytes/100 leukoc yteson 01-27-2022 Lymphocytes/100 WBC (Bld) 26.4 % 19-41 [facility] Work Phone: Blood monocytes/100 leukocyt eson 01-27-2022 Monocytes/100 WBC (Bld) 10.0 % 0-10 [facility] Work Phone: Blood platelet mean volumeon 01-27-2022 Platelet mean volume (Bld) [Entitic vol] 10.5 fL 6.2-12.0 [facility] Work Phone: Determination of erythrocyte mean corpuscular volume (MCV)on 01-27-2022 MCV (RBC) [Entitic vol] 98.2 fL 80-94 [facility] Work Phone: Hematocrit Auto (Bld) [Volum e fraction]on 01-27-2022 Hematocrit (Bld) [Volume fraction] 49.5 % 40-54 [facility] Work Phone: Laboratory - Chemistry and C hemistry - challengeon 01-27-2022 ALP [Catalytic activity/Vol] 60 U/L 45-117 [facility] Work Phone: ALT [Catalytic activity/Vol] 20 U/L 16-61 [facility] Work Phone: CO2 [Moles/Vol] 33.0 mmol/L 21.0-32.0 [facility] Work Phone: Globulin (S) [Mass/Vol] 3.4 g/dL 2.2-4.2 [facility] Work Phone: Urea nitrogen/Creatinine [Mass ratio] 14.3 mg/mg 10-20 [facility] Work Phone: Laboratory - Hematology and Cell countson 01-27-2022 Erythrocyte distribution width (RBC) [Entitic vol] 46.4 fL 35.1-43.9 [facility] Work Phone: Erythrocyte distribution width (RBC) [Ratio] 12.8 % 11.6-14.6 [facility] Work Phone: Immature granulocytes/100 WBC (Bld) 0.100 % 0.0-0.9 [facility] Work Phone: Comment on above: IG% - Immature Granu locytes (promyelocytes, myelocytes and metamyelocytes) > 1% indicates that a LEFT SHIFT is Present. MCH (RBC) [Entitic mass] 31.5 pg 27.0-32.0 [facility] Work Phone: Nucleated RBC/100 WBC (Bld) [Ratio] 0 % 0-5 [facility] Work Phone: MCHC Auto (RBC) [Mass/Vol]on 01-27-2022 MCHC (RBC) [Mass/Vol] 32.1 g/dL 32-36 [facility] Work Phone: No Panel Informationon 01-27 Estimated GFR (MDRD) Amer 66 mL/min >60 [facility] Work Phone: Comment on above: GFR Calc Estimated GFR (MDRD) Non-Af Amer 55 mL/min >60 [facility] Work Phone: Comment on above: Non- GFR Calc Thyroid Stimulating Hormone (TSH) 1.51 uIU/mL 0.358-3.74 [facility] Work Phone: Vitamin D 25-Hydroxy 50.2 ng/mL [facility] Work Phone: Comment on above: Vitamin D 25(OH) Sta tus Range Deficiency <20 ng/mL (50nmol/L) Insufficiency 20 - 30 ng/mL (50 - 75 nmol/L) Sufficiency 30 - 100 ng/mL (75 - 250 nmol/L) Toxicity >100 ng/mL (>250 nmol/L) Platelets bldon 01-27-2022 Platelets (Bld) [#/Vol] 186 10*3/uL 150-450 [facility] Work Phone: Serum or plasma albumin carol urement (mass/volume)on 01-27-2022 Albumin [Mass/Vol] 3.9 g/dL 3.2-5.0 [facility] Work Phone: Serum or plasma albumin/glob ulin mass ratioon 01-27-2022 Albumin/Globulin [Mass ratio] 1.1 {ratio} 0.9-2.4 [facility] Work Phone: Serum or plasma calcium carol urement (mass/volume)on 01-27-2022 Calcium [Mass/Vol] 9.5 mg/dL 8.5-10.1 [facility] Work Phone: Serum or plasma creatinine m easurement (mass/volume)on 01-27-2022 Creatinine [Mass/Vol] 1.33 mg/dL 0.70-1.30 [facility] Work Phone: Comment on above: The validity of the calculated GFR & GFRAA in patients over 70 years has not been determined. Clinical correlation is essential. Serum or plasma urea nitroge n measurement (mass/volume)on 01-27-2022 Urea nitrogen [Mass/Vol] 19 mg/dL 7-18 [facility] Work Phone: Thin prep Papanicolaou smear with manual screeningon 01-27-2022 Thin prep Papanicolaou smear with manual screening 13 U/L 15-37 [facility] Work Phone: Thin prep Papanicolaou smear with manual screening 3 5-15 [facility] Work Phone: Basophil percentageon 2021 Basophil percentage 2.7 mg/dL 2.5-4.9 [facility] Work [facility]: Chloride [Moles/Vol] 105 mmol/L 98-107 [facility] [facility] Work Phone: Glucose [Mass/Vol] 97 mg/dL 74-106 [facility] Work Phone: Potassium [Moles/Vol] 3.6 mmol/L 3.5-5.1 [facility] Work Phone: Sodium [Moles/Vol] 140 mmol/L 136-145 [facility] Work Phone: Laboratory - Chemistry and C hemistry - challengeon 09-09-2021 CO2 [Moles/Vol] 29.0 mmol/L 21.0-32.0 [facility] Work Phone: Urea nitrogen/Creatinine [Mass ratio] 12.0 mg/mg 10-20 [facility] Work Phone: No Panel Informationon 09-09 Estimated GFR (MDRD) Amer 62 mL/min >60 [facility] Work Phone: Comment on above: GFR Calc Estimated GFR (MDRD) Non-Af Amer 51 mL/min >60 [facility] Work Phone: Comment on above: Non- GFR Calc Serum or plasma albumin carol urement (mass/volume)on 09-09-2021 Albumin [Mass/Vol] 3.8 g/dL 3.2-5.0 [facility] Work Phone: Serum or plasma calcium carol urement (mass/volume)on 09-09-2021 Calcium [Mass/Vol] 9.0 mg/dL 8.5-10.1 [facility] Work Phone: Serum or plasma creatinine m easurement (mass/volume)on 09-09-2021 Creatinine [Mass/Vol] 1.42 mg/dL 0.70-1.30 [facility] Work Phone: Comment on above: The validity of the calculated GFR & GFRAA in patients over 70 years has not been determined. Clinical correlation is essential. Serum or plasma urea nitroge n measurement (mass/volume)on 09-09-2021 Urea nitrogen [Mass/Vol] 17 mg/dL -18 [facility] Work Phone: Urine creatinine measurement (mass/volume)on 09-09-2021 Creatinine (U) [Mass/Vol] 51.70 mg/dL NO RANGE EST. [facility] Work Phone: Urine protein measurement (m ass/volume)on 09-09-2021 Protein (U) [Mass/Vol] 9.5 mg/dL 0.0-11.8 [facility] Work Phone: Urine protein/creatinine mas s ratioon 09-09-2021 Protein/Creatinine (U) [Mass ratio] 184 mg/g CRE 0-200 [facility] Work Phone: Absolute lymphocyte counton 07-17-2021 Lymphocytes Auto (Unsp spec) [#/Vol] 1.82 10*3/uL 0.83-4.51 [facility] Work Phone: Basophil percentageon 2021 Basophils/100 WBC (Bld) 0.6 % 0-1 [facility] Work Phone: [phone] Bilirubin [Mass/Vol] 0.80 mg/dL 0.20-1.00 [facility] Work Phone: Comment on above: For patients on eltr ombopag therapy, use of Dimension [place] TBIL is not recommended. Chloride [Moles/Vol] 105 mmol/L 98-107 [facility] Work Phone: [phone] Eosinophils/100 WBC (Bld) 1.3 % 0-5 [facility] Work Phone: [phone] Glucose [Mass/Vol] 111 mg/dL 74-106 [facility] Work Phone: Comment on above: Fasting Glucose resu lt from 100 to 125 mg/dL suggests IMPAIRED HOMEOSTASIS per A.D.A. criteria. Neutrophils (Bld) [#/Vol] 3.6 10*3/uL 2.0-7.7 [facility] Work Phone: [phone] Neutrophils/100 WBC (Bld) 57.7 % 47-70 [facility] Work Phone: [phone] Potassium [Moles/Vol] 4.2 mmol/L 3.5-5.1 [facility] Work Phone: Protein [Mass/Vol] 6.9 g/dL 6.4-8.2 [facility] Work Phone: Sodium [Moles/Vol] 139 mmol/L 136-145 [facility] Work Phone: WBC (Bld) [#/Vol] 6.3 10*3/uL 4.4-11.0 [facility] Work Phone: Blood erythrocytes count (nu mber/volume)on 07-17-2021 RBC (Bld) [#/Vol] 5.04 10*6/uL 4.6-6.2 [facility] Work Phone: Blood hemoglobin measurement (mass/volume)on 07-17-2021 Hemoglobin (Bld) [Mass/Vol] 15.7 g/dL 13.0-16.5 [facility] Work Phone: Blood lymphocytes/100 leukoc yteson 07-17-2021 Lymphocytes/100 WBC (Bld) 29.0 % 19-41 [facility] Work Phone: Blood monocytes/100 leukocyt eson 07-17-2021 Monocytes/100 WBC (Bld) 11.2 % 0-10 [facility] Work Phone: Blood platelet mean volumeon 07-17-2021 Platelet mean volume (Bld) [Entitic vol] 10.6 fL 6.2-12.0 [facility] Work Phone: Determination of erythrocyte mean corpuscular volume (MCV)on 07-17-2021 MCV (RBC) [Entitic vol] 98.6 fL 80-94 [facility] Work Phone: Hematocrit Auto (Bld) [Volum e fraction]on 07-17-2021 Hematocrit (Bld) [Volume fraction] 49.7 % 40-54 [facility] Work Phone: Laboratory - Chemistry and C hemistry - challengeon 07-17-2021 ALP [Catalytic activity/Vol] 61 U/L 45-117 [facility] Work Phone: ALT [Catalytic activity/Vol] 22 U/L 16-61 [facility] Work Phone: CO2 [Moles/Vol] 29.0 mmol/L 21.0-32.0 [facility] Work Phone: Globulin (S) [Mass/Vol] 3.3 g/dL 2.2-4.2 [facility] Work Phone: Urea nitrogen/Creatinine [Mass ratio] 12.0 mg/mg 10-20 [facility] Work Phone: Laboratory - Hematology and Cell countson 07-17-2021 Erythrocyte distribution width (RBC) [Entitic vol] 47.9 fL 35.1-43.9 [facility] Work Phone: Erythrocyte distribution width (RBC) [Ratio] 13.2 % 11.6-14.6 [facility] Work Phone: Immature granulocytes/100 WBC (Bld) 0.200 % 0.0-0.9 [facility] Work Phone: Comment on above: IG% - Immature Granu locytes (promyelocytes, myelocytes and metamyelocytes) > 1% indicates that a LEFT SHIFT is Present. MCH (RBC) [Entitic mass] 31.2 pg 27.0-32.0 [facility] Work Phone: Nucleated RBC/100 WBC (Bld) [Ratio] 0 % 0-5 [facility] Work Phone: MCHC Auto (RBC) [Mass/Vol]on 07-17-2021 MCHC (RBC) [Mass/Vol] 31.6 g/dL 32-36 [facility] Work Phone: No Panel Informationon 07-17 Estimated GFR (MDRD) Amer 62 mL/min >60 [facility] Work Phone: Comment on above: GFR Calc Estimated GFR (MDRD) Non-Af Amer 51 mL/min >60 [facility] Work Phone: Comment on above: Non- GFR Calc Thyroid Stimulating Hormone (TSH) 1.29 uIU/mL 0.358-3.74 [facility] Work Phone: Vitamin D 25-Hydroxy 47.0 ng/mL [facility] Work Phone: Comment on above: Vitamin D 25(OH) Sta tus Range Deficiency <20 ng/mL (50nmol/L) Insufficiency 20 - 30 ng/mL (50 - 75 nmol/L) Sufficiency 30 - 100 ng/mL (75 - 250 nmol/L) Toxicity >100 ng/mL (>250 nmol/L) Platelets bldon 07-17-2021 Platelets (Bld) [#/Vol] 178 10*3/uL 150-450 [facility] Work Phone: Serum or plasma albumin carol urement (mass/volume)on 07-17-2021 Albumin [Mass/Vol] 3.6 g/dL 3.2-5.0 [facility] Work Phone: Serum or plasma albumin/glob ulin mass ratioon 07-17-2021 Albumin/Globulin [Mass ratio] 1.1 {ratio} 0.9-2.4 [facility] Work Phone: Serum or plasma calcium carol urement (mass/volume)on 07-17-2021 Calcium [Mass/Vol] 8.8 mg/dL 8.5-10.1 [facility] Work Phone: Serum or plasma creatinine m easurement (mass/volume)on 07-17-2021 Creatinine [Mass/Vol] 1.42 mg/dL 0.70-1.30 [facility] Work Phone: Comment on above: The validity of the calculated GFR & GFRAA in patients over 70 years has not been determined. Clinical correlation is essential. Serum or plasma urea nitroge n measurement (mass/volume)on 07-17-2021 Urea nitrogen [Mass/Vol] 17 mg/dL 7-18 [facility] Work Phone: Thin prep Papanicolaou smear with manual screeningon 07-17-2021 Thin prep Papanicolaou smear with manual screening 13 U/L 15-37 [facility] Work Phone: Thin prep Papanicolaou smear with manual screening 5 5-15 [facility] Work Phone: ANES Barry 06-01-2018 ANES POST HNO ID: [id number] Author: Uvaldo Joseph Service: Anesthesiology Author Type: Anesthesiologist Type: Anesthesia PostOp Filed: 06/02/2018 11:24 AM Note Text: POST ANESTHESIA EVALUATION NOTE SERVICE DATE: 06/02/2018 SERVICE TIME: 11:24 AM : 1940 Vitals: 06/01/18 1120 06/01/18 1515 BP: 169/75 140/63 Pulse: (!) 50 60 Resp: 20 16 Temp: 36.4 ?C (97.5 ?F) 36.5 ?C (97.7 ?F) SpO2: 95% 96% Validated Vital Signs: Yes No apparent anesthetic complications. The patient is appropriately hydrated with stable respiratory and cardiovascular status. Patient has safe and adequate airway control. The patient has appropriate pain relief and no significant post operative nausea or vomiting. The patient has achieved baseline mental status. Further assessment by Anesthesia Service: None Other Remarks: SIGNATURE: Uvaldo Joseph MD PATIENT NAME: Giselle Salguero DATE: June 02, 2018 TIME: 11:24 AM PAGER/CONTACT #: [facility] ANES PREOPon 06-01-2018 ANES PREOP HNO ID: [id number] Author: Uvaldo Joseph Service: Anesthesiology Author Type: Anesthesiologist Type: Anesthesia PreOp Filed: 06/01/2018 1:57 PM Note Text: REGIONAL ANESTHESIOLOGY DAY OF SURGERY NOTE PATIENT NAME: Giselle Salguero Procedure(s) (LRB): OCULAR SURFACE RECONSTRUCTION AMNIOTIC MEMBRANE TRANSPLANT (Right) REMOVE CORNEAL EPITHELIUM W/O CHEMOCAUTERIZATION (Right) Surgeon(s): Joaquin Davies Vitals: There were no vitals filed for this visit. ACTIVE PROBLEM LIST Occlusion and Stenosis of Carotid Artery Without Mention of Cerebral Infarction Bilateral Carotid Artery Stenosis Mechanical Breakdown of Intraocular Lens Lens Opacity Senile Nuclear Cataract, Left Deposits On Intraocular Lens PAST MEDICAL HISTORY Diagnosis Date - Diabetes mellitus without mention of complication Diabetes mellitus - Mixed hyperlipidemia Hyperlipidemia - Unspecified essential hypertension Essential hypertension PAST SURGICAL HISTORY Procedure Laterality Date - APPENDECTOMY 51 YRS AGO - CABG, VEIN, FIVE 03/21/2004 [facility] - COLONOSCOPY 2005 - PAST SURGICAL HISTORY OF 07/2004 FOOT SURGERY - PAST SURGICAL HISTORY OF Left 02/02/2018 Intraocular lens exchange left eye, Pars plana anterior vitrectomy left eye, Superficial keratectomy left eye - REMV 2ND CATARACT,CORN-SCLER SECTN 2007 RIGHT - REMV CATARACT EXTRACAP,INSERT LENS 2007 LEFT - REPAIR ING HERNIA,5+Y/O,REDUCIBL 1980 AND HYRDOCELE RIGHT FAMILY HISTORY Problem Relation Age of Onset - Breast Cancer Sister - Cancer Maternal Grandfather - Colon Cancer Father - Coronary Artery Disease Father - Hypertension Father - Coronary Artery Disease Mother - Hypertension Mother - Coronary Artery Disease Paternal Grandmother - Heart Paternal Grandmother - Prostate Cancer Brother - No Ocular Disease Other Social History: Social History Tobacco Use - Smoking status: Former Smoker Types: Cigarettes Last attempt to quit: 02/24/1988 Years since quittin.2 - Smokeless tobacco: Never Used Substance Use Topics - Alcohol use: No - Drug use: No Prior to Admission medications as of 06/01/18 1125 Medication Sig Last Dose Taking ipratropium bromide (ATROVENT) 42 mcg (0.06 %) nasal spray 06/01/2018 at Unknown time Yes omega 1-uxj-mko-fish oil (FISH OIL) 300-1,000 mg cpDR FISH OIL CAPS 06/01/2018 at Unknown time Yes atorvastatin (LIPITOR) 40 mg tablet once daily. 06/01/2018 at Unknown time Yes aspirin, enteric coated (ASPIR-LOW) 81 mg EC tablet Take 1 tablet by mouth once daily. 06/01/2018 at Unknown time Yes lisinopril 20 mg ORAL tablet TAKES ONE TAB TWO TIMES DAILY. 06/01/2018 at Unknown time Yes DIPHENHYDRAMINE 25 MG TAB Take one(1) tablet daily. Unknown Yes metoprolol tartrate(LOPRESSOR 50 MG TAB) twice daily Yes NIACIN SR 1,000 MG TAB Take one(1) tablet daily. 06/01/2018 at Unknown time Yes esomeprazole mag trihydrate(NEXIUM 40 MG CAP) Take one(1) capsule daily. 06/01/2018 at Unknown time Yes isosorbide mononitrate(IMDUR 30 MG 24 HR TAB) Take one(1) tablet daily. 06/01/2018 at Unknown time Yes gabapentin(NEURONTIN 300 MG CAP) Take one(1) tablet daily. 06/01/2018 at Unknown time Yes OMEGA-3 FATTY ACIDS-FISH OIL 360 MG-1,200 MG CAP Take one(1) tablet daily. 06/01/2018 at Unknown time Yes ofloxacin (OCUFLOX) 0.3 % ophthalmic solution Use 1 Drop in the right eye four times daily. Start after surgery Difluprednate (DUREZOL) 0.05 % drop Use 1 Drop in the right eye four times daily. Start after surgery DUREZOL 0.05 % drop Use 1 Drop in the left eye four times daily. Start after surgery sodium chloride (SAMUEL 128) 5 % ophthalmic ointment Use 1 application in both eyes daily at bedtime. ofloxacin (OCUFLOX) 0.3 % ophthalmic solution Use 1 Drop in the right eye three times daily. fluticasone propionate(FLONASE 50 MCG/ACTUATION NASAL SPRAY) One puff per nostril before lying down for bed. METFORMIN 500 MG TAB Take two(2) tablet two(2) times daily. PRAVASTATIN 80 MG TAB Take one(1) tablet daily. nitroglycerin(NITROQUICK 0.3 MG SUBLINGUAL TAB) as necessary Unknown at Unknown time Current Facility-Administered Medications: moxifloxacin 0.5 mg/0.1 mL 0.1 mL intraocular injection (VIGAMOX) 0.1 mL RIGHT EYE ONCE Joaquin Davies tetracaine (PF) 0.5 % 1 Drop (OPTICAINE) 1 Drop RIGHT EYE As Directed Joaquin Davies prednisoLONE acetate 1 % 1 Drop (PRED FORTE, ECONOPRED PLUS) 1 Drop RIGHT EYE As Directed Joaquin Davies dilating compound eye drops (HL) 0.25 mL 0.25 mL RIGHT EYE As Directed Joaquin Davies 0.25 mL at 06/01/18 1145 CATARACT EYE KIT 1 Kit 1 Kit RIGHT EYE ONCE Joaquin Davies Allergies: ALLERGIES No Known Allergies Lab Value Units Date High Low APTT No results within date range. PTSEC No results within date range. INR No results within date range. HB No results within date range. HCT No results within date range. PLT No results within date range. CMP: Lab Value Units Date High Low GLUC No results within date range. BUN No results within date range. CREAT No results within date range. NA No results within date range. K No results within date range. ALB No results within date range. CA No results within date range. Carotid Bilateral 60-79 % EKG SB ECHO n/a CXR n/a Adequate NPO status: Yes Anesthetic risks, benefits, alternatives, personnel and consent discussed: Yes Patient agrees to proceed: Yes Previous Anesthesia: No history of adverse event. Airway Assessment: MP 1; Neck ROM: Full ROM without neurologic symptoms; Airway Evaluation: No significant abnormalities Dentition: Dentures: upper Symptoms of Sleep Apnea: Snoring Blood Products: n/a Anesthetic Plan: MAC with general as back up; Standard ASA Monitors Pain Management Plan: Parenteral or Oral ASA Class: 3 Other Medical Problems: None Chronic Beta Abimael medication administered within 24 hours: N/A I have interviewed and examined the patient. I have reviewed the medical record and/or the pre-anesthesia evaluation, pertinent labs, and test results. Significant changes in the patient's condition since the History and Physical, not otherwise documented in primary service progress notes: No This contains updated information obtained within 48 hours of Surgery/Procedure. SIGNATURE: Uvaldo Joseph MD DATE: June 01, 2018 TIME: 12:48 PM [facility] NURSING PROGon 06-01-2018 Protein mass conc HNO ID: [id number] Author: Leonora (Rn) DAMIÁN Sánchez Service: Nursing Author Type: Registered Nurse Type: Nursing Progress Note Filed: 06/01/2018 4:10 PM Note Text: Nursing Progress Note Patient Name: Giselle Salguero Patient Location: [facility] OR POOL/[facility] * Daily Note: 1515- Patient arrived from OR. Patient awake and alert. VSS. Denies pain to operative eye. 1538- Reviewed discharge instructions, Denies questions or needs. OOB with stable gait. DCM 1600 Discharged home stable condition. Belongings with patient. This note was completed by: Leonora Sánchez RN [facility] Protein mass conc HNO ID: [id number] Author: Leonora (Rn) DAMIÁN Sánchez Service: Nursing Author Type: Registered Nurse Type: Nursing Progress Note Filed: 06/01/2018 11:34 AM Note Text: Nursing Progress Note Patient Name: Giselle Salguero Patient Location: [facility] OR POOL/[facility] * Daily Note: Surgical eye checked at BS. This note was completed by: Leonora Sánchez RN [facility] OPERATIVE NOon 06-01-2018 OPERATIVE NO HNO ID: [id number] Author: Joaquin Davies Service: Ophthalmology Author Type: Physician Type: Operative Report Filed: 06/01/2018 5:15 PM Note Text: Giselle Salguero [id number] PROCEDURE DATE June 01, 2018 LOG ID:[id number] Incision/Procedure Start Time:?2:51 PM Incision Close/Procedure End Time:?3:11 PM ? ? 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 Irregular astigmatism right eye? ? 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 Irregular astigmatism right eye? ? PROCEDURE 1. Amniotic membrane for ocular reconstruction right eye 2. Superficial keratectomy right eye? ? ? SURGEON Joaquin Davies MD. ? ANESTHESIA Topical ? Mobile Battery Technician Carmelo Gaitan MD ? INDICATIONS The patient presented with a complaint of decreased vision. ?Slit lamp examination was significant for limbal stem cell deficiency superiorly from 10 -2 o'clock. ?There was irregular epithelium extending centrally causing irregular astigmatism. ? PROCEDURE IN DETAIL An attempt was made to prep and drape the patient with topical anesthesia; however, we had a difficult time opening his eye.??The patient ?was then sedated and given a retrobulbar block and Van Lint injection of 4% ?lidocaine preservative-free, 0.75% Marcaine, and Hylenex. ?The patient was then prepped ?and draped in usual ophthalmic sterile manner. ?Lid speculum was placed into the eye. ? ? ? A 69 [place] blade was used to remove the epithelium on the superior half of the cornea. ?Conjunctiva was dissected from 10 to 2 o'clock and recessed for 2 mm posterior to the limbus. Hemostatis was obtained with eraser tip cautery. ?A xavier frances was used to equatorial guinean the stroma. ? Biotissue amniotic membrane was secured to the sclera and superior cornea with tisseal glue with stroma sticky side down.??Acuvue Oasys 8.8 contact was placed in the eye followed by Pred Forte, ?Antibiotic drop. ? The primary surgeon performed with surgery with assistance from Carmelo gaitan MD. No qualified resident was available and a skilled hair or beauty salon assistant was necessary to complete the case. ? ? DISCHARGE The patient was discharge in the care of another adult. ?He will leave the patch on overnight and remove in the am to start drops. ? ? ? [facility] PT EDon 06-01-2018 PT ED HNO ID: [id number] Author: Leonora TierneyRn) DAMIÁN Sánchez Service: Nursing Author Type: Registered Nurse Type: Patient Education Filed: 06/01/2018 3:24 PM Note Text: POST OP LEARNING RESPONSE INSTRUCTION PROVIDED TO: Patient/family/friend/oth er METHOD OF INSTRUCTION: Teach Back verbalize understanding of discharge instructions Individual instruction Written instruction - handouts Verbal instruction PATIENT / FAMILY RESPONSE: Verbalizes understanding of: discharge instructions FOLLOW-UP PLAN: with Doctor as discuseed SUPPLEMENTAL MATERIAL: None REFERRAL (RECOMMENDATION): None Electronically Signed By: Leonora Sánchez RN In Department: [facility] PT ED HNO ID: [id number] Author: Leonora Ambrosio) DAMIÁN Sánchez Service: Nursing Author Type: Registered Nurse Type: Patient Education Filed: 06/01/2018 11:34 AM Note Text: PRE OP LEARNING ASSESSMENT PROCEDURE/SURGERY: SURGERY: ocular surface reconstruction READINESS TO LEARN COGNITIVE ABILITY: Alert and oriented MOTIVATION TO LEARN: Eager Interested FAMILY SUPPORT: High - Very involved in pt care PATIENT LEARNS BEST BY: Individual Instruction Written Instruction - Hand-outs Verbal Instruction Multiple Methods FACTORS AFFECTING LEARNING: None PHYSICAL LIMITATIONS AFFECTING LEARNING: None Electronically Signed By: Leonora Sánchez RN In Department: [facility] Normal [facility] HOSPon 04-13-2018 HOSP Patient:Jose Salguero MRN: Height:No patient height recorded for this patient. Weight:No patient weight recorded within the last 30 days. Outpatient Medications as of 06/01/18: ofloxacin (OCUFLOX) 0.3 % ophthalmic solution Difluprednate (DUREZOL) 0.05 % drop DUREZOL 0.05 % drop ipratropium bromide (ATROVENT) 42 mcg (0.06 %) nasal spray omega 9-owo-vvf-fish oil (FISH OIL) 300-1,000 mg cpDR sodium chloride (SAMUEL 128) 5 % ophthalmic ointment ofloxacin (OCUFLOX) 0.3 % ophthalmic solution atorvastatin (LIPITOR) 40 mg tablet aspirin, enteric coated (ASPIR-LOW) 81 mg EC tablet lisinopril 20 mg ORAL tablet fluticasone propionate(FLONASE 50 MCG/ACTUATION NASAL SPRAY) DIPHENHYDRAMINE 25 MG TAB METFORMIN 500 MG TAB metoprolol tartrate(LOPRESSOR 50 MG TAB) NIACIN SR 1,000 MG TAB esomeprazole mag trihydrate(NEXIUM 40 MG CAP) isosorbide mononitrate(IMDUR 30 MG 24 HR TAB) PRAVASTATIN 80 MG TAB gabapentin(NEURONTIN 300 MG CAP) nitroglycerin(NITROQUICK 0.3 MG SUBLINGUAL TAB) OMEGA-3 FATTY ACIDS-FISH OIL 360 MG-1,200 MG CAP Admission/Clinic Administered Medications as of 06/01/18: moxifloxacin 0.5 mg/0.1 mL 0.1 mL intraocular injection (VIGAMOX) tetracaine (PF) 0.5 % 1 Drop (OPTICAINE) prednisoLONE acetate 1 % 1 Drop (PRED FORTE, ECONOPRED PLUS) dilating compound eye drops (HL) 0.25 mL CATARACT EYE KIT 1 Kit Problem List: Occlusion and stenosis of carotid artery without mention of cerebral infarction [I65.29] Bilateral carotid artery stenosis [I65.23] Mechanical breakdown of intraocular lens [T85.21XA] Lens opacity [H26.9] Senile nuclear cataract, left [H25.12] Deposits on intraocular lens [H57.89] Allergies: No Known Allergies Date Verified:06/01/18 Lab Values No results within the last 30 days for the following basenames: K,HCT No progress notes entered within the past 30 days [facility] CNCOon 02-03-2018 CNCO Letter Text February 03, 2018 Giselle Salguero [address] [place] [address] Dear Mr. Salguero, Thank you for choosing [facility] for your medical care. To help reduce healthcare costs, it is important for us to collect co-payments at the time of service. We are sorry we missed you when you were here on 02/02/18. According to your insurance company, you are responsible for a co-payment of $265.00. Please mail your check or money order, payable to [facility] along with the stub below, in the enclosed envelope. If you would like to pay with your credit card, please call [phone] for assistance. Again, thank you for choosing [facility]. Sincerely, Liv K[facility] Patient Speed Belt Sander Please detach and return in the enclosed envelope. Pay online at [email or web address] Patient Name: Giselle Salguero EMPI Number: [id number] Date of Service: 02/02/18 Co-Pay Due: 265.00 Amount Enclosed: $ .__ Please make checks payable to [facility]. [facility] ANES Barry 02-02-2018 ANES POST HNO ID: [id number] Author: Marissa Rider Service: Anesthesiology Author Type: Anesthesiologist Type: Anesthesia PostOp Filed: 02/02/2018 3:33 PM Note Text: POST ANESTHESIA EVALUATION NOTE SERVICE DATE: 02/02/2018 SERVICE TIME: : 1940 Vitals: 02/02/18604 Temp: 36.7 ?C (98.1 ?F) 02/02/18 0605 BP: 169/77 02/02/18 0605 Pulse: (!) 56 02/02/18 0605 Resp: 16 02/02/18 0605 SpO2: 96% Validated Vital Signs: Yes POST ANES STATUS: No apparent anesthetic complications. The patient is appropriately hydrated with stable respiratory and cardiovascular status. Patient has safe and adequate airway control. The patient has appropriate pain relief and no significant post operative nausea or vomiting. The patient has achieved baseline mental status. Intra-Operative Events: No Significant Anesthesia Events Further assessment by Anesthesia Service: None Other Remarks: SIGNATURE: Marissa Rider MD PATIENT NAME: Giselel Salguero DATE: February 02, 2018 TIME: 3:33 PM PAGER/CONTACT #: [facility] ANES PREOPon 02-02-2018 ANES PREOP HNO ID: [id number] Author: Marissa Rider Service: Anesthesiology Author Type: Anesthesiologist Type: Anesthesia PreOp Filed: 02/02/2018 6:59 AM Note Text: ANESTHESIOLOGY DAY OF SURGERY NOTE SERVICE DATE: 02/02/2018 SERVICE TIME: : 1941 Procedure(s) (LRB): EXCHANGE INTRAOCULAR LENS (Left) OPHTHALMIC BIOMETRY BY PARTIAL COHERENCE INTERFEROMETRY W/INTRAOCULAR LENS POWER CALCULATION (Left) REMOVE CORNEAL EPITHELIUM W/O CHEMOCAUTERIZATION (Left) Surgeon(s): Joaquin Davies There is no height or weight on file to calculate BMI. Most recent hematocrit and potassium results: No results found for this basename: HCT,HEMATOCRIT,K,POTASSIU M ANES DOS/PREOP NOTE: Vitals: 02/02/18 0605 BP: 169/77 Pulse: (!) 56 Resp: 16 Temp: 36.7 ?C (98.1 ?F) SpO2: 96% ACTIVE PROBLEM LIST Occlusion and Stenosis of Carotid Artery Without Mention of Cerebral Infarction Bilateral Carotid Artery Stenosis Mechanical Breakdown of Intraocular Lens Lens Opacity Senile Nuclear Cataract, Left Deposits On Intraocular Lens PAST MEDICAL HISTORY Diagnosis Date - Diabetes mellitus without mention of complication Diabetes mellitus - Mixed hyperlipidemia Hyperlipidemia - Unspecified essential hypertension Essential hypertension PAST SURGICAL HISTORY Procedure Laterality Date - APPENDECTOMY 51 YRS AGO - CABG, VEIN, FIVE 03/21/2004 [facility] - COLONOSCOPY 2005 - PAST SURGICAL HISTORY OF 07/2004 FOOT SURGERY - REMV 2ND CATARACT,CORN-SCLER SECTN 2007 RIGHT - REMV CATARACT EXTRACAP,INSERT LENS 2007 LEFT - REPAIR ING HERNIA,5+Y/O,REDUCIBL 1980 AND HYRDOCELE RIGHT FAMILY HISTORY Problem Relation Age of Onset - Breast Cancer Sister - Cancer Maternal Grandfather - Colon Cancer Father - Coronary Artery Disease Father - Hypertension Father - Coronary Artery Disease Mother - Hypertension Mother - Coronary Artery Disease Paternal Grandmother - Heart Paternal Grandmother - Prostate Cancer Brother - No Ocular Disease Other Social History: Social History Substance Use Topics - Smoking status: Former Smoker Types: Cigarettes Quit date: 02/24/1988 - Smokeless tobacco: Never Used - Alcohol use No No current facility-administered medications on file prior to encounter. Current Outpatient Prescriptions on File Prior to Encounter: omega 4-hwc-haj-fish oil (FISH OIL) 300-1,000 mg cpDR FISH OIL CAPS atorvastatin (LIPITOR) 40 mg tablet once daily. aspirin, enteric coated (ASPIR-LOW) 81 mg EC tablet Take 1 tablet by mouth once daily. lisinopril 20 mg ORAL tablet TAKES ONE TAB TWO TIMES DAILY. METFORMIN 500 MG TAB Take two(2) tablet two(2) times daily. metoprolol tartrate(LOPRESSOR 50 MG TAB) twice daily NIACIN SR 1,000 MG TAB Take one(1) tablet daily. esomeprazole mag trihydrate(NEXIUM 40 MG CAP) Take one(1) capsule daily. isosorbide mononitrate(IMDUR 30 MG 24 HR TAB) Take one(1) tablet daily. OMEGA-3 FATTY ACIDS-FISH OIL 360 MG-1,200 MG CAP Take one(1) tablet daily. ipratropium bromide (ATROVENT) 42 mcg (0.06 %) nasal spray sodium chloride (SAMUEL 128) 5 % ophthalmic ointment Use 1 application in both eyes daily at bedtime. ofloxacin (OCUFLOX) 0.3 % ophthalmic solution Use 1 Drop in the right eye three times daily. fluticasone propionate(FLONASE 50 MCG/ACTUATION NASAL SPRAY) One puff per nostril before lying down for bed. DIPHENHYDRAMINE 25 MG TAB Take one(1) tablet daily. PRAVASTATIN 80 MG TAB Take one(1) tablet daily. gabapentin(NEURONTIN 300 MG CAP) Take one(1) tablet daily. nitroglycerin(NITROQUICK 0.3 MG SUBLINGUAL TAB) as necessary Current Facility-Administered Medications: moxifloxacin 0.5 mg/0.1 mL 0.1 mL intraocular injection (VIGAMOX) 0.1 mL LEFT EYE ONCE Joaquin Davies tetracaine (PF) 0.5 % 1 Drop (OPTICAINE) 1 Drop LEFT EYE As Directed Joaquin Davies prednisoLONE acetate 1 % 1 Drop (PRED FORTE, ECONOPRED PLUS) 1 Drop LEFT EYE As Directed Joaquin Davies dilating compound eye drops (HL) 0.25 mL 0.25 mL LEFT EYE As Directed Joaquin Davies 0.25 mL at 02/02/18 0610 CATARACT EYE KIT 1 Kit 1 Kit LEFT EYE ONCE Joaquin Davies Allergies: ALLERGIES No Known Allergies DOS EXAM: Adequate NPO status: Yes Anesthetic risks, benefits, alternatives, personnel and consent discussed: Yes Patient agrees to proceed: Yes Previous Anesthesia: No history of adverse event. Airway Assessment: MP 2; Neck ROM: Full ROM without neurologic symptoms; Airway Evaluation: No significant abnormalities Symptoms of Sleep Apnea: None Dentition: Dentures: upper Additional Physical Exam: Lungs: Patient health status unchanged since recent history and physical. See history and physical for exam findings. Cardiac: Patient health status unchanged since recent history and physical. See history and physical for exam findings. Additional Pertinent Findings: N/A Blood Products: Not anticipated for this procedure. Anesthetic Plan: MAC with Sedation Pain Management Plan: Parenteral or Oral ASA Class: 3 Other Medical Problems: None Chronic Beta Abimael medication administered within 24 hours: Yes I have interviewed and examined the patient. I have reviewed the medical record and/or the pre-anesthesia evaluation, pertinent labs, and test results. Significant changes in the patient's condition since the History and Physical, not otherwise documented in primary service progress notes: No This contains updated information obtained within 48 hours of Surgery/Procedure. SIGNATURE: Marissa Rider MD PATIENT NAME: Giselle Salguero DATE: February 02, 2018 TIME: 6:59 AM CSN: [id number] [facility] HISTORY PHYSICALon HISTORY PHYSICAL HNO ID: [id number] Author: Joaquin Davies Service: Ophthalmology Author Type: Physician Type: HANDP Filed: 02/02/2018 7:20 AM Note Text: UPDATED HISTORY AND PHYSICAL EXAMINATION SERVICE DATE: 02/02/2018 SERVICE TIME: 7:19 AM PHYSICAL EXAM MUST BE COMPLETED ON ADMISSION The History and Physical (completed in the past 30 days) has been reviewed and the patient has been examined. The contents accurately reflect the patient's condition with the following additions or revisions since the HANDP was completed. Examination indicates no changes. This HANDP can be found in the Electronic Medical Record dated 01/25/18. Left eye . SIGNATURE: Joaquin Davies MD PATIENT NAME: Giselle Salguero DATE: February 02, 2018 TIME: 7:19 AM PAGER: [facility] NURSING PROGon 02-02-2018 Protein mass conc HNO ID: [id number] Author: Ottoniel (Rn) DAMIÁN Coreas Service: Nursing Author Type: Registered Nurse Type: Nursing Progress Note Filed: 02/02/2018 6:30 AM Note Text: Placement and procedure verified with patient and second RN against consent. PRE OP LEARNING ASSESSMENT PROCEDURE/SURGERY: SURGERY: left eye READINESS TO LEARN COGNITIVE ABILITY: Alert and oriented MOTIVATION TO LEARN: Eager FAMILY SUPPORT: High - Very involved in pt care PATIENT LEARNS BEST BY: Individual Instruction FACTORS AFFECTING LEARNING: None PHYSICAL LIMITATIONS AFFECTING LEARNING: none Honan cuff applied per order. Monitors applied per policy. Electronically Signed By: Ottoniel Coreas RN In Department: [facility] SUR[facility] OPERATIVE NOon 02-02-2018 OPERATIVE NO HNO ID: [id number] Author: Joaquin Davies Service: Ophthalmology Author Type: Physician Type: Operative Report Filed: 02/02/2018 8:53 AM Note Text: Giselle Salguero [id number] PROCEDURE DATE February 02, 2018 LOG ID:[id number] Incision/Procedure Start Time:?7:38 AM Incision Close/Procedure End Time:?8:34 AM PREOP DIAGNOSES 1. Limbal stem cell deficiency left eye 2. Opacified Intraocular lens left eye POSTOP DIAGNOSES 1. Limbal stem cell deficiency left eye 2. Opacified Intraocular lens left eye PROCEDURE 1. Intraocular lens exchange left eye 2. Pars plana anterior vitrectomy left eye 3. Superficial keratectomy left eye SURGEON Joaquin Davies MD. ANESTHESIA Peribulbar with MAC. INDICATIONS The patient presented with a complaint of decreased vision. Slit lamp examination was significant for partial limbal stem cell deficiency. There was an opacified well-centered pciol. The risks, benefits and alternatives of Intraocular lens exchange and superficial keratectomy left eye were discussed. The patient wished to proceed. PROCEDURE IN DETAIL The patient was then sedated and given a retrobulbar block and Van Lint injection of 4% lidocaine preservative-free, 0.75% Marcaine, and Hylenex. The patient was then prepped and draped in usual ophthalmic sterile manner. Lid speculum was placed into the eye. A 25 gauge vitrectomy port was placed 2.5 mm posterior to the limbus at the 9 o'clock position and the 2 o'clock position. The 9 o'clock port was attached to irrigation at 30 mm and the 2 o'clock was used to perform a vitrectomy. Triessence 0.1 was injected into the posterior chamber. Vitrectomy was performed until all the anterior vitreous was removed. Viscoat was then placed into the anterior chamber and below the lens. The anterior capsule was eased off of the lens and the lens elevated into the anterior chamber. The lens was then cut into two pieces with intraocular scissors and removed from the eye through a 3 mm keratectomy made at the limbus. Provisc was placed into the capsular sulcus. An Lucian MA60AC lens was placed into the capsular sulcus and rotated into position. Viscoat and provisc were removed from the eye. The central epthelium was removed with a [place] blade and the surface polished with a xavier frances. The vitrectomy ports were removed and self-sealed. Iintraocular injection of moxifloxacin 0.1 cc was given into the anterior chamber. Acuvue Oasys 8.8 contact was placed in the eye followed by Pred Forte. A patch and shield were placed on the eye and the patient was returned to recovery. DISCHARGE The patient will leave the patch on until 4 pm and then start drops. [facility] PT EDon 02-02-2018 PT ED HNO ID: [id number] Author: Yi (Rn) DAMIÁN Dominguez Service: Nursing Author Type: Registered Nurse Type: Patient Education Filed: 02/02/2018 8:42 AM Note Text: PATIENT EDUCATION TOPIC: PROCEDURE / SURGERY: Post-op Teaching: Med Administration, Symptom Management and Wound Care PATIENT NAME: Giselle Salguero PATIENT LOCATION: [facility] SURG OR POOL/[facility] SURG * READINESS TO LEARN COGNITIVE ABILITY: MOTIVATION TO LEARN: Eager FAMILY SUPPORT: High - Very involved in pt care INSTRUCTION PROVIDED TO: Patient and family member PATIENT LEARNS BEST BY: Individual Instruction Written Instruction - Hand-outs Verbal Instruction FACTORS AFFECTING LEARNING: None PHYSICAL LIMITATIONS AFFECTING LEARNING: None LEARNING RESPONSE- understands A AND O X 3 DIAGNOSIS: ADULT: S/p Keratectomy PATIENT/FAMILY RESPONSE: Verbalizes understanding of: POST-PROCEDURE INSTRUCTIONS-Correct actions to take to reduce post procedure complications METHOD OF INSTRUCTION: Individual instruction Written instruction - handouts Verbal instruction FOLLOW-UP PLAN: Patient instructed to call with any further issues INSTRUCTIONAL AIDS USED: NA SUPPLEMENTAL MATERIAL PROVIDED TO PATIENT: None REFERRAL (RECOMMENDATION): None Electronically Signed By: Yi Dominguez RN [facility] NURSING PROGon 01-29-2018 Protein mass conc HNO ID: [id number] Author: Farrah (Rn) DAMIÁN Briggs Service: (none) Author Type: Registered Nurse Type: Nursing Progress Note Filed: 01/29/2018 11:58 AM Note Text: PACC Nurse Progress Note History AND Physical: PACC Visit Date: No PACC visit. Original HANDP Date: 01/12/18 ED visit Date: N/A Outside HANDP Scanned Date: 01/25/18 Labs Within Last 6 Months: N/A Imaging Within Last 12 Months: See chart for eye imaging Cardiac Testing: N/A BMI Percentile (PEDS): N/A Risk Assessment: N/A Anesthesia Review: N/A Narrative: No PACC visit. Dr. Sammy Griffith HANDP in chart dated 01/12/18. Pre-op Considerations: Diabetes Chart Check: COMPLETED Farrah Briggs RN January 29, 2018 11:57 AM [facility] HOSPon 12-30-2017 HOSP Patient:Jose Salguero MRN: Height:No patient height recorded for this patient. Weight:No patient weight recorded within the last 30 days. Outpatient Medications as of 02/02/18: aspirin, enteric coated (ASPIR-LOW) 81 mg EC tablet atorvastatin (LIPITOR) 40 mg tablet DIPHENHYDRAMINE 25 MG TAB DUREZOL 0.05 % drop esomeprazole mag trihydrate(NEXIUM 40 MG CAP) fluticasone propionate(FLONASE 50 MCG/ACTUATION NASAL SPRAY) gabapentin(NEURONTIN 300 MG CAP) ipratropium bromide (ATROVENT) 42 mcg (0.06 %) nasal spray isosorbide mononitrate(IMDUR 30 MG 24 HR TAB) lisinopril 20 mg ORAL tablet METFORMIN 500 MG TAB metoprolol tartrate(LOPRESSOR 50 MG TAB) NIACIN SR 1,000 MG TAB nitroglycerin(NITROQUICK 0.3 MG SUBLINGUAL TAB) ofloxacin (OCUFLOX) 0.3 % ophthalmic solution ofloxacin (OCUFLOX) 0.3 % ophthalmic solution omega 1-fmq-fbt-fish oil (FISH OIL) 300-1,000 mg cpDR OMEGA-3 FATTY ACIDS-FISH OIL 360 MG-1,200 MG CAP PRAVASTATIN 80 MG TAB sodium chloride (SAMUEL 128) 5 % ophthalmic ointment Admission/Clinic Administered Medications as of 02/02/18: CATARACT EYE KIT 1 Kit dilating compound eye drops (HL) 0.25 mL lidocaine HCl (PF) 40 mg/mL 4.8 mL, bupivacaine(PF) 4.8 mL, hyaluronidase (human recombinant) 50 Units intraocular injection moxifloxacin 0.5 mg/0.1 mL 0.1 mL intraocular injection (VIGAMOX) prednisoLONE acetate 1 % 1 Drop (PRED FORTE, ECONOPRED PLUS) tetracaine (PF) 0.5 % 1 Drop (OPTICAINE) Problem List: Occlusion and stenosis of carotid artery without mention of cerebral infarction [I65.29] Bilateral carotid artery stenosis [I65.23] Mechanical breakdown of intraocular lens [T85.21XA] Lens opacity [H26.9] Senile nuclear cataract, left [H25.12] Deposits on intraocular lens [H57.89] Allergies: No Known Allergies Date Verified:02/02/18 Lab Values No results within the last 30 days for the following basenames: K,HCT No progress notes entered within the past 30 days [facility] No Panel Information [facility] Vital Signs Date Time Vital Sign Value Performing Clinician Gloriai fay 08-23-2024 13:11-0400 Body height 170.[address] Sammy Griffith MD Work Phone: [facility] 08-23-2024 13:07-0400 Body mass index (BMI) [Ratio] 27.2 kg/m2 Dr. Sammy Griffith MD Work Phone: [facility] 08-23-2024 13:07-0400 Body weight 78.[address] Sammy Griffith MD Work Phone: [facility] 08-23-2024 13:07-0400 Diastolic blood pressure 79 mm[Hg] Dr. Sammy Griffith MD Work Phone: [facility] 08-23-2024 13:07-0400 Heart rate 86 /min Dr. Sammy Griffith MD Work Phone: [facility] 08-23-2024 13:07-0400 Respiratory rate 18 /min Dr. Sammy Griffith MD Work Phone: [facility] 08-23-2024 13:07-0400 SaO2% (BldA) [Mass fraction] 93 % Dr. Sammy Griffith MD Work Phone: [facility] 08-23-2024 13:07-0400 Systolic blood pressure 147 mm[Hg] Dr. Sammy Griffith MD Work Phone: [facility] 08-13-2022 14:48-0400 Body height 172.[address] Sammy Griffith Work Phone: [facility] 08-13-2022 14:48-0400 Body mass index (BMI) [Ratio] 27 kg/m2 Dr. Sammy Griffith Work Phone: [facility] 08-13-2022 14:48-0400 Body weight 80.[address] Sammy Griffith Work Phone: [facility] 08-13-2022 14:48-0400 Diastolic blood pressure 77 mm[Hg] Dr. Sammy Griffith Work Phone: [facility] 08-13-2022 14:48-0400 Heart rate 78 /min Dr. Sammy Griffith Work Phone: [facility] 08-13-2022 14:48-0400 Respiratory rate 18 /min Dr. Sammy Griffith Work Phone: [facility] 08-13-2022 14:48-0400 SaO2% (BldA) [Mass fraction] 92 % Dr. Sammy Griffith Work Phone: [facility] 08-13-2022 14:48-0400 Systolic blood pressure 128 mm[Hg] Dr. Sammy Griffith Work Phone: [facility] 07-31-2021 12:59-0400 Body height 172.[address] Sammy Griffith Work Phone: [facility] Work Phone: 07-31-2021 12:59-0400 Body mass index (BMI) [Ratio] 27.2 kg/m2 Dr. Sammy Griffith Work Phone: [facility] Work Phone: 07-31-2021 12:59-0400 Body weight 81.[address] Sammy Griffith Work Phone: [facility] Work Phone: 07-31-2021 12:59-0400 Diastolic blood pressure 72 mm[Hg] Dr. Sammy Griffith Work Phone: [facility] Work Phone: 07-31-2021 12:59-0400 Heart rate 78 /min Dr. Sammy Griffith Work Phone: [facility] Work Phone: 07-31-2021 12:59-0400 Respiratory rate 18 /min Dr. Sammy Griffith Work Phone: [facility] Work Phone: 07-31-2021 12:59-0400 SaO2% (BldA) [Mass fraction] 95 % Dr. Sammy Griffith Work Phone: [facility] Work Phone: 07-31-2021 12:59-0400 Systolic blood pressure 135 mm[Hg] Dr. Sammy Griffith Work Phone: [facility] Work Phone: Encounters Encounter Date Encounter Type Care Provider Facility Start: 09-07-2024 End: 09-07-[address] Sammy Griffith MD Work Phone: -Laboratory Phy Office 3rd Flr Start: 09-07-2024 End: 09-07-[address] Sammy Griffith MD -Laboratory Phy [facility] 3rd Flr Start: 09-07-2024 End: 09-07-2024 ambulatory Sammy Gravesok Facility:[facility] Start: 08-30-2024 End: 08-30-[address] Sammy Griffith MD Work Phone: -Laboratory Start: 08-30-2024 End: 08-30-[address] Macrina Todd DO -Laboratory Work Phone: Start: 08-30-2024 End: 08-30-2024 ambulatory Sammy Blane Griffith Facility:[facility] Start: 08-23-2024 End: 08-23-2024 Patient encounter procedure Teresa SIMPSON -[facility] Work Phone: Start: 08-23-2024 End: 08-23-[address] 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 Start: 08-04-2024 End: 08-04-2024 ambulatory [facility] Facility:[facility] Start: 08-03-2024 End: 08-03-2024 Patient encounter procedure Yogesh Dunne MD Work Phone: Ophthalmology Comment on above: Bilateral cornea sca rs (Primary Dx); Type 2 diabetes mellitus without retinopathy (HCC); Optic cupping of both eyes; Pseudophakia of both eyes Start: 08-03-2024 End: 08-03-2024 ambulatory [facility] Facility:[facility] Start: 07-05-2024 End: 07-05-2024 Patient encounter procedure Ewelina Bagley OD Work Phone: Ophthalmology Comment on above: 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); Bilateral cornea scars Start: 07-05-2024 End: 07-05-2024 ambulatory SAMMY CHI NACHO Facility:[facility] Start: 06-21-2024 End: 06-21-2024 Patient encounter procedure Ewelina Bagley OD Work Phone: Ophthalmology Comment on above: 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); Bilateral cornea scars Start: 06-21-2024 End: 06-21-2024 ambulatory SAMMY CHI NACHO Facility:[facility] Start: 06-20-2024 End: 06-20-2024 ambulatory SAMMY CHI NACHO Facility:[facility] Start: 06-14-2024 End: 06-14-2024 Telephone encounter Anthony ARIZA Ophthalmology Start: 05-31-2024 End: 05-31-2024 ambulatory EWELINA BAGLEY Facility:[facility] Start: 05-31-2024 End: 05-31-2024 Patient encounter procedure Ewelina Bagley OD Work Phone: Ophthalmology Comment on above: 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); Bilateral cornea scars; Pseudophakia of both eyes; Type 2 diabetes mellitus without retinopathy (HCC); Optic cupping of both eyes; 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 Start: 05-18-2024 End: 05-18-2024 ambulatory SAMMY CHI NACHO Facility:[facility] Start: 05-18-2024 End: 05-18-2024 Patient encounter procedure Hattie Watkins MD Work Phone: Ophthalmology Comment on above: Optic cupping of bot h eyes; Ocular hypertension of left eye; Corneal scar; 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; Type 2 diabetes mellitus without retinopathy (HCC) Start: 05-05-2024 End: 05-05-2024 ambulatory SAMMY CHI NACHO Facility:[facility] Start: 05-05-2024 End: 05-05-2024 Patient encounter procedure Kurtis Barry MD Work Phone: Ophthalmology Comment on above: Type 2 diabetes sandoval itus without retinopathy (HCC) (Primary Dx); 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 Start: 04-01-2024 End: 04-01-2024 ambulatory EWELINA BAGLEY Facility:[facility] Start: 04-01-2024 End: 04-01-2024 Patient encounter procedure Ewelina Bagley OD Work Phone: Ophthalmology Comment on above: Type 2 diabetes sandoval itus without retinopathy (HCC) (Primary Dx); 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; 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; Bilateral cornea scars; Pseudophakia Start: 02-03-2024 End: 02-03-2024 ambulatory Sammy Chi Nacho Facility:[facility] Start: 02-02-2024 End: 02-02-2024 ambulatory Sammy Chi Nacho Facility:[facility] Start: 01-07-2024 End: 01-07-2024 Telephone encounter Benny Marina MD Work Phone: Ophthalmology Start: 01-06-2024 End: 04-06-2024 ambulatory BENNY MARINA Facility:[facility] Start: 01-06-2024 End: 01-06-2024 Patient encounter procedure Yogesh Dunne MD Work Phone: Ophthalmology Comment on above: Corneal scar (Primar y Dx) Start: 11-11-2023 End: 11-11-2023 ambulatory Sammy Chi Nacho Facility:[facility] Start: 10-20-2023 End: 10-20-2023 ambulatory Tanya Blackburn Facility:[facility] Start: 10-14-2023 End: 10-15-2023 ambulatory FRANKLIN CHAIDEZ Facility:[facility] Start: 10-12-2023 ambulatory Sammy Chi Nacho Facility:[facility] Start: 10-12-2023 End: 10-12-2023 ambulatory Sammy Chi Nacho Facility:[facility] Start: 10-10-2023 ambulatory Sammy Chi Nacho Facility:[facility] Start: 10-10-2023 End: 10-13-2023 Evaluation and management of inpatient Sammy Chi Nacho Facility:[facility] Start: 10-08-2023 End: 10-08-2023 ambulatory EWELINA BAGLEY Facility:[facility] Start: 10-08-2023 End: 10-08-2023 Patient encounter procedure Benny Marina MD Work Phone: Ophthalmology Comment on above: Corneal scar Start: 10-07-2023 Refill Keyona Dowell MD Work Phone: Ophthalmology Start: 10-06-2023 Refill Keyona Dowell MD Work Phone: Ophthalmology Comment on above: Refill Request Start: 09-16-2023 Telephone encounter Benny Marina MD Work Phone: Ophthalmology Comment on above: Appeal letter Start: 09-01-2023 Telephone encounter Benny Marina MD Work Phone: Ophthalmology Start: 08-20-2023 End: 08-20-2023 ambulatory EWELINA BAGLEY Facility:[facility] Start: 08-20-2023 End: 08-20-2023 Patient encounter procedure Ewelina Bagley OD Work Phone: Ophthalmology Comment on above: 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); Bilateral cornea scars; Type 2 diabetes mellitus without retinopathy (HCC); Pseudophakia; 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; Epiretinal membrane (ERM) of both eyes Start: 08-05-2023 End: 08-05-2023 Patient encounter procedure Yogesh Dunne MD Work Phone: Ophthalmology Comment on above: 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) Start: 04-21-2023 End: 04-21-2023 Patient encounter procedure Benny Marina MD Work Phone: Ophthalmology Comment on above: Pre-operative anxiet y (Primary Dx); Post-op pain; 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 Start: 01-28-2023 End: 01-28-2023 ambulatory [facility] Work Phone: Start: 01-28-2023 End: 01-28-2023 Patient encounter procedure [facility]-Laboratory, Phy Office 3rd Flr Start: 12-11-2022 End: 12-11-2022 Patient encounter procedure Shaun Zavala APRN.FOOD SERVICE HELPER Work Phone: Ophthalmology Comment on above: Trichiasis without e ntropion left upper eyelid (Primary Dx) Start: 12-01-2022 End: 12-01-2022 Patient encounter procedure Karuna Leahy MD Work Phone: Ophthalmology Comment on above: Trichiasis without e ntropion left upper eyelid (Primary Dx) Start: 10-07-2022 Telephone encounter Yogesh bass MD Work Phone: Ophthalmology Comment on above: Patient Question Start: 10-02-2022 Telephone encounter Karuna Leahy MD Work Phone: Ophthalmology Comment on above: Follow Up Start: 10-02-2022 End: 10-02-2022 Patient encounter procedure Benny Marina MD Work Phone: Ophthalmology Comment on above: Bilateral cornea sca rs (Primary Dx); 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 Sammy Griffith Work Phone: [facility] Work Phone: Start: 09-08-2022 End: 09-08-[address] Sammy Griffith Work Phone: [facility] Work Phone: Start: 08-13-2022 End: 08-13-[address] Sammy Griffith Work Phone: [facility] Work Phone: Start: 07-29-2022 End: 07-29-[address] [facility]: Start: 07-14-2022 Telephone encounter Yogesh bass MD Work Phone: [facility] Comment on above: Patient Question Start: 01-27-2022 End: 01-27-2022 ambulatory [facility] Work Phone: Start: 01-27-2022 End: 01-27-2022 [facility] Start: 09-09-2021 End: 09-09-[address] Sammy Griffith Work Phone: [facility] Start: 07-31-2021 End: 07-31-[address] Sammy Griffith Work Phone: [facility] Start: 07-17-2021 End: 07-17-2021 Patient encounter procedure [facility] Office 3rd Flr Start: 06-01-2018 End: 06-01-2018 Patient encounter procedure [facility] Start: 02-02-2018 End: 02-02-2018 Patient encounter procedure [facility] Procedures Date Procedure Procedure Detail Performing Clinician Start: 09-07-2024 Vitamin D, 25-hydrox y measurement Dr. Sammy Griffith MD Work Phone: Comment on above: Vitamin D StatusDefi ciency: <20 ng/mL (50nmol/L)Insufficiency: 20-30 ng/mL (50-75 nmol/L)Sufficiency: 30-100 ng/mL (75-250 nmol/L)Toxicity: >100 ng/mL (>250 nmol/L) Start: 08-30-2024 Serum inorganic phos phate measurement Dr. Sammy Griffith MD Work Phone: Start: 08-04-2024 Computerized ophthal carol imaging retina Kurtis Barry MD Work Phone: Start: 05-18-2024 Ophthalmic us dx cor barry pachymetry uni/bi Hattie Watkins MD Work Phone: Start: 05-18-2024 End: 05-18-2024 Fundus photography w/interpretation & report Hattie Watkins MD Work Phone: Start: 05-05-2024 Computerized ophthal carol imaging retina Kurtis Barry MD Work Phone: Start: 04-01-2024 Computerized ophthal carol imaging retina Ewelina Bagley OD Work Phone: Start: 10-08-2023 PHOTOTHERAPEUTIC KERATECTOMY (PTK) OD (RIGHT EYE) Benny Marina MD Work Phone: Start: 08-05-2023 Cmptr ophthalmic dx img ant segmt w/i&r uni/bi Yogesh Dunne MD Work Phone: Start: 04-21-2023 PHOTOTHERAPEUTIC KERATECTOMY (PTK) OS (LEFT EYE) Benny Marina MD Work Phone: Start: 12-11-2022 Correction trichiasi s epilation oth/than forceps Shaun 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 Work Phone: Start: 10-02-2022 Computerized corneal topography uni/bi Benny Marina MD Work Phone: Start: 09-17-2022 Cmptr ophthalmic dx img ant segmt w/i&r uni/bi Yogesh Dunne MD Work Phone: Start: 01-16-2005 History of coronary artery bypass grafting H/O coronary artery bypass surgery 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 Comment on above: CABG x 5 STROUD-LAD, S equential SVG-PDA and PLB of RCA, Sequential SVG-Ramus and D2 01/16/2005 Plan of Treatment Date Care Activity Detail Author Start: 08-19-2025 End: 01-26-2026 OCT MACULA CIRRUS OU (BOTH EYES) OCT MACULA CIRRUS OU (BOTH EYES) [facility] Imaging Routine Type 2 diabetes mellitus without retinopathy (HCC) 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 Expected: 08/19/2025, Expires: 01/26/2026 [facility] Work Phone: Comment on above: Expected: 08/19/2025 , Expires: 01/26/2026 Start: 08-04-2025 Glaucoma screening Dilated Retinal E [facility] Start: 05-20-2025 End: 10-27-2025 OCT MACULA CIRRUS OU (BOTH EYES) OCT MACULA CIRRUS OU (BOTH EYES) [facility] Imaging Routine Type 2 diabetes mellitus without retinopathy (HCC) 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 Expected: 05/20/2025, Expires: 10/27/2025 [facility] Work Phone: Comment on above: Expected: 05/20/2025 , Expires: 10/27/2025 Start: 05-18-2025 Glaucoma screening Dilated Retinal E [facility] Start: 05-05-2025 Glaucoma screening Dilated Retinal E [facility] Start: 04-01-2025 Glaucoma screening Dilated Retinal E [facility] Start: 02-02-2025 End: 02-02-2025 Patient encounter procedure 02/02/2025 1:00 PM EST Office Visit [facility] [address] [place] [address] Kurtis Barry MD [address] [place] [address] [facility] [address] [address] *6 M, DFE/OCT Ophthalmology Comment on above: *6 M, DFE/OCT Start: 10-17-2024 End: 10-17-2024 Patient encounter procedure Ophthalmology Comment on above: iop check iop check-per mkg Start: 09-22-2024 ambulatory Ambulatory Facility:[facility] Start: 08-23-2024 Evaluation of diagnostic study results [facility] Start: 08-04-2024 End: 08-04-2024 Patient encounter procedure 08/04/2024 1:15 PM EDT Office Visit [facility] [address] [place] [address] Kurtis Baryr MD [address] [place] [address] *3 M, DFE/OCT -pt wears scleral lenses Ophthalmology Comment on above: *3 M, DFE/OCT -pt we ars scleral lenses Start: 08-03-2024 End: 08-03-2024 Patient encounter procedure Ophthalmology Comment on above: 6 MO F/U Start: 07-06-2024 End: 07-06-2024 Patient encounter procedure 07/06/2024 12:45 PM EDT Office Visit [facility] [address] [place] [address] Yogesh Dunne MD [address] [place] [address] 6 MO F/U Ophthalmology Comment on above: 6 MO F/U Start: 07-05-2024 End: 07-05-2024 Patient encounter procedure 07/05/2024 1:15 PM EDT Office Visit [facility] [address] [place] [address] Ewelina Bagley, OD [address] [place] [address] 2 week follow up for CL f/u Ophthalmology Comment on above: 2 week follow up for CL f/u Start: 06-21-2024 End: 06-21-2024 Patient encounter procedure 06/21/2024 10:30 AM EDT Office Visit [facility] [address] [place] [address] Ewelina Bagley, OD [address] [place] [address] contact lens dispensing Ophthalmology Comment on above: contact lens dispens ing Start: 06-20-2024 End: 06-20-2024 Patient encounter procedure 06/20/2024 1:30 PM EDT Office Visit [facility] [address] [place] [address] Hattie Watkins MD [address] [place] [address] VF Ophthalmology Comment on above: VF Start: 05-31-2024 End: 05-31-2024 Patient encounter procedure 05/31/2024 1:15 PM EDT Office Visit [facility] [address] [address] Ewelina Bagley, OD [address] [place] [address] 2m f/up for possible scleral lens fitting Ophthalmology Comment on above: 2m f/up for possible scleral lens fitting Start: 05-18-2024 End: 05-18-2024 Patient encounter procedure 05/18/2024 2:00 PM EDT Office Visit [facility] [address] [place] [address] Hattie Watkins MD [address] [place] [address] GLAUCOMA EVAL-REFERRED BY DR BARRY Ophthalmology Comment on above: GLAUCOMA EVAL-REFERR ED BY DR BARRY Start: 05-05-2024 End: 05-05-2024 Patient encounter procedure 05/05/2024 12:45 PM EDT Office Visit [facility] [address] [place] [address] Kurtis Barry MD [address] [place] [address] dr dunne referred pt for routine diabetic retinopathy -pt wears scleral lenses Ophthalmology Comment on above: dr dunne referred p t for routine diabetic retinopathy -pt wears scleral lenses Start: 02-24-2024 Advance Directive Discussion Advance Directive Discussion [facility] Start: 02-24-2024 Medicare Advantage Annual Wellness Visit Medicare Advantage Annual Wellness Visit [facility] Start: 10-25-2023 Covid-19 Vaccine ( season) Covid-19 Vaccine () [facility] Start: 10-25-2023 Influenza vaccination Influenza Vacc ine (#1) [facility] Start: 10-14-2023 End: 10-14-2023 Patient encounter procedure 10/14/2023 1:30 PM EDT Office Visit [facility] [address] [address] Franklin Chaidez, OD [address] [place] [address] 1 WK PTK OD Ophthalmology Comment on above: 1 WK PTK OD Start: 10-08-2023 End: 10-08-2023 Patient encounter procedure 10/08/2023 12:30 PM EDT Office Visit [facility] Op[facility] [address] [address] Benny Marina MD [address] [place] [address] PTK OD Ophthalmology Comment on above: PTK OD Start: 08-25-2023 End: 08-25-2023 Patient encounter procedure 08/25/2023 8:15 AM EDT Office Visit [facility] [address] [place], [place] [id number] Ewelina Bagley, OD [address] [place] [address] Eye exam Ophthalmology Comment on above: Eye exam Start: 02-23-2023 Advance Directive Discussion Advance Directive Discussion [facility] Start: 02-23-2023 Behavioral Health Screening Behavioral Health Screening [facility] Start: 02-23-2023 Depression Assessment Depression Ass essment [facility] Start: 10-24-2022 Covid-19 Vaccine ( season) Covid-19 Vaccine () [facility] Start: 10-24-2022 Covid-19 Vaccine (5 - 2023-24 season) Covid-19 Vaccine ( season) [facility] Start: 10-24-2022 [facility] Start: 02-23-2022 ADVANCE DIRECTIVE DISCUSSION ADVANCE DIRECTIVE DISCUSSION [facility] Start: 02-23-2022 DEPRESSION ASSESSMENT DEPRESSION ASS ESSMENT [facility] Start: 07-12-2021 Glaucoma screening Dilated Retinal E xam [facility] Start: 07-12-2021 Hepatitis C antibody , confirmatory test DILATED RETINAL EXAM [facility] Start: 06-19-2020 COVID-19 VACCINE (3 - Booster for Pfizer series) COVID-19 VACCINE (3 - Booster for Pfizer series) [facility] Start: 06-19-2020 COVID-19 VACCINE (3 - Pfizer series) COVID-19 VACCINE (3 - Pfizer series) [facility] Start: 04-25-2019 Shingrix Vaccine (2 of 2) Shingrix Vaccine (2 of 2) [facility] Start: 2016 RSV Vaccine (1 - 1-dose 75+ series) RSV Vaccine (1 - 1-dose 75+ series) [facility] Start: 2001 Hepatitis B Vaccine (1 of 3 - Risk 3-dose series) Hepatitis B Vaccine (1 of 3 - Risk 3-dose series) [facility] Start: 2001 RSV Vaccine (1 - 1-dose 60+ series) RSV Vaccine (1 - 1-dose 60+ series) [facility] Start: 05-10-1991 SHINGRIX VACCINE (1 of 2) SHINGRIX VACCINE (1 of 2) [facility] Start: 1960 Pneumococcal Vaccine : 50+ (1 of 2 - PCV) Pneumococcal Vaccine: 50+ (1 of 2 - PCV) [facility] Start: 1960 Urine microalbumin profile [facility] Start: 05-10-1959 Anxiety Screening Anxiety Screening [facility] Start: 05-10-1959 Depression Screening Depression Scre ening [facility] Start: 05-10-1959 Hepatitis B surface antibody level LDL CHOLESTEROL [facility] Start: 05-10-1959 SPIROMETRY SPIROMETRY [facility] Start: 05-10-1951 3 comp foot exam completed DIABETIC FOOT EXAM [facility] Start: 05-10-1951 Diabetic foot examination Diabetic Foot Exam [facility] Start: 05-10-1951 Hepatitis B screening URINE ALBUMIN:CREATININE RATIO [facility] Start: 05-10-1947 Pneumococcal Vaccine : 65+ (1 - PCV) Pneumococcal Vaccine: 65+ (1 - PCV) [facility] Start: 05-10-1947 Pneumococcal Vaccine : 65+ (1 of 2 - PCV) Pneumococcal Vaccine: 65+ (1 of 2 - PCV) [facility] Start: 05-10-1947 PNEUMOCOCCAL: 65+ (1 - PCV) PNEUMOCOCCAL: 65+ (1 - PCV) [facility] Start: 1946 Hemoglobin A1c measurement HbA1C [facility] Start: 1946 Hemoglobin A1c/Hemoglobin.total in Blood HBA1C [facility] Keratoplasty pentrg except aphakia/pseudophakia KERATOPLASTY, PENETRATING CORNEAL TRANSPLANT EXCEPT APHAKIA OR PSUEDOAPHAKIA Bilateral cornea scars [facility] NM Heart Views W stress and W radionuclide [facility] Immunizations Immunization Date Immunization Notes Care Provider Rosa martinez 01-28-2023 influenza virus vacc ine, unspecified formulation Benny Marina MD Work Phone: [facility] 12-18-2007 influenza virus vacc ine, unspecified formulation Karuna Leahy MD Work Phone: [facility] Payers Date Payer Category Payer Self-pay [id number] 2023 Medicare (Managed Care) [facility] [id number] 2021 Medicare [id number] 2017 Unknown [id number] Medicare [id number] Unknown [id number]. 2.462 Unknown [id number] [id number]. 2.462 Unknown [id number] 2.16.840.1.140221.3.579. 2.462 Unknown [id number] 2.16.840.1.750243.3.579. 2.462 Unknown [id number] 2.16.840.1.165892.3.579. 2.462 Unknown [id number] [id number]. 2.462 Unknown [id number] 2.16.840.1.577500.3.579. 2.462 Unknown [id number] 2.16.840.1.525510.3.579. 2.462 Unknown [id number] 2.16.840.1.338232.3.579. 2.462 Unknown [id number] 2.16.840.1.409044.3.579. 2.462 Unknown [id number] 2.16.840.1.601573.3.579. 2.462 Unknown [id number] 2.16.840.1.949749.3.579. 2.462 Unknown [id number] 2.16.840.1.624339.3.579. 2.462 Unknown [id number] 2.16.840.1.246157.3.579. 2.462 Unknown [id number] 2.16.840.1.574054.3.579. 2.462 Unknown [id number] [id number]. 2.462 Social History Date Type Detail Facility Start: 01-29-2021 End: 08-13-2022 Tobacco smoking status [facility] Unknown if ever smoked [facility] Start: 1940 Sex Assigned At Male [facility] Start: 03-19-2017 End: 10-10-2023 Tobacco smoking status NHIS Ex-smoker [facility] End: 02-24-1988 History of tobacco use Current smoker [facility] End: 02-24-1988 History of tobacco use Cigarette Smoker [facility] Start: 03-19-2017 End: 01-06-2024 Tobacco use and exposure Smokeless tobacco non-user [facility] Start: 01-21-2021 End: 08-04-2024 Alcohol intake Current non-drinker of alcohol (finding) [facility] Start: 1940 Sex Assigned At Not on file [facility] Start: 01-21-2021 End: 04-01-2024 History of Social function [facility] Start: 01-21-2021 End: 04-01-2024 Tobacco use panel [facility] National Score (1-100), lower number is lower risk 75 [facility] Medical Equipment Procedure Code Equipment Code Equipment Origin al Text Equipment Identifier Dates Lens Acrysof Exp and 6mm 10 D +19 Diopter Biconvex 118.4 A-Constant Monoflex - [id number] Start: 02-02-2018 Graft Amniograft B [id number] Amniotic Membrane 2x1.5in Soft Tissue - [id number] Start: 06-01-2018 Clinical Notes 01-16-2005 to 08-23-2024 Note Date & Type Note Facility 08-23-2024 Evaluation note Diagnosis Onset Date Resolution Bilateral carotid artery stenosis chronic August 23, 2024 1:04pm Essential (primary) hypertension chronic August 23, 2024 1:04pm Pure hypercholesterolemia chronic August 23, 2024 1:04pm 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, 2005 resolved August 23, 2024 1:04pm [facility] Work Phone: 1(862) 790-233806-12-2025 NoteDate of Procedure 08/04/2024. OCT Macula Interpretation Right Eye Findings include Atrophy; Negative for Intraretinal fluid, Cystoid macular edema, Subretinal fluid. Left Eye Findings include Atrophy; Negative for Intraretinal fluid, Cystoid macular edema, Subretinal fluid. Interval Change Right Eye Stable. 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 Patient instructed to call [facility] new distortion or blind spot arises Type 2 Diabetes Mellitus without Diabetic Retinopathy, both eyesNo results found for: HBA1C - BP/BS/Lipid control and regular monitoring with exams reviewed Glaucoma suspect left eye -Appears cupped on exam, but difficult exam as patient is light sensitive on exam and unable to fixate -Patient has a history of severe ocular hypertension -Possibly contributing to decreased vision? -Start latanoprost at bedtime -Following Dr. 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 Dunne Pseudophakia -s/p intraocular lens exchange left eye for dense plaque behind intraocular lens Follow Up: 6 months for dilated fundus exam and OCT both eyes I have confirmed and edited as necessary the relevant HPI, ophthalmic history, ROS, and exam findings as obtained by others. I have seen and examined this patient. I have discussed the case and the management of this patient's care with the Resident, if applicable. I also have reviewed and agree with the assessment and plan as stated above and agree with all ofits relevant components. [facility] NoteHNO ID: [id number] Author: KURTIS BARRY MD Service: ? 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 Patient instructed to call [facility] if new distortion or blind spot arises Type 2 Diabetes Mellitus without Diabetic Retinopathy, both eyesNo results found for: HBA1C - BP/BS/Lipid control and regular monitoring with exams reviewed Glaucoma suspect left eye -Appears cupped on exam, but difficult exam as patient is light sensitive on exam and unable to fixate -Patient has a history of severe ocular hypertension -Possibly contributing to decreased vision? -Start latanoprost at bedtime -Following Dr. 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 Dunne Pseudophakia -s/p intraocular lens exchange left eye for dense plaque behind intraocular lens Follow Up: 6 months for dilated fundus exam and OCT both eyes I have confirmed and edited as necessary the relevant HPI, ophthalmic history, ROS, and exam findings as obtained by others. I have seen and examined this patient. I have discussed the case and the management of this patient's care with the Resident, if applicable. I also have reviewed and agree with the assessment and plan as stated above and agree with all of its relevant components.[facility]06-11-2025 Instructions* Patient Instructions* Yogesh Dunne MD - 08/03/2024 2:11 PM EDT Images from the original note were not included. documented in this encounterHigh[facility]06-11-[facility]25 NoteHNO ID: [id number] Author: YOGESH DUNNE MD Service: ? Author Type: Physician Type: Progress Notes Filed: 08/03/2024 14:16 Note Text: Assessment and Plan 1. 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 Bilateral cornea scars -history of multiple superficial keratectomies -has tried multiple drops with limited help -has been using scleral lenses that help at the beginning of the day but worsens over time - likely dry eye component -no improvement with losartan x3 months -s/p Phototherapeutic keratectomy (PTK) left eye 04/21/23 -s/p Phototherapeutic keratectomy (PTK) right eye 10/08/23 3. Type 2 diabetes mellitus without retinopathy (HCC) 4. 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 Barry 4. Pseudophakia -s/p intraocular lens exchange left eye for dense plaque behind intraocular lens 5. Trichiasis left upper lid -epilation with Shaun Zavala Plan: -good improvement with Phototherapeutic keratectomy (PTK) left eye, but inadequate right eye -scleral lens helping left eye but not right eye -unable to place plugs upper nor lower lid - cauterized puncta? -continue artificial tears -xiidra twice a day both eyes -continue scleral lenses with Dr. Bagley as well as routine retina -asking for penetrating keratoplasty (PK) vs deep anterior lamellar keratoplasty (DALK) right eye - risk, benefis, and alternatives reviewed and consent obtained I have confirmed and edited as necessary the relevant ophthalmic history, ROS, and the neuro exam findings as obtained by others. I have seen and examined Giselle Salguero. I have discussed the case and the management of this patient's care with the Resident/Fellow, if applicable. I also have reviewed and agree with the assessment and plan as stated above and agree with all of its relevant components. Yogesh Dunne, [facility]06-11-2025 History of Present illness Narrative* Yogesh Dunne MD - 08/03/2024 2:06 PM EDT Assessment and Plan 1. 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 Bilateral cornea scars -history of multiple superficial keratectomies -has tried multiple drops with limited help -has been using scleral lenses that help at the beginning of the day but worsens over time - likelydry eye component -no improvement with losartan x3 months -s/p Phototherapeutic keratectomy (PTK) left eye 04/21/23 -s/p Phototherapeutic keratectomy (PTK) right eye 10/08/23 3. Type 2 diabetes mellitus without retinopathy (HCC) 4. 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 Barry 4. Pseudophakia -s/p intraocular lens exchange left eye for dense plaque behind intraocular lens 5. Trichiasis left upper lid -epilation with Shaun Zavala Plan: -good improvement with Phototherapeutic keratectomy (PTK) left eye, but inadequate right eye -scleral lens helping left eye but not right eye -unable to place plugs upper nor lower lid - cauterized puncta? -continue artificial tears -xiidra twice a day both eyes -continue scleral lenses with Dr. Bagley as well as routine retina -asking for penetrating keratoplasty (PK) vs deep anterior lamellar keratoplasty (DALK) right eye -risk, benefis, and alternatives reviewed and consent obtained I have confirmed and edited as necessary the relevant ophthalmic history, ROS, and the neuro exam findings as obtained by others. I have seen and examined Giselle Salguero. I have discussed the case and the management of this patient's care with the Resident/Fellow, if applicable. I also have reviewed and agree with the assessment and plan as stated above and agree withall of its relevant components. Yogesh Dunne MD documented in [facility]High[facility]25 NoteHNO ID: [id number] Author: EWELINA BAGLEY OD Service: ? Author Type: FILM TESTS CHECKER Type: Progress Notes Filed: 07/05/2024 14:37 Note Text: 1. 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 Bilateral cornea scars Finalized contact lenses Good fit with current lenses Educated pt that vision is at maximum capability due to other visual limitations Urged pt to use PF (vials) with contact lenses as needed Follow-up as needed or yearly Ewelina Bagley OD July 05, 2024 2:34 [facility]05-13-2025 History of Present illness Narrative* Ewelina Bagley, AURELIO - 07/05/2024 2:34 PM EDT 1. 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 Bilateral cornea scars Finalized contact lenses Good fit with current lenses Educated pt that vision is at maximum capability due to other visual limitations Urged pt to use PF (vials) with contact lenses as needed Follow-up as needed or yearly Ewelina Bagley OD July 05, 2024 2:34 PM documented in this encounterHigh[facility]04-29-2025 NoteHNO ID: [id number] Author: EWELINA BAGLEY OD Service: ? 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 Author Type: Physician Type: Progress Notes Filed: 06/20/2024 13:27 Note Text: PATIENT IS STILL CURRENTLY DRIVING. I EXPLAINED TO PATIENT DUE TO HIS VISUAL ACUITY HE SHOULD NOT BE DRIVING. ASSESSMENT/PLAN: 1. 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 Bilateral cornea scars - ICD9: 371.00, ICD10: H17.9 Status Post Phototherapeutic keratectomy (PTK) Left Eye (04/21/2023) Status Phototherapeutic keratectomy (PTK) Right Eye (10/08/2023) Continue: Systane Complete solution instill 1 drop 3 times daily Both Eyes. 3. Ocular hypertension of left eye - ICD9: 365.04, ICD10: H40.052 4. Optic cupping of both eyes - ICD9: 377.14, ICD10: H47.233 Patient denies family history of Glaucoma. Monitor 5. Type 2 diabetes mellitus without retinopathy (HCC) - ICD9: 250.00, ICD10: E11.9 Please keep your blood sugar under good control to minimize risk of ocular complications from diabetes. Continue to monitor with primary care physician. 6. Pseudophakia of both eyes - ICD9: V43.1, ICD10: Z96.1 Intraocular lens implant in good position Both Eyes. I have confirmed and edited as necessary the relevant HPI, ophthalmic history, ROS, and the neuro exam findings as obtained by others. I have seen and examined Giselle Salguero. I have discussed the case and the management of this patient's care with the Resident/Fellow, if applicable. I also have reviewed and agree with the assessment and plan as stated above and agree with all of its relevant components.[facility]04-22-2025 Telephone encounter Note* Telephone Encounter - Ariella Ariza - 06/14/2024 1:15 PM EDT Patient returned call and scheduled as directed [facility]04-22-2025 Miscellaneous Notes* Telephone Encounter - Ariella Ariza - 06/14/2024 1:15 PM EDT Patient returned call and scheduled as directed * Telephone Encounter - Vonda Johnson - 06/14/2024 12:49 PM EDT 1st attempt left message to return call. Can someone please call this patient and schedule him for a contact lens dispensing appointment with Dr. Bagley. We need this patient scheduled in a open 45 minute time slot. If you have any questions please feel free to let me know if you have any questions. * Telephone Encounter - Anthony Hatch OA - 06/14/2024 9:56 AM EDT Received patient's speciality contact lenses. Can someone please call this patient and schedule him for a contact lens dispensing appointment with Dr. Bagley. We need this patient scheduled in a open 45 minute time slot. If you have any questions please feel free to let me know if you have any questions. ThanksAnthony OA documented in this encounterHighland District Hospital04-22-2025 Telephone encounter Note * Telephone Encounter - Nattrevor Mikey Vonda - 06/14/2024 12:49 PM EDT 1st attempt left message to return call. Can someone please call this patient and schedule him for a contact lens dispensing appointment with Dr. Bagley. We need this patient scheduled in a open 45 minute time slot. If you have any questions please feel free to let me know if you have any questions. [facility]04-22-20[facility] Telephone encounter Note* Telephone Encounter - Anthony Hatch OA - 06/14/2024 9:56 AM EDT Received patient's speciality contact lenses. Can someone please call this patient and schedule him for a contact lens dispensing appointment with Dr. Bagley. We need this patient scheduled in a open 45 minute time slot. If you have any questions please feel free to let me know if you have any questions. Thanks, TO Hsu [facility]04-08-2025 NoteHNO ID: [id number] Author: EWELINA BAGLEY OD Service: ? Author Type: FILM TESTS CHECKER Type: Progress Notes Filed: 05/31/2024 15:27 Note Text: 1. 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 Bilateral cornea scars Refit with ZenLens OU in office today Vision improved from 20/400 sc to 20/150 cc right eye and 20/150 to 20/100 cc left eye 3. Pseudophakia of both eyes Clear capsule Monitor 4. Type 2 diabetes mellitus without retinopathy (HCC) Continue to maintain good BS control 5. Optic cupping Continue follow-up with Dr. Watkins 6. AMD both eyes Continue follow-up with Dr. Barry Will call patient for in office dispense when lenses arrive (please allow 45 min appt) Ewelina Bagley, OD May 31, 2024 3:19 [facility]04-08-2025 History of Present illness Narrative* Ewelina Bagley, OD - 05/31/2024 3:19 PM EDT 1. 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 Bilateral cornea scars Refit with ZenLens OU in office today Vision improved from 20/400 sc to 20/150 cc right eye and 20/150 to 20/100 cc left eye 3. Pseudophakia of both eyes Clear capsule Monitor 4. Type 2 diabetes mellitus without retinopathy (HCC) Continue to maintain good BS control 5. Optic cupping Continue follow-up with Dr. Watkins 6. AMD both eyes Continue follow-up with Dr. Barry Will call patient for in office dispense when lenses arrive (please allow 45 min appt) Ewelina Bagley, OD May 31, 2024 3:19 PM documented in this encounterHighland [facility] Hospital03-26-2025 NoteTable formatting from the original result was not included. Date of Procedure 05/18/2024. Notes Ophthalmology Exam Pachymetry (05/18/2024) Right Left Thickness [phone] Done with hand held pachymeter Edited by: Hattie Watkins MD [id number] NoteDate of Procedure 05/18/2024. Quality Right Eye Good. Left Eye Good. Interval Change Right Eye Initial. Left Eye Initial. Notes RNFL Right eye: 90 Left eye: [id number] NoteDate of Procedure 05/18/2024. C/D Ratio Right Eye .5. Left Eye 0.7. Disc Right Eye Cupping. Left Eye Cupping. Macula Left Eye Geographic atrophy. Periphery Right Eye Normal. Left Eye Normal.[id number] NoteHNO ID: [id number] Author: HATTIE WATKINS MD Service: ? Author Type: Physician Type: Progress Notes Filed: 05/18/2024 15:49 Note Text: ASSESSMENT/PLAN: 1. Optic cupping of both eyes - ICD9: 377.14, ICD10: H47.233 (primary diagnosis) 2. Ocular hypertension of left eye - ICD9: 365.04, ICD10: H40.052 Patient to return for visual field testing Patient advised that he needs to wear his contact lenses to his next visit 3. Corneal scar - ICD9: 371.00, ICD10: H17.9 Monitor 4. 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 AREDS 2 Vitamins are available over the counter at any drug store. 5. Type 2 diabetes mellitus without retinopathy (HCC) - ICD9: 250.00, ICD10: E11.9 Please keep your blood sugar under good control to minimize risk of ocular complications from diabetes. I have confirmed and edited as necessary the relevant HPI, ophthalmic history, ROS, and the neuro exam findings as obtained by others. I have seen and examined Giselle Salguero. I have discussed the case and the management of this patient's care with the Resident/Fellow, if applicable. I also have reviewed and agree with the assessment and plan as stated above and agree with all of its relevant components.[facility]03-[facility] History of Present illness Narrative* Hattie Watkins MD - 05/18/2024 3:42 PM EDT ASSESSMENT/PLAN: 1. Optic cupping of both eyes - ICD9: 377.14, ICD10: H47.233 (primary diagnosis) 2. Ocular hypertension of left eye - ICD9: 365.04, ICD10: H40.052 Patient to return for visual field testing Patient advised that he needs to wear his contact lenses to his next visit 3. Corneal scar - ICD9: 371.00, ICD10: H17.9 Monitor 4. 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 AREDS 2 Vitamins are available over the counter at any drug store. 5. Type 2 diabetes mellitus without retinopathy (HCC) - ICD9: 250.00, ICD10: E11.9 Please keep your blood sugar under good control to minimize risk of ocular complications from diabetes. I have confirmed and edited as necessary the relevant HPI, ophthalmic history, ROS, and the neuro exam findings as obtained by others. I have seen and examined Giselle Salguero. I have discussed the case and the management of this patient's care with the Resident/Fellow, if applicable. I also have reviewed and agree with the assessment and plan as stated above and agree withall of its relevant components. documented in this encounterHigh[facility]03-13-2025 NoteHNO ID: [id number] Author: KURTIS BARRY MD Service: ? Author Type: Physician Type: Progress Notes Filed: 05/05/2024 14:02 Note Text: Nonexudative Age related macular degeneration advanced atrophic Stage with subfoveal atrophy, both eyes -Smoking status: Quit many years ago -Does appear in-part responsible for decreased vision both eyes -Start AREDS2 twice a day -Wet Age related macular degeneration conversion precautions given. Patient instructed to call PAT if new distortion or blind spot arises Type 2 Diabetes Mellitus without Diabetic Retinopathy, both eyesNo results found for: HBA1C - BP/BS/Lipid control and regular monitoring with exams reviewed Glaucoma suspect left eye -Appears cupped on exam, but difficult exam as patient is light sensitive on exam and unable to fixate -Patient has a history of severe ocular hypertension -Possibly contributing to decreased vision? -Start latanoprost at bedtime -Recommend evaluation by Dr. Watkins Anterior basement membrane dystrophy (ABMD) both eyes -Bilateral cornea scars -history of multiple superficial keratectomies -has tried multiple drops with limited help -has been using scleral lenses that help at the beginning of the day but worsens over time - likely dry eye component Have not have them updated since 2020 -little improvement with losartan x3 months -s/p Phototherapeutic keratectomy (PTK) left eye 04/21/23 -s/p Phototherapeutic keratectomy (PTK) right eye 10/08/23 -Today, appears fairly clear left eye, but right eye still has a fair bit of haze that is precluding an adequate view of the posterior segment -Follow up with Dr. Dunne Pseudophakia -s/p intraocular lens exchange left eye for dense plaque behind intraocular lens Follow Up: Retina [address] Dunne as scheduled. Dr. Wtakins next available for glaucoma eval. Depending on results, may need low vision evaluation I have confirmed and edited as necessary the relevant HPI, ophthalmic history, ROS, and exam findings as obtained by others. I have seen and examined this patient. I have discussed the case and the management of this patient's care with the Resident, if applicable. I also have reviewed and agree with the assessment and plan as stated above and agree with all of its relevant components.[facility]03-13-2025 NoteDate of Procedure 05/05/2024. 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 OCT Macula Interpretation Right Eye Findings include Epiretinal membrane, Atrophy. Left Eye Findings include Epiretinal membrane, Atrophy. Interval Change Right Eye Stable. Left Eye Stable.[id number] History of Present illness Narrative* Kurtis Barry MD - 05/05/2024 1:37 PM EDT Nonexudative Age related macular degeneration advanced atrophic Stage with subfoveal atrophy, both eyes -Smoking status: Quit many years ago -Does appear in-part responsible for decreased vision both eyes -Start AREDS2 twice a day -Wet Age related macular degeneration conversion precautions given. Patient instructed to call [facility] new distortion or blind spot arises Type 2 Diabetes Mellitus without Diabetic Retinopathy, both eyesNo results found for: HBA1C - BP/BS/Lipid control and regular monitoring with exams reviewed Glaucoma suspect left eye -Appears cupped on exam, but difficult exam as patient is light sensitive on exam and unable to fixate -Patient has a history of severe ocular hypertension -Possibly contributing to decreased vision? -Start latanoprost at bedtime -Recommend evaluation by Dr. 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 Dunne Pseudophakia -s/p intraocular lens exchange left eye for dense plaque behind intraocular lens Follow Up: Retina [address] Dunne as scheduled. Dr. Watkins next available for glaucoma eval. Depending on results, may need low vision evaluation I have confirmed and edited as necessary the relevant HPI, ophthalmic history, ROS, and exam findings as obtained by others. I have seen and examined this patient. I have discussed the case and the management of this patient's care with the Resident, if applicable. I also have reviewed and agree with the assessment and plan as stated above and agree with all ofits relevant components. documented in this encounterHighland [facility] Hospital02-10-2025 NoteHNO ID: [id number] Author: EWELINA BAGLEY, AURELIO Service: ? Author Type: FILM TESTS CHECKER Type: Progress Notes Filed: 04/04/2024 13:33 Note Text: 1. 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 Encouraged patient to call the office immediately with any changes to vision or visual concerns. Advised to not wait until the next scheduled exam. 2. 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 Bilateral cornea scars -history of multiple superficial keratectomies -has tried multiple drops with limited help -has been using scleral lenses that help at the beginning of the day but worsens over time - likely dry eye component Have not have them updated since 2021 -little improvement with losartan x3 months -s/p Phototherapeutic keratectomy (PTK) left eye 04/21/23 -s/p Phototherapeutic keratectomy (PTK) right eye 10/08/23 5. Pseudophakia -s/p intraocular lens exchange left eye for dense plaque behind intraocular lens Did not finalize rx at this time- recommend seeing retina (scheduled with Dr. Barry next month) Will re-assess scleral lenses after retina eval -educated patient that I will need to refit in different lens since I work with different companies than Dr. Karnia Bagley, OD April 04, 2024 1:25 [facility]02-10-2025 History of Present illness Narrative* Ewelina Bagley, OD - 04/04/2024 1:25 PM EST 1. 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 Encouraged patient to call the officeimmediately with any changes to vision or visual concerns. Advised to not wait until the next schedu led exam. 2. 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 Bilateral cornea scars -history of multiple superficial keratectomies -has tried multiple drops with limited help -has been using scleral lenses that help at the beginning of the day but worsens over time - likelydry eye component Have not have them updated since 2020 -little improvement with losartan x3 months -s/p Phototherapeutic keratectomy (PTK) left eye 04/21/23 -s/p Phototherapeutic keratectomy (PTK) right eye 10/08/23 5. Pseudophakia -s/p intraocular lens exchange left eye for dense plaque behind intraocular lens Did not finalize rx at this time- recommend seeing retina (scheduled with Dr. Barry next month) Will re-assess scleral lenses after retina eval -educated patient that I will need to refit in different lens since I work with different companiesan Dr. Karina Bagley, OD April 04, 2024 1:25 PM documented in this encounterHighland [facility] Hospital02-07-2025 NoteDate of Procedure 04/01/2024. 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 Poor View OU . OCT Macula Interpretation Right Eye Abnormal foveal contour. Findings include Atrophy. Left Eye Abnormal foveal contour. Findings include Atrophy. Interval Change Right Eye Initial. Left Eye Initial.[id number] Telephone encounter Note* Telephone Encounter - Kena Zaragoza - 01/07/2024 1:16 PM EST The patient called stating that Dr. Young's office will be following up with him and helping with glasses. Pt states we have to call Dr. Young's office to let them know what was done. I called the office and they said we could fax over his notes as well. Notes faxed to [phone] for follow up treatment with Dr. Young. Benny Marina MD filed at 10/08/2023 1:33 PM Status: Signed PTK with smoothing and MMC Right eye BCL placed Benny Marina MD [facility] Dr. Young: [phone] Yogesh Dunne MD filed at 01/06/2024 2:11 PM Status: Signed Assessment and Plan 1. 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 Bilateral cornea scars -history of multiple superficial keratectomies -has tried multiple drops with limited help -has been using scleral lenses that help at the beginning of the day but worsens over time - likelydry eye component -little improvement with losartan x3 months -s/p Phototherapeutic keratectomy (PTK) left eye 04/21/23 -s/p Phototherapeutic keratectomy (PTK) right eye 10/08/23 3. Type 2 diabetes mellitus without retinopathy (HCC) -no diabetic retinopathy both eyes 4. Pseudophakia -s/p intraocular lens exchange left eye for dense plaque behind intraocular lens 5. Epiretinal membrane both eyes -preserved foveal contour both eyes 6. Trichiasis left upper lid -epilation with Shaun Zavala Plan: -good improvement with Phototherapeutic keratectomy (PTK), especially left eye -significant punctate epithelial erosions both eyes impacting vision and limiting duration of scleral lens wear -unable to place plugs upper nor lower lid - cauterized puncta? -continue artificial tears -start xiidra twice a day both eyes -continue scleral lenses with Dr. Bagley as well as routine retina -me in 6 months / sooner as needed I have confirmed and edited as necessary the relevant ophthalmic history, ROS, and the neuro exam findings as obtained by others. I have seen and examined Giselle Chung Jose M. I have discussed the case and the management of this patient's care with the Resident/Fellow, if applicable. I also have reviewed and agree with the assessment and plan as stated above and agree withall of its relevant components. Yogesh Dunne MD [facility]11-14-2024 Miscellaneous Notes* Telephone Encounter - Kena Zaragoza - 01/07/2024 1:16 PM EST The patient called stating that Dr. Young's office will be following up with him and helping with glasses. Pt states we have to call Dr. Young's office to let them know what was done. I called the office and they said we could fax over his notes as well. Notes faxed to [phone] for follow up treatment with Dr. Young. Benny Marina MD filed at 10/08/2023 1:33 PM Status: Signed PTK with smoothing and MMC Right eye BCL placed Benny Marina MD [facility] Dr. Young: [phone] Yogesh Dunne MD filed at 01/06/2024 2:11 PM Status: Signed Assessment and Plan 1. 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 Bilateral cornea scars -history of multiple superficial keratectomies -has tried multiple drops with limited help -has been using scleral lenses that help at the beginning of the day but worsens over time - likelydry eye component -little improvement with losartan x3 months -s/p Phototherapeutic keratectomy (PTK) left eye 04/21/23 -s/p Phototherapeutic keratectomy (PTK) right eye 10/08/23 3. Type 2 diabetes mellitus without retinopathy (HCC) -no diabetic retinopathy both eyes 4. Pseudophakia -s/p intraocular lens exchange left eye for dense plaque behind intraocular lens 5. Epiretinal membrane both eyes -preserved foveal contour both eyes 6. Trichiasis left upper lid -epilation with Rebekke Lucas Plan: -good improvement with Phototherapeutic keratectomy (PTK), especially left eye -significant punctate epithelial erosions both eyes impacting vision and limiting duration of scleral lens wear -unable to place plugs upper nor lower lid - cauterized puncta? -continue artificial tears -start xiidra twice a day both eyes -continue scleral lenses with Dr. Bagley as well as routine retina -me in 6 months / sooner as needed I have confirmed and edited as necessary the relevant ophthalmic history, ROS, and the neuro exam findings as obtained by others. I have seen and examined Giselle Salguero. I have discussed the case and the management of this patient's care with the Resident/Fellow, if applicable. I also have reviewed and agree with the assessment and plan as stated above and agree withall of its relevant components. Yogesh Dunne MD documented in this encounterHigh[facility]11-13-[facility]24 NoteHNO ID: [id number] Author: YOGESH DUNNE MD Service: ? Author Type: Physician Type: Progress Notes Filed: 01/06/2024 14:11 Note Text: Assessment and Plan 1. 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 Type 2 diabetes mellitus without retinopathy (HCC) -no diabetic retinopathy both eyes 4. Pseudophakia -s/p intraocular lens exchange left eye for dense plaque behind intraocular lens 5. Epiretinal membrane both eyes -preserved foveal contour both eyes 6. Trichiasis left upper lid -epilation with Rebekke Lucas Plan: -good improvement with Phototherapeutic keratectomy (PTK), especially left eye -significant punctate epithelial erosions both eyes impacting vision and limiting duration of scleral lens wear -unable to place plugs upper nor lower lid - cauterized puncta? -continue artificial tears -start xiidra twice a day both eyes -continue scleral lenses with Dr. Bagley as well as routine retina -me in 6 months / sooner as needed I have confirmed and edited as necessary the relevant ophthalmic history, ROS, and the neuro exam findings as obtained by others. I have seen and examined Giselle Salguero. I have discussed the case and the management of this patient's care with the Resident/Fellow, if applicable. I also have reviewed and agree with the assessment and plan as stated above and agree with all of its relevant components. Yogesh Dunne, [facility]11-13-2024 History of Present illness Narrative* Yogesh Dunne MD - 01/06/2024 1:58 PM EST Assessment and Plan 1. 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 Bilateral cornea scars -history of multiple superficial keratectomies -has tried multiple drops with limited help -has been using scleral lenses that help at the beginning of the day but worsens over time - likelydry eye component -little improvement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 plan as stated above and agree withall of its relevant components. Yogesh Dunne MD documented in this encounterHighland [facility] Hospital05-31-2023 Miscellaneous Notes* Telephone Encounter - Vidhya Ricardo RN - 07/23/2022 4:05 PM EDT Images from the original note were not included. Yogesh Dunne MD You 57 minutes ago (3:07 PM) Losartan needs to be called to the pharmacy in [place] It is in both eyes Can put a drop or 2 in the scleral lens solution before putting them in, then drops every two hoursonce he takes the scleral lenses out * Telephone Encounter - Vidhya Ricardo RN - 07/16/2022 10:09 AM EDT Routing message to Dr. Dunne to advise. Noted that prescription for the Losartan drops had not been placed and needs confirmation of which or both eyes for instillation. Also needs clarification of if drops can be instilled with the scleral lenses in place or do they need removed each time and if so how long till they can be reinserted. Please advise. Vidhya Ricardo RN July 16, 2022 10:11 AM * Telephone Encounter - Louisa East - 07/15/2022 1:06 PM EDT Patient calling back-has questions about the effect of the medication on his contacts (hard gas permeable lens). He would like to know if Dr has any input regarding Per OV note 07/09/22 Plan: -will try lasartan eyedrops 6x daily -if not better, to consider Phototherapeutic keratectomy (PTK) (haze is in anterior 15-20% of corneas on -OCT) -if all fails, to consider PK/DALK -follow-up 2-3 months with -OCT both eyes. To consider punctal plugs then I have confirmed and edited as necessary the relevant ophthalmic history, ROS, and the neuro exam findings as obtained by others. I have seen and examined Giselle Chung Jose M. I have discussed the case and the management of this patient's care with the Resident/Fellow, if applicable. I also have reviewed and agree with the assessment and plan as stated above and agree withall of its relevant components. Yogesh Dunne MD July 09, 2022 3:47 PM * Telephone Encounter - Yi Reid - 07/14/2022 10:42 AM EDT PT calls in regards for the prescription that you have just ordered [facility] [place] [facility] he has some questions ( needing to know is if drops can be put in with contacts or take them out)Also pharmacy wanted to know if he had an Ulcer and this is not for scar tissue. These questions are due to it being very expensive, please call him and advise. 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 Corneal opacity, unspecified Type 2 diabetes mellitus without retinopathy (HCC) Type II or unspecified type diabetes mellitus without mention of complication, not stated as uncontrolled Pseudophakia Lens replaced by other means Epiretinal membrane (ERM) of both eyes [facility]* Diagnosis Bilateral cornea scars- Primary Corneal opacity, unspecified 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 Pseudophakia Lens replaced by other means Type 2 diabetes mellitus without retinopathy (HCC) Type II or unspecified type diabetes mellitus without mention of complication, not stated as uncontrolled 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 of eyelid without entropion documented in this encounter [facility]* Diagnosis 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- Primary documented in this encounter [facility]* Diagnosis 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- Primary documented in this encounter [facility]* Diagnosis Pre-operative anxiety- Primary Post-op pain Other acute postoperative pain 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 documented in this encounter [facility]* Diagnosis 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 documented in this encounter [facility]* Diagnosis 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 Corneal opacity, unspecified Type 2 diabetes mellitus without retinopathy (HCC) Type II or unspecified type diabetes mellitus without mention of complication, not stated as uncontrolled Pseudophakia Lens replaced by other means 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 of eyelid without entropion Epiretinal membrane (ERM) of both eyes documented in this encounter [facility]* Diagnosis Pre-operative anxiety- Primary documented in this encounter [facility]* Diagnosis Pre-operative anxiety documented in this encounter [facility]* Diagnosis Corneal scar Corneal opacity, unspecified documented in this encounter [facility]* Diagnosis Corneal scar- Primary Corneal opacity, unspecified documented in this encounter [facility]* Diagnosis Type 2 diabetes mellitus without retinopathy (HCC)- Primary Type II or unspecified type diabetes mellitus without mention of complication, not stated as uncontrolled 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 Corneal opacity, unspecified Pseudophakia Lens replaced by other means documented in this encounter [facility]* Diagnosis Type 2 diabetes mellitus without retinopathy (HCC)- Primary Type II or unspecified type diabetes mellitus without mention of complication, not stated as uncontrolled 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 documented in this encounter [facility]* Diagnosis 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 Corneal scar Corneal opacity, unspecified 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 Type 2 diabetes mellitus without retinopathy (HCC) Type II or unspecified type diabetes mellitus without mention of complication, not stated as uncontrolled documented in this encounter [facility]* Diagnosis 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 Corneal opacity, unspecified Pseudophakia of both eyes Lens replaced by other means Type 2 diabetes mellitus without retinopathy (HCC) Type II or unspecified type diabetes mellitus without mention of complication, not stated as uncontrolled 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 documented in this encounter [facility]* Diagnosis 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 Corneal opacity, unspecified documented in this encounter [facility]* Diagnosis 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 Corneal opacity, unspecified documented in this encounter [facility]* Diagnosis Bilateral cornea scars- Primary Corneal opacity, unspecified Type 2 diabetes mellitus without retinopathy (HCC) Type II or unspecified type diabetes mellitus without mention of complication, not stated as uncontrolled Optic cupping of both eyes Pseudophakia of both eyes Lens replaced by other means documented in this encounter [facility]* Diagnosis Type 2 diabetes mellitus without retinopathy (HCC) Type II or unspecified type diabetes mellitus without mention of complication, not stated as uncontrolled 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 documented in this encounter [facility]* Diagnosis Onset Date Resolution Status Admit Date Bilateral carotid artery stenosis chronic August 23, 2024 1:04pm Essential (primary) hypertension chronic August 23, 2024 1:04pm Pure hypercholesterolemia chronic August 23, 2024 1:04pm 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, 2005 resolved August 23 1:04pm [facility] Work Phone: Reason for referral (narrative)No reason for referral information availableBlLodi [facility] Work Phone: Summary Purpose Family History No Family History Records Found Relationship Condition Age at Onset Recorded Date/T vicki Not Specified Coronary artery disease Unknown father Cardiac disease Unknown Myocardial infarction Unknown brother Malignant neoplasm Unknown sister Malignant neoplasm of breast Unknown Advance Directives No Advanced Directives Records FoundNo Advanced Directives Records FoundNo Advanced Directives Records Found Chief Complaint and Reason for Visit Chief Complaint Admit Date OVERDUE FOR OV/LAST SEEN 07/2022 1:04pm LABS August 30, 2024 8:31a m Reason for Visit Admit Date Bilateral carotid artery stenosis August 232024 1:04pm Essential (primary) hypertension August 1:04pm Pure hypercholesterolemia August 23, 2024 1:04pm H/O coronary artery bypass surgery August 23, 2024 1:04pm Chief Complaint 6 M FU Reason for Visit Bilateral carotid ar casimiro stenosis Essential (primary) hypertension Pure hypercholesterolemia H/O coronary artery bypass surgery Chief Complaint 1 Y FU Reason for Visit Bilateral carotid ar casimiro stenosis Essential (primary) hypertension Pure hypercholesterolemia H/O coronary artery bypass surgery Chief Complaint Admit Date OVERDUE FOR OV/LAST SEEN 07/2022 1:04pm Additional Source Comments (unrecognized sect ion and content) No Status Records FoundNo Status Records FoundNo Status Records Found INFORMATION SOURCE (unrecogn ized section and content) DATE CREATED AUTHOR 06/03/2018 [facility] DATE CREATED AUTHOR AUTHOR'S ORGANIZ ATION 08/06/2024 [facility] DATE CREATED AUTHOR AUTHOR'S ORGANIZ ATION [facility] Goals (unrecognized section and content) Goals may be documented in a n alternate sectionGoals may be documented in an alternate sectionGoals may be documented in an alternate sectionGoals may be documented in an alternate sectionGoals may be documented in an alternate sectionGoals may be documented in an alternate sectionGoals may be documented in an alternate sectionGoals may be documented in an alternate section Source Comments (unrecognize d section and content) In the event this informatio n is protected by the Federal Confidentiality of Alcohol and Drug Abuse Patient Records regulations: The Federal rules restrict any use of the information to criminally investigate or prosecute any alcohol or drug abuse patient.[facility] HospitalIn the event this information is protected by the Federal Confidentiality of Alcohol and Drug Abuse Patient Records regulations: The Federal rules restrict any use of the information to criminally investigate or prosecute any alcohol or drug abuse patient.[facility] HospitalIn the event this information is protected by the Federal Confidentiality of Alcohol and Drug Abuse Patient Records regulations: The Federal rules restrict any use of the information to criminally investigate or prosecute any alcohol or drug abuse patient.[facility] HospitalIn the event this information is protected by the Federal Confidentiality of Alcohol and Drug Abuse Patient Records regulations: The Federal rules restrict any use of the information to criminally investigate or prosecute any alcohol or drug abuse patient.[facility] HospitalIn the event this information is protected by the Federal Confidentiality of Alcohol and Drug Abuse Patient Records regulations: The Federal rules restrict any use of the information to criminally investigate or prosecute any alcohol or drug abuse patient.[facility] HospitalIn the event this information is protected by the Federal Confidentiality of Alcohol and Drug Abuse Patient Records regulations: The Federal rules restrict any use of the information to criminally investigate or prosecute any alcohol or drug abuse patient.[facility] HospitalIn the event this information is protected by the Federal Confidentiality of Alcohol and Drug Abuse Patient Records regulations: The Federal rules restrict any use of the information to criminally investigate or prosecute any alcohol or drug abuse patient.[facility] HospitalIn the event this information is protected by the Federal Confidentiality of Alcohol and Drug Abuse Patient Records regulations: The Federal rules restrict any use of the information to criminally investigate or prosecute any alcohol or drug abuse patient.[facility] HospitalIn the event this information is protected by the Federal Confidentiality of Alcohol and Drug Abuse Patient Records regulations: The Federal rules restrict any use of the information to criminally investigate or prosecute any alcohol or drug abuse patient.[facility] HospitalIn the event this information is protected by the Federal Confidentiality of Alcohol and Drug Abuse Patient Records regulations: The Federal rules restrict any use of the information to criminally investigate or prosecute any alcohol or drug abuse patient.[facility] HospitalIn the event this information is protected by the Federal Confidentiality of Alcohol and Drug Abuse Patient Records regulations: The Federal rules restrict any use of the information to criminally investigate or prosecute any alcohol or drug abuse patient.[facility] HospitalIn the event this information is protected by the Federal Confidentiality of Alcohol and Drug Abuse Patient Records regulations: The Federal rules restrict any use of the information to criminally investigate or prosecute any alcohol or drug abuse patient.[facility] HospitalIn the event this information is protected by the Federal Confidentiality of Alcohol and Drug Abuse Patient Records regulations: The Federal rules restrict any use of the information to criminally investigate or prosecute any alcohol or drug abuse patient.[facility] HospitalIn the event this information is protected by the Federal Confidentiality of Alcohol and Drug Abuse Patient Records regulations: The Federal rules restrict any use of the information to criminally investigate or prosecute any alcohol or drug abuse patient.[facility] HospitalIn the event this information is protected by the Federal Confidentiality of Alcohol and Drug Abuse Patient Records regulations: The Federal rules restrict any use of the information to criminally investigate or prosecute any alcohol or drug abuse patient.[facility] HospitalIn the event this information is protected by the Federal Confidentiality of Alcohol and Drug Abuse Patient Records regulations: The Federal rules restrict any use of the information to criminally investigate or prosecute any alcohol or drug abuse patient.[facility] HospitalIn the event this information is protected by the Federal Confidentiality of Alcohol and Drug Abuse Patient Records regulations: The Federal rules restrict any use of the information to criminally investigate or prosecute any alcohol or drug abuse patient.[facility] HospitalIn the event this information is protected by the Federal Confidentiality of Alcohol and Drug Abuse Patient Records regulations: The Federal rules restrict any use of the information to criminally investigate or prosecute any alcohol or drug abuse patient.[facility] HospitalIn the event this information is protected by the Federal Confidentiality of Alcohol and Drug Abuse Patient Records regulations: The Federal rules restrict any use of the information to criminally investigate or prosecute any alcohol or drug abuse patient.[facility] HospitalIn the event this information is protected by the Federal Confidentiality of Alcohol and Drug Abuse Patient Records regulations: The Federal rules restrict any use of the information to criminally investigate or prosecute any alcohol or drug abuse patient.[facility] HospitalIn the event this information is protected by the Federal Confidentiality of Alcohol and Drug Abuse Patient Records regulations: The Federal rules restrict any use of the information to criminally investigate or prosecute any alcohol or drug abuse patient.[facility] HospitalIn the event this information is protected by the Federal Confidentiality of Alcohol and Drug Abuse Patient Records regulations: The Federal rules restrict any use of the information to criminally investigate or prosecute any alcohol or drug abuse patient.[facility] HospitalIn the event this information is protected by the Federal Confidentiality of Alcohol and Drug Abuse Patient Records regulations: The Federal rules restrict any use of the information to criminally investigate or prosecute any alcohol or drug abuse patient.[facility] HospitalIn the event this information is protected by the Federal Confidentiality of Alcohol and Drug Abuse Patient Records regulations: The Federal rules restrict any use of the information to criminally investigate or prosecute any alcohol or drug abuse patient.[facility] HospitalIn the event this information is protected by the Federal Confidentiality of Alcohol and Drug Abuse Patient Records regulations: The Federal rules restrict any use of the information to criminally investigate or prosecute any alcohol or drug abuse patient.[facility] HospitalIn the event this information is protected by the Federal Confidentiality of Alcohol and Drug Abuse Patient Records regulations: The Federal rules restrict any use of the information to criminally investigate or prosecute any alcohol or drug abuse patient.[facility] Reason for Visit (unrecogniz ed section and content) Reason Comments Patient Question Reason Comments Anterior Membrane Dystrophy Follow Up Reason Comments PTK Evaluation Reason Comments Follow Up Reason Comments Trichiasis Evaluation Reason Comments Trichiasis Follow Up Reason Comments PTK OS Specialty Diagnoses / Procedures Referred By Contac t Referred To Contact OPHTHALMOLOGY Diagnoses 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 Procedures PHOTOTHERAP KERATECT EYE SURG ANT SGMT PROC UNLISTED S0812 denied as not a benefit and i cannot delete that code Please use [id number] which is unlisted but please put in the same descritpion as Phototheraputic Keratectomy Benny Marina MD [address] [place] [address] Phone: [facility] Main [address] [place] [address] Referral ID Status Reason Start Date Expiration Date Visits Re quested Visits Authorized [id number] Closed 03/12/2023 05/10/2023 1 1 Reason Comments Anterior basement membrane dystrophy Reason Comments Refraction Anterior Membrane Dystrophy Follow Up Reason Comments Appeal letter Reason Onset Date Comments Refill Request 10/06/2023 Reason Comments PTK RIGHT EYE Specialty Diagnoses / Procedures Referred By Contac t Referred To Contact OPHTHALMOLOGY Diagnoses Unspecified corneal scar and opacity 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 [address] [place] [address] Benny Marina MD [address] [facility] [place] [address] Phone: Referral ID Status Reason Start Date Expiration Date V isits Requested Visits Authorized [id number] Closed Clearance Not Met - Pt Rescheduled/ Cancelled/Ch ose Not to Proceed 09/02/2023 12/29/2023 1 1 Reason Comments Corneal evaluation Reason Comments Diabetic Eye Exam Reason Comments Diabetes Macular Degeneration Evaluation Reason Comments Glaucoma Evaluation Reason Comments Scleral Lens Fitting Reason Comments contact lens dispense Reason Comments Contact Lens Follow Up Reason Comments Macular Degeneration Care Teams (unrecognized sec tion and content) Chief Substation Operator Relationship Specialty Start Date End Date Sammy Griffith Chi PCP - General 08/31/08 Yovani Marques MD [address] [place], [place] [id number] Referring General Surgery 12/07/20 Team Status: Active Member Role Status Dates Dr. Sammy Griffith MD Family Provider Active Dr. Sammy Griffith MD Primary Care Provider Active Team Status: Inactive Member Role Status Dates Dr. Sammy Griffith MD Primary Care Provider, Referring Provider Active Teresa Rosas THERMAL SURFACING MACHINE OPERATOR, THERMAL SURFACING MACHINE OPERATOR-C Attending Provider Active Team Status: Inactive Member Role Status Dates Dr. Sammy Griffith MD Primary Care Provider Active Dr. Macrina Todd DO Attending Provider, Referring P minor Active Team Status: Inactive Member Role Status Dates Dr. Sammy Griffith MD Primary Care Provi nelson, Attending Provider, Referring Provider Active Chief Substation Operator Relationship Specialty Start Date End Date Sammy Griffith Chi PCP - General 08/31/08 Yovani Marques MD [address] [place], [place] [phone] Referring General Surgery 12/07/20 Chief Substation Operator Relationship Specialty Start Date End Date Sammy Griffith Chi PCP - General 08/31/08 Yovani Marques MD [address] [place], [place] [id number] Referring General Surgery 12/07/20 Chief Substation Operator Relationship Specialty Start Date End Date Nacho Sammy Arguelles PCP - General 08/31/08 Yovani Marques MD [address] [place] [address] Referring General Surgery 12/07/20 Chief Substation Operator Relationship Specialty Start Date End Date NachoSammy Chi PCP - General 08/31/08 Yovani Marques MD [address] [place] [address] Referring General Surgery 12/07/20 Team Status: Inactive Member Role Status Dates Dr. Sammy Griffith MD Primary Care Provider, Attending Provider Active Chief Substation Operator Relationship Specialty Start Date End Date NachoSammy Chi PCP - General 08/31/08 Yovani Marques MD [address] [place] [address] Referring General Surgery 12/07/20 Chief Substation Operator Relationship Specialty Start Date End Date Sammy Griffith Chi PCP - General 08/31/08 Yovani Marques MD [address] [place] [address] Referring General Surgery 12/07/20 Chief Substation Operator Relationship Specialty Start Date End Date NachoSammy velazquez Chi PCP - General 08/31/08 Yovani Marques MD [address] [place] [place], [place] [address] Referring General Surgery 12/07/20 Chief Substation Operator Relationship Specialty Start Date End Date Nacho Sammy Arguelles PCP - General 08/31/08 Yovani Marques MD [address] [place] [address] Referring General Surgery 12/07/20 Chief Substation Operator Relationship Specialty Start Date End Date Sammy Griffith Chi PCP - General 08/31/08 Yovani Marques MD [address] [place] [address] Referring General Surgery 12/07/20 Chief Substation Operator Relationship Specialty Start Date End Date Sammy Griffith Chi PCP - General 08/31/08 Yovani Marques MD [address] [place] [address] Referring General Surgery 12/07/20 Chief Substation Operator Relationship Specialty Start Date End Date NachoSammy velazquez Chi PCP - General 08/31/08 Yovani Marques MD [address] [place] [address] Referring General Surgery 12/07/20 Chief Substation Operator Relationship Specialty Start Date End Date Sammy Griffith Chi PCP - General 08/31/08 Yovani Marques MD [address] [place], [place] [id number] Referring General Surgery 12/07/20 Chief Substation Operator Relationship Specialty Start Date End Date Sammy Griffith Chi PCP - General 08/31/08 Yovani Marques MD [address] [place], [place] [address] Referring General Surgery 12/07/20 Chief Substation Operator Relationship Specialty Start Date End Date Sammy Griffith Blane PCP - General 08/31/08 Yovani Marques MD [address] [place], [place] [address] Referring General Surgery 12/07/20 Chief Substation Operator Relationship Specialty Start Date End Date Sammy Griffith Chi PCP - General 08/31/08 Yovani Marques MD [address] [place], [place] [id number] Referring General Surgery 12/07/20 Chief Substation Operator Relationship Specialty Start Date End Date Nacho Sammy Arguelles PCP - General 08/31/08 Yovani Marques MD [address] [place] [address] Referring General Surgery 12/07/20 Team Status: Active Member Role/Relationship Status Dates Dr. Sammy Griffith MD Family Provider Active Dr. Sammy Griffith MD Primary Care Provider Active Team Status: Inactive Member Role/Relationship Status Dates Dr. Sammy Griffith MD Primary Care Provider Active Start: August 23, 2024 End: August 23, 2024 Dr. Sammy Griffith MD Referring Provider Active Start: August 23, 2024 End: August 23, 2024 Teresa Rosas THERMAL SURFACING MACHINE OPERATOR, THERMAL SURFACING MACHINE OPERATOR-C Attending Provider Active Start: August 23, 2024 End: August 23, 2024 Team Status: Active Member Role/Relationship Status Dates Dr. Sammy Griffith MD Primary Care Provider Active Team Status: Inactive Member Role/Relationship Status Dates Dr. Sammy Griffith MD Primary Care Provider Active Start: August 30, 2024 End: August 30, 2024 Dr. Macrina Todd DO Attending Provider Active Start: August 30, 2024 End: August 30, 2024 Dr. Macrina Todd DO Referring Provider Active Start: August 30, 2024 End: August 30, 2024 Team Status: Inactive Member Role/Relationship Status Dates Dr. Sammy Griffith MD Primary Care Provider Active Start: September 07, 2024 End: September 07, 2024 Dr. Sammy Griffith MD Attending Provider Active Start: September 07, 2024 End: September 07, 2024 FOR RECORDS PERTAINING TO PATIENTS WHO ARE OR HAVE BEEN ENROLLED IN A CHEMICAL DEPENDENCY/SUBSTANCEABUSE PROGRAM, SOME INFORMATION MAY BE OMITTED. This clinical summary was aggregated from multiple sources. Caution should be exercised in using it in the provision of clinical care. This summary normalizes information from multiple sources, and as a consequence, information in this document may materially change the coding, format and clinical context of patient data. In addition, data may be omitted in some cases. CLINICAL DECISIONS SHOULD BE BASED ON THE PRIMARY CLINICAL RECORDS. [employer] [facility]. provides no warranty or guarantee of the accuracy or completeness of information in this document.
--- NOTE | 2024-09-22 14:04 | STRESSREP ---
Stress Test Report Pharmacologic myocardial perfusion stress test. 84-year-old preop clearance for carotid stenosis Resting EKG demonstrates sinus rhythm with a rate of 83 bpm. Resting blood pressure is 162/64 mmHg. 0.4 mg of regadenoson was infused per usual protocol followed by rapid intravenous saline flush injection. Continuous EKG monitoring was performed. The maximum heart rate was 94 bpm which was 68% of max impacted heart rate the maximum workload was 1 metabolic equivalent. At rest there were no ST or T wave changes noted to suggest ischemia and at peak infusion nonspecific ST changes were noted which did not meet the criteria for ischemia. No clinical angina is noted. The final blood pressure was 150/88 mmHg. Myocardial perfusion protocol. 11.8 mCi of technetium 99m sestamibi was injected at rest. 0.4 mg of regadenoson was infused per usual protocol. At peak infusion 34.3 mCi of technetium 99m sestamibi was injected stress images were obtained stress and rest images were reconstructed and compared in the short axis vertical long and horizontal long axis. Gated images were also obtained. Perfusion SPECT analysis: Review of the stress images demonstrate normal uptake of tracer noted in all areas of the myocardium. The resting images similar demonstrated normal uptake of tracer noted in all areas of the myocardium. No areas of reversibility are noted to suggest ischemia and no previous infarct is noted. Gated SPECT analysis: The gated ejection fraction is 68%. Conclusion: Normal pharmacologic myocardial perfusion stress test. Preserved ejection fraction.
== END | disposition home or self-care (01) ==
LOC: CVS 06:46
PROVIDERS: PCP Family Medicine Geriatric Medicine; Referring Provider Nurse Practitioner Gerontology; Visit Provider Nurse Practitioner Gerontology
DX: I25.10 Atherosclerotic heart disease of native coronary artery without angina pectoris (principal); Z95.1 Presence of aortocoronary bypass graft
CPT/HCPCS: 78452; 93017; A9500; A4216; J2785